=== PATIENT | male | born 1955 | race Caucasian/White ===

== ENCOUNTER → 2016-09-03 | Outpatient (REF) | payer MEDICARE, MEDICAID ==
[~2016-09-03] MED LIST: /LAMO20TA PO; /METH500TA PO; ASPI81CH PO; CORE6.25 PO; ERGO500014 PO; FOSI20TA2 PO; HYDR50TA2 PO; KEPP1000 PO; KEPPRA; LAMO200T PO; LEVE500T2 PO; MOBI15TA PO; PARO40TA PO; PAXI40TA PO; TYLE325T5 PO; VITA100T20 PO; XANA0.25 PO; ZOCO40TA PO; lamotrigine
[2016-09-03 13:50] LABS: BASO % 0.6 % (0.0-1.0); EOS # 0.2 K/mm3 (0.0-0.50); EOS % 4.4 % (0.0-3.0); LARGE UNSTAINED CELL # 0.1 K/mm3 (0.0-0.4); LARGE UNSTAINED CELL % 2.3 % (0.0-4.0); LYMPH # 0.7 K/mm3 (1.5-4.5); LYMPH % 20.4 % (24.0-44.0); MEAN CORPUSCULAR HEMOGLOBIN 27.2 pg (27.0-33.0); MEAN CORPUSCULAR HGB CONC 31.9 g/dl (32.0-36.5); MEAN CORPUSCULAR VOLUME 85.2 fl (80.0-96.0); MONO # 0.2 K/mm3 (0.0-0.8); NEUTROPHILS # 2.4 K/mm3 (1.8-7.7); NEUTROPHILS % 67.4 % (36.0-66.0); PLATELET COUNT, AUTOMATED 139 k/mm3 (150-450); RED CELL DISTRIBUTION WIDTH 13.4 % (11.5-14.5); WHITE BLOOD COUNT 3.6 K/mm3 (4.0-10.0)
[2016-09-03 14:10] LABS: ALBUMIN 3.7 GM/DL (3.2-5.2); ALBUMIN/GLOBULIN RATIO 1.32 (1.00-1.93); ALKALINE PHOSPHATASE 126 U/L (45-117); ALT/SGPT 30 U/L (12-78); ANION GAP 8 MEQ/L (8-16); AST/SGOT 29 U/L (15-37); BILIRUBIN,TOTAL 0.2 MG/DL (0.2-1.0); BLOOD UREA NITROGEN 7 MG/DL (7-18); CALCIUM LEVEL 8.5 MG/DL (8.8-10.2); CARBON DIOXIDE LEVEL 27 MEQ/L (21-32); CHLORIDE LEVEL 106 MEQ/L (98-107); CREATININE FOR GFR 0.99 MG/DL (0.70-1.30); GLOMERULAR FILTRATION RATE > 60.0 (>49); GLUCOSE, FASTING 87 MG/DL (80-110); POTASSIUM SERUM 4.4 MEQ/L (3.5-5.1); SODIUM LEVEL 141 MEQ/L (136-145); TOTAL PROTEIN 6.5 GM/DL (6.4-8.2)
[2016-09-03 14:28] LABS: FOLATE 5.2 NG/ML (>5.4); VITAMIN B12 LEVEL 423 PG/ML (247-911)
[2016-09-07 00:08] LABS: VITAMIN E LEVEL 7.5 mg/L (5.3-17.5)
== END ==
LOC: M LABNEURO 10:04
PROVIDERS: ATTEND Psychiatry & Neurology Neurology
DX: R56.9 Unspecified convulsions (principal); G60.9 Hereditary and idiopathic neuropathy, unspecified; G43.909 Migraine, unspecified, not intractable, without status migrainosus

== ENCOUNTER → 2017-02-17 | Outpatient (REF) | payer MEDICARE, MEDICAID ==
[~2017-02-17] MED LIST changes: -PARO40TA PO; +PARO40TA2 PO
[2017-02-17 15:20] LABS: BASO % 0.9 % (0.0-1.0); EOS # 0.2 K/mm3 (0.0-0.50); EOS % 4.8 % (0.0-3.0); LARGE UNSTAINED CELL # 0.1 K/mm3 (0.0-0.4); LARGE UNSTAINED CELL % 2.1 % (0.0-4.0); LYMPH # 1.3 K/mm3 (1.5-4.5); MEAN CORPUSCULAR HGB CONC 32.9 g/dl (32.0-36.5); MEAN CORPUSCULAR VOLUME 85.1 fl (80.0-96.0); MONO # 0.2 K/mm3 (0.0-0.8); MONO % 4.7 % (0.0-5.0); NEUTROPHILS # 2.6 K/mm3 (1.8-7.7); NEUTROPHILS % 59.5 % (36.0-66.0); PLATELET COUNT, AUTOMATED 203 k/mm3 (150-450); RED CELL DISTRIBUTION WIDTH 13.1 % (11.5-14.5); WHITE BLOOD COUNT 4.4 K/mm3 (4.0-10.0)
[2017-02-17 16:10] LABS: ALBUMIN 3.6 GM/DL (3.2-5.2); ALKALINE PHOSPHATASE 100 U/L (45-117); ALT/SGPT 27 U/L (12-78); ANION GAP 8 MEQ/L (8-16); AST/SGOT 21 U/L (15-37); BILIRUBIN,TOTAL 0.4 MG/DL (0.2-1.0); BLOOD UREA NITROGEN 12 MG/DL (7-18); CALCIUM LEVEL 8.4 MG/DL (8.8-10.2); CARBON DIOXIDE LEVEL 29 MEQ/L (21-32); CHLORIDE LEVEL 106 MEQ/L (98-107); CREATININE FOR GFR 1.01 MG/DL (0.70-1.30); GLOMERULAR FILTRATION RATE > 60.0 (>49); GLUCOSE, FASTING 75 MG/DL (80-110); POTASSIUM SERUM 4.7 MEQ/L (3.5-5.1); SODIUM LEVEL 143 MEQ/L (136-145); TOTAL PROTEIN 6.6 GM/DL (6.4-8.2)
== END ==
LOC: M LABNEURO 13:25
PROVIDERS: ATTEND Psychiatry & Neurology Neurology
DX: R56.9 Unspecified convulsions (principal)

== ENCOUNTER → 2017-03-10 | Outpatient (CLI) | payer MEDICARE, MEDICAID ==
--- NOTE | 2017-03-10 09:30 | REP ---
Chest two views HISTORY: Hypertension Comparison: 04/30/2014 Linear densities are present in the right middle lobe consistent with scarring. The left lung is clear. The heart is normal in size. The pulmonary vasculature is normal in appearance. There are old right rib fractures. IMPRESSION: Right middle lobe scarring. Signed by Mario Rodriguez MD 03/10/2017 09:22 A
[2017-03-10 10:06] LABS: ANION GAP 10 MEQ/L (8-16); BLOOD UREA NITROGEN 15 MG/DL (7-18); CALCIUM LEVEL 8.6 MG/DL (8.8-10.2); CARBON DIOXIDE LEVEL 29 MEQ/L (21-32); CHLORIDE LEVEL 105 MEQ/L (98-107); CREATININE FOR GFR 0.96 MG/DL (0.70-1.30); GLOMERULAR FILTRATION RATE > 60.0 (>49); GLUCOSE, FASTING 81 MG/DL (80-110); POTASSIUM SERUM 4.5 MEQ/L (3.5-5.1); SODIUM LEVEL 144 MEQ/L (136-145)
--- NOTE | 2017-03-10 15:04 | ECGEPIP ---
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 Electronically Signed On 03-10-2017 15:04:26 EDT by Mauricio García
== END ==
LOC: M LAB 07:57
PROVIDERS: ATTEND Ophthalmology
DX: H25.12 Age-related nuclear cataract, left eye (principal); E78.4 Other hyperlipidemia

== ENCOUNTER 2017-09-01 21:23 | Observation (INO) | payer MEDICARE, MEDICAID ==
[2017-09-01] MEDS: NS 1,000 ML IV ×2 (23:15)
[2017-09-01 23:40] LABS: BASO % 0.7 % (0.0-1.0); EOS # 0.2 10^3/uL (0.0-0.50); EOS % 3.6 % (0.0-3.0); HEMOGLOBIN 12.8 g/dl (14.0-18.0); IMMATURE GRANULOCYTE % 0.3 % (0-3.0); LYMPH # 1.7 10^3/uL (1.5-4.5); LYMPH % 28.1 % (24.0-44.0); MEAN CORPUSCULAR HEMOGLOBIN 27.6 pg (27.0-33.0); MEAN CORPUSCULAR VOLUME 86.2 fl (80.0-96.0); MONO # 0.4 10^3/uL (0.0-0.8); MONO % 6.8 % (0.0-5.0); NEUTROPHILS # 3.6 10^3/uL (1.8-7.7); NEUTROPHILS % 60.5 % (36.0-66.0); PLATELET COUNT, AUTOMATED 199 10^3/uL (150-450); RED BLOOD COUNT 4.64 10^6/uL (4.30-6.10); RED CELL DISTRIBUTION WIDTH 13.2 % (11.5-14.5); WHITE BLOOD COUNT 5.9 10^3/uL (4.0-10.0)
[2017-09-02 00:02] LABS: AMMONIA 18 uMOL/L (<32)
[2017-09-02 00:03] LABS: LACTIC ACID SEPSIS PROTOCOL 1.1 MMOL/L (0.4-2.0)
[2017-09-02 00:06] LABS: ALBUMIN 3.4 GM/DL (3.2-5.2); ALBUMIN/GLOBULIN RATIO 0.97 (1.00-1.93); ALKALINE PHOSPHATASE 98 U/L (45-117); ALT/SGPT 28 U/L (12-78); ANION GAP 6 MEQ/L (8-16); AST/SGOT 25 U/L (7-37); BILIRUBIN,DIRECT < 0.1 MG/DL (0.0-0.2); BILIRUBIN,TOTAL 0.3 MG/DL (0.2-1.0); BLOOD UREA NITROGEN 10 MG/DL (7-18); CALCIUM LEVEL 8.4 MG/DL (8.8-10.2); CARBON DIOXIDE LEVEL 29 MEQ/L (21-32); CHLORIDE LEVEL 105 MEQ/L (98-107); CPK CREATINE PHOSPHOKINASE 393 U/L (39-308); CREATININE FOR GFR 1.11 MG/DL (0.70-1.30); GLOMERULAR FILTRATION RATE > 60.0 (>49); GLUCOSE, FASTING 89 MG/DL (70-100); LIPASE 167 U/L (73-393); MAGNESIUM LEVEL 2.2 MG/DL (1.8-2.4); POTASSIUM SERUM 4.6 MEQ/L (3.5-5.1); SODIUM LEVEL 140 MEQ/L (136-145); TOTAL PROTEIN 6.9 GM/DL (6.4-8.2); TROPONIN I < 0.02 NG/ML (< 0.10)
[2017-09-02 00:11] LABS: CK-MB VALUE MASS 9.8 NG/ML (0.0-3.6); MB/CK RELATIVE INDEX 2.49 (< OR =4)
[2017-09-02] MEDS ORDERED: ACETAMINOPHEN TAB 650MG DOSE (2X325MG) PO ×2 (06:00)
[2017-09-02] MEDS ORDERED: KETOCONAZOLE 2% CREAM EXT ×2 (06:15)
[2017-09-02] MEDS ORDERED: TETRAHYDROZOLINE OPHTH 0.05% 15 ML BTL OU ×2 (06:15)
[2017-09-02] MEDS ORDERED: ASPIRIN ENTERIC 325 MG TAB PO ×2 (06:15)
[2017-09-02] MEDS: NS 1,000 ML IV ×4 (06:44→17:56)
[2017-09-02] MEDS: HEPARIN SOD (PORCINE) 5000 UNITS/ML VIAL SC ×6 (06:44→21:02)
[2017-09-02 07:29] LABS: HEMATOCRIT 38.4 % (42.0-52.0); HEMOGLOBIN 12.3 g/dl (14.0-18.0); MEAN CORPUSCULAR HEMOGLOBIN 27.5 pg (27.0-33.0); MEAN CORPUSCULAR VOLUME 85.7 fl (80.0-96.0); PLATELET COUNT, AUTOMATED 183 10^3/uL (150-450); RED BLOOD COUNT 4.48 10^6/uL (4.30-6.10); RED CELL DISTRIBUTION WIDTH 13.2 % (11.5-14.5); WHITE BLOOD COUNT 4.7 10^3/uL (4.0-10.0)
[2017-09-02 07:51] LABS: ALBUMIN 3.4 GM/DL (3.2-5.2); ALKALINE PHOSPHATASE 95 U/L (45-117); ALT/SGPT 29 U/L (12-78); ANION GAP 5 MEQ/L (8-16); AST/SGOT 44 U/L (7-37); BILIRUBIN,TOTAL 0.3 MG/DL (0.2-1.0); BLOOD UREA NITROGEN 12 MG/DL (7-18); CALCIUM LEVEL 8.1 MG/DL (8.8-10.2); CARBON DIOXIDE LEVEL 28 MEQ/L (21-32); CHLORIDE LEVEL 108 MEQ/L (98-107); CREATININE FOR GFR 1.11 MG/DL (0.70-1.30); GLOMERULAR FILTRATION RATE > 60.0 (>49); GLUCOSE, FASTING 91 MG/DL (70-100); MAGNESIUM LEVEL 2.2 MG/DL (1.8-2.4); POTASSIUM SERUM 4.4 MEQ/L (3.5-5.1); SODIUM LEVEL 141 MEQ/L (136-145); TOTAL PROTEIN 6.5 GM/DL (6.4-8.2)
[2017-09-02 10:08] LABS: VITAMIN B12 LEVEL 444 PG/ML
[2017-09-02] MEDS: lamoTRIgine 100MG TAB PO ×4 (10:29→21:02)
[2017-09-02] MEDS: CYANOCOBALAMIN 500 MCG TAB PO ×2 (10:30)
[2017-09-02] MEDS: levETIRAcetam 250MG TABLET (KEPPRA) PO ×4 (10:30→21:02)
[2017-09-02] MEDS: PARoxetine 20 MG TAB PO ×2 (10:31)
[2017-09-02] MEDS: CARVedilol 6.25 MG TAB PO ×4 (10:31→21:02)
[2017-09-02] MEDS: FOSINOPRIL 20 MG TAB PO ×2 (10:31)
[2017-09-02] MEDS ORDERED: MOM 30ML SUSPENSION UDC PO ×2 (11:00)
[2017-09-02] MEDS ORDERED: SENOKOT S TAB PO ×2 (11:00)
[2017-09-02] MEDS: PERCOCET 5MG/325MG TAB PO ×6 (11:17→23:36)
[2017-09-02] MEDS: LIDOCAINE 2% 5ML JELLY UROJET TOP ×2 (15:48)
[2017-09-02 19:21] LABS: KETONE, URINE AUTO RFX NEGATIVE (NEGATIVE); LEUKOCYTE ESTERASE UR AUTO RFX NEGATIVE (NEGATIVE); NITRITE, URINE AUTO RFX NEGATIVE (NEGATIVE); RBC, URINE AUTO RFX TNTC /HPF (0-3); SPECIFIC GRAVITY UR AUTO RFX 1.015 (1.002-1.035); SQUAM EPITHELIAL CELL UR AURFX 0 /HPF (0-6); WBC, URINE AUTO RFX 4 /HPF (0-3)
[2017-09-02] MEDS: CEFTRIAXONE SOD 1 GM in APPROPRIATE DILUENT 1 EA IV (19:46)
[2017-09-02] MEDS: SIMVASTATIN 40 MG TAB PO ×2 (21:02)
== END 2017-09-02 23:45 | disposition other institution (70) ==
LOC: M ED INP 09-02 14:55 → M MS4PR 09-02 14:55 → M ED 21:23
DX: R33.9 Retention of urine, unspecified (principal); S37.39XA Other injury of urethra, initial encounter; Y73.2 Prosthetic and other implants, materials and accessory gastroenterology and urology devices associated with adverse incidents; Y92.238 Other place in hospital as the place of occurrence of the external cause; R53.1 Weakness; Z91.81 History of falling; M51.37 Other intervertebral disc degeneration, lumbosacral region; D64.9 Anemia, unspecified; G40.909 Epilepsy, unspecified, not intractable, without status epilepticus; I10 Essential (primary) hypertension; E78.5 Hyperlipidemia, unspecified; R91.8 Other nonspecific abnormal finding of lung field; E53.8 Deficiency of other specified B group vitamins; R26.2 Difficulty in walking, not elsewhere classified; M50.021 Cervical disc disorder at C4-C5 level with myelopathy; M50.022 Cervical disc disorder at C5-C6 level with myelopathy; M50.023 Cervical disc disorder at C6-C7 level with myelopathy; M48.02 Spinal stenosis, cervical region; M48.062 Spinal stenosis, lumbar region with neurogenic claudication; N40.0 Benign prostatic hyperplasia without lower urinary tract symptoms; M51.34 Other intervertebral disc degeneration, thoracic region; G62.9 Polyneuropathy, unspecified; Z98.1 Arthrodesis status; Z79.899 Other long term (current) drug therapy; Z87.891 Personal history of nicotine dependence
CPT/HCPCS: 52281

== ENCOUNTER 2017-11-09 18:32 | Emergency (ER) | payer MEDICARE, MEDICAID ==
[2017-11-09] MEDS: NS 1,000 ML IV (19:00)
[2017-11-09 19:40] LABS: BASO # 0.1 10^3/uL (0.0-0.2); EOS # 0.3 10^3/uL (0.0-0.50); EOS % 4.1 % (0.0-3.0); HEMATOCRIT 37.5 % (42.0-52.0); IMMATURE GRANULOCYTE % 0.2 % (0-3.0); LYMPH # 1.6 10^3/uL (1.5-4.5); LYMPH % 26.4 % (24.0-44.0); MEAN CORPUSCULAR VOLUME 84.5 fl (80.0-96.0); MONO # 0.5 10^3/uL (0.0-0.8); MONO % 7.7 % (0.0-5.0); NEUTROPHILS # 3.7 10^3/uL (1.8-7.7); NEUTROPHILS % 60.6 % (36.0-66.0); PLATELET COUNT, AUTOMATED 181 10^3/uL (150-450); RED BLOOD COUNT 4.44 10^6/uL (4.30-6.10); RED CELL DISTRIBUTION WIDTH 13.2 % (11.5-14.5); WHITE BLOOD COUNT 6.1 10^3/uL (4.0-10.0)
[2017-11-09] MEDS: PERCOCET 5MG/325MG TAB PO (19:54)
[2017-11-09 20:03] LABS: AMMONIA 31 uMOL/L (<32)
[2017-11-09 20:10] LABS: ACETAMINOPHEN LEVEL < 2.0 UG/ML (10.0-30.0); ALBUMIN 3.6 GM/DL (3.2-5.2); ALBUMIN/GLOBULIN RATIO 1.44 (1.00-1.93); ALKALINE PHOSPHATASE 141 U/L (45-117); ALT/SGPT 21 U/L (12-78); ANION GAP 5 MEQ/L (8-16); AST/SGOT 23 U/L (7-37); BILIRUBIN,DIRECT < 0.1 MG/DL (0.0-0.2); BILIRUBIN,TOTAL 0.4 MG/DL (0.2-1.0); BLOOD UREA NITROGEN 9 MG/DL (7-18); CALCIUM LEVEL 7.9 MG/DL (8.8-10.2); CARBON DIOXIDE LEVEL 29 MEQ/L (21-32); CHLORIDE LEVEL 108 MEQ/L (98-107); GLOMERULAR FILTRATION RATE > 60.0 (>49); GLUCOSE, FASTING 85 MG/DL (70-100); POTASSIUM SERUM 4.3 MEQ/L (3.5-5.1); SALICYLATE LEVEL 1.9 MG/DL (5.0-30.0); SODIUM LEVEL 142 MEQ/L (136-145); TOTAL PROTEIN 6.1 GM/DL (6.4-8.2); TROPONIN I < 0.02 NG/ML (< 0.10)
[2017-11-09 20:14] LABS: CK-MB VALUE MASS 8.6 NG/ML (<3.6); ETHYL ALCOHOL (ETHANOL) < 0.003 % (0.000-0.010); MB/CK RELATIVE INDEX 2.52 (< OR =4)
[2017-11-09 20:15] LABS: CPK CREATINE PHOSPHOKINASE 341 U/L (39-308)
[2017-11-09] MEDS: levETIRAcetam 250MG TABLET (KEPPRA) PO (20:15)
[2017-11-09 23:46] LABS: BEDSIDE GLUCOSE 79 MG/DL (80-115)
[2017-11-12 14:15] LABS: LEVETIRACETAM (KEPPRA) 63.6 ug/mL (10.0-40.0)
[2017-11-12 14:15] LABS: LAMOTRIGINE (LAMICTAL) 12.7 ug/mL (2.0-20.0)
== END 2017-11-09 21:39 | disposition home or self-care (01) ==
LOC: M ED 18:32
DX: G40.309 Generalized idiopathic epilepsy and epileptic syndromes, not intractable, without status epilepticus (principal); M17.0 Bilateral primary osteoarthritis of knee; I10 Essential (primary) hypertension; Z87.891 Personal history of nicotine dependence; Z79.899 Other long term (current) drug therapy
CPT/HCPCS: 71045

== ENCOUNTER 2017-11-11 16:30 | Inpatient (IN) | payer MEDICARE, MEDICAID ==
[2017-11-11 19:34] LABS: BASO % 0.8 % (0.0-1.0); EOS # 0.3 10^3/uL (0.0-0.50); EOS % 5.1 % (0.0-3.0); HEMATOCRIT 38.1 % (42.0-52.0); HEMOGLOBIN 11.9 g/dl (13.5-17.5); IMMATURE GRANULOCYTE % 0.4 % (0-3.0); LYMPH # 1.8 10^3/uL (1.5-4.5); LYMPH % 37.2 % (24.0-44.0); MEAN CORPUSCULAR HEMOGLOBIN 26.8 pg (27.0-33.0); MEAN CORPUSCULAR HGB CONC 31.2 g/dl (32.0-36.5); MEAN CORPUSCULAR VOLUME 85.8 fl (80.0-96.0); MONO # 0.4 10^3/uL (0.0-0.8); MONO % 7.6 % (0.0-5.0); NEUTROPHILS # 2.4 10^3/uL (1.8-7.7); NEUTROPHILS % 48.9 % (36.0-66.0); PLATELET COUNT, AUTOMATED 170 10^3/uL (150-450); RED BLOOD COUNT 4.44 10^6/uL (4.30-6.10); RED CELL DISTRIBUTION WIDTH 13.2 % (11.5-14.5); WHITE BLOOD COUNT 4.9 10^3/uL (4.0-10.0)
[2017-11-11 20:03] LABS: ALBUMIN 3.5 GM/DL (3.2-5.2); ALBUMIN/GLOBULIN RATIO 1.21 (1.00-1.93); ALKALINE PHOSPHATASE 136 U/L (45-117); ALT/SGPT 20 U/L (12-78); ANION GAP 4 MEQ/L (8-16); AST/SGOT 27 U/L (7-37); BILIRUBIN,DIRECT < 0.1 MG/DL (0.0-0.2); BILIRUBIN,TOTAL 0.5 MG/DL (0.2-1.0); BLOOD UREA NITROGEN 12 MG/DL (7-18); CALCIUM LEVEL 8.3 MG/DL (8.8-10.2); CARBON DIOXIDE LEVEL 29 MEQ/L (21-32); CHLORIDE LEVEL 110 MEQ/L (98-107); CK-MB VALUE MASS 8.8 NG/ML (<3.6); CPK CREATINE PHOSPHOKINASE 394 U/L (39-308); CREATININE FOR GFR 0.99 MG/DL (0.70-1.30); GLOMERULAR FILTRATION RATE > 60.0 (>49); GLUCOSE, FASTING 76 MG/DL (70-100); MB/CK RELATIVE INDEX 2.23 (< OR =4); POTASSIUM SERUM 4.1 MEQ/L (3.5-5.1); SODIUM LEVEL 143 MEQ/L (136-145); TOTAL PROTEIN 6.4 GM/DL (6.4-8.2); TROPONIN I < 0.02 NG/ML (< 0.10)
[2017-11-11 20:07] LABS: INR 0.98; PROTHROMBIN TIME 13.1 SECONDS (12.4-14.5)
[2017-11-11 20:08] LABS: PARTIAL THROMBOPLASTIN TIME 30.5 SECONDS (26.8-37.9)
[2017-11-11 21:59] LABS: VITAMIN B12 LEVEL 624 PG/ML (247-911)
[2017-11-11] MEDS: MORPHINE 4 MG/ML 1ML VIAL/SYRINGE (J2270) IV (22:30)
[2017-11-11] MEDS ORDERED: ASPIRIN ENTERIC 325 MG TAB PO (22:45)
[2017-11-11] MEDS ORDERED: EXCEDRIN MIGRAINE TABLET PO (22:45)
[2017-11-11] MEDS ORDERED: KETOCONAZOLE 2% CREAM EXT (22:45)
[2017-11-11] MEDS ORDERED: ONDANSETRON 4 MG TAB (S0181) PO (23:30)
[2017-11-12] MEDS: GABAPENTIN 300 MG CAP PO ×4 (00:11→21:12)
[2017-11-12] MEDS: lamoTRIgine 100MG TAB PO ×3 (00:11→21:10)
[2017-11-12] MEDS: CARVedilol 6.25 MG TAB PO ×3 (00:12→21:11)
[2017-11-12] MEDS: PARoxetine 20 MG TAB PO ×2 (00:12→21:12)
[2017-11-12] MEDS: SIMVASTATIN 40 MG TAB PO ×2 (00:12→21:12)
[2017-11-12] MEDS: levETIRAcetam 250MG TABLET (KEPPRA) PO ×3 (00:13→21:12)
[2017-11-12] MEDS: KETOROLAC 30 MG/ML VIAL (J1885) IV ×4 (00:47→17:58)
[2017-11-12] MEDS: FAMOTIDINE 20 MG TAB PO ×3 (00:48→21:12)
[2017-11-12 06:01] LABS: HEMATOCRIT 37.1 % (42.0-52.0); HEMOGLOBIN 11.7 g/dl (13.5-17.5); MEAN CORPUSCULAR HEMOGLOBIN 26.8 pg (27.0-33.0); MEAN CORPUSCULAR HGB CONC 31.5 g/dl (32.0-36.5); MEAN CORPUSCULAR VOLUME 84.9 fl (80.0-96.0); PLATELET COUNT, AUTOMATED 166 10^3/uL (150-450); RED BLOOD COUNT 4.37 10^6/uL (4.30-6.10); RED CELL DISTRIBUTION WIDTH 13.2 % (11.5-14.5)
[2017-11-12 06:19] LABS: ANION GAP 6 MEQ/L (8-16); BLOOD UREA NITROGEN 12 MG/DL (7-18); CALCIUM LEVEL 8.4 MG/DL (8.8-10.2); CARBON DIOXIDE LEVEL 28 MEQ/L (21-32); CHLORIDE LEVEL 111 MEQ/L (98-107); CREATININE FOR GFR 0.88 MG/DL (0.70-1.30); GLOMERULAR FILTRATION RATE > 60.0 (>49); GLUCOSE, FASTING 71 MG/DL (70-100); POTASSIUM SERUM 3.9 MEQ/L (3.5-5.1); SODIUM LEVEL 145 MEQ/L (136-145)
[2017-11-12] MEDS: CYANOCOBALAMIN 500 MCG TAB PO (08:11)
[2017-11-12] MEDS: FOLIC ACID 1 MG TAB PO (08:12)
[2017-11-12] MEDS: FOSINOPRIL 10 MG TAB PO (08:12)
[2017-11-12] MEDS: ENOXAPARIN 40 MG/0.4 ML SYRINGE (J1650) SC (08:13)
[2017-11-12] MEDS: ACETAMINOPHEN TAB 650MG DOSE (2X325MG) PO (21:11)
[2017-11-13] MEDS: KETOROLAC 30 MG/ML VIAL (J1885) IV ×2 (00:59→05:39)
[2017-11-13] MEDS: ACETAMINOPHEN TAB 650MG DOSE (2X325MG) PO ×4 (03:54→22:25)
[2017-11-13 05:48] LABS: HEMATOCRIT 36.9 % (42.0-52.0); HEMOGLOBIN 11.6 g/dl (13.5-17.5); MEAN CORPUSCULAR HEMOGLOBIN 26.8 pg (27.0-33.0); MEAN CORPUSCULAR HGB CONC 31.4 g/dl (32.0-36.5); MEAN CORPUSCULAR VOLUME 85.2 fl (80.0-96.0); PLATELET COUNT, AUTOMATED 177 10^3/uL (150-450); RED BLOOD COUNT 4.33 10^6/uL (4.30-6.10); RED CELL DISTRIBUTION WIDTH 13.1 % (11.5-14.5); WHITE BLOOD COUNT 4.1 10^3/uL (4.0-10.0)
[2017-11-13 06:09] LABS: ANION GAP 3 MEQ/L (8-16); BLOOD UREA NITROGEN 14 MG/DL (7-18); CALCIUM LEVEL 8.6 MG/DL (8.8-10.2); CARBON DIOXIDE LEVEL 30 MEQ/L (21-32); CHLORIDE LEVEL 109 MEQ/L (98-107); CREATININE FOR GFR 1.16 MG/DL (0.70-1.30); GLOMERULAR FILTRATION RATE > 60.0 (>49); GLUCOSE, FASTING 98 MG/DL (70-100); POTASSIUM SERUM 4.1 MEQ/L (3.5-5.1); SODIUM LEVEL 142 MEQ/L (136-145)
[2017-11-13] MEDS: GABAPENTIN 300 MG CAP PO ×3 (09:49→22:26)
[2017-11-13] MEDS: levETIRAcetam 250MG TABLET (KEPPRA) PO ×2 (09:50→22:25)
[2017-11-13] MEDS: CARVedilol 6.25 MG TAB PO ×2 (09:50→22:27)
[2017-11-13] MEDS: CYANOCOBALAMIN 500 MCG TAB PO (09:51)
[2017-11-13] MEDS: FOLIC ACID 1 MG TAB PO (09:51)
[2017-11-13] MEDS: FAMOTIDINE 20 MG TAB PO ×2 (09:51→22:25)
[2017-11-13] MEDS: FOSINOPRIL 10 MG TAB PO (09:51)
[2017-11-13] MEDS: ENOXAPARIN 40 MG/0.4 ML SYRINGE (J1650) SC (09:52)
[2017-11-13] MEDS: lamoTRIgine 100MG TAB PO ×2 (10:05→22:26)
[2017-11-13] MEDS: PARoxetine 20 MG TAB PO (22:25)
[2017-11-13] MEDS: SIMVASTATIN 40 MG TAB PO (22:26)
[2017-11-14] MEDS: ACETAMINOPHEN TAB 650MG DOSE (2X325MG) PO (05:35)
[2017-11-14 05:36] LABS: HEMATOCRIT 35.3 % (42.0-52.0); HEMOGLOBIN 11.2 g/dl (13.5-17.5); MEAN CORPUSCULAR HEMOGLOBIN 26.8 pg (27.0-33.0); MEAN CORPUSCULAR HGB CONC 31.7 g/dl (32.0-36.5); MEAN CORPUSCULAR VOLUME 84.4 fl (80.0-96.0); PLATELET COUNT, AUTOMATED 175 10^3/uL (150-450); RED BLOOD COUNT 4.18 10^6/uL (4.30-6.10); RED CELL DISTRIBUTION WIDTH 13.1 % (11.5-14.5); WHITE BLOOD COUNT 3.4 10^3/uL (4.0-10.0)
[2017-11-14 05:55] LABS: ANION GAP 5 MEQ/L (8-16); BLOOD UREA NITROGEN 14 MG/DL (7-18); CALCIUM LEVEL 8.1 MG/DL (8.8-10.2); CARBON DIOXIDE LEVEL 28 MEQ/L (21-32); CHLORIDE LEVEL 111 MEQ/L (98-107); GLOMERULAR FILTRATION RATE > 60.0 (>49); GLUCOSE, FASTING 94 MG/DL (70-100); POTASSIUM SERUM 3.9 MEQ/L (3.5-5.1); SODIUM LEVEL 144 MEQ/L (136-145)
[2017-11-14] MEDS: GABAPENTIN 300 MG CAP PO ×3 (08:13→21:23)
[2017-11-14] MEDS: ENOXAPARIN 40 MG/0.4 ML SYRINGE (J1650) SC (08:13)
[2017-11-14] MEDS: CYANOCOBALAMIN 500 MCG TAB PO (08:13)
[2017-11-14] MEDS: lamoTRIgine 100MG TAB PO ×2 (08:13→21:23)
[2017-11-14] MEDS: FAMOTIDINE 20 MG TAB PO ×2 (08:13→21:23)
[2017-11-14] MEDS: FOLIC ACID 1 MG TAB PO (08:13)
[2017-11-14] MEDS: FOSINOPRIL 10 MG TAB PO (08:13)
[2017-11-14] MEDS: CARVedilol 6.25 MG TAB PO ×2 (08:14→21:24)
[2017-11-14] MEDS: levETIRAcetam 250MG TABLET (KEPPRA) PO ×2 (08:14→21:23)
[2017-11-14 10:15] LABS: LEVETIRACETAM (KEPPRA) 46.2 ug/mL (10.0-40.0)
[2017-11-14] MEDS: SIMVASTATIN 40 MG TAB PO (21:23)
[2017-11-14] MEDS: PARoxetine 20 MG TAB PO (21:24)
[2017-11-15 05:33] LABS: HEMATOCRIT 36.3 % (42.0-52.0); HEMOGLOBIN 11.6 g/dl (13.5-17.5); MEAN CORPUSCULAR HEMOGLOBIN 26.9 pg (27.0-33.0); MEAN CORPUSCULAR VOLUME 84.2 fl (80.0-96.0); PLATELET COUNT, AUTOMATED 166 10^3/uL (150-450); RED BLOOD COUNT 4.31 10^6/uL (4.30-6.10); WHITE BLOOD COUNT 3.7 10^3/uL (4.0-10.0)
[2017-11-15 05:50] LABS: ANION GAP 5 MEQ/L (8-16); BLOOD UREA NITROGEN 14 MG/DL (7-18); CALCIUM LEVEL 8.5 MG/DL (8.8-10.2); CARBON DIOXIDE LEVEL 29 MEQ/L (21-32); CHLORIDE LEVEL 112 MEQ/L (98-107); CREATININE FOR GFR 0.94 MG/DL (0.70-1.30); GLOMERULAR FILTRATION RATE > 60.0 (>49); GLUCOSE, FASTING 101 MG/DL (70-100); SODIUM LEVEL 146 MEQ/L (136-145)
[2017-11-15] MEDS: FAMOTIDINE 20 MG TAB PO ×2 (08:31→21:40)
[2017-11-15] MEDS: FOLIC ACID 1 MG TAB PO (08:31)
[2017-11-15] MEDS: levETIRAcetam 250MG TABLET (KEPPRA) PO ×2 (08:31→21:41)
[2017-11-15] MEDS: lamoTRIgine 100MG TAB PO ×2 (08:31→21:40)
[2017-11-15] MEDS: CARVedilol 6.25 MG TAB PO ×2 (08:31→21:41)
[2017-11-15] MEDS: CYANOCOBALAMIN 500 MCG TAB PO (08:32)
[2017-11-15] MEDS: ENOXAPARIN 40 MG/0.4 ML SYRINGE (J1650) SC (08:32)
[2017-11-15] MEDS: GABAPENTIN 300 MG CAP PO ×3 (08:32→21:40)
[2017-11-15] MEDS: FOSINOPRIL 10 MG TAB PO (08:32)
[2017-11-15] MEDS: ACETAMINOPHEN TAB 650MG DOSE (2X325MG) PO (11:35)
[2017-11-15] MEDS: PARoxetine 20 MG TAB PO (21:40)
[2017-11-15] MEDS: SIMVASTATIN 40 MG TAB PO (21:41)
[2017-11-16] MEDS: ACETAMINOPHEN TAB 650MG DOSE (2X325MG) PO ×2 (00:54→08:32)
[2017-11-16 06:19] LABS: HEMATOCRIT 35.7 % (42.0-52.0); HEMOGLOBIN 11.4 g/dl (13.5-17.5); MEAN CORPUSCULAR HEMOGLOBIN 27.1 pg (27.0-33.0); MEAN CORPUSCULAR HGB CONC 31.9 g/dl (32.0-36.5); MEAN CORPUSCULAR VOLUME 84.8 fl (80.0-96.0); PLATELET COUNT, AUTOMATED 173 10^3/uL (150-450); RED BLOOD COUNT 4.21 10^6/uL (4.30-6.10); RED CELL DISTRIBUTION WIDTH 13.1 % (11.5-14.5); WHITE BLOOD COUNT 4.2 10^3/uL (4.0-10.0)
[2017-11-16 06:55] LABS: ANION GAP 4 MEQ/L (8-16); BLOOD UREA NITROGEN 11 MG/DL (7-18); CALCIUM LEVEL 8.6 MG/DL (8.8-10.2); CARBON DIOXIDE LEVEL 30 MEQ/L (21-32); CHLORIDE LEVEL 111 MEQ/L (98-107); CREATININE FOR GFR 0.96 MG/DL (0.70-1.30); GLOMERULAR FILTRATION RATE > 60.0 (>49); GLUCOSE, FASTING 107 MG/DL (70-100); POTASSIUM SERUM 3.9 MEQ/L (3.5-5.1); SODIUM LEVEL 145 MEQ/L (136-145)
[2017-11-16] MEDS: GABAPENTIN 300 MG CAP PO ×3 (08:32→19:46)
[2017-11-16] MEDS: levETIRAcetam 250MG TABLET (KEPPRA) PO ×2 (08:32→19:46)
[2017-11-16] MEDS: CYANOCOBALAMIN 500 MCG TAB PO (08:32)
[2017-11-16] MEDS: lamoTRIgine 100MG TAB PO ×2 (08:32→19:46)
[2017-11-16] MEDS: FOSINOPRIL 10 MG TAB PO (08:33)
[2017-11-16] MEDS: FAMOTIDINE 20 MG TAB PO ×2 (08:33→19:46)
[2017-11-16] MEDS: ENOXAPARIN 40 MG/0.4 ML SYRINGE (J1650) SC (08:33)
[2017-11-16] MEDS: CARVedilol 6.25 MG TAB PO ×2 (08:33→19:46)
[2017-11-16] MEDS: FOLIC ACID 1 MG TAB PO (08:33)
[2017-11-16] MEDS: SIMVASTATIN 40 MG TAB PO (19:46)
[2017-11-16] MEDS: PARoxetine 20 MG TAB PO (19:47)
[2017-11-17 06:06] LABS: HEMATOCRIT 36.5 % (42.0-52.0); HEMOGLOBIN 11.7 g/dl (13.5-17.5); MEAN CORPUSCULAR HGB CONC 32.1 g/dl (32.0-36.5); MEAN CORPUSCULAR VOLUME 84.1 fl (80.0-96.0); PLATELET COUNT, AUTOMATED 176 10^3/uL (150-450); RED BLOOD COUNT 4.34 10^6/uL (4.30-6.10); RED CELL DISTRIBUTION WIDTH 12.9 % (11.5-14.5); WHITE BLOOD COUNT 4.2 10^3/uL (4.0-10.0)
[2017-11-17 06:22] LABS: ANION GAP 6 MEQ/L (8-16); BLOOD UREA NITROGEN 11 MG/DL (7-18); CALCIUM LEVEL 8.2 MG/DL (8.8-10.2); CARBON DIOXIDE LEVEL 28 MEQ/L (21-32); CHLORIDE LEVEL 110 MEQ/L (98-107); CREATININE FOR GFR 0.93 MG/DL (0.70-1.30); GLOMERULAR FILTRATION RATE > 60.0 (>49); GLUCOSE, FASTING 106 MG/DL (70-100); POTASSIUM SERUM 3.8 MEQ/L (3.5-5.1); SODIUM LEVEL 144 MEQ/L (136-145)
[2017-11-17] MEDS: ENOXAPARIN 40 MG/0.4 ML SYRINGE (J1650) SC (09:00)
[2017-11-17] MEDS: GABAPENTIN 300 MG CAP PO ×3 (09:53→21:37)
[2017-11-17] MEDS: FOLIC ACID 1 MG TAB PO (09:53)
[2017-11-17] MEDS: FAMOTIDINE 20 MG TAB PO ×2 (09:54→21:39)
[2017-11-17] MEDS: levETIRAcetam 250MG TABLET (KEPPRA) PO ×2 (09:54→21:38)
[2017-11-17] MEDS: lamoTRIgine 100MG TAB PO ×2 (09:54→21:38)
[2017-11-17] MEDS: CYANOCOBALAMIN 500 MCG TAB PO (09:54)
[2017-11-17] MEDS: CARVedilol 6.25 MG TAB PO ×2 (09:54→21:38)
[2017-11-17] MEDS: FOSINOPRIL 10 MG TAB PO (09:55)
[2017-11-17] MEDS: ACETAMINOPHEN TAB 650MG DOSE (2X325MG) PO (21:38)
[2017-11-17] MEDS: SIMVASTATIN 40 MG TAB PO (21:38)
[2017-11-17] MEDS: PARoxetine 20 MG TAB PO (21:38)
[2017-11-18 06:40] LABS: HEMATOCRIT 36.7 % (42.0-52.0); HEMOGLOBIN 11.8 g/dl (13.5-17.5); MEAN CORPUSCULAR HEMOGLOBIN 27.1 pg (27.0-33.0); MEAN CORPUSCULAR HGB CONC 32.2 g/dl (32.0-36.5); MEAN CORPUSCULAR VOLUME 84.4 fl (80.0-96.0); PLATELET COUNT, AUTOMATED 193 10^3/uL (150-450); RED BLOOD COUNT 4.35 10^6/uL (4.30-6.10); RED CELL DISTRIBUTION WIDTH 12.9 % (11.5-14.5)
[2017-11-18 06:47] LABS: ANION GAP 5 MEQ/L (8-16); BLOOD UREA NITROGEN 10 MG/DL (7-18); CALCIUM LEVEL 8.5 MG/DL (8.8-10.2); CARBON DIOXIDE LEVEL 30 MEQ/L (21-32); CHLORIDE LEVEL 110 MEQ/L (98-107); CREATININE FOR GFR 0.85 MG/DL (0.70-1.30); GLOMERULAR FILTRATION RATE > 60.0 (>49); GLUCOSE, FASTING 99 MG/DL (70-100); POTASSIUM SERUM 3.9 MEQ/L (3.5-5.1); SODIUM LEVEL 145 MEQ/L (136-145)
[2017-11-18] MEDS: GABAPENTIN 300 MG CAP PO ×3 (09:55→20:48)
[2017-11-18] MEDS: CARVedilol 6.25 MG TAB PO ×2 (09:55→20:50)
[2017-11-18] MEDS: FOLIC ACID 1 MG TAB PO (09:55)
[2017-11-18] MEDS: FAMOTIDINE 20 MG TAB PO ×2 (09:55→20:48)
[2017-11-18] MEDS: CYANOCOBALAMIN 500 MCG TAB PO (09:56)
[2017-11-18] MEDS: lamoTRIgine 100MG TAB PO ×2 (09:56→20:48)
[2017-11-18] MEDS: FOSINOPRIL 10 MG TAB PO (09:56)
[2017-11-18] MEDS: levETIRAcetam 250MG TABLET (KEPPRA) PO ×2 (09:56→20:48)
[2017-11-18] MEDS: ENOXAPARIN 40 MG/0.4 ML SYRINGE (J1650) SC (09:56)
[2017-11-18] MEDS: PARoxetine 20 MG TAB PO (20:47)
[2017-11-18] MEDS: SIMVASTATIN 40 MG TAB PO (20:48)
[2017-11-19] MEDS: ACETAMINOPHEN TAB 650MG DOSE (2X325MG) PO (09:20)
[2017-11-19] MEDS: GABAPENTIN 300 MG CAP PO (09:21)
[2017-11-19] MEDS: FOSINOPRIL 10 MG TAB PO (09:21)
[2017-11-19] MEDS: CARVedilol 6.25 MG TAB PO (09:21)
[2017-11-19] MEDS: FOLIC ACID 1 MG TAB PO (09:21)
[2017-11-19] MEDS: lamoTRIgine 100MG TAB PO (09:22)
[2017-11-19] MEDS: CYANOCOBALAMIN 500 MCG TAB PO (09:22)
[2017-11-19] MEDS: levETIRAcetam 250MG TABLET (KEPPRA) PO (09:22)
[2017-11-19] MEDS: FAMOTIDINE 20 MG TAB PO (09:22)
[2017-11-19] MEDS: ENOXAPARIN 40 MG/0.4 ML SYRINGE (J1650) SC (09:23)
== END 2017-11-19 13:25 | DRG 552 ==
LOC: M ED INP 11-12 00:46 → M MS5PR 11-12 01:51 → M ED 16:30 → M MS5PR 11-12 13:03
DX: M50.31 Other cervical disc degeneration, high cervical region (principal); M50.321 Other cervical disc degeneration at C4-C5 level; M50.323 Other cervical disc degeneration at C6-C7 level; M50.33 Other cervical disc degeneration, cervicothoracic region; M17.0 Bilateral primary osteoarthritis of knee; E53.8 Deficiency of other specified B group vitamins; I10 Essential (primary) hypertension; R29.6 Repeated falls; F32.9 Major depressive disorder, single episode, unspecified; N40.0 Benign prostatic hyperplasia without lower urinary tract symptoms; G40.309 Generalized idiopathic epilepsy and epileptic syndromes, not intractable, without status epilepticus; E78.5 Hyperlipidemia, unspecified; Z79.899 Other long term (current) drug therapy; Z87.891 Personal history of nicotine dependence; Z98.41 Cataract extraction status, right eye; Z98.42 Cataract extraction status, left eye; Z98.1 Arthrodesis status

== ENCOUNTER → 2017-11-26 | Outpatient (REF) ==
[2017-11-26 14:55] LABS: ANION GAP 6 MEQ/L (8-16); BLOOD UREA NITROGEN 11 MG/DL (7-18); CALCIUM LEVEL 8.6 MG/DL (8.8-10.2); CARBON DIOXIDE LEVEL 27 MEQ/L (21-32); CHLORIDE LEVEL 108 MEQ/L (98-107); CREATININE FOR GFR 1.13 MG/DL (0.70-1.30); GLOMERULAR FILTRATION RATE > 60.0 (>49); GLUCOSE, FASTING 142 MG/DL (70-100); POTASSIUM SERUM 4.1 MEQ/L (3.5-5.1); SODIUM LEVEL 141 MEQ/L (136-145)
== END ==
LOC: SKLAB4 12:02
DX: R29.6 Repeated falls (principal); R42 Dizziness and giddiness

== ENCOUNTER → 2017-11-26 | Outpatient (CLI) | payer MEDICARE, MEDICAID | LOC: M RAD 12:34 | DX: R42 Dizziness and giddiness (principal) | CPT/HCPCS: 70450 ==

== ENCOUNTER → 2017-12-29 | Outpatient (REF) ==
[2017-12-31 14:12] LABS: LAMOTRIGINE (LAMICTAL) 10.1 ug/mL (2.0-20.0)
[2017-12-31 14:12] LABS: LEVETIRACETAM (KEPPRA) 61.7 ug/mL (10.0-40.0)
== END ==
LOC: SKLAB4 07:16
DX: Z51.81 Encounter for therapeutic drug level monitoring (principal); Z79.899 Other long term (current) drug therapy

== ENCOUNTER → 2018-01-01 | Outpatient (REF) | payer MEDICARE, MEDICAID ==
[2018-01-06 00:07] LABS: LEVETIRACETAM (KEPPRA) 58.3 ug/mL (10.0-40.0)
[2018-01-06 00:07] LABS: LAMOTRIGINE (LAMICTAL) 11.5 ug/mL (2.0-20.0)
== END ==
LOC: M LAB REF 12:22
DX: G40.301 Generalized idiopathic epilepsy and epileptic syndromes, not intractable, with status epilepticus (principal)
CPT/HCPCS: 80175

== ENCOUNTER 2018-08-02 12:01 | Inpatient (IN) | payer MEDICARE, MEDICAID ==
[~2018-08-02] VITALS: Ht 177.8 cm; Wt 95.1 kg
[~2018-08-02 12:01] MED LIST changes: +ASPI-222 PO; +B-1210009 PO; +EXCETAB81 PO; +FAMO20TA PO; +FOLI1TAB11 PO; +FOSI10TA2 PO; +GABA-843 PO; +KEPP1TAB PO; +KETO2CR TOP; +NAPR1TAB86 PO; +VISI0.054 OU
[2018-08-02] MEDS ORDERED: ASPI81TA85 PO (12:40)
[2018-08-02] MEDS ORDERED: TETANUS/DIPHTHERIA TOX ADSORB ADULT 0.5ML SYR/VIAL (90714) IM ONE (12:45)
[2018-08-02 13:09] LABS: BASO % 0.4 % (0.0-1.0); EOS # 0.1 10^3/uL (0.0-0.50); EOS % 1.6 % (0.0-3.0); HEMATOCRIT 44.6 % (42.0-52.0); HEMOGLOBIN 14.5 g/dl (13.5-17.5); LYMPH # 1.5 10^3/uL (1.5-4.5); LYMPH % 19.4 % (24.0-44.0); MEAN CORPUSCULAR HEMOGLOBIN 27.1 pg (27.0-33.0); MEAN CORPUSCULAR HGB CONC 32.5 g/dl (32.0-36.5); MEAN CORPUSCULAR VOLUME 83.4 fl (80.0-96.0); MONO # 0.4 10^3/uL (0.0-0.8); MONO % 5.7 % (0.0-5.0); NEUTROPHILS # 5.6 10^3/uL (1.8-7.7); NEUTROPHILS % 72.6 % (36.0-66.0); PLATELET COUNT, AUTOMATED 190 10^3/uL (150-450); RED BLOOD COUNT 5.35 10^6/uL (4.30-6.10); WHITE BLOOD COUNT 7.7 10^3/uL (4.0-10.0)
--- NOTE | 2018-08-02 13:29 | REP ---
CT BRAIN WITHOUT CONTRAST: 08/02/2018. Comparison: 11/26/2017, 11/09/2017. Clinical history: Altered mental status. Findings: Noncontrast soft tissue and bone windows are reviewed for each slice level. Lateral ventricles are midline symmetric and without dilatation or displacement. Basal ganglia were symmetric and unchanged. There is no intra or extra-axial hemorrhage, mass, mass effect or edema. Cortical stripe preserved. No extra-axial fluid collection. Posterior fossa shows the brainstem and cerebellum grossly intact. Basal cisterns intact. Mastoids, sinuses, skull base and calvarium show no evidence of any acute bony finding. There are some minor calcifications in the carotid siphons bilaterally. Impression: 1. No intracranial hemorrhage, acute infarct, edema, mass or mass effect. Stable exam from multiple priors, most recently 11/26/2017. 2. Minor atherosclerotic calcifications in the carotid siphons. Sinuses, mastoids, skull base and calvarium intact. Electronically Signed by Angel Contreras MD 08/02/2018 04:35 P
--- NOTE | 2018-08-02 13:34 | REP ---
AP SEATED CHEST: 08/02/2018. Comparison: 11/09/2017. Clinical history: Altered mental status. Findings: Lungs are well inflated. There are old post-traumatic changes in the right hemithorax from previous rib fractures and appearance not changed from the previous chest x-ray last year. Some minor linear fibrotic change and right cardiophrenic angle but no effusion or acute infiltrate. The heart is not enlarged. Aorta and airway intact. The bones show old post-traumatic changes in the lateral left clavicle as well as those ribs described above. No acute bony finding. Cervical a plate and screws from prior fusion again seen. Impression: 1. There is no infiltrate, effusion, cardiomegaly, edema, atelectasis or mass. Stable from prior chest x-ray 11/09/2017. 2. Old post-traumatic changes from rib fractures healed and remodeled right hemithorax and prior cervical fusion. Post-traumatic changes lateral left clavicle also noted. Electronically Signed by Angel Contreras MD 08/02/2018 04:36 P
[2018-08-02] MEDS ORDERED: CARV6.25 PO (13:51)
[2018-08-02] MEDS ORDERED: FAMO40TA3 PO (13:51)
[2018-08-02] MEDS ORDERED: GABA-845 PO (13:51)
[2018-08-02] MEDS ORDERED: LAMO200T2 PO (13:55)
[2018-08-02] MEDS ORDERED: MECL12.575 PO (13:55)
[2018-08-02] MEDS ORDERED: SIMV40TA2 PO (13:55)
[2018-08-02] MEDS ORDERED: KEPP1TAB2 PO (13:55)
[2018-08-02 14:32] LABS: ACETAMINOPHEN LEVEL < 2.0 UG/ML (10.0-30.0); ALBUMIN 3.6 GM/DL (3.2-5.2); ALT/SGPT 55 U/L (12-78); BILIRUBIN,DIRECT 0.1 MG/DL (0.0-0.2); BILIRUBIN,TOTAL 0.3 MG/DL (0.2-1.0); BLOOD UREA NITROGEN 11 MG/DL (7-18); CALCIUM LEVEL 8.6 MG/DL (8.8-10.2); CARBON DIOXIDE LEVEL 24 MEQ/L (21-32); CHLORIDE LEVEL 106 MEQ/L (98-107); CPK CREATINE PHOSPHOKINASE 24940 U/L (39-308); CREATININE FOR GFR 1.07 MG/DL (0.70-1.30); ETHYL ALCOHOL (ETHANOL) 0.003 % (0.000-0.010); GLOMERULAR FILTRATION RATE > 60.0 (>49); GLUCOSE, FASTING 79 MG/DL (70-100); MB/CK RELATIVE INDEX 0.09 (< OR =4); POTASSIUM SERUM 4.3 MEQ/L (3.5-5.1); SALICYLATE LEVEL 5.5 MG/DL (5.0-30.0); SODIUM LEVEL 140 MEQ/L (136-145); TOTAL PROTEIN 6.6 GM/DL (6.4-8.2)
[2018-08-02] MEDS ORDERED: NS 1,000 ML IV ONE (14:45)
[2018-08-02] MEDS ORDERED: MECLIZINE 12.5 MG TAB PO PRN (15:15)
[2018-08-02 16:37] LABS: AMPHETAMINES LEVEL URINE NEGATIVE (NEGATIVE); BARBITURATES URINE NEGATIVE (NEGATIVE); BENZODIAZEPINES URINE NEGATIVE (NEGATIVE); CANNABINOIDS URINE NEGATIVE (NEGATIVE); COCAINE METABOLITE URINE NEGATIVE (NEGATIVE); METHADONE URINE NEGATIVE (NEGATIVE); OPIATES URINE NEGATIVE (NEGATIVE); PHENCYCLIDINE URINE NEGATIVE (NEGATIVE)
[2018-08-02 17:22] VITALS: BP 150/94
[2018-08-02] MEDS: GABAPENTIN 400 MG CAP PO SCH ×2 (17:25→20:24)
[2018-08-02] MEDS: NS 1,000 ML IV SCH (17:25)
--- NOTE | 2018-08-02 18:58 | ECGEPIP ---
Stationary ECG Study [facility] - ED Test Date: 2018-08-02 Pat Name: RAYA CAM Department: Room: - Gender: M Barkeep: ct : 1955 Requested By: Tomás De La O Order Number: [id number] Reading MD: Tomás De La O Measurements Intervals [place] Rate: 83 P: 34 [place]: 185 QRS: -63 QRSD: 116 T: 65 QT: 384 QTc: 452 Interpretive Statements SINUS RHYTHM MARKED LEFT AXIS DEVIATION ANTEROSEPTAL MYOCARDIAL INFARCTION, OF INDETERMINATE AGE LATERAL ST DEPRESSION PROLONGED QTC CLINICAL CORRELATION ADVISED CW 11/11/[address] T WAVE CHANGES Electronically Signed On 08-02-2018 18:58:26 EST by Tomás De La O
[2018-08-02 20:00] VITALS: BP 121/80
[2018-08-02 20:10] LABS: MB/CK RELATIVE INDEX 0.1 (< OR =4); TROPONIN I 1.03 NG/ML (< 0.10)
[2018-08-02] MEDS: levETIRAcetam 250MG TABLET (KEPPRA) PO SCH (20:22)
[2018-08-02] MEDS: CARVedilol 6.25 MG TAB PO SCH (20:23)
[2018-08-02] MEDS: SIMVASTATIN 40 MG TAB PO SCH (20:24)
[2018-08-02] MEDS: lamoTRIgine 100MG TAB PO SCH (20:24)
[2018-08-02] MEDS: PARoxetine 20 MG TAB PO SCH (20:24)
[2018-08-02] MEDS: MORPHINE 4 MG/ML 1ML VIAL/SYRINGE (J2270) IV PRN (20:27)
[2018-08-02] MEDS ORDERED: HEPARIN SOD (PORCINE) 5000 UNITS/ML VIAL SQ SCH (22:00)
[2018-08-03] VITALS (13 sets, daily range): BP systolic 105–138; BP diastolic 64–85; O2SAT 90–94
[2018-08-03] MEDS: NS 1,000 ML IV SCH ×5 (01:01→18:42)
--- NOTE | 2018-08-03 02:07 | IPNPDOC ---
Text Note Date of Service The patient was seen on 08/03/18. NOTE called by nurse at 2 am for bladder scan showing 700cc and pt being unable to void, will attempt to place coude tip catheter. will also start pt on flomax also informed about increase in Trop 0.9> 1. 03. This is likely 2/2 type II NSTEMI: demand ischemia. will continue to trend trops, ekg, tele, echo for am to r/o ACS. will also get baseline coags and start patient on Lovenox. pt is already on ASA Results discussed with pt, case reviewed, pt was admitted 08/02/18 with rhabdo and ball bite after mechanical fall and remaining down for unknown period of time VS,Brandte, I+O VS, Darianbone, I+O Laboratory Tests 08/02/18 12:56 Red Blood Count 5.35, Mean Corpuscular Volume 83.4, Mean Corpuscular Hemoglobin 27.1, Mean Corpuscular Hemoglobin Concent 32.5, Red Cell Distribution Width 13.3, Neutrophils (%) (Auto) 72.6 H, Lymphocytes (%) (Auto) 19.4 L, Monocytes (%) (Auto) 5.7 H, Eosinophils (%) (Auto) 1.6, Basophils (%) (Auto) 0.4, Neutrophils # (Auto) 5.6, Lymphocytes # (Auto) 1.5, Monocytes # (Auto) 0.4, Eosinophils # (Auto) 0.1, Basophils # (Auto) 0.0 Vital Signs Date Time Temp Pulse Resp B/P (MAP) Pulse Ox O2 Delivery O2 Flow Rate FiO2 08/02/18 20:37 20 08/02/18 20:23 80 121/80 08/02/18 20:00 99.5 97 Room Air I&O- Last 24 Hours up to 6 AM 08/03/18 06:00 Intake Total 0 ml Output Total 0 ml Balance 0 ml FRIDAY,FARNAZ QUINN Aug 03, 2018 02:07
[2018-08-03 02:43] LABS: INR 0.95; PROTHROMBIN TIME 12.8 SECONDS (12.1-14.4)
[2018-08-03 02:44] LABS: PARTIAL THROMBOPLASTIN TIME 30.8 SECONDS (25.4-37.6)
[2018-08-03] MEDS ORDERED: LIDOCAINE 1% MDV 20ML VIAL As Ordered ONE (03:29)
[2018-08-03] MEDS ORDERED: NS 1,000 ML IV ONE (05:15)
[2018-08-03 05:35] LABS: BASO % 0.5 % (0.0-1.0); EOS # 0.1 10^3/uL (0.0-0.50); EOS % 1.8 % (0.0-3.0); HEMATOCRIT 38.5 % (42.0-52.0); LYMPH # 2.3 10^3/uL (1.5-4.5); LYMPH % 37.3 % (24.0-44.0); MEAN CORPUSCULAR HEMOGLOBIN 26.7 pg (27.0-33.0); MEAN CORPUSCULAR HGB CONC 32.2 g/dl (32.0-36.5); MEAN CORPUSCULAR VOLUME 82.8 fl (80.0-96.0); MONO # 0.4 10^3/uL (0.0-0.8); MONO % 6.5 % (0.0-5.0); NEUTROPHILS # 3.4 10^3/uL (1.8-7.7); NEUTROPHILS % 53.6 % (36.0-66.0); PLATELET COUNT, AUTOMATED 164 10^3/uL (150-450); RED BLOOD COUNT 4.65 10^6/uL (4.30-6.10); WHITE BLOOD COUNT 6.3 10^3/uL (4.0-10.0)
[2018-08-03 05:42] LABS: HEMOGLOBIN 12.4 g/dl (13.5-17.5)
[2018-08-03 05:54] LABS: BLOOD UREA NITROGEN 12 MG/DL (7-18); CALCIUM LEVEL 7.7 MG/DL (8.8-10.2); CARBON DIOXIDE LEVEL 28 MEQ/L (21-32); CHLORIDE LEVEL 108 MEQ/L (98-107); CREATININE FOR GFR 1.05 MG/DL (0.70-1.30); GLOMERULAR FILTRATION RATE > 60.0 (>49); GLUCOSE, FASTING 76 MG/DL (70-100); SODIUM LEVEL 141 MEQ/L (136-145)
[2018-08-03] MEDS ORDERED: ENOXAPARIN 100MG/1ML SYRINGE (J1650) SC SCH (06:00)
[2018-08-03 07:40] LABS: ALT/SGPT 57 U/L (12-78); BILIRUBIN,DIRECT 0.1 MG/DL (0.0-0.2); BILIRUBIN,TOTAL 0.4 MG/DL (0.2-1.0); TOTAL PROTEIN 5.9 GM/DL (6.4-8.2)
[2018-08-03] MEDS: MORPHINE 4 MG/ML 1ML VIAL/SYRINGE (J2270) IV PRN (07:56)
[2018-08-03] MEDS ORDERED: CALCIUM GLUCONATE 1,000 MG in D5W MINI-BAG PLUS 100 ML IV ONE (08:00)
--- NOTE | 2018-08-03 08:46 | HPE ---
DATE OF ADMISSION: 08/02/2018 62-year-old male with past medical history of seizure disorder, hypertension, hyperlipidemia, benign prostatic hypertrophy (BPH) who presents to the emergency room after being found by his brother outside their house passed out. He immediately brought him inside and he awoke and emergency medical services (EMS) was called and the patient was brought to the ER for evaluation. In the ER, the patient was noted to have significant frostbite in his bilateral upper extremities, particularly his hands and particularly the distal interphalangeal (DIP) joint area. Dr. Rosas called the chief of the burn clinic at [facility], Dr. Quiles, who recommended bacitracin with Adaptic daily, and to follow him up as an outpatient. The patient denied any prodromal symptoms such as chest pain, shortness of breath, palpitations, he just remembers going out to get the paper and the next he remembers he was back inside his house. He does have a feeling sensation, particularly pain in his fingers. He has never had similar symptoms in the past. He was started on IV fluids due to acute rhabdomyolysis which was found incidentally on labs. He will be admitted for further management. PAST MEDICAL HISTORY: Seizure disorder. Hypertension. Hyperlipidemia. Benign pulmonary nodules. BPH. Vitamin B12 deficiency. History of degenerative joint disease (DJD). PAST SURGICAL HISTORY: Bilateral cataract repair. History of bilateral knee replacement. C-spine fusion. ALLERGIES: He has no known drug allergies. FAMILY HISTORY: Negative for early coronary artery disease. SOCIAL HISTORY: Patient used to be a 20 pack year smoker, quit approximately 30 years ago. He denies alcohol or illicit drugs. HOME MEDICATIONS: - aspirin 81 mg orally daily - Coreg 6.25 mg orally twice daily - Excedrin two tablets orally twice daily as needed - famotidine 40 mg orally daily - folic acid 1 mg orally daily - fosinopril 10 mg orally daily - gabapentin 400 mg orally three times a day - ketoconazole apply to rash twice a day as needed - lamotrigine 200 mg orally twice daily - Keppra 750 mg orally twice daily - meclizine 12.5 orally three times a day as needed - naproxen 500 mg orally twice daily as needed - paroxetine 40 mg orally at bedtime - simvastatin 40 mg orally at bedtime REVIEW OF SYSTEMS: Negative in all 10 major systems except what is mentioned in the history of present illness. Vitals: Blood pressure is 128/84, heart rate is 85 and regular, respiratory rate is 17, temperature 96.7, oxygen saturation is 94% on room air. Head is atraumatic, normocephalic. Neck supple, no jugular venous distention (JVD). Lungs are clear to auscultation. S1 and S2 audible, no murmurs appreciated. Abdomen soft, positive bowel sounds. No pedal edema. Skin examination multiple blisters noted in the DIP area of a majority of his joints in both hands. No skin breakage. Neurologic examination: Patient awake, alert and oriented times three. LABS: WBC 7.7, hemoglobin 14.5, hematocrit 44.6, platelets 190,000. Sodium 140, potassium 4.3, chloride 106, CO2 24, anion gap 10, BUN 11, creatinine 1.07, lactic acid 1.7, AST is 233, ALT if 55, troponin is 0.90, creatinine kinase is 24,940. TSH is 1.28. Urine toxicology screen was negative for alcohol. 12 leak EKG shows normal sinus rhythm and no acute STT abnormalities. IMPRESSION: 1. Syncope. 2. Second degree frostbite of both hands. 3. Acute rhabdomyolysis. PLAN: Patient is to be admitted to the PCU. Will continue telemonitoring for the patient. Will get an echocardiogram in the morning. Will get a second troponin to rule out acute coronary syndrome. We will also start him on normal saline at 150 mL/hour and will repeat his creatinine kinase at 10 o'clock this evening to see what the trends are. For now, his renal function is intact. Will hold off on his NSAIDs and continue the rest of his preadmission medications and continue his care in the PCU. Will also apply the bacitracin with Adaptic daily as prescribed by Dr. Quiles from the burn clinic at [facility].
[2018-08-03] MEDS ORDERED: CLOPIDOGREL 75 MG TAB PO ONE (09:00)
[2018-08-03] MEDS ORDERED: FLUBLOK(EGG FREE)(QUAD)INFLUENZA VACC 0.5ML SYRINGE (90682)18YRS&OLDER IM ONE (09:00)
[2018-08-03] MEDS: SENOKOT S TAB PO SCH ×2 (09:00→21:41)
[2018-08-03] MEDS: PERCOCET 5MG/325MG TAB PO PRN (09:31)
[2018-08-03] MEDS: FOSINOPRIL 10 MG TAB PO SCH (10:28)
[2018-08-03] MEDS: ASPIRIN 81 MG ENTERIC TAB PO SCH (10:29)
[2018-08-03] MEDS: levETIRAcetam 250MG TABLET (KEPPRA) PO SCH ×2 (10:29→21:40)
[2018-08-03] MEDS: GABAPENTIN 400 MG CAP PO SCH ×3 (10:30→21:40)
[2018-08-03] MEDS: FOLIC ACID 1 MG TAB PO SCH (10:30)
[2018-08-03] MEDS: FAMOTIDINE 20 MG TAB PO SCH (10:30)
[2018-08-03] MEDS: lamoTRIgine 100MG TAB PO SCH ×2 (10:30→21:39)
[2018-08-03] MEDS: TAMSULOSIN 0.4 MG CAP PO SCH (10:31)
[2018-08-03] MEDS: CARVedilol 6.25 MG TAB PO SCH ×2 (10:31→21:40)
--- NOTE | 2018-08-03 10:35 | REP ---
CT ABDOMEN AND PELVIS WITHOUT CONTRAST: HISTORY: Abdomen pain. Status post suprapubic catheter placement. Comparison is made with imaging from PET CT study dated December 28, 2009. No other comparison study. FINDINGS: Preliminary digital haunted history tour guide radiograph demonstrates moderate stool in the colon. There is a granulomatous calcification in the lingula at the left lung base. There is another calcification with some adjacent fibrosis in the right middle lobe at the right lung base. There is heavy discoid atelectasis and/or fibrosis in the right lower lobe. These findings appear to be new since 2009. The liver and the spleen are normal in size homogeneous in texture. No adrenal lesion is seen on either side. Pancreas is unremarkable. No gallbladder abnormality is seen. There is no evidence of hydronephrosis on either side. The patient's suprapubic cystostomy catheter is seen terminating in the primary vesicle fat. The anterior wall of the bladder is indented however, the catheter is not within the urinary bladder. Sagittal images demonstrate the malpositioned cystostomy catheter tube. This indents the bladder dome. The urinary bladder is mildly distended. There is bladder wall thickening adjacent to the catheter anteriorly and superiorly in the urinary bladder. Prostate and seminal vesicles are unremarkable. There is mild left colonic diverticulosis. Small and large intestinal bowel loops are unremarkable. IMPRESSION: Malpositioned suprapubic cystostomy catheter in the prevesical fat. Mildly distended urinary bladder. No hydronephrosis. Electronically Signed by Rod Mcintosh MD 08/03/2018 10:42 A
--- NOTE | 2018-08-03 14:04 | SMCUROLCON ---
Urology Consultation General Date of Consultation 08/03/18 Reason For Consultation This patient is seen for Frostbite,Rhabdoyolysis. Urology was called in for inability to place a Roque catheter and patient unable to void with bladder distention and a PVR showing greater than 700 mL. History of Present Illness The patient is a 71-year-old gentleman with seizure disorder, high blood pressure, hyperlipidemia, and BPH who was found unresponsive outside of his house and brought to the ER for evaluation. He had significant frostbite in his bilateral upper extremities. Spittle he was unable to void and several attempts were made at placing a Roque catheter but they could not. I was called in emergently at 3 AM and I attempted to place a Roque catheter but also was unable to. I then tried placing wires and filiforms but was unable to get through a blockage. There was no flexible cystoscopy on the emergency urology cart and also because the patient was diagnosed with rhabdo I decided that the safest t mary was just to place a suprapubic catheter at the bedside. The patient denied any difficulty voiding prior to admission. He said that he had a weak stream in the morning but then it was fine for the rest of the day. He denied any significant intermittency or feeling of incomplete bladder emptying. He denied any significant nocturia, urgency, frequency, or urge incontinence. It no burning with urination or gross hematuria. He denied any discharge from the tip of the penis. He denies any history of known sexually transmitted diseases or significant urethral trauma. Past Medical History Medical History Seizure disorder High Blood pressure Hyperlipidemia Pulmonary nodules B-10 deficiency Degenerative joint disease History of BPH by the notes in the chart but he denies any prostate issues Surgical Hstory Bilateral cataract surgery Bilateral knee replacement C-spine fusion Family History Significant Family History: No pertinent family hx, Noncontributory Social History * Smoker: former Smoker Alcohol: Denies Drugs: denies Medications Current Medications Current Medications Aspirin (Ecotrin) 81 mg DAILY PO Last administered on 08/03/18at 10:29; Start 08/03/18 at 09:00 Carvedilol (COReg) 6.25 mg BID PO Last administered on 08/03/18at 10:31; Start 08/02/18 at 21:00 Clopidogrel Bisulfate (PLAVix) 75 mg DAILY PO ; Start 08/04/18 at 09:00 Enoxaparin Sodium (Lovenox) 40 mg DAILY SC ; Start 08/04/18 at 09:00 Enoxaparin Sodium (Lovenox) 90 mg Q12H SC Last administered on 08/03/18at 05:38; Start 08/03/18 at 06:00; Stop 08/03/18 at 09:00; Status DC Famotidine (Pepcid) 40 mg DAILY PO Last administered on 08/03/18at 10:30; Start 08/03/18 at 09:00 Folic Acid (Folic Acid) 1 mg DAILY PO Last administered on 08/03/18at 10:30; Start 08/03/18 at 09:00 Fosinopril Sodium (Monopril) 10 mg DAILY PO Last administered on 08/03/18 10:28; Start 08/03/18 at 09:00 Gabapentin (Neurontin) 400 mg TID PO Last administered on 08/03/18at 10:30; Start 08/02/18 at 16:00 Heparin Sodium (Porcine) (Heparin) 5,000 units Q8H SQ Last administered on 08/02/18at 23:16; Start 08/02/18 at 22:00; Stop 08/03/18 at 02:03; Status DC Home Med (Med Rec Complete!) ASDIRECTED XX ; Start 08/02/18 at 14:00; Stop 08/02/18 at 14:00; Status DC Lamotrigine (LaMICtal) 200 mg BID PO Last administered on 08/03/18at 10:30; Start 08/02/18 at 21:00 Levetiracetam (Keppra) 750 mg BID PO Last administered on 08/03/18at 10:29; Start 08/02/18 at 21:00 Meclizine HCl (Antivert) 12.5 mg TID PRN PO VERTIGO/DIZZINESS; Start 08/02/18 at 15:15 Morphine Sulfate (Morphine Sulfate Inj) 2 mg Q4HP PRN IV PAIN Last administered on 08/03/18at 07:56; Start 08/02/18 at 19:00 Oxycodone/ Acetaminophen (Percocet 5mg/ 325mg Tablet) 1 tab Q6HP PRN PO MILD/MODERATE PAIN (PS 1-7) Last administered on 08/03/18at 09:31; Start 08/03/18 at 08:30 Oxycodone/ Acetaminophen (Percocet 5mg/ 325mg Tablet) 2 tab Q6HP PRN PO SEVERE PAIN (PS 8-10); Start 08/03/18 at 08:30 Paroxetine HCl (PAXil) 40 mg QHS PO Last administered on 08/02/18at 20:24; Start 08/02/18 at 21:00 Senna/Docusate Sodium (Senokot S) 1 tab BID PO ; Start 08/03/18 at 09:00 Simvastatin (Zocor) 40 mg QHS PO Last administered on 08/02/18at 20:24; Start at 21:00 Sodium Chloride 1,000 ml @ 200 mls/hr Q5H IV Last administered on 08/03/18at 13:29; Start 08/02/18 at 16:00 Tamsulosin HCl (Flomax) 0.4 mg DAILY PO Last administered on 08/03/18at 10:31; Start 08/03/18 at 09:00 Allergies Allergies: Coded Allergies: No Known Allergies (Verified , 07/02/04) Physical Examination General Exam: Alert, Cooperative, Mild Distress EYE EXAM: PERRLA, Conjunctiva & lids normal, EOMI ENT EXAM: Atraumatic Neck Exam: Supple Chest Exam: Clear to auscultation, Normal air movement Heart Exam: Rate Normal Abdomen Exam: Normal Bowel Sounds, Tenderness, Other (Distented suprapubic area with tenderness) Extremity Exam: Other (Hands frostbit and with dressing) Skin Exam: Other skin issue (Frostbite as above) Vital Signs/I&O Vital Signs Date Time Temp Pulse Resp B/P (MAP) Pulse Ox O2 Delivery O2 Flow Rate FiO2 08/03/18 12:00 97.4 66 18 131/73 (92) 91 Room Air I&O- Last 24 Hours up to 6 AM 08/03/18 06:00 Intake Total 1725 ml Output Total 1125 ml Balance 600 ml Laboratory Data 24H Labs Laboratory Tests 2 08/02/18 16:05: Urine Amphetamines Screen NEGATIVE, Urine Benzodiazepines Screen NEGATIVE, Urine Opiates Screen NEGATIVE, Urine Methadone Screen NEGATIVE, Urine Barbiturates Screen NEGATIVE, Urine Phencyclidine Screen NEGATIVE, Urine Cocaine Metabolite S creen NEGATIVE, Urine Cannabinoids Screen NEGATIVE 08/02/18 18:52: Total Creatine Kinase 38964Q, Creatine Kinase MB 18.0H, Creatine Kinase MB Relative Index 0.10, Troponin I 1.03H 08/03/18 01:41: Total Creatine Kinase 53394M 08/03/18 02:15: Troponin I 0.75#H, Prothrombin Time 12.8, Prothromb Time International Ratio 0.95, Activated Partial Thromboplast Time 30.8 08/03/18 05:13: Immature Granulocyte % (Auto) 0.3, White Blood Count 6.3, Red Blood Count 4.65, Hemoglobin 12.4#L, Hematocrit 38.5L, Mean Corpuscular Volume 82.8, Mean Corpuscular Hemoglobin 26.7L, Mean Corpuscular Hemoglobin Concent 32.2, Red Cell Distribution Width 13.5, Platelet Count 164, Neutrophils (%) (Auto) 53.6, Lymphocytes (%) (Auto) 37.3, Monocytes (%) (Auto) 6.5H, Eosinophils (%) (Auto) 1.8, Basophils (%) (Auto) 0.5, Neutrophils # (Auto) 3.4, Lymphocytes # (Auto) 2.3, Monocytes # (Auto) 0.4, Eosinophils # (Auto) 0.1, Basophils # (Auto) 0.0, Nucleated Red Blood Cells % (auto) 0.0, Anion Gap 5L, Glomerular Filtration Rate > 60.0, Calcium Level 7.7L, Aspartate Amino Transf (AST/SGOT) 193H, Alanine Aminotransferase (ALT/SGPT) 57, Alkaline Phosphatase 77, Total Bilirubin 0.4, Direct Bilirubin 0.1, Total Protein 5.9L, Albumin 3.0L, Albumin/Globulin Ratio 1.03 08/03/18 09:07: Troponin I 0.47#H CBC/BMP Laboratory Tests 08/03/18 05:13 Red Blood Count 4.65, Mean Corpuscular Volume 82.8, Mean Corpuscular Hemoglobin 26.7 L, Mean Corpuscular Hemoglobin Concent 32.2, Red Cell Distribution Width 13.5, Neutrophils (%) (Auto) 53.6, Lymphocytes (%) (Auto) 37.3, Monocytes (%) (Auto) 6.5 H, Eosinophils (%) (Auto) 1.8, Basophils (%) (Auto) 0.5, Neutrophils # (Auto) 3.4, Lymphocytes # (Auto) 2.3, Monocytes # (Auto) 0.4, Eosinophils # (Auto) 0.1, Basophils # (Auto) 0.0 Microbiology Microbiology 08/02/18 Blood Culture, Received Pending 08/02/18 Blood Culture - Preliminary, Resulted No growth after 24 hours . All specim... Assessment Inability to place a Roque catheter and I attempted with wires and filiforms and still could not pass. I do not know if there was a false passage or if this is a stricture. Since the patient is distended with greater than 700 mL in his bladder we will go ahead and place a suprapubic catheter at the bedside. Other options were discussed such as going to the operating room and attempt cystoscopy but with his rhabdo it was decided just to place a suprapubic catheter at the bedside. Plan Place a suprapubic catheter at the bedside Attempt a voiding trial once the patient is up and ambulatory and we can either do a voiding cystourethrogram through the suprapubic catheter or just plan cystoscopy in the office Time Spent on Consult: Time Spent / Consult (Minutes): 70 JAIRON SANCHEZ MD Aug 03, 2018 14:04
--- NOTE | 2018-08-03 14:09 | IPNPDOC ---
Date Seen The patient was seen on 08/03/18. Progress Note SUBJECTIVE: Patient is a 62-year-old male with frostbite and rhabdomyolysis secondary to unwitnessed syncope outdoors. Patient is evaluated at bedside this morning. He appears to be comfortable. He very easily drifts off to sleep, but is easily arousable. He knows his name, date of , current location, reason for hospitalization, current year and month, current [place] president. He is able to recall 2/3 items (cat, house, horse). He states that he has a history of falls without known cause. He walks with a cane. He lives with is step-brother. OBJECTIVE PHYSICAL EXAMINATION: VITAL SIGNS: Please see below. GENERAL: Easily arousable male, appropriately dressed in hospital attire, answers questions appropriately, no acute distress. HEENT: Atraumatic, normocephalic, PERRL, EOMI, symmetrical hair distribution on face, oral mucosa appears pink and moist, nasal septum appears midline, nares are patent. CARDIOVASCULAR: Regular rate and rhythm, normal S1 and S2, no murmur, rub, click. RESPIRATORY: Clear to auscultation bilaterally, poor inspiratory effort, no w heeze, rhonchi, crackles. ABDOMINAL: Round, soft, symmetrical abdominal hair distribution, suprapubic catheter with bright red blood noted in tubing, no guarding, no rebound, non- distended, somewhat painful to palpation in the pelvic region. EXTREMITIES: Bilateral fingers noted to have weeping and oozing blisters, significantly edematous, no altered sensation, able to manipulate fingers, pulses are equal and symmetrical, +2. NEUROLOGICAL: No focal neurological deficits. PSYCHOLOGICAL: Mood and affect appropriate. LABORATORY DATA, IMAGING STUDIES, MICROBIOLOGY: Please see below. CT head without contrast on 08/02/2018 - no acute infarction. Portable chest x-ray on 08/02/2018 - no acute pulmonary pathology, old post- traumatic rib fractures. CT abdomen and pelvis without contrast on 08/03/2018 - malpositioned suprapubic catheter in prevesical fat, mildly distended urinary bladder. Echocardiogram: Ordered. DVT prophylaxis ordered?: Lovenox 40mg subcutaneously daily. ASSESSMENT AND PLAN: This is a 62-year-old male with unwitnessed syncope found to have rhabdomyolysis and frostbite. PROBLEMS: 1. Unwitnessed syncope: Obtaining echocardiogram, electroencephalogram. Electr olytes are stable. Corrected calcium is 8.5. Supplementation provided. Toxicology is negative. Body temperature has improved. No tachycardia reported. Blood pressure is stable. Obtaining orthostatic vital signs. Continue normal saline at 200 mLs/hr. Patient is on several medications that ca n cause syncope. Will monitor closely. Physical therapy ordered. 2. Rhabdomyolysis: Likely secondary to unwitnessed syncope outdoors. Continue with normal saline intravenous resuscitation at 200 mLs/hr. Monitoring electrolytes. Supplementation where needed. Monitoring CPK levels. 3. Frostbite: Verbally discussed with local advanced donation specialist who recommended loading dose of Plavix 150mg by mouth followed by 75mg by mouth daily to ensure micro-revascularization. Wrap the wounds with non-adhesive foam dressings and lightly cover with Kerlix. Important to protect the skin and avoid temperature fluctuations. No antibiotics indicated at this time. Percocet and Morphine as needed for pain. Blood cultures are negative. 4. Elevated troponin: Improving. Likely due to secondary NSTEMI as a result of demand ischemia. Obtaining echocardiogram. Discontinued therapeutic Lovenox. Continue Aspirin. 5. Urinary retention: Started patient on Flomax. Urology consulted. Attempted coude catheter, but was unsuccessful. Suprapubic catheter placed. Imaging this morning revealed suprapubic catheter in the prevesicular fat. Recommendations to bladder scan which was negative. Obtain post-void residual bladder scan, bladder scanning every 6 hours, remove suprapubic catheter. Nothing by mouth for operating room procedure with urology. 6. Constipation: Noted on abdominal imaging. Started Senokot S and Milk of Magnesia. 7. Seizure disorder: Continue Lamictal and Keppra. Obtaining Keppra level. Ordered EEG. 8. Hypertension: Continue Fosinopril and Coreg. 9. Dyslipidemia: Continue Zocor. 10. Gastroesophageal reflux disease: Continue Famotidine. 11. Depression: Continue Paxil. 12. Vertigo: Continue Meclizine. DISPOSITION: Monitoring for medical improvement. OR for possible cystoscopy and urinary catheter placement. VS, I&O, 24H, Fishbone Vital Signs/I&O Vital Signs Date Time Temp Pulse Resp B/P (MAP) Pulse Ox O2 Delivery O2 Flow Rate FiO2 08/03/18 12:00 97.4 66 18 131/73 (92) 91 Room Air I&O- Last 24 Hours up to 6 AM 08/03/18 06:00 Intake Total 1725 ml Output Total 1125 ml Balance 600 ml Laboratory Data 24H LABS Laboratory Tests 2 08/02/18 16:05: Urine Amphetamines Screen NEGATIVE, Urine Benzodiazepines Screen NEGATIVE, Urine Opiates Screen NEGATIVE, Urine Methadone Screen NEGATIVE, Urine Barbiturates Screen NEGATIVE, Urine Phencyclidine Screen NEGATIVE, Urine Cocaine Metabolite Screen NEGATIVE, Urine Cannabinoids Screen NEGATIVE 08/02/18 18:52: Total Creatine Kinase 55274F, Creatine Kinase MB 18.0H, Creatine Kinase MB Relative Index 0.10, Troponin I 1.03H 08/03/18 01:41: Total Creatine Kinase 82573E 08/03/18 02:15: Troponin I 0.75#H, Prothrombin Time 12.8, Prothromb Time International Ratio 0.95, Activated Partial Thromboplast Time 30.8 08/03/18 05:13: Immature Granulocyte % (Auto) 0.3, White Blood Count 6.3, Red Blood Count 4.65, Hemoglobin 12.4#L, Hematocrit 38.5L, Mean Corpuscular Volume 82.8, Mean Corpuscular Hemoglobin 26.7L, Mean Corpuscular Hemoglobin Concent 32.2, Red Cell Distribution Width 13.5, Platelet Count 164, Neutrophils (%) (Auto) 53.6, Lymphocytes (%) (Auto) 37.3, Monocytes (%) (Auto) 6.5H, Eosinophils (%) (Auto) 1.8, Basophils (%) (Auto) 0.5, Neutrophils # (Auto) 3.4, Lymphocytes # (Auto) 2.3, Monocytes # (Auto) 0.4, Eosinophils # (Auto) 0.1, Basophils # (Auto) 0.0, Nucleated Red Blood Cells % (auto) 0.0, Anion Gap 5L, Glomerular Filtration Rate > 60.0, Calcium Level 7.7L, Aspartate Amino Transf (AST/SGOT) 193H, Alanine Aminotransferase (ALT/SGPT) 57, Alkaline Phosphatase 77, Total Bilirubin 0.4, Direct Bilirubin 0.1, Total Protein 5.9L, Albumin 3.0L, Albumin/Globulin Ratio 1.03 08/03/18 09:07: Troponin I 0.47#H CBC/BMP Laboratory Tests 08/03/18 05:13 Red Blood Count 4.65, Mean Corpuscular Volume 82.8, Mean Corpuscular Hemoglobin 26.7 L, Mean Corpuscular Hemoglobin Concent 32.2, Red Cell Distribution Width 13.5, Neutrophils (%) (Auto) 53.6, Lymphocytes (%) (Auto) 37.3, Monocytes (%) (Auto) 6.5 H, Eosinophils (%) (Auto) 1.8, Basophils (%) (Auto) 0.5, Neutrophils # (Auto) 3.4, Lymphocytes # (Auto) 2.3, Monocytes # (Auto) 0.4, Eosinophils # (Auto) 0.1, Basophils # (Auto) 0.0 Microbiology Microbiology 08/02/18 Blood Culture, Received Pending 08/02/18 Blood Culture - Preliminary, Resulted No growth after 24 hours . All specim... LYSSA LOVELACE DO Aug 03, 2018 14:09
[2018-08-03] MEDS ORDERED: MOM 30ML SUSPENSION UDC PO PRN (14:15)
[2018-08-03] MEDS ORDERED: PROPOFOL 200 MG/20 ML VIAL As Ordered ONE (15:58)
[2018-08-03] MEDS ORDERED: LIDOCAINE 2% INJ 100 MG/5 ML SDV (FOR ANES.) As Ordered ONE (15:58)
[2018-08-03] MEDS ORDERED: fentaNYL 100 MCG/2 ML INJECTION (J3010) As Ordered ONE (15:59)
--- NOTE | 2018-08-03 16:54 | IPNPDOC ---
Assessment/Plan Date Seen The patient was seen on 08/03/18. Patient Summary This is a 62 y/o M admitted for frostbite and rhabdo, found to be in retention of urine in the ER. A suprapubic catheter was placed there which based on subsequent CT scan has withdrawn out of the bladder. I have recommended that we take him to the OR for cystoscopy and catheter placement over a wire. After a discussion of the risks and benefits of the procedure, verbal informed consent was obtained. Plan/VTE VTE Prophylaxis Ordered?: Yes VTE Exclusion Mechanical Proph: N/A:VTE Prophy Ordered Plan - informed consent obtained for cystoscopy w/ catheter placement over a wire - ancef 2g OCOR - once the catheter is placed, will plan to keep it in until he follows up in clinic Subjective Review oF Systems Chief Complaint The patient is a 62-year-old male admitted with a reason for visit of Frostbite,Rhabdoyolysis. Events since Last Encounter No acute events. Patient denies pain. Objective Physical Examination General Exam: Alert, Cooperative, No Acute Distress Heart Exam: Positive: Rate Normal ABDOMEN EXAM: Normal bowel sounds Skin Exam: Nl turgor and temperature Psych Exam: Mood NL Vital Signs/I&O Vital Signs Date Time Temp Pulse Resp B/P (MAP) Pulse Ox O2 Delivery O2 Flow Rate FiO2 08/03/18 16:20 97.7 64 17 129/64 (85) 95 Room Air I&O- Last 24 Hours up to 6 AM 08/03/18 06:00 Intake Total 1725 ml Output Total 1125 ml Balance 600 ml Laboratory Data Labs 24H Laboratory Tests 2 08/02/18 18:52: Total Creatine Kinase 79997P, Creatine Kinase MB 18.0H, Creatine Kinase MB Relative Index 0.10, Troponin I 1.03H 08/03/18 01:41: Total Creatine Kinase 93430M 08/03/18 02:15: Troponin I 0.75#H, Prothrombin Time 12.8, Prothromb Time International Ratio 0.95, Activated Partial Thromboplast Time 30.8 08/03/18 05:13: Immature Granulocyte % (Auto) 0.3, White Blood Count 6.3, Red Blood Count 4.65, Hemoglobin 12.4#L, Hematocrit 38.5L, Mean Corpuscular Volume 82.8, Mean Corpuscular Hemoglobin 26.7L, Mean Corpuscular Hemoglobin Concent 32.2, Red Cell Distribution Width 13.5, Platelet Count 164, Neutrophils (%) (Auto) 53.6, Lymphocytes (%) (Auto) 37.3, Monocytes (%) (Auto) 6.5H, Eosinophils (%) (Auto) 1.8, Basophils (%) (Auto) 0.5, Neutrophils # (Auto) 3.4, Lymphocytes # (Auto) 2.3, Monocytes # (Auto) 0.4, Eosinophils # (Auto) 0.1, Basophils # (Auto) 0.0, N ucleated Red Blood Cells % (auto) 0.0, Anion Gap 5L, Glomerular Filtration Rate > 60.0, Calcium Level 7.7L, Aspartate Amino Transf (AST/SGOT) 193H, Alanine Aminotransferase (ALT/SGPT) 57, Alkaline Phosphatase 77, Total Bilirubin 0.4, Direct Bilirubin 0.1, Total Protein 5.9L, Albumin 3.0L, Albumin/Globulin Ratio 1.03 08/03/18 09:07: Troponin I 0.47#H CBC/BMP Laboratory Tests 08/03/18 05:13 Red Blood Count 4.65, Mean Corpuscular Volume 82.8, Mean Corpuscular Hemoglobin 26.7 L, Mean Corpuscular Hemoglobin Concent 32.2, Red Cell Distribution Width 13.5, Neutrophils (%) (Auto) 53.6, Lymphocytes (%) (Auto) 37.3, Monocytes (%) (Auto) 6.5 H, Eosinophils (%) (Auto) 1.8, Basophils (%) (Auto) 0.5, Neutrophils # (Auto) 3.4, Lymphocytes # (Auto) 2.3, Monocytes # (Auto) 0.4, Eosinophils # (Auto) 0.1, Basophils # (Auto) 0.0 Microbiology Microbiology 08/02/18 Blood Culture - Preliminary, Resulted No growth after 24 hours . All specim... 08/02/18 Blood Culture - Preliminary, Resulted No growth after 24 hours . All specim... ADELAIDE THOMAS MD Aug 03, 2018 16:53
[2018-08-03] MEDS ORDERED: ceFAZolin 2 GM/D5W 50 ML IV BAG (J0690 PER 500MG) As Ordered ONE (16:56)
[2018-08-03] MEDS ORDERED: ONDANSETRON 4MG/2ML VIAL (J2405) As Ordered ONE (17:13)
[2018-08-03] MEDS ORDERED: dexameTHASONE 4 MG/ML 1ML VIAL (J1100) As Ordered ONE (17:13)
[2018-08-03] MEDS ORDERED: fentaNYL 100 MCG/2 ML INJECTION (J3010) IV PRN (17:45)
[2018-08-03] MEDS ORDERED: ONDANSETRON 4MG/2ML VIAL (J2405) IV PRN (17:45)
[2018-08-03] MEDS ORDERED: LR 1,000 ML IV SCH (17:45)
[2018-08-03] MEDS ORDERED: PERCOCET 5MG/325MG TAB PO PRN (17:45)
--- NOTE | 2018-08-03 21:08 | ECGEPIP ---
Stationary ECG Study [facility] Test Date: 2018-08-03 Pat Name: RAYA CAM Department: Room: [place] [address] Gender: M Cardio Tech: MARK : 1955 Requested By: FARNAZ FRIDAY Order Number: [id number] Reading MD: Real Abebe Measurements Intervals Raven Rate: 71 P: 35 VT: 178 QRS: -47 QRSD: 125 T: -61 QT: 438 QTc: 476 Interpretive Statements Normal sinus rhythm Left axis deviation Low QRS complex voltage in the limb leads Anterior MD, age indeterminate Nonspecific ST-T wave abnormalities No significant change when compared to prior tracing of 08/02/2018 Electronically Signed On 08-03-2018 21:08:37 EST by Real Abebe
[2018-08-03] MEDS: SIMVASTATIN 40 MG TAB PO SCH (21:40)
[2018-08-03] MEDS: PARoxetine 20 MG TAB PO SCH (21:41)
[2018-08-04] MEDS: NS 1,000 ML IV SCH ×4 (00:02→17:33)
[2018-08-04] MEDS ORDERED: diazePAM 5 MG TAB PO ONE (00:15)
[2018-08-04] MEDS ORDERED: LIDOCAINE 2% 5ML JELLY UROJET TOP ONE (02:00)
[2018-08-04 03:00] VITALS: O2SAT 97
[2018-08-04 04:00] VITALS: BP 112/74; O2SAT 97
[2018-08-04] MEDS ORDERED: HALOPERIDOL 5 MG/ML VIAL (J1630) IM ONE (04:00)
[2018-08-04 06:11] LABS: HEMATOCRIT 34.5 % (42.0-52.0); HEMOGLOBIN 10.8 g/dl (13.5-17.5); MEAN CORPUSCULAR HEMOGLOBIN 26.8 pg (27.0-33.0); MEAN CORPUSCULAR HGB CONC 31.3 g/dl (32.0-36.5); MEAN CORPUSCULAR VOLUME 85.6 fl (80.0-96.0); PLATELET COUNT, AUTOMATED 128 10^3/uL (150-450); RED BLOOD COUNT 4.03 10^6/uL (4.30-6.10); WHITE BLOOD COUNT 4.3 10^3/uL (4.0-10.0)
[2018-08-04 07:10] LABS: BLOOD UREA NITROGEN 13 MG/DL (7-18); CALCIUM LEVEL 7.5 MG/DL (8.8-10.2); CARBON DIOXIDE LEVEL 22 MEQ/L (21-32); CHLORIDE LEVEL 110 MEQ/L (98-107); CPK CREATINE PHOSPHOKINASE 13685 U/L (39-308); CREATININE FOR GFR 0.88 MG/DL (0.70-1.30); GLOMERULAR FILTRATION RATE > 60.0 (>49); GLUCOSE, FASTING 129 MG/DL (70-100); POTASSIUM SERUM 4.5 MEQ/L (3.5-5.1); SODIUM LEVEL 140 MEQ/L (136-145)
[2018-08-04 08:00] VITALS: BP 135/78
--- NOTE | 2018-08-04 08:20 | ECHO ---
DATE OF PROCEDURE: 08/03/2018 REFERRING PHYSICIAN: Dr. Shepard INDICATION: Syncope. HEIGHT: 178 cm WEIGHT: 80 kg DIMENSIONS: IVS: 1.2 LV: 4.8 LVPW: 1.2 LA: 4.3 Aorta: 3.3 AVC: 1.5 Mitral E-wave velocity: 69, A-wave 75 E prime septal: 6.7 E prime lateral: 9.8 FINDINGS: The study is of fair technical quality. Apparently, patient was confused and very uncooperative with the exam. In spite of it, reasonable quality of images was achieved. Left ventricle is normal size and grossly normal systolic function, I estimate left ventricular ejection fraction (LVEF) around 60%. No obvious segmental wall motion abnormalities are appreciated even though the study was somewhat limited. Right ventricle appears also normal. Left atrium is mildly enlarged. Right atrium was poorly visualized. Aortic, mitral, tricuspid and pulmonic valves were all reasonably well seen and appear grossly normal. No pericardial effusion is noted. Inferior vena cava is normal size. Aortic root is normal. Aortic arch and abdominal aorta were not visualized. Doppler interrogation reveals competent aortic valve. Same is true for mitral valve. There is no significant tricuspid insufficiency, and consequently, I was unable to estimate pulmonary artery pressure. Pulmonic valve is also functionally competent with no stenosis or insufficiency. Mitral inflow pattern and tissue Doppler imaging of mitral annulus reveal grade 1 diastolic dysfunction. CONCLUSIONS: 1. Study is of fair technical quality due to the patient's un-cooperation. 2. Normal LV size and systolic function, grade 1 diastolic dysfunction. Mild left ventricular hypertrophy (LVH). 3. No significant valvular disease. 4. Likely normal central venous pressure and normal pulmonary artery pressure. COMMENTS: Subacute bacterial endocarditis (SBE) prophylaxis is not recommended. Study does not provide explanation for syncopal event.
[2018-08-04] MEDS: MULTIVITAMINS/MINERALS THERAP 1 TAB PO SCH (09:00)
[2018-08-04] MEDS: THIAMINE 100 MG TAB PO SCH (09:00)
--- NOTE | 2018-08-04 09:08 | RO ---
DATE OF PROCEDURE: 08/02/2018 PREOPERATIVE DIAGNOSIS: Inability to place Roque catheter and urinary retention with greater than 700 mL in his bladder. POSTOPERATIVE DIAGNOSIS: Inability to place Roque catheter and urinary retention with greater than 700 mL in his bladder. PROCEDURE: Placement of a suprapubic catheter. SURGEON: Dr. Catherine Blackburn PASS WORKER: ANESTHESIA: Local with lidocaine. INDICATIONS FOR PROCEDURE: The patient is a 62-year-old gentleman who was admitted with frostbite and rhabdomyolysis. He has been unable to urinate despite lots of fluids and is complaining of lower abdominal pain and pressure. Multiple attempts were made at Roque catheter placement and they were unable to place the Roque. I was called in and I attempted also to place a Roque and was unable to pass with either a Coude or with wires from a difficult urology set. Unfortunately, there was not a flexible cystoscopy easily available and because of the rhabdomyolysis, I felt instead of bringing the patient to the operating room that he would be best served just with the placement of a suprapubic catheter now with further management in the future. Informed consent was obtained in verbal form since the patient is unable to sign secondary to frostbite of both of his hands DESCRIPTION OF PROCEDURE: His lower abdomen was prepped and draped. 8 mL of 1% lidocaine was placed in the lower abdominal region. A 22-Grenadian spinal needle was placed over the suprapubic region and clear yellow urine was obtained. Next, using a knife a small incision was made and a 14-Grenadian suprapubic catheter was placed by the Seldinger technique next to the needle. Clear yellow urine was obtained and the needle was removed. The catheter was left in place to drainage. There was drainage of clear yellow urine. This was then dressed and the patient tolerated the procedure well. The patient will have the suprapubic tube in place and a voiding trial can be attempted with that clamped in the future. The patient should follow up with urology and will require a cystoscopic examination in the future.
--- NOTE | 2018-08-04 09:20 | IPNPDOC ---
Assessment/Plan Date Seen The patient was seen on 08/04/18. Patient Summary This is a 62 y/o M admitted for frostbite and rhabdo, found to be in retention of urine in the ER, who was taken to the OR yesterday evening for cystoscopy and catheter placement. On cystoscopy no urethral or prostate abnormalities were seen that would explain the cause of difficult catheterization. I was therefore able to place an 18Fr catheter w/o difficulty. Once he was back on the floor, he pulled out his catheter. After several hours of trying to void w/o success I came in to place a new catheter. Just before my arrival he voided 300c and had a residual 200cc. I was able to place an 18Fr catheter w/ some difficulty due to the patient juju his external sphincter. Dysfunctional voiding due to him juju his external sphincter while trying to void is likely the cause of his retention. Him clamping down during catheter placement is also likely the cause of difficult catheter placement, as there was no anatomic abnormality seen on cystoscopy. Plan/VTE VTE Prophylaxis Ordered?: Yes VTE Exclusion Mechanical Proph: N/A:VTE Prophy Ordered Plan/Urinary Catheter Reason for insertion/continuin: Acute obstruct/retention Plan - keep catheter to gravity drainage - once his fluids are turned down/off, would recommend removing the catheter and doing a voiding trial - the urology office will call to arrange outpatient follow up Subjective Review oF Systems Chief Complaint The patient is a 62-year-old male admitted with a reason for visit of Frostbite,Rhabdoyolysis. Events since Last Encounter After placing a catheter in the OR last night, he pulled the catheter out when back on the regular floor in a moment of confusion. He notes that he was having some pain and that is the reason for pulling the catheter. Objective Physical Examination General Exam: Alert, Cooperative, No Acute Distress Heart Exam: Positive: Rate Normal ABDOMEN EXAM: Normal bowel sounds Skin Exam: Nl turgor and temperature Psych Exam: Mood NL Vital Signs/I&O Vital Signs Date Time Temp Pulse Resp B/P (MAP) Pulse Ox O2 Delivery O2 Flow Rate FiO2 08/04/18 04:00 97 Room Air 08/04/18 04:00 96.8 76 20 112/74 (87) 08/03/18 17:55 2 I&O- Last 24 Hours up to 6 AM 08/04/18 06:00 Intake Total 6550 ml Output Total 2080 ml Balance 4470 ml Laboratory Data Labs 24H Laboratory Tests 2 08/03/18 09:07: Troponin I 0.47#H 08/04/18 05:57: Nucleated Red Blood Cells % (auto) 0.0, Anion Gap 8, Glomerular Filtration Rate > 60.0, Blood Urea Nitrogen 13, Creatinine 0.88, Sodium Level 140, Potassium Level 4.5, Chloride Level 110H, Carbon Dioxide Level 22, Calcium Level 7.5L, Total Creatine Kinase 56357H CBC/BMP Laboratory Tests 08/04/18 05:57 Red Blood Count 4.03 L, Mean Corpuscular Volume 85.6, Mean Corpuscular Hemoglobin 26.8 L, Mean Corpuscular Hemoglobin Concent 31.3 L, Red Cell Distribution Width 13.2, Calcium Level 7.5 L Microbiology Microbiology 08/02/18 Blood Culture - Preliminary, Resulted No growth after 24 hours . All specim... 08/02/18 Blood Culture - Preliminary, Resulted No growth after 24 hours . All specim... ADELAIDE THOMAS MD Aug 04, 2018 09:20
[2018-08-04] MEDS: FOLIC ACID 1 MG TAB PO SCH (09:44)
[2018-08-04] MEDS: lamoTRIgine 100MG TAB PO SCH ×2 (09:44→20:57)
[2018-08-04] MEDS: FAMOTIDINE 20 MG TAB PO SCH (09:45)
[2018-08-04] MEDS: levETIRAcetam 250MG TABLET (KEPPRA) PO SCH ×2 (09:45→20:57)
[2018-08-04] MEDS: CLOPIDOGREL 75 MG TAB PO SCH (09:45)
[2018-08-04] MEDS: FOSINOPRIL 10 MG TAB PO SCH (09:45)
[2018-08-04] MEDS: TAMSULOSIN 0.4 MG CAP PO SCH (09:46)
[2018-08-04] MEDS: CARVedilol 6.25 MG TAB PO SCH ×2 (09:46→21:00)
[2018-08-04] MEDS: ASPIRIN 81 MG ENTERIC TAB PO SCH (09:46)
[2018-08-04] MEDS: SENOKOT S TAB PO SCH ×2 (09:46→21:00)
[2018-08-04] MEDS: GABAPENTIN 400 MG CAP PO SCH ×2 (09:47→21:02)
[2018-08-04] MEDS: PERCOCET 5MG/325MG TAB PO PRN (09:47)
[2018-08-04] MEDS: ENOXAPARIN 40 MG/0.4 ML SYRINGE (J1650) SC SCH (09:48)
--- NOTE | 2018-08-04 11:26 | IPNPDOC ---
Date Seen The patient was seen on 08/04/18. Progress Note SUBJECTIVE: Patient is a 62-year-old male with frostbite and rhabdomyolysis secondary to unwitnessed syncope outdoors. Patient is evaluated at bedside this morning. His brother and a family friend are present in the room. He appears to be comfortable. Is alert and conversant. Had a urinary cystoscopy with Roque catheter placement yesterday with urology in the operating room. Apparently patient had an episode of confusion with agitation and anxiety overnight which resulted in him pulling out his Roque catheter. Urology was contacted for a very catheter insertion. A sitter was ordered. He received a one-time dose of Valium 5 mg orally and a one-time dose of Haldol 1 mg IM. Dur ing evaluation he is able to recall his correct name, date of , location, reason for admission, current year, current month, and current [place] President. He admits to body wide arthralgias that have been present for many years, I migrating rash that he has noticed on his face over the last several months. He denies chest pain. He states he's never had difficulty with his kidneys or bladder. He does have a seizure disorder for which he is on Keppra and Lamictal. OBJECTIVE PHYSICAL EXAMINATION: VITAL SIGNS: Please see below. GENERAL: Well-nourished, well-developed male, appropriately dressed in hospital attire, answers questions appropriately, no acute distress. HEENT: Atraumatic, normocephalic, PERRL, EOMI, symmetrical hair distribution on face, oral mucosa appears pink and moist, nasal septum appears midline, nares are patent flat erythematous rash noted on bilateral cheeks sparing nasolabial folds. CARDIOVASCULAR: Regular rate and rhythm, normal S1 and S2, no murmur, rub, click. RESPIRATORY: Clear to auscultation bilaterally, poor inspiratory effort, no wheeze, rhonchi, crackles. ABDOMINAL: Round, soft, symmetrical abdominal hair distribution, Roque catheter in place with dark yellow urine appreciated in catheter receptacle, no guarding, no rebound, non-distended, somewhat painful to palpation in the pelvic region. EXTREMITIES: Bilateral fingers noted to have weeping and oozing blisters, significantly edematous, no altered sensation, able to manipulate fingers, pulses are equal and symmetrical, +2. NEUROLOGICAL: No focal neurological deficits. PSYCHOLOGICAL: Mood and affect appropriate. LABORATORY DATA, IMAGING STUDIES, MICROBIOLOGY: Please see below. CT head without contrast on 08/02/2018 - no acute infarction. Portable chest x-ray on 08/02/2018 - no acute pulmonary pathology, old post- traumatic rib fractures. CT abdomen and pelvis without contrast on 08/03/2018 - malpositioned suprapubic catheter in prevesical fat, mildly distended urinary bladder. Echocardiogram: Normal left ventricular size and systolic function, grade 1 diastolic dysfunction, mild left ventricular hypertrophy, no significant valvular disease. DVT prophylaxis ordered?: Lovenox 40mg subcutaneously daily. ASSESSMENT AND PLAN: This is a 62-year-old male with unwitnessed syncope found to have rhabdomyolysis and frostbite. PROBLEMS: 1. Unwitnessed syncope: Echocardiogram as resulted above. EEG has been completed. Pending Keppra level. Toxicology is negative. Electrolytes are stable. Obtaining echocardiogram, electroencephalogram. Electrolytes are stable. Orthostatic vital signs have been ordered. Vital signs are stable. Temperature is 98.6. Physical therapy has been ordered. 2. Rhabdomyolysis: Likely secondary to unwitnessed syncope outdoors. Decreased intravenous fluid resuscitation 225 miles per hour. Lites are stable. CPKs improving. 3. Frostbite: Patient received loading dose of Plavix 150 mg by mouth yesterday. Will continue with Plavix 75 mg by mouth daily. Wrap wounds with nonadhesive foam dressings and lightly cover with Kerlix. Avoid temperature fluctuations. Discontinued morphine. Continue with Percocet. Blood cultures are negative. No need for antibiotic therapy at this time. 4. Elevated troponin due to secondary NSTEMI from demand ischemia: Improving. Echocardiogram obtained with results above. Continue with aspirin. 5. Urinary retention: Started patient on Flomax. Urology consulted. Attempted coude catheter, but was unsuccessful. Suprapubic catheter placed. Imaging revealed suprapubic catheter in the prevesicular fat. Patient to the operating room with urology for cystoscopy and Roque catheter placement. Due to agitation and anxiety Roque catheter was removed by patient himself. Urology placed on a Roque catheter. 6. Constipation: Noted on abdominal imaging. Continue Senokot S and Milk of Magnesia. 7. Seizure disorder: Continue Lamictal and Keppra. Obtaining Keppra level. EEG completed. 8. Hypertension: Continue Fosinopril and Coreg. Ordered orthostatic vital signs. 9. Dyslipidemia: Continue Zocor. 10. Gastroesophageal reflux disease: Continue Famotidine. 11. Depression: Continue Paxil. 12. Vertigo: Continue Meclizine. 13. Scaly lesions on flexural surfaces: Possible undiagnosed psoriasis. Consider outpatient follow-up. 14. Erythematous facial rash: Workup for possible lupus, including AMA, antiphospholipid, C3 and C4 complement, CRP, ESR, urine protein and creatinine, urinalysis. 15. Normocytic anemia: Likely dilutional. Absolute reticulocyte count 1.1 with a reticulocyte index 0.71. This could represent a degree of hypo-proliferation. Peripheral smear ordered. Iron studies, vitamin B12, and folate level pending. 16. Acute confusion and agitation: Possible underlying alcohol dependance. AST > ALT. Ativan as needed for agitation. Serax scheduled, multivitamin, thiamine. Continue folic acid. DISPOSITION: Monitoring for medical improvement. Physical therapy evaluation. VS, I&O, 24H, [facility] Vital Signs/I&O Vital Signs Date Time Temp Pulse Resp B/P (MAP) Pulse Ox O2 Delivery O2 Flow Rate FiO2 08/04/18 09:47 20 08/04/18 09:46 70 135/70 08/04/18 08:00 98.6 96 Room Air 08/03/18 17:55 2 I&O- Last 24 Hours up to 6 AM 08/04/18 06:00 Intake Total 6550 ml Output Total 2080 ml Balance 4470 ml Laboratory Data 24H LABS Laboratory Tests 2 08/04/18 05:57: Nucleated Red Blood Cells % (auto) 0.0, Anion Gap 8, Glomerular Filtration Rate > 60.0, Blood Urea Nitrogen 13, Creatinine 0.88, Sodium Level 140, Potassium Level 4.5, Chloride Level 110H, Carbon Dioxide Level 22, Calcium Level 7.5L, Total Creatine Kinase 92413Q 08/04/18 10:47: CBC/BMP Laboratory Tests 08/04/18 05:57 Red Blood Count 4.03 L, Mean Corpuscular Volume 85.6, Mean Corpuscular Hemog lobin 26.8 L, Mean Corpuscular Hemoglobin Concent 31.3 L, Red Cell Distribution Width 13.2, Calcium Level 7.5 L Microbiology Microbiology 08/02/18 Blood Culture - Preliminary, Resulted No growth after 24 hours . All specim... 08/02/18 Blood Culture - Preliminary, Resulted No growth after 24 hours . All specim... LYSSA LOVELACE DO Aug 04, 2018 11:26
[2018-08-04 11:30] LABS: ALBUMIN 2.9 GM/DL (3.2-5.2); PERCENT SATURATION 21.4 % (19.7-50.0)
[2018-08-04 11:38] LABS: FOLATE 10.3 NG/ML (>5.4)
[2018-08-04 12:00] VITALS: BP 118/72
[2018-08-04 12:34] LABS: C REACTIVE PROTEIN QUANTITATIV 6.18 MG/DL (0.00-0.30)
[2018-08-04] MEDS: NICOTINE 14 MG/24 HR TRANSDERMAL TD SCH (13:01)
[2018-08-04] MEDS: MORPHINE 4 MG/ML 1ML VIAL/SYRINGE (J2270) IV PRN (13:01)
[2018-08-04 14:25] LABS: APPEARANCE, URINE HAZY (CLEAR); BACTERIA, URINE AUTO NEGATIVE (NEGATIVE); BILIRUBIN, URINE AUTO NEGATIVE (NEGATIVE); BLOOD, URINE BLOOD 3+ (NEGATIVE); COLOR, URINE YELLOW (YELLOW); GLUCOSE, URINE (UA) AUTO NEGATIVE (NEGATIVE); KETONE, URINE AUTO NEGATIVE (NEGATIVE); LEUKOCYTE ESTERASE, URINE AUTO TRACE (NEGATIVE); MUCUS, URINE SMALL (NEGATIVE); NITRITE, URINE AUTO NEGATIVE (NEGATIVE); PROTEIN, URINE AUTO 1+ mg/dL (NEGATIVE); RBC, URINE AUTO TNTC /HPF (0-3); SPECIFIC GRAVITY URINE AUTO 1.014 (1.002-1.035); SQUAMOUS EPITHELIAL CELL UR AU 0 /HPF (0-6); UROBILINOGEN, URINE AUTO 0.2 mg/dL (0.0-2.0); WBC, URINE AUTO 1 /HPF (0-3)
[2018-08-04 14:42] LABS: CREATININE,RANDOM URINE 99.7 MG/DL
[2018-08-04] MEDS: LORazepam 2 MG/ML VIAL (J2060) IV PRN ×2 (15:11→20:57)
[2018-08-04 16:00] VITALS: BP 99/57
[2018-08-04 20:00] VITALS: BP 116/56
[2018-08-04] MEDS: OXAZEPAM 15 MG CAP PO SCH (20:56)
[2018-08-04] MEDS: PARoxetine 20 MG TAB PO SCH (21:00)
[2018-08-04] MEDS: SIMVASTATIN 40 MG TAB PO SCH (21:00)
[2018-08-05 00:30] VITALS: BP 133/79
[2018-08-05] MEDS: NS 1,000 ML IV SCH ×2 (01:30→10:22)
[2018-08-05] MEDS: MORPHINE 4 MG/ML 1ML VIAL/SYRINGE (J2270) IV PRN (03:00)
[2018-08-05] MEDS: OXAZEPAM 15 MG CAP PO SCH ×4 (05:49→22:00)
[2018-08-05 06:15] LABS: HEMATOCRIT 31.1 % (42.0-52.0); HEMOGLOBIN 9.8 g/dl (13.5-17.5); MEAN CORPUSCULAR HEMOGLOBIN 26.8 pg (27.0-33.0); MEAN CORPUSCULAR HGB CONC 31.5 g/dl (32.0-36.5); PLATELET COUNT, AUTOMATED 113 10^3/uL (150-450); RED BLOOD COUNT 3.66 10^6/uL (4.30-6.10); WHITE BLOOD COUNT 2.9 10^3/uL (4.0-10.0)
[2018-08-05 06:36] LABS: BLOOD UREA NITROGEN 10 MG/DL (7-18); CALCIUM LEVEL 7.4 MG/DL (8.8-10.2); CARBON DIOXIDE LEVEL 25 MEQ/L (21-32); CHLORIDE LEVEL 115 MEQ/L (98-107); CREATININE FOR GFR 0.77 MG/DL (0.70-1.30); GLOMERULAR FILTRATION RATE > 60.0 (>49); GLUCOSE, FASTING 68 MG/DL (70-100); POTASSIUM SERUM 3.8 MEQ/L (3.5-5.1); SODIUM LEVEL 147 MEQ/L (136-145)
[2018-08-05 08:01] LABS: CPK CREATINE PHOSPHOKINASE 8655 U/L (39-308)
[2018-08-05] MEDS: levETIRAcetam 250MG TABLET (KEPPRA) PO SCH ×2 (08:15→21:00)
[2018-08-05] MEDS: lamoTRIgine 100MG TAB PO SCH ×2 (08:16→21:00)
[2018-08-05] MEDS: FAMOTIDINE 20 MG TAB PO SCH (08:16)
[2018-08-05] MEDS: SENOKOT S TAB PO SCH ×2 (08:17→21:00)
[2018-08-05] MEDS: CLOPIDOGREL 75 MG TAB PO SCH (08:17)
[2018-08-05] MEDS: FOSINOPRIL 10 MG TAB PO SCH (08:17)
[2018-08-05] MEDS: FOLIC ACID 1 MG TAB PO SCH (08:17)
[2018-08-05] MEDS: THIAMINE 100 MG TAB PO SCH (08:17)
[2018-08-05] MEDS: GABAPENTIN 400 MG CAP PO SCH ×3 (08:17→21:00)
[2018-08-05] MEDS: MULTIVITAMINS/MINERALS THERAP 1 TAB PO SCH (08:17)
[2018-08-05] MEDS: TAMSULOSIN 0.4 MG CAP PO SCH (08:17)
[2018-08-05] MEDS: ENOXAPARIN 40 MG/0.4 ML SYRINGE (J1650) SC SCH (08:18)
[2018-08-05] MEDS: ASPIRIN 81 MG ENTERIC TAB PO SCH (08:18)
[2018-08-05] MEDS: NICOTINE 14 MG/24 HR TRANSDERMAL TD SCH (08:19)
[2018-08-05] MEDS: CARVedilol 6.25 MG TAB PO SCH ×2 (08:19→21:00)
[2018-08-05 08:20] LABS: ALBUMIN 2.7 GM/DL (3.2-5.2)
[2018-08-05] MEDS ORDERED: ALBUTEROL SULFATE 2.5 MG/0.5 ML INH NEB SOLN NEB PRN (09:15)
--- NOTE | 2018-08-05 09:28 | REP ---
Portable chest x-ray: Single view. History: Wheezing. Comparison study: August 02, 2018. Findings: EKG monitoring electrodes overlie the chest. There is linear fibrosis in the left perihilar region. Right hemidiaphragm remains somewhat elevated. There are old healed rib fractures on the right. No new infiltrate is seen. Heart is not enlarged. Fusion plate is noted in the lower cervical spine. Impression: No new infiltrate. Normal heart size. Linear fibrosis on the left. Old rib fractures on the right with elevated right hemidiaphragm again seen. Electronically Signed by Rod Mcintosh MD 08/05/2018 09:20 A
--- NOTE | 2018-08-05 10:36 | RO ---
DATE OF PROCEDURE: 08/03/2018 PREPROCEDURE DIAGNOSIS: Urinary retention. POSTPROCEDURE DIAGNOSES: Urinary retention. PROCEDURE: Cystoscopy, catheter placement. SURGEON: Dr. Joel Bello [facility] CODER: None. ANESTHESIA: General. OPERATIVE INDICATIONS: This is a 62-year-old male who was found to be in urinary retention when he came to the emergency room early this morning. Attempts were made to place a catheter transurethral and were unsuccessful. At that point, he had a suprapubic catheter placed by Dr. Blackburn and it drained urine well. At some point after that was done, the catheter was withdrawn out of the bladder as demonstrated on a CT done. Because of this, it was recommended he be brought to the operating room today for cystoscopy with possible catheter placement over a wire. DESCRIPTION OF PROCEDURE: Patient was brought to the operating room, and general anesthesia was induced. Prophylactic antibiotics were infused. Patient was placed in the dorsal lithotomy position and prepped and draped in the usual sterile fashion. A rigid cystoscope was inserted into urethral meatus and advanced toward the bladder. Of note, there were no urethral abnormalities seen. There were no urethral strictures. There were no false passages. There was mild to moderate bilobar prostatic hyperplasia with moderate occlusion of the bladder outlet. There were no bladder neck contractures. I was able to get the scope all the way into the bladder without any difficulty. Because of this, the scope was then withdrawn and I attempted to place a #18-[place] catheter directly into the bladder without a wire. I was able to do this, and the catheter was hubbed with prompt drainage of pink urine. The balloon was filled with 10 mL of sterile water, and the catheter was connected to gravity drainage. This marked the conclusion of the procedure. The patient was then taken out of dorsal lithotomy position, awakened from anesthesia, and transported to recovery room in stable condition. ESTIMATED BLOOD LOSS: 5 mL. COMPLICATIONS: None. SPECIMENS: None. PLAN: The patient will followup in clinic in a week or two for catheter removal and voiding trial. CARMITA
[2018-08-05] MEDS ORDERED: CALCIUM GLUCONATE 1,000 MG in D5W MINI-BAG PLUS 100 ML IV ONE ×2 (11:00→16:00)
[2018-08-05 11:34] LABS: INR 0.93; PROTHROMBIN TIME 12.5 SECONDS (12.1-14.4)
[2018-08-05 11:35] LABS: PARTIAL THROMBOPLASTIN TIME 32.6 SECONDS (25.4-37.6)
[2018-08-05] MEDS: PERCOCET 5MG/325MG TAB PO PRN (13:42)
[2018-08-05 14:00] VITALS: BP 142/81
[2018-08-05 14:02] VITALS: BP 157/81
[2018-08-05 14:04] VITALS: BP 143/81
--- NOTE | 2018-08-05 16:34 | IPNPDOC ---
Date Seen The patient was seen on 08/05/18. Progress Note SUBJECTIVE: Patient is a 62-year-old male with frostbite and rhabdomyolysis secondary to unwitnessed syncope outdoors. Patient is evaluated at bedside this morning. He has a sitter present. He is awake and alert. He is at times somewhat confused. He asks me to get him a "Skoll can" and at one point asks me to get him a "Naveen and coke." He denies fever, night sweats, chills, nausea, vomiting, abdominal pain, bleeding from any orifice, chest pain. He correctly identifies his name and date of . He incorrectly identifies the year as [birth year], the [place] president as Murphy Rasheed, and his location as [place]. OBJECTIVE PHYSICAL EXAMINATION: VITAL SIGNS: Please see below. GENERAL: Well-nourished, well-developed male, appropriately dressed in hospital attire, inaccurately answers questions, no acute distress. HEENT: Atraumatic, normocephalic, PERRL, EOMI, symmetrical hair distribution on face, oral mucosa appears pink and moist, nasal septum appears midline, nares are patent, flat erythematous rash noted on bilateral cheeks sparing nasolabial folds. CARDIOVASCULAR: Regular rate and rhythm, normal S1 and S2, no murmur, rub, click. RESPIRATORY: Clear to auscultation bilaterally, poor inspiratory effort, prolonged expiratory wheeze noted diffusely, no rhonchi, crackles. ABDOMINAL: Round, soft, symmetrical abdominal hair distribution, Roque catheter in place with yellow urine appreciated in catheter receptacle, no guarding, no rebound, non-distended, no organomegaly. EXTREMITIES: Bilateral fingers noted to have weeping and oozing blisters, improving edema, some blisters have unroofed, able to manipulate fingers, pulses are equal and symmetrical, +2. NEUROLOGICAL: No focal neurological deficits, although at times confused. PSYCHOLOGICAL: At times confused, but alert and conversant. LABORATORY DATA, IMAGING STUDIES, MICROBIOLOGY: Please see below. CT head without contrast on 08/02/2018 - no acute infarction. Portable chest x-ray on 08/02/2018 - no acute pulmonary pathology, old post- traumatic rib fractures. CT abdomen and pelvis without contrast on 08/03/2018 - malpositioned suprapubic catheter in prevesical fat, mildly distended urinary bladder. Portable chest x-ray on 08/05/2018 - no new infiltrate, linear fibrosis on left, old rib fractures on right, elevated right hemidiaphragm. Echocardiogram: Normal left ventricular size and systolic function, grade 1 diastolic dysfunction, mild left ventricular hypertrophy, no significant v alvular disease. DVT prophylaxis ordered?: Lovenox 40mg subcutaneously daily. ASSESSMENT AND PLAN: This is a 62-year-old male with unwitnessed syncope found to have rhabdomyolysis and frostbite. PROBLEMS: 1. Unwitnessed syncope: Echocardiogram as resulted above. EEG has been completed. Keppra level is normal. Toxicology is negative. Orthostatic vital signs are positive; however, patient currently on medications that are necessary for treatment. Will discontinue orthostatic vital signs and follow recommendations set forth by physical therapy for continued evaluation and treatment. Temperature has stabilized. No longer hypothermic. Physical therapy recommends out of bed in chair for meals, ambulation with nursing with gait belt and rolling walker to be utilized for bed to bathroom. Recommend occupational therapy. Recommend continued therapy after discharge once medicall y stable. 2. Rhabdomyolysis: Likely secondary to unwitnessed syncope outdoors. Discontinued intravenous fluids. Will monitor daily CPK which is improving. Patient may eat and drink to his hunger and thirst. Hypernatremia possibly due to IVF. Will monitor. 3. Frostbite: Continue daily oral Plavix 75mg by mouth. Wrap wounds with nonadhesive foam dressings and lightly cover with Kerlix. Avoid temperature fluctuations. Continue with Morphine. Continue with Percocet. Blood cultures are negative. No need for antibiotic therapy at this time. 4. Electrolyte derangements: Corrected calcium 8.4 for which supplementation was provided. Hypernatremia likely secondary to continued intravenous fluid resuscitation. Fluids have been discontinued. Will monitor labs. 5. Elevated troponin due to secondary NSTEMI from demand ischemia: Improving. Echocardiogram obtained with results above. Continue with aspirin. 6. Urinary retention: Started patient on Flomax. Urology consulted. Attempted coude catheter, but was unsuccessful. Suprapubic catheter placed. Imaging revealed suprapubic catheter in the prevesicular fat. Patient to operating room with urology for cystoscopy and Roque catheter placement. Due to agitation and anxiety Roque catheter was removed by patient himself. Urology placed another Roque catheter. Urinary output has been more than adequate. 7. Constipation: Noted on abdominal imaging. Continue Senokot S. Adjusted Milk of Magnesia to scheduled dosing. 8. Seizure disorder: Continue Lamictal and Keppra. Keppra level is within normal limits. EEG completed. 9. Hypertension: Continue Fosinopril and Coreg. 10. Dyslipidemia: Continue Zocor. 11. Gastroesophageal reflux disease: Continue Famotidine. 12. Depression: Continue Paxil. 13. Vertigo: Continue Meclizine. 14. Scaly lesions on flexural surfaces: Possible undiagnosed psoriasis. Consider outpatient follow-up. 15. Erythematous facial rash: Workup for possible lupus, including AMA, antiphos pholipid, C3 and C4 complement (C3 only marginally below normal limit; C4 normal), CRP and ESR (both elevated), urine protein (99.7) and creatinine, urinalysis (which revealed blood likely from traumatic Roque catheter removal by patient himself). 16. Normocytic anemia and pancytopenia: Likely dilutional or due to recent urological bleed from suprapubic catheter and subsequently Roque catheter re moval by patient himself. Absolute reticulocyte count 1.1 with a reticulocyte index 0.71. This could represent a degree of hypo-proliferation. Peripheral smear revealed "Acute onset anemia and thrombocytopenia, mild, suggestive of recent bleeding event. No morphologic abnormalities are noted." Iron studies (possible anemia of chronic disease), vitamin B12 (normal), and folate level (normal). Will monitor daily for possible further evaluation of pancytopenia. 17. Acute confusion and agitation: Possible underlying alcohol dependance. AST > ALT. Repeat CMP tomorrow. Ativan as needed for agitation. Increased Serax. Continue multivitamin, thiamine, and folic acid. CIWA protocol in place. DISPOSITION: Transferred to medical-surgical unit. Continued physical therapy evaluation. Pending clinical improvement. VS, I&O, 24H, [facility] Vital Signs/I&O Vital Signs Date Time Temp Pulse Resp B/P (MAP) Pulse Ox O2 Delivery O2 Flow Rate FiO2 08/05/18 14:12 20 08/05/18 14:04 77 143/81 (101) 08/05/18 08:00 97.7 95 Room Air 08/03/18 17:55 2 I&O- Last 24 Hours up to 6 AM 08/05/18 06:00 Intake Total 1840 ml Output Total 1800 ml Balance 40 ml Laboratory Data 24H LABS Laboratory Tests 2 08/05/18 05:46: Nucleated Red Blood Cells % (auto) 0.0, Anion Gap 7L, Glomerular Filtration Rate > 60.0, Blood Urea Nitrogen 10, Creatinine 0.77, Sodium Level 147H, Potassium Level 3.8, Chloride Level 115H, Carbon Dioxide Level 25, Calcium Level 7.4L, Total Creatine Kinase 8655H, Albumin 2.7L 08/05/18 08:00: Bedside Glucose (Misc Panel) 88 08/05/18 09:51: Prothrombin Time 12.5, Prothromb Time International Ratio 0.93, Activated Partial Thromboplast Time 32.6 CBC/BMP Laboratory Tests 08/05/18 05:46 Red Blood Count 3.66 L, Mean Corpuscular Volume 85.0, Mean Corpuscular Hemoglobin 26.8 L, Mean Corpuscular Hemoglobin Concent 31.5 L, Red Cell Distribution Width 13.5, Calcium Level 7.4 L Microbiology Microbiology 08/02/18 Blood Culture - Preliminary, Resulted No Growth after 72 hours. All specime... 08/02/18 Blood Culture - Preliminary, Resulted No Growth after 72 hours. All specime... LYSSA LOVELACE DO Aug 05, 2018 16:34
[2018-08-05] MEDS: SIMVASTATIN 40 MG TAB PO SCH (21:00)
[2018-08-05] MEDS: MOM 30ML SUSPENSION UDC PO SCH (21:00)
[2018-08-05] MEDS: PARoxetine 20 MG TAB PO SCH (21:00)
[2018-08-05] MEDS: LORazepam 2 MG/ML VIAL (J2060) IV PRN (21:33)
[2018-08-05 22:00] VITALS: BP 132/68
[2018-08-06 06:00] VITALS: BP 176/85
[2018-08-06] MEDS: OXAZEPAM 15 MG CAP PO SCH ×3 (06:27→22:14)
[2018-08-06] MEDS: PERCOCET 5MG/325MG TAB PO PRN ×3 (06:28→20:28)
[2018-08-06 06:44] LABS: BASO % 0.5 % (0.0-1.0); EOS # 0.2 10^3/uL (0.0-0.50); EOS % 3.8 % (0.0-3.0); HEMATOCRIT 34.7 % (42.0-52.0); HEMOGLOBIN 11.1 g/dl (13.5-17.5); LYMPH % 24.6 % (24.0-44.0); MEAN CORPUSCULAR HEMOGLOBIN 27.1 pg (27.0-33.0); MEAN CORPUSCULAR VOLUME 84.6 fl (80.0-96.0); MONO # 0.3 10^3/uL (0.0-0.8); MONO % 8.3 % (0.0-5.0); NEUTROPHILS # 2.5 10^3/uL (1.8-7.7); NEUTROPHILS % 62.3 % (36.0-66.0); PLATELET COUNT, AUTOMATED 138 10^3/uL (150-450)
[2018-08-06 07:30] LABS: ALBUMIN 2.8 GM/DL (3.2-5.2); ALT/SGPT 58 U/L (12-78); BILIRUBIN,TOTAL 0.3 MG/DL (0.2-1.0); BLOOD UREA NITROGEN 9 MG/DL (7-18); CALCIUM LEVEL 7.7 MG/DL (8.8-10.2); CARBON DIOXIDE LEVEL 26 MEQ/L (21-32); CHLORIDE LEVEL 107 MEQ/L (98-107); CPK CREATINE PHOSPHOKINASE 3739 U/L (39-308); CREATININE FOR GFR 0.83 MG/DL (0.70-1.30); GLOMERULAR FILTRATION RATE > 60.0 (>49); GLUCOSE, FASTING 94 MG/DL (70-100); POTASSIUM SERUM 3.7 MEQ/L (3.5-5.1); SODIUM LEVEL 142 MEQ/L (136-145); TOTAL PROTEIN 5.5 GM/DL (6.4-8.2)
[2018-08-06] MEDS ORDERED: CALCIUM GLUCONATE 1,000 MG in D5W MINI-BAG PLUS 100 ML IV ONE (08:00)
[2018-08-06] MEDS: LORazepam 2 MG/ML VIAL (J2060) IV PRN ×2 (08:17→18:10)
[2018-08-06] MEDS: ENOXAPARIN 40 MG/0.4 ML SYRINGE (J1650) SC SCH (08:25)
[2018-08-06] MEDS: levETIRAcetam 250MG TABLET (KEPPRA) PO SCH ×2 (08:26→20:26)
[2018-08-06] MEDS: GABAPENTIN 400 MG CAP PO SCH ×3 (08:26→20:26)
[2018-08-06] MEDS: CARVedilol 6.25 MG TAB PO SCH ×2 (08:26→20:31)
[2018-08-06] MEDS: MULTIVITAMINS/MINERALS THERAP 1 TAB PO SCH (08:26)
[2018-08-06] MEDS: TAMSULOSIN 0.4 MG CAP PO SCH (08:26)
[2018-08-06] MEDS: NICOTINE 14 MG/24 HR TRANSDERMAL TD SCH (08:26)
[2018-08-06] MEDS: FOSINOPRIL 10 MG TAB PO SCH (08:26)
[2018-08-06] MEDS: THIAMINE 100 MG TAB PO SCH (08:26)
[2018-08-06] MEDS: FAMOTIDINE 20 MG TAB PO SCH (08:27)
[2018-08-06] MEDS: FOLIC ACID 1 MG TAB PO SCH (08:27)
[2018-08-06] MEDS: lamoTRIgine 100MG TAB PO SCH ×2 (08:27→20:36)
[2018-08-06] MEDS: MOM 30ML SUSPENSION UDC PO SCH ×2 (08:27→20:31)
[2018-08-06] MEDS: SENOKOT S TAB PO SCH ×2 (08:27→20:27)
[2018-08-06] MEDS: ASPIRIN 81 MG ENTERIC TAB PO SCH (08:27)
[2018-08-06] MEDS: CLOPIDOGREL 75 MG TAB PO SCH (08:27)
--- NOTE | 2018-08-06 10:25 | IPNPDOC ---
Date Seen The patient was seen on 08/06/18. Progress Note SUBJECTIVE: Patient is a 62-year-old male with frostbite and rhabdomyolysis secondary to unwitnessed syncope outdoors. Patient is evaluated at bedside this morning. He has a sitter present. He is awake and alert. He appears somewhat frustrated. He is agreeable to continued therapy, if needed. He denies chest pain, shortness of breath, nausea, vomiting, abdominal pain. OBJECTIVE PHYSICAL EXAMINATION: VITAL SIGNS: Please see below. GENERAL: Well-nourished, well-developed male, appropriately dressed in hospital attire, appears grumpy, no acute distress. HEENT: Atraumatic, normocephalic, PERRL, EOMI, symmetrical hair distribution on face, oral mucosa appears pink and moist, nasal septum appears midline, nares are patent, improving flat erythematous rash noted on bilateral cheeks sparing nasolabial folds. CARDIOVASCULAR: Regular rate and rhythm, normal S1 and S2, no murmur, rub, click. RESPIRATORY: Clear to auscultation bilaterally, poor inspiratory effort, pr olonged expiratory wheeze noted diffusely, no rhonchi, crackles. ABDOMINAL: Round, soft, symmetrical abdominal hair distribution, Roque catheter in place with bright red blood in tubing and urine that is dark and blood tinged in catheter receptacle, no guarding, no rebound, non-distended, no organomegaly. EXTREMITIES: Bilateral fingers noted to unroofed blisters, improving edema, able to manipulate fingers, pulses are equal and symmetrical, +2. NEUROLOGICAL: No focal neurological deficits. PSYCHOLOGICAL: Grumpy. LABORATORY DATA, IMAGING STUDIES, MICROBIOLOGY: Please see below. CT head without contrast on 08/02/2018 - no acute infarction. Portable chest x-ray on 08/02/2018 - no acute pulmonary pathology, old post- traumatic rib fractures. CT abdomen and pelvis without contrast on 08/03/2018 - malpositioned suprapubic catheter in prevesical fat, mildly distended urinary bladder. Portable chest x-ray on 08/05/2018 - no new infiltrate, linear fibrosis on left, old rib fractures on right, elevated right hemidiaphragm. Echocardiogram: Normal left ventricular size and systolic function, grade 1 diastolic dysfunction, mild left ventricular hypertrophy, no significant valvular disease. DVT prophylaxis ordered?: Lovenox 40mg subcutaneously daily. ASSESSMENT AND PLAN: This is a 62-year-old male with unwitnessed syncope found to have rhabdomyolysis and frostbite. PROBLEMS: 1. Unwitnessed syncope: Echocardiogram as resulted above. EEG has been completed. Keppra level is normal. Toxicology is negative. Orthostatic vital signs are positive; however, patient currently on medications that are necessary for treatment. Will discontinue orthostatic vital signs and follow recommendations set forth by physical therapy for continued evaluation and treatment. Temperature has stabilized. No longer hypothermic. Physical therapy recommends out of bed in chair for meals, ambulation with nursing with gait belt and rolling walker to be utilized for bed to bathroom. Occupational therapy has been ordered. Recommend continued therapy after discharge once medically stable. 2. Rhabdomyolysis: Likely secondary to unwitnessed syncope outdoors. Discontinued intravenous fluids. Will monitor daily CPK which is improving. Patient may eat and drink to his hunger and thirst. Hypernatremia has resolved. 3. Frostbite: Continue daily oral Plavix 75mg by mouth. Wrap wounds with nonadhesive foam dressings and lightly cover with Kerlix. Avoid temperature fluctuations. Continue with Morphine. Continue with Percocet. Blood cultures are negative. No need for antibiotic therapy at this time. 4. Electrolyte derangements: Corrected calcium 8.7 for which supplementation wa s provided. Hypernatremia has resolved. 5. Elevated troponin due to secondary NSTEMI from demand ischemia: Improving. Echocardiogram obtained with results above. Continue with aspirin. 6. Urinary retention: Continue Flomax. Urology consulted. Attempted coude catheter, but was unsuccessful. Suprapubic catheter placed. Imaging revealed suprapubic catheter in the prevesicular fat. Patient to operating room with urology for cystoscopy and Roque catheter placement. Due to agitation and anxi ety Roque catheter was removed by patient himself. Urology placed another Roque catheter. Urinary output has been more than adequate. 7. Gross hematuria: Noted in Roque catheter tubing and receptacle. Urinary cystoscopy on 08/03/2018 was unrevealing for any anatomical abnormalities besides [id number] bilobar prostatic hyperplasia. 8. Constipation: Noted on abdominal imaging. Continue Senokot S and Milk of Magnesia. 9. Seizure disorder: Continue Lamictal and Keppra. Keppra level is within normal limits. EEG completed. 10. Hypertension: Continue Fosinopril and Coreg. 11. Dyslipidemia: Continue Zocor. 12. Gastroesophageal reflux disease: Continue Famotidine. 13. Depression: Continue Paxil. 14. Vertigo: Continue Meclizine. 15. Scaly lesions on flexural surfaces: Possible undiagnosed psoriasis. Consider outpatient follow-up. 16. Erythematous facial rash: Workup for possible lupus, including AMA, antiphospholipid, C3 and C4 complement (C3 only marginally below normal limit; C4 normal), CRP and ESR (both elevated), urine protein (99.7) and creatinine, urinalysis (which revealed blood likely from traumatic Roque catheter removal by patient himself). 17. Normocytic anemia and pancytopenia: Likely dilutional or due to recent urological bleed from suprapubic catheter and subsequently Roque catheter removal by patient himself. Absolute reticulocyte count 1.1 with a reticulocyte index 0.71. This could represent a degree of hypo-proliferation. Peripheral smear revealed "Acute onset anemia and thrombocytopenia, mild, suggestive of recent bleeding event. No morphologic abnormalities are noted." Iron studies (possible anemia of chronic disease), vitamin B12 (normal), and folate level (normal). Pancytopenia appears transient. No further evaluation at this time. 18. Acute confusion and agitation: Possible underlying alcohol dependance. AST > ALT. Total bilirubin within normal limits. AST remains elevated. Ativan as needed for agitation. Continue Serax. Continue multivitamin, thiamine, and folic acid. [facility] protocol in place. Possibly underlying, undiagnosed dementia. DISPOSITION: Pending clinical improvement. Possible rehabilitation once medically cleared. [facility]&O Vital Signs Date Time Temp Pulse Resp B/P (MAP) Pulse Ox O2 Delivery O2 Flow Rate FiO2 08/06/18 08:26 176/85 08/06/18 06:58 18 Room Air 08/06/18 06:00 98.4 78 99 08/03/18 17:55 2 I&O- Last 24 Hours up to 6 AM 08/06/18 06:00 Intake Total 2310 ml Output Total 2150 ml Balance 160 ml Laboratory Data 24H LABS Laboratory Tests 2 08/06/18 06:17: Immature Granulocyte % (Auto) 0.5, White Blood Count 4.0, Red Blood Count 4.10L, Hemoglobin 11.1L, Hematocrit 34.7L, Mean Corpuscular Volume 84.6, Mean Corpuscular Hemoglobin 27.1, Mean Corpuscular Hemoglobin Concent 32.0, Red Cell Distribution Width 13.3, Platelet Count 138L, Neutrophils (%) (Auto) 62.3, Lymphocytes (%) (Auto) 24.6, Monocytes (%) (Auto) 8.3H, Eosinophils (%) (Auto) 3.8H, Basophils (%) (Auto) 0.5, Neutrophils # (Auto) 2.5, Lymphocytes # (Auto) 1.0L, Monocytes # (Auto) 0.3, Eosinophils # (Auto) 0.2, Basophils # (Auto) 0.0, Nucleated Red Blood Cells % (auto) 0.0, Anion Gap 9, Glomerular Filtration Rate > 60.0, Blood Urea Nitrogen 9, Creatinine 0.83, Sodium Level 142, Potassium Level 3.7, Chloride Level 107, Carbon Dioxide Level 26, Calcium Level 7.7L, Aspartate Amino Transf (AST/SGOT) 110H, Alanine Aminotransferase (ALT/SGPT) 58, Total Creatine Kinase 3739H, Alkaline Phosphatase 70, Total Bilirubin 0.3, Total Protein 5.5L, Albumin 2.8L, Albumin/Globulin Ratio 1.04 CBC/BMP Laboratory Tests 08/06/18 06:17 Red Blood Count 4.10 L, Mean Corpuscular Volume 84.6, Mean Corpuscular Hemoglobin 27.1, Mean Corpuscular Hemoglobin Concent 32.0, Red Cell Distribution Width 13.3, Neutrophils (%) (Auto) 62.3, Lymphocytes (%) (Auto) 24.6, Monocytes (%) (Auto) 8.3 H, Eosinophils (%) (Auto) 3.8 H, Basophils (%) (Auto) 0.5, Neutrophils # (Auto) 2.5, Lymphocytes # (Auto) 1.0 L, Monocytes # (Auto) 0.3, Eosinophils # (Auto) 0.2, Basophils # (Auto) 0.0, Calcium Level 7.7 L, Aspartate Amino Transf (AST/SGOT) 110 H, Alanine Aminotransferase (ALT/SGPT) 58, Total Creatine Kinase 3739 H, Alkaline Phosphatase 70, Total Bilirubin 0.3, Total Protein 5.5 L, Albumin 2.8 L Microbiology Microbiology 08/02/18 Blood Culture - Preliminary, Resulted No Growth after 72 hours. All specime... 08/02/18 Blood Culture - Preliminary, Resulted No Growth after 72 hours. All specime... LYSSA LOVELACE DO Aug 06, 2018 10:25
[2018-08-06 14:00] VITALS: BP 182/88
[2018-08-06] MEDS: PARoxetine 20 MG TAB PO SCH (20:26)
[2018-08-06] MEDS: SIMVASTATIN 40 MG TAB PO SCH (20:27)
[2018-08-06 22:00] VITALS: BP 186/96
[2018-08-07] MEDS: OXAZEPAM 15 MG CAP PO SCH ×2 (05:16→22:25)
[2018-08-07 05:48] LABS: HEMATOCRIT 35.5 % (42.0-52.0); HEMOGLOBIN 11.4 g/dl (13.5-17.5); MEAN CORPUSCULAR HGB CONC 32.1 g/dl (32.0-36.5); MEAN CORPUSCULAR VOLUME 83.9 fl (80.0-96.0); PLATELET COUNT, AUTOMATED 137 10^3/uL (150-450); RED BLOOD COUNT 4.23 10^6/uL (4.30-6.10); WHITE BLOOD COUNT 3.3 10^3/uL (4.0-10.0)
[2018-08-07 06:00] VITALS: BP 150/82
[2018-08-07 06:39] LABS: BLOOD UREA NITROGEN 8 MG/DL (7-18); CALCIUM LEVEL 8.3 MG/DL (8.8-10.2); CARBON DIOXIDE LEVEL 28 MEQ/L (21-32); CHLORIDE LEVEL 106 MEQ/L (98-107); CPK CREATINE PHOSPHOKINASE 1595 U/L (39-308); CREATININE FOR GFR 0.77 MG/DL (0.70-1.30); GLOMERULAR FILTRATION RATE > 60.0 (>49); GLUCOSE, FASTING 87 MG/DL (70-100); POTASSIUM SERUM 3.5 MEQ/L (3.5-5.1); SODIUM LEVEL 143 MEQ/L (136-145)
[2018-08-07] MEDS ORDERED: FLEET OIL RETENTION ENEMA PR ONE (08:00)
[2018-08-07] MEDS: CLOPIDOGREL 75 MG TAB PO SCH (08:37)
[2018-08-07] MEDS: THIAMINE 100 MG TAB PO SCH (08:37)
[2018-08-07] MEDS: FAMOTIDINE 20 MG TAB PO SCH (08:37)
[2018-08-07] MEDS: CARVedilol 6.25 MG TAB PO SCH ×2 (08:37→22:26)
[2018-08-07] MEDS: levETIRAcetam 250MG TABLET (KEPPRA) PO SCH ×2 (08:38→22:26)
[2018-08-07] MEDS: SENOKOT S TAB PO SCH ×2 (08:38→22:27)
[2018-08-07] MEDS: lamoTRIgine 100MG TAB PO SCH ×2 (08:38→22:28)
[2018-08-07] MEDS: MULTIVITAMINS/MINERALS THERAP 1 TAB PO SCH (08:38)
[2018-08-07] MEDS: TAMSULOSIN 0.4 MG CAP PO SCH (08:38)
[2018-08-07] MEDS: MOM 30ML SUSPENSION UDC PO SCH ×2 (08:38→22:28)
[2018-08-07] MEDS: FOSINOPRIL 10 MG TAB PO SCH (08:38)
[2018-08-07] MEDS: GABAPENTIN 400 MG CAP PO SCH ×3 (08:38→22:27)
[2018-08-07] MEDS: NICOTINE 14 MG/24 HR TRANSDERMAL TD SCH (08:38)
[2018-08-07] MEDS: FOLIC ACID 1 MG TAB PO SCH (08:38)
[2018-08-07] MEDS: ASPIRIN 81 MG ENTERIC TAB PO SCH (08:38)
[2018-08-07] MEDS: ENOXAPARIN 40 MG/0.4 ML SYRINGE (J1650) SC SCH (08:39)
--- NOTE | 2018-08-07 08:53 | EEG ---
DATE OF PROCEDURE: 08/03/2018 REFERRING PHYSICIAN: Dr. Allie Toure DIAGNOSIS: Unwitnessed syncope. EEG NUMBER: [id number] HISTORY: The patient is a 62-year-old man, who was admitted at [facility] after he lost consciousness and fell into the snow outside. He had frostbite. This EEG was done to rule out epileptic potential. He is currently taking aspirin, folic acid, lamotrigine, gabapentin, Paxil, Keppra, Plavix, famotidine, etc. TECHNICAL DESCRIPTION: This digital EEG was recorded by 21 scalp, ear and two EKG electrodes and was reviewed in bipolar and referential montages following reformatting in 10-20 international electrode placement system. INTERPRETATION: Patient was noted to be in awake and drowsy states during this EEG. Resting awake background rhythm consisted of 8-9 Hz alpha activity, which was symmetric bilaterally and reactive to eye opening. Patient became drowsy, although no sleep was achieved. Excessive muscle artifact was noted throughout this EEG in bilateral frontal and temporal head region. Hyperventilation could not be performed. Photic stimulation remained unremarkable. EKG was affected by motion and electrode artifacts. No focal, lateralizing or epileptiform abnormalities were seen. No clinical activity was noted. CONCLUSION: This EEG in awake and drowsy states is within normal limits. This EEG was affected by excessive muscle and electrode artifacts throughout the recording. [facility]
--- NOTE | 2018-08-07 10:49 | REP ---
LUMBAR SPINE, SIX VIEWS: HISTORY: Back pain. COMPARISON: 04/06/2014 There is no acute fracture or subluxation. There is an old compression fracture of the L1 vertebral body with minimal height loss. The lumbar intervertebral discs are decreased in height consistent with disc degeneration. Osteophytes are present through out the lumbar spine. There is narrowing of the left L4-5 and L5-S1 facet joints. There is sclerosis of the L3-4 through L5-S1 facets. There is scoliosis convex to the left. IMPRESSION: Degenerative change as described above. Electronically Signed by Mario Rodriguez MD 08/07/2018 10:51 A
[2018-08-07] MEDS: LORazepam 2 MG/ML VIAL (J2060) IV PRN (11:44)
[2018-08-07] MEDS: PERCOCET 5MG/325MG TAB PO PRN ×2 (14:55→22:29)
--- NOTE | 2018-08-07 16:32 | IPNPDOC ---
Date Seen The patient was seen on 08/07/18. Progress Note SUBJECTIVE: Patient is a 62-year-old male with frostbite and rhabdomyolysis secondary to unwitnessed syncope outdoors. Patient is evaluated at bedside this morning. He has a sitter present. Patient appears to be much more subdued and cooperative today. He denies chest pain, shortness of breath, nausea, vomiting, abdominal pain, numbness and tingling in his lower extremities, fecal incontinence. He notes that he does have right-sided low back pain. OBJECTIVE PHYSICAL EXAMINATION: VITAL SIGNS: Please see below. GENERAL: Well-nourished, well-developed male, appropriately dressed in hospital attire, cooperative, no acute distress. HEENT: Atraumatic, normocephalic, PERRL, EOMI, symmetrical hair distribution on face, oral mucosa appears pink and moist, nasal septum appears midline, nares are patent, resolved flat erythematous rash. CARDIOVASCULAR: Regular rate and rhythm, normal S1 and S2, no murmur, rub, click. RESPIRATORY: Clear to auscultation bilaterally, adequate inspiratory and expiratory airway excursion, symmetric air entry throughout, no focal consolid ations, no wheeze, rhonchi, crackles. ABDOMINAL: Round, soft, symmetrical abdominal hair distribution, Roque catheter in place with pink tinged urine in catheter receptacle, no guarding, no rebound, non-distended, no organomegaly somewhat irregularly-shaped purple ecchymosis noted the right lower flank area. EXTREMITIES: Bilateral fingers noted to unroofed blisters, improving edema, able to manipulate fingers, pulses are equal and symmetrical, +2. NEUROLOGICAL: No focal neurological deficits. PSYCHOLOGICAL: Grumpy. LABORATORY DATA, IMAGING STUDIES, MICROBIOLOGY: Please see below. CT head without contrast on 08/02/2018 - no acute infarction. Portable chest x-ray on 08/02/2018 - no acute pulmonary pathology, old post- traumatic rib fractures. CT abdomen and pelvis without contrast on 08/03/2018 - malpositioned suprapubic catheter in prevesical fat, mildly distended urinary bladder. Portable chest x-ray on 08/05/2018 - no new infiltrate, linear fibrosis on left, old rib fractures on right, elevated right hemidiaphragm. Lumbosacral complete spine x-ray on 08/07/2018 - degenerative changes. Electroencephalogram - EEG is awake and drowsy states is within normal limits. EEG was affected by excessive muscle and electrode artifacts throughout the recording. Echocardiogram: Normal left ventricular size and systolic function, grade 1 diastolic dysfunction, mild left ventricular hypertrophy, no significant valvular disease. DVT prophylaxis ordered?: Lovenox 40mg subcutaneously daily. ASSESSMENT AND PLAN: This is a 62-year-old male with unwitnessed syncope found to have rhabdomyolysis and frostbite. PROBLEMS: 1. Unwitnessed syncope: Echocardiogram and EEG has resulted above. Keppra level is normal. Toxicology is negative. Orthostatic vital signs are positive; fariha brown, patient currently on medications that are necessary for treatment. Orthostatic vital signs discontinued. Temperature has stabilized. No longer hypothermic. Per report, physical therapy is not conducted this patient had increased agitation. Prior reports by physical therapy and noted the patient is not safe for discharge and would recommend continued rehabilitation after medical discharge. Patient and family services reach down to patient's family and will be meeting up with patient's brother, Darrell Hernandez, on 08/10/2018 at 9:30 AM to discuss SNF process. 2. Rhabdomyolysis: Continues to make improvements. Renal function remains intact. Patient may eat and drink to his hunger and thirst. Intravenous fluid resuscitation has been discontinued. 3. Frostbite: Continue daily oral Plavix 75mg by mouth. Wrap wounds with nonadhesive foam dressings and lightly cover with Kerlix. Avoid temperature fluctuations. Morphine has been discontinued. Continue with Percocet. Blood cultures are negative. No need for antibiotic therapy at this time. 4. Electrolyte derangements: Corrected calcium 9.3 . No supplementation required. 5. Elevated troponin due to secondary NSTEMI from demand ischemia: Improving. Echocardiogram obtained with results above. Continue with aspirin. 6. Urinary retention: Continue Flomax. Urology consulted. Attempted coude catheter, but was unsuccessful. Suprapubic catheter placed. Imaging revealed suprapubic catheter in the prevesicular fat. Patient to operating room with urology for cystoscopy which did not reveal any anatomical abnormalities and a Roque catheter was placed. Due to agitation and anxiety Roque catheter was removed by patient himself. Urology placed another Roque catheter. Urinary output has been more than adequate.. Discussed with urology has recommended that Roque catheter be removed prior to discharge. Blood-tinged urine in catheter receptacle likely secondary to irritation and prior trauma from Roque catheter removal by patient. 7. Gross hematuria: Noted in Roque catheter tubing and receptacle. Urinary cystoscopy on 08/03/2018 was unrevealing for any anatomical abnormalities besides [id number] bilobar prostatic hyperplasia. 8. Constipation: Noted on abdominal imaging. Continue Senokot S and Milk of Magnesia. 9. Seizure disorder: Continue Lamictal and Keppra. Keppra level is within normal limits. EEG within normal limits. 10. Hypertension: Continue Fosinopril and Coreg. 11. Dyslipidemia: Continue Zocor. 12. Gastroesophageal reflux disease: Continue Famotidine. 13. Depression: Continue Paxil. 14. Vertigo: Continue Meclizine. 15. Scaly lesions on flexural surfaces: Possible undiagnosed psoriasis. Consider outpatient follow-up. 16. Erythematous facial rash: Workup for possible lupus, including AMA, antiphospholipid, C3 and C4 complement (C3 only marginally below normal limit; C4 normal), CRP and ESR (both elevated), urine protein (99.7) and creatinine, urinalysis (which revealed blood likely from traumatic Roque catheter removal by patient himself). 17. Normocytic anemia and pancytopenia: Likely dilutional or due to recent urological bleed from suprapubic catheter and subsequently Roque catheter removal by patient himself. Absolute reticulocyte count 1.1 with a reticulocyte index 0.71. This could represent a degree of hypo-proliferation. Peripheral smear revealed "Acute onset anemia and thrombocytopenia, mild, suggestive of recent bleeding event. No morphologic abnormalities are noted." Iron studies (possible anemia of chronic disease), vitamin B12 (normal), and folate level (normal). Pancytopenia appears transient. No further evaluation at this time. 18. Acute confusion and agitation: Possible underlying alcohol dependance. AST > ALT. Total bilirubin within normal limits. AST remains elevated. Ativan as needed for agitation. Continue Serax. Continue multivitamin, thiamine, and folic acid. [facility] protocol in place. Possibly underlying, undiagnosed dementia. DISPOSITION: Pending clinical improvement. Possible rehabilitation once medically cleared. VS, I&O, 24H, Fishbone Vital Signs/I&O Vital Signs Date Time Temp Pulse Resp B/P (MAP) Pulse Ox O2 Delivery O2 Flow Rate FiO2 08/07/18 16:02 16 08/07/18 08:38 150/82 08/07/18 08:37 70 08/07/18 06:00 98.6 93 Room Air 08/03/18 17:55 2 I&O- Last 24 Hours up to 6 AM 08/07/18 06:00 Intake Total 240 ml Output Total 4100 ml Balance -3860 ml Laboratory Data 24H LABS Laboratory Tests 2 08/07/18 05:25: Nucleated Red Blood Cells % (auto) 0.0, Anion Gap 9, Glomerular Filtration Rate > 60.0, Blood Urea Nitrogen 8, Creatinine 0.77, Sodium Level 143, Potassium Level 3.5, Chloride Level 106, Carbon Dioxide Level 28, Calcium Level 8.3L, Total Creatine Kinase 1595H CBC/BMP Laboratory Tests 08/07/18 05:25 Red Blood Count 4.23 L, Mean Corpuscular Volume 83.9, Mean Corpuscular Hemoglo bin 27.0, Mean Corpuscular Hemoglobin Concent 32.1, Red Cell Distribution Width 13.2, Calcium Level 8.3 L Microbiology Microbiology 08/02/18 Blood Culture - Final, Complete NO GROWTH AFTER 5 DAYS 08/02/18 Blood Culture - Final, Complete NO GROWTH AFTER 5 DAYS LYSSA LOVELACE DO Aug 07, 2018 16:32
[2018-08-07] MEDS ORDERED: OXAZEPAM 15 MG CAP PO SCH (21:00)
[2018-08-07 22:00] VITALS: BP 135/93
[2018-08-07] MEDS: PARoxetine 20 MG TAB PO SCH (22:27)
[2018-08-07] MEDS: SIMVASTATIN 40 MG TAB PO SCH (22:28)
[2018-08-08] MEDS: OXAZEPAM 15 MG CAP PO SCH ×3 (05:57→21:13)
[2018-08-08 06:00] VITALS: BP 170/88
[2018-08-08 07:15] LABS: HEMATOCRIT 38.2 % (42.0-52.0); HEMOGLOBIN 12.2 g/dl (13.5-17.5); MEAN CORPUSCULAR HEMOGLOBIN 26.8 pg (27.0-33.0); MEAN CORPUSCULAR HGB CONC 31.9 g/dl (32.0-36.5); MEAN CORPUSCULAR VOLUME 83.8 fl (80.0-96.0); PLATELET COUNT, AUTOMATED 144 10^3/uL (150-450); RED BLOOD COUNT 4.56 10^6/uL (4.30-6.10); WHITE BLOOD COUNT 4.2 10^3/uL (4.0-10.0)
[2018-08-08 07:36] LABS: BLOOD UREA NITROGEN 9 MG/DL (7-18); CALCIUM LEVEL 8.5 MG/DL (8.8-10.2); CARBON DIOXIDE LEVEL 30 MEQ/L (21-32); CHLORIDE LEVEL 104 MEQ/L (98-107); CPK CREATINE PHOSPHOKINASE 857 U/L (39-308); CREATININE FOR GFR 0.81 MG/DL (0.70-1.30); GLOMERULAR FILTRATION RATE > 60.0 (>49); GLUCOSE, FASTING 87 MG/DL (70-100); POTASSIUM SERUM 3.5 MEQ/L (3.5-5.1); SODIUM LEVEL 141 MEQ/L (136-145)
[2018-08-08] MEDS: levETIRAcetam 250MG TABLET (KEPPRA) PO SCH ×2 (09:01→21:13)
[2018-08-08] MEDS: lamoTRIgine 100MG TAB PO SCH ×2 (09:02→21:13)
[2018-08-08] MEDS: SENOKOT S TAB PO SCH ×2 (09:02→21:13)
[2018-08-08] MEDS: MULTIVITAMINS/MINERALS THERAP 1 TAB PO SCH (09:02)
[2018-08-08] MEDS: TAMSULOSIN 0.4 MG CAP PO SCH (09:02)
[2018-08-08] MEDS: THIAMINE 100 MG TAB PO SCH (09:02)
[2018-08-08] MEDS: ASPIRIN 81 MG ENTERIC TAB PO SCH (09:02)
[2018-08-08] MEDS: CLOPIDOGREL 75 MG TAB PO SCH (09:02)
[2018-08-08] MEDS: FAMOTIDINE 20 MG TAB PO SCH (09:03)
[2018-08-08] MEDS: FOLIC ACID 1 MG TAB PO SCH (09:03)
[2018-08-08] MEDS: MOM 30ML SUSPENSION UDC PO SCH ×2 (09:03→21:15)
[2018-08-08] MEDS: GABAPENTIN 400 MG CAP PO SCH ×3 (09:03→21:13)
[2018-08-08] MEDS: FOSINOPRIL 10 MG TAB PO SCH (09:05)
[2018-08-08] MEDS: CARVedilol 6.25 MG TAB PO SCH ×2 (09:05→21:14)
[2018-08-08] MEDS: ENOXAPARIN 40 MG/0.4 ML SYRINGE (J1650) SC SCH (09:06)
[2018-08-08] MEDS: NICOTINE 14 MG/24 HR TRANSDERMAL TD SCH (09:07)
[2018-08-08] MEDS: PERCOCET 5MG/325MG TAB PO PRN ×2 (09:08→21:15)
--- NOTE | 2018-08-08 13:12 | IPNPDOC ---
Date Seen The patient was seen on 08/08/18. Progress Note SUBJECTIVE: Patient is a 62-year-old male with frostbite and rhabdomyolysis secondary to unwitnessed syncope outdoors. Patient is evaluated at bedside this morning. He has a sitter present. Patient is laying on his right side in hospital bed. He is sleeping upon my evaluation. He is easily arousable. He denies chest pain, shortness of breath, nausea, vomiting, abdominal pain. His breakfast is at bedside, but he states that he is not hungry. OBJECTIVE PHYSICAL EXAMINATION: VITAL SIGNS: Please see below. GENERAL: Well-nourished, well-developed male, appropriately dressed in hospital attire, cooperative, no acute distress. HEENT: Atraumatic, normocephalic, PERRL, EOMI, symmetrical hair distribution on face, oral mucosa appears pink and moist, nasal septum appears midline, nares are patent, resolved flat erythematous rash. CARDIOVASCULAR: Regular rate and rhythm, normal S1 and S2, no murmur, rub, click. RESPIRATORY: Clear to auscultation bilaterally, poor inspiratory and expiratory airway excursion, symmetric air entry throughout, no focal consolidations, no wheeze, rhonchi, crackles. ABDOMINAL: Round, soft, symmetrical abdominal hair distribution, Roque catheter in place with pink tinged urine in catheter receptacle, no guarding, no rebound, non-distended, no organomegaly somewhat irregularly-shaped purple ecchymosis noted the right lower flank area. EXTREMITIES: Improving unroofed blisters on finger digits, discoloration to the fingertips, improving edema, able to manipulate fingers, pulses are equal and symmetrical, +2. NEUROLOGICAL: No focal neurological deficits. PSYCHOLOGICAL: Mood and affect appropriate. LABORATORY DATA, IMAGING STUDIES, MICROBIOLOGY: Please see below. CT head without contrast on 08/02/2018 - no acute infarction. Portable chest x-ray on 08/02/2018 - no acute pulmonary pathology, old post- traumatic rib fractures. CT abdomen and pelvis without contrast on 08/03/2018 - malpositioned suprapubic catheter in prevesical fat, mildly distended urinary bladder. Portable chest x-ray on 08/05/2018 - no new infiltrate, linear fibrosis on left, old rib fractures on right, elevated right hemidiaphragm. Lumbosacral complete spine x-ray on 08/07/2018 - degenerative changes. Electroencephalogram - EEG is awake and drowsy states is within normal limits. EEG was affected by excessive muscle and electrode artifacts throughout the recording. Echocardiogram: Normal left ventricular size and systolic function, grade 1 smart tolic dysfunction, mild left ventricular hypertrophy, no significant valvular disease. DVT prophylaxis ordered?: Lovenox 40mg subcutaneously daily. ASSESSMENT AND PLAN: This is a 62-year-old male with unwitnessed syncope found to have rhabdomyolysis and frostbite. PROBLEMS: 1. Unwitnessed syncope: Echocardiogram and EEG has resulted above. Keppra level is normal. Toxicology is negative. Discontinued orthostatic vital signs as patient is on medications that can cause orthostasis; however, current medications required for optimal medical management. Temperature remains stable. Per report, physical therapy did not work with patient on 08/07/2018 due to increased patient agitation. Prior reports by physical therapy noted the patient is not safe for discharge and would recommend continued rehabilitation after medical discharge. Patient and family services reach down to patient's family and will be meeting up with patient's brother, Darrell Hernandez, on 08/10/2018 at 9:30 AM to discuss SNF process. 2. Rhabdomyolysis: Continues to make improvements. Renal function remains i ntact. Patient may eat and drink to his hunger and thirst. Intravenous fluid resuscitation has been discontinued. 3. Frostbite: Continue daily oral Plavix 75mg by mouth. Wrap wounds with nonadhesive foam dressings and lightly cover with Kerlix. Avoid temperature fluctuations. Morphine has been discontinued. Continue with Percocet. Blood cultures are negative. No need for antibiotic therapy at this time. 4. Electrolyte derangements: Resolved. 5. Elevated troponin due to secondary NSTEMI from demand ischemia: Improving. Echocardiogram obtained with results above. Continue with aspirin. 6. Urinary retention: Continue Flomax. Urology consulted. Attempted coude catheter, but was unsuccessful. Suprapubic catheter placed. Imaging revealed suprapubic catheter in the prevesicular fat. Patient to operating room with urology for cystoscopy which did not reveal any anatomical abnormalities and a Roque catheter was placed. Due to agitation and anxiety Roque catheter was removed by patient himself. Urology placed another Roque catheter. Urinary output has been more than adequate. Discussed with urology has recommended that Roque catheter be removed prior to discharge. Blood-tinged urine in catheter receptacle likely secondary to irritation and prior trauma from Roque catheter removal by patient. 7. Gross hematuria: Noted in Roque catheter tubing and receptacle. Urinary cystoscopy on 08/03/2018 was unrevealing for any anatomical abnormalities besides [id number] bilobar prostatic hyperplasia. 8. Constipation: Noted on abdominal imaging. Continue Senokot S and Milk of Magnesia. 9. Seizure disorder: Continue Lamictal and Keppra. Keppra level is within normal limits. EEG within normal limits. 10. Hypertension: Continue Coreg. Increased Fosinopril to 20mg by mouth daily as blood pressure has been somewhat elevated. 11. Dyslipidemia: Continue Zocor. 12. Gastroesophageal reflux disease: Continue Famotidine. 13. Depression: Continue Paxil. 14. Vertigo: Continue Meclizine. 15. Scaly lesions on flexural surfaces: Possible undiagnosed psoriasis. Consider outpatient follow-up. 16. Erythematous facial rash: Workup for possible lupus, including AMA, antiphospholipid, C3 and C4 complement (C3 only marginally below normal limit; C4 normal), CRP and ESR (both elevated), urine protein (99.7) and creatinine, urinalysis (which revealed blood likely from traumatic Roque catheter removal by patient himself). 17. Normocytic anemia and pancytopenia: Likely dilutional or due to recent urological bleed from suprapubic catheter and subsequently Roque catheter removal by patient himself. Absolute reticulocyte count 1.1 with a reticulocyte index 0.71. This could represent a degree of hypo-proliferation. Peripheral smear revealed "Acute onset anemia and thrombocytopenia, mild, suggestive of recent bleeding event. No morphologic abnormalities are noted." Iron studies (possible anemia of chronic disease), vitamin B12 (normal), and folate level (normal). Pancytopenia appears transient. No further evaluation at this time. 18. Acute confusion and agitation: Possible underlying alcohol dependance. AST > ALT. Total bilirubin within normal limits. AST remains elevated. Ativan as needed for agitation. Decreased Serax to 15mg by mouth every 8 hours. Continue multivitamin, thiamine, and folic acid. CIWA protocol in place. Possibly underlying, undiagnosed dementia. DISPOSITION: Pending clinical improvement. Possible rehabilitation once medically cleared. VS, I&O, 24H, Fishbone Vital Signs/I&O Vital Signs Date Time Temp Pulse Resp B/P (MAP) Pulse Ox O2 Delivery O2 Flow Rate FiO2 08/08/18 09:45 18 08/08/18 09:05 158/88 08/08/18 09:05 68 08/08/18 06:00 97.6 98 Room Air 08/03/18 17:55 2 I&O- Last 24 Hours up to 6 AM 08/08/18 06:00 Intake Total 1800 ml Output Total 2975 ml Balance -1175 ml Laboratory Data 24H LABS Laboratory Tests 2 08/08/18 06:00: Nucleated Red Blood Cells % (auto) 0.0, Anion Gap 7L, Glomerular Filtration Rate > 60.0, Blood Urea Nitrogen 9, Creatinine 0.81, Sodium Level 141, Potassium Level 3.5, Chloride Level 104, Carbon Dioxide Level 30, Calcium Level 8.5L, Total Creatine Kinase 857H CBC/BMP Laboratory Tests 08/08/18 06:00 Red Blood Count 4.56, Mean Corpuscular Volume 83.8, Mean Corpuscular Hemoglobin 26.8 L, Mean Corpuscular Hemoglobin Concent 31.9 L, Red Cell Distribution Width 13.2, Calcium Level 8.5 L Microbiology Microbiology 08/02/18 Blood Culture - Final, Complete NO GROWTH AFTER 5 DAYS 08/02/18 Blood Culture - Final, Complete NO GROWTH AFTER 5 DAYS LYSSA LOVELACE DO Aug 08, 2018 13:12
[2018-08-08 14:00] VITALS: BP 153/89
[2018-08-08] MEDS: PARoxetine 20 MG TAB PO SCH (21:14)
[2018-08-08] MEDS: SIMVASTATIN 40 MG TAB PO SCH (21:15)
[2018-08-08 22:00] VITALS: BP 164/94
[2018-08-09] MEDS: OXAZEPAM 15 MG CAP PO SCH ×3 (05:12→21:29)
[2018-08-09 06:00] VITALS: BP 157/70
[2018-08-09 06:01] LABS: HEMATOCRIT 38.2 % (42.0-52.0); HEMOGLOBIN 12.1 g/dl (13.5-17.5); MEAN CORPUSCULAR HEMOGLOBIN 26.7 pg (27.0-33.0); MEAN CORPUSCULAR HGB CONC 31.7 g/dl (32.0-36.5); MEAN CORPUSCULAR VOLUME 84.3 fl (80.0-96.0); PLATELET COUNT, AUTOMATED 173 10^3/uL (150-450); RED BLOOD COUNT 4.53 10^6/uL (4.30-6.10); WHITE BLOOD COUNT 3.8 10^3/uL (4.0-10.0)
[2018-08-09 06:30] LABS: BLOOD UREA NITROGEN 12 MG/DL (7-18); CALCIUM LEVEL 8.3 MG/DL (8.8-10.2); CARBON DIOXIDE LEVEL 29 MEQ/L (21-32); CHLORIDE LEVEL 105 MEQ/L (98-107); CPK CREATINE PHOSPHOKINASE 410 U/L (39-308); CREATININE FOR GFR 0.84 MG/DL (0.70-1.30); GLOMERULAR FILTRATION RATE > 60.0 (>49); GLUCOSE, FASTING 88 MG/DL (70-100); POTASSIUM SERUM 3.5 MEQ/L (3.5-5.1); SODIUM LEVEL 142 MEQ/L (136-145)
--- NOTE | 2018-08-09 08:26 | IPNPDOC ---
Text Note Date of Service The patient was seen on 08/09/18. NOTE SUBJECTIVE: Patient seen and examined at bedside. No acute overnight events r eported. Patient has no medical complaints this morning. OBJECTIVE: PHYSICAL EXAMINATION: VITAL SIGNS: Please see below. GENERAL: NAD, lying comfortably in bed, disheveled HEENT: NC/AT, PERRL CARDIOVASCULAR: +S1S2, RRR RESPIRATORY: CTA B/L ABDOMINAL: soft, NT, +BS EXTREMITIES: bandages in place on all fingers, and left hand NEUROLOGICAL: No gross focal neurological deficits. PSYCHOLOGICAL: confused, oriented to name and place ASSESSMENT AND PLAN: This is a 62-year-old male with unwitnessed syncope found to have rhabdomyolysis and frostbite. #Unwitnessed syncope - workup unrevealing - no further episodes - continue with PT - rehab on discharge - PFS to meet with patient's brother, Darrell Hernandez, on 08/10/2018 at 9:30 AM to discuss SNF process. #Acute confusion and agitation - improving - likely underlying alcohol dependance. AST > 2ALT on admission - serax taper - currently 15mg q8h - MVI, folic acid, thiamine - CIWA protocol - Possibly underlying, undiagnosed dementia #Rhabdomyolysis - essentially resolved s/p IVF #Frostbite - Continue daily oral Plavix 75mg by mouth. Wrap wounds with nonadhesive foam dressings and lightly cover with Kerlix. Avoid temperature fluctuations. Morphine has been discontinued. Continue with Percocet. Blood cultures are negative. No need for antibiotic therapy at this time. #Electrolyte derangements - Resolved. #troponinemia - likely due to demand ischemia - Echocardiogram noted - c/w ASA #Urinary retention - Continue Flomax - follow as per urology - assistance appreciated - s/p failed suprapubic catheter - currently has peters catheter - likely TOV prior to discharge otherwise o/p urology follow up #Gross hematuria - resolved - H/H stable - Urinary cystoscopy on 08/03/2018 was unrevealing for any anatomical abnormali ties besides [id number] bilobar prostatic hyperplasia. #Normocytic anemia and pancytopenia - much improved - peripheral smear noted - continue to monitor 8. Constipation: Noted on abdominal imaging. Continue Senokot S and Milk of Magnesia. 9. Seizure disorder: Continue Lamictal and Keppra. Keppra level is within normal limits. EEG within normal limits. 10. Hypertension: Continue Coreg. Increased Fosinopril to 20mg by mouth daily as blood pressure has been somewhat elevated. 11. Dyslipidemia: Continue Zocor. 12. Gastroesophageal reflux disease: Continue Famotidine. 13. Depression: Continue Paxil. 14. Vertigo: Continue Meclizine. 15. Scaly lesions on flexural surfaces: Possible undiagnosed psoriasis. Consider outpatient follow-up. 16. Erythematous facial rash: Workup for possible lupus, including AMA, antiphospholipid, C3 and C4 complement (C3 only marginally below normal limit; C4 normal), CRP and ESR (both elevated), urine protein (99.7) and creatinine, urinalysis (which revealed blood likely from traumatic Peters catheter removal by patient himself). DISPOSITION: Pending clinical improvement. Possible rehabilitation on discharge. VS,Fishbone, I+O VS, Fishbone, I+O Laboratory Tests 08/09/18 05:39 Red Blood Count 4.53, Mean Corpuscular Volume 84.3, Mean Corpuscular Hemoglobin 26.7 L, Mean Corpuscular Hemoglobin Concent 31.7 L, Red Cell Distribution Width 13.2, Calcium Level 8.3 L Vital Signs Date Time Temp Pulse Resp B/P (MAP) Pulse Ox O2 Delivery O2 Flow Rate FiO2 08/09/18 06:00 97.8 70 18 157/70 (99) 95 Room Air 08/03/18 17:55 2 I&O- Last 24 Hours up to 6 AM 08/09/18 06:00 Intake Total 720 ml Output Total 1850 ml Balance -1130 ml DENG CHEEK MD Aug 09, 2018 08:17
[2018-08-09 08:38] LABS: ALBUMIN 2.9 GM/DL (3.2-5.2); ALT/SGPT 45 U/L (12-78); BILIRUBIN,DIRECT 0.1 MG/DL (0.0-0.2); BILIRUBIN,TOTAL 0.4 MG/DL (0.2-1.0); TOTAL PROTEIN 6.2 GM/DL (6.4-8.2)
[2018-08-09] MEDS: MOM 30ML SUSPENSION UDC PO SCH ×2 (08:39→21:28)
[2018-08-09] MEDS: ENOXAPARIN 40 MG/0.4 ML SYRINGE (J1650) SC SCH (08:39)
[2018-08-09] MEDS: GABAPENTIN 400 MG CAP PO SCH ×3 (08:39→21:30)
[2018-08-09] MEDS: ASPIRIN 81 MG ENTERIC TAB PO SCH (08:39)
[2018-08-09] MEDS: SENOKOT S TAB PO SCH ×2 (08:40→21:29)
[2018-08-09] MEDS: CARVedilol 6.25 MG TAB PO SCH ×2 (08:40→21:29)
[2018-08-09] MEDS: levETIRAcetam 250MG TABLET (KEPPRA) PO SCH ×2 (08:40→21:30)
[2018-08-09] MEDS: FOLIC ACID 1 MG TAB PO SCH (08:40)
[2018-08-09] MEDS: MULTIVITAMINS/MINERALS THERAP 1 TAB PO SCH (08:40)
[2018-08-09] MEDS: TAMSULOSIN 0.4 MG CAP PO SCH (08:40)
[2018-08-09] MEDS: CLOPIDOGREL 75 MG TAB PO SCH (08:40)
[2018-08-09] MEDS: THIAMINE 100 MG TAB PO SCH (08:41)
[2018-08-09] MEDS: FAMOTIDINE 20 MG TAB PO SCH (08:41)
[2018-08-09] MEDS: lamoTRIgine 100MG TAB PO SCH ×2 (08:41→21:30)
[2018-08-09] MEDS: NICOTINE 14 MG/24 HR TRANSDERMAL TD SCH (08:42)
[2018-08-09] MEDS ORDERED: FOSINOPRIL 20 MG TAB PO SCH (09:00)
[2018-08-09 14:00] VITALS: BP 135/85
[2018-08-09] MEDS: PERCOCET 5MG/325MG TAB PO PRN ×2 (14:57→21:33)
[2018-08-09 20:00] VITALS: BP 110/65
[2018-08-09] MEDS: PARoxetine 20 MG TAB PO SCH (21:29)
[2018-08-09] MEDS: SIMVASTATIN 40 MG TAB PO SCH (21:30)
[2018-08-10 06:00] VITALS: BP 96/53
[2018-08-10] MEDS: OXAZEPAM 15 MG CAP PO SCH ×2 (06:04→21:50)
[2018-08-10 06:24] LABS: HEMATOCRIT 37.2 % (42.0-52.0); HEMOGLOBIN 11.9 g/dl (13.5-17.5); MEAN CORPUSCULAR HEMOGLOBIN 26.9 pg (27.0-33.0); MEAN CORPUSCULAR VOLUME 84.2 fl (80.0-96.0); PLATELET COUNT, AUTOMATED 189 10^3/uL (150-450); RED BLOOD COUNT 4.42 10^6/uL (4.30-6.10); WHITE BLOOD COUNT 3.7 10^3/uL (4.0-10.0)
[2018-08-10 06:48] LABS: BLOOD UREA NITROGEN 15 MG/DL (7-18); CALCIUM LEVEL 8.4 MG/DL (8.8-10.2); CARBON DIOXIDE LEVEL 28 MEQ/L (21-32); CHLORIDE LEVEL 106 MEQ/L (98-107); CPK CREATINE PHOSPHOKINASE 238 U/L (39-308); GLOMERULAR FILTRATION RATE > 60.0 (>49); GLUCOSE, FASTING 95 MG/DL (70-100); POTASSIUM SERUM 3.8 MEQ/L (3.5-5.1); SODIUM LEVEL 142 MEQ/L (136-145)
[2018-08-10] MEDS: GABAPENTIN 400 MG CAP PO SCH ×3 (08:48→21:50)
[2018-08-10] MEDS: MULTIVITAMINS/MINERALS THERAP 1 TAB PO SCH (08:48)
[2018-08-10] MEDS: FOSINOPRIL 10 MG TAB PO SCH (08:49)
[2018-08-10] MEDS: levETIRAcetam 250MG TABLET (KEPPRA) PO SCH ×2 (08:50→21:50)
[2018-08-10] MEDS: FOLIC ACID 1 MG TAB PO SCH (08:50)
[2018-08-10] MEDS: FAMOTIDINE 20 MG TAB PO SCH (08:50)
[2018-08-10] MEDS: CLOPIDOGREL 75 MG TAB PO SCH (08:50)
[2018-08-10] MEDS: CARVedilol 6.25 MG TAB PO SCH ×2 (08:51→21:53)
[2018-08-10] MEDS: TAMSULOSIN 0.4 MG CAP PO SCH (08:51)
[2018-08-10] MEDS: lamoTRIgine 100MG TAB PO SCH ×2 (08:51→21:49)
[2018-08-10] MEDS: ASPIRIN 81 MG ENTERIC TAB PO SCH (08:51)
[2018-08-10] MEDS: THIAMINE 100 MG TAB PO SCH (08:51)
[2018-08-10] MEDS: ENOXAPARIN 40 MG/0.4 ML SYRINGE (J1650) SC SCH (08:53)
[2018-08-10] MEDS: NICOTINE 14 MG/24 HR TRANSDERMAL TD SCH (08:53)
[2018-08-10] MEDS: SENOKOT S TAB PO SCH ×2 (09:03→21:49)
[2018-08-10] MEDS: MOM 30ML SUSPENSION UDC PO SCH ×2 (09:03→21:50)
[2018-08-10 14:00] VITALS: BP 120/80
--- NOTE | 2018-08-10 14:59 | IPNPDOC ---
Date Seen The patient was seen on 08/10/18. Progress Note SUBJECTIVE: Patient is a 62-year-old male with frostbite and rhabdomyolysis secondary to unwitnessed syncope outdoors. Patient is evaluated at bedside this morning. He has a sitter present. His family is present as a have a meeting with patient and family services. Patient appears significantly improved. He has no concerns today. Denies chest pain, shortness of breath, nausea, vomiting, abdominal pain. OBJECTIVE PHYSICAL EXAMINATION: VITAL SIGNS: Please see below. GENERAL: Well-nourished, well-developed male, appropriately dressed in hospital attire, cooperative, no acute distress. HEENT: Atraumatic, normocephalic, PERRL, EOMI, symmetrical hair distribution on face, oral mucosa appears pink and moist, nasal septum appears midline, nares are patent, improving flat erythematous rash noted along the malar region. CARDIOVASCULAR: Regular rate and rhythm, normal S1 and S2, no murmur, rub, click. RESPIRATORY: Clear to auscultation bilaterally, improved inspiratory and expiratory airway excursion, symmetric air entry throughout, no focal consolidations, no wheeze, rhonchi, crackles. ABDOMINAL: Round, soft, symmetrical abdominal hair distribution, Roque catheter in place with yellow urine in catheter receptacle, no guarding, no rebound, non- distended, no organomegaly. EXTREMITIES: Improving unroofed blisters on finger digits, discoloration to the fingertips with eschars noted, improving edema, able to manipulate fingers, pulses are equal and symmetrical, +2. NEUROLOGICAL: No focal neurological deficits. PSYCHOLOGICAL: Mood and affect appropriate. LABORATORY DATA, IMAGING STUDIES, MICROBIOLOGY: Please see below. CT head without contrast on 08/02/2018 - no acute infarction. Portable chest x-ray on 08/02/2018 - no acute pulmonary pathology, old post- traumatic rib fractures. CT abdomen and pelvis without contrast on 08/03/2018 - malpositioned suprapubic catheter in prevesical fat, mildly distended urinary bladder. Portable chest x-ray on 08/05/2018 - no new infiltrate, linear fibrosis on left, old rib fractures on right, elevated right hemidiaphragm. Lumbosacral complete spine x-ray on 08/07/2018 - degenerative changes. Electroencephalogram - EEG is awake and drowsy states is within normal limits. EEG was affected by excessive muscle and electrode artifacts throughout the recording. Echocardiogram: Normal left ventricular size and systolic function, grade 1 diastolic dysfunction, mild left ventricular hypertrophy, no significant valvular disease. DVT prophylaxis ordered?: Lovenox 40mg subcutaneously daily. ASSESSMENT AND PLAN: This is a 62-year-old male with unwitnessed syncope found to have rhabdomyolysis and frostbite. PROBLEMS: 1. Unwitnessed syncope: Echocardiogram and EEG has resulted above. Keppra level is normal. Toxicology is negative. Discontinued orthostatic vital signs as patient is on medications that can cause orthostasis; however, current medications required for optimal medical management. Temperature remains stable. Continues to work with occupational therapy with recommendations for con tinued rehabilitation after discharge. Physical therapy recommends continued rehabilitation as patient appears to have balance impairments and deconditioning. Patient may improved to point to where he may benefit from home with services versus subacute rehabilitation based on continued progression with physical and occupational therapy. Patient and family services have met with family and patient's information has been sent to subacute rehabilitation centers. 2. Rhabdomyolysis: Continues to make improvements. Renal function remains intact. Patient may eat and drink to his hunger and thirst. Intravenous fluid resuscitation has been discontinued. Creatine phosphokinase has normalized. 3. Frostbite: Continue daily oral Plavix 75mg by mouth. Wrap wounds with nonadhesive foam dressings and lightly cover with Kerlix. Avoid temperature fluctuations. Morphine has been discontinued. Continue with Percocet. Blood cultures are negative. No need for antibiotic therapy at this time. Patient may benefit from follow-up with advanced wound care upon discharge. 4. Electrolyte derangements: Resolved. 5. Elevated troponin due to secondary NSTEMI from demand ischemia: Improving. Echocardiogram obtained with results above. Continue with aspirin. 6. Urinary retention: Continue Flomax. Urology consulted. Attempted coude catheter, but was unsuccessful. Suprapubic catheter placed. Imaging revealed suprapubic catheter in the prevesicular fat. Patient to operating room with urology for cystoscopy which did not reveal any anatomical abnormalities and a Roque catheter was placed. Due to agitation and anxiety Roque catheter was removed by patient himself. Urology placed another Roque catheter. Urinary output has been more than adequate. Discussed with urology has recommended that Roque catheter be removed prior to discharge. Blood-tinged urine in catheter receptacle likely secondary to irritation and prior trauma from Roque catheter removal by patient. Patient's urinary output has been more than adequate. We'll discontinue Roque catheter with postvoid residual scans ordered as well as bladder scans. Bladder scans revealed greater than 300 mL and nursing has been instructed to straight catheterize. 7. Gross hematuria: Noted in Roque catheter tubing and receptacle. Urinary cystoscopy on 08/03/2018 was unrevealing for any anatomical abnormalities besides [id number] bilobar prostatic hyperplasia. 8. Constipation: Noted on abdominal imaging. Continue Senokot S and Milk of Magnesia. 9. Seizure disorder: Continue Lamictal and Keppra. Keppra level is within norm al limits. EEG within normal limits. 10. Hypertension: Continue Coreg. Increased Fosinopril to 20mg by mouth daily as blood pressure has been somewhat elevated. 11. Dyslipidemia: Continue Zocor. 12. Gastroesophageal reflux disease: Continue Famotidine. 13. Depression: Continue Paxil. 14. Vertigo: Continue Meclizine. 15. Scaly lesions on flexural surfaces: Possible undiagnosed psoriasis. Consider outpatient follow-up. 16. Erythematous facial rash: Workup for possible lupus, including AMA, antiphospholipid, C3 and C4 complement (C3 only marginally below normal limit; C4 normal), CRP and ESR (both elevated), urine protein (99.7) and creatinine, urinalysis (which revealed blood likely from traumatic Roque catheter removal by patient himself). 17. Normocytic anemia and pancytopenia: Likely dilutional or due to recent urological bleed from suprapubic catheter and subsequently Roque catheter removal by patient himself. Absolute reticulocyte count 1.1 with a reticulocyte index 0.71. This could represent a degree of hypo-proliferation. Peripheral smear revealed "Acute onset anemia and thrombocytopenia, mild, suggestive of recent bleeding event. No morphologic abnormalities are noted." Iron studies (possible anemia of chronic disease), vitamin B12 (normal), and folate level (normal). Pancytopenia appears transient. No further evaluation at this time. 18. Acute confusion and agitation: Possible underlying alcohol dependance. AST > ALT, but improving. Total bilirubin within normal limits. Ativan as needed for agitation. Decreased Serax to 15mg by mouth every 12 hours. Continue multivitamin, thiamine, and folic acid. CIWA protocol in place. Possibly underlying, undiagnosed dementia. DISPOSITION: Continues to make improvements with occupational physical therapy. Possible subacute rehabilitation versus home with services. VS, I&O, 24H, Darianbone Vital Signs/I&O Vital Signs Date Time Temp Pulse Resp B/P (MAP) Pulse Ox O2 Delivery O2 Flow Rate FiO2 08/10/18 08:51 59 96/53 08/10/18 06:00 96.6 19 97 Room Air I&O- Last 24 Hours up to 6 AM 08/10/18 05:59 Intake Total 960 ml Output Total 1450 ml Balance -490 ml Laboratory Data 24H LABS Laboratory Tests 2 08/10/18 06:13: Nucleated Red Blood Cells % (auto) 0.0, Anion Gap 8, Glomerular Filtration Rate > 60.0, Blood Urea Nitrogen 15, Creatinine 1.00, Sodium Level 142, Potassium Level 3.8, Chloride Level 106, Carbon Dioxide Level 28, Calcium Level 8.4L, Total Creatine Kinase 238 CBC/BMP Laboratory Tests 08/10/18 06:13 Red Blood Count 4.42, Mean Corpuscular Volume 84.2, Mean Corpuscular Hemoglobin 26.9 L, Mean Corpuscular Hemoglobin Concent 32.0, Red Cell Distribution Width 13.4, Calcium Level 8.4 L Microbiology Microbiology 08/02/18 Blood Culture - Final, Complete NO GROWTH AFTER 5 DAYS 08/02/18 Blood Culture - Final, Complete NO GROWTH AFTER 5 DAYS LYSSA LOVELACE DO Aug 10, 2018 14:59
[2018-08-10] MEDS: PARoxetine 20 MG TAB PO SCH (21:49)
[2018-08-10] MEDS: SIMVASTATIN 40 MG TAB PO SCH (21:50)
[2018-08-10] MEDS: PERCOCET 5MG/325MG TAB PO PRN (21:56)
[2018-08-10 22:00] VITALS: BP 134/82
[2018-08-11 00:19] LABS: ANTINUCLEAR ANTIBODIES DIRECT Negative (Negative)
[2018-08-11 06:00] VITALS: BP 134/82
[2018-08-11 06:28] LABS: HEMATOCRIT 36.9 % (42.0-52.0); MEAN CORPUSCULAR HEMOGLOBIN 26.7 pg (27.0-33.0); MEAN CORPUSCULAR HGB CONC 32.5 g/dl (32.0-36.5); MEAN CORPUSCULAR VOLUME 82.2 fl (80.0-96.0); PLATELET COUNT, AUTOMATED 169 10^3/uL (150-450); RED BLOOD COUNT 4.49 10^6/uL (4.30-6.10); WHITE BLOOD COUNT 3.9 10^3/uL (4.0-10.0)
[2018-08-11 06:51] LABS: BLOOD UREA NITROGEN 15 MG/DL (7-18); CALCIUM LEVEL 8.7 MG/DL (8.8-10.2); CARBON DIOXIDE LEVEL 28 MEQ/L (21-32); CHLORIDE LEVEL 104 MEQ/L (98-107); CREATININE FOR GFR 0.97 MG/DL (0.70-1.30); GLOMERULAR FILTRATION RATE > 60.0 (>49); GLUCOSE, FASTING 98 MG/DL (70-100); POTASSIUM SERUM 4.1 MEQ/L (3.5-5.1); SODIUM LEVEL 140 MEQ/L (136-145)
[2018-08-11] MEDS ORDERED: ACETAMINOPHEN TAB 650MG DOSE (2X325MG) PO PRN (08:45)
[2018-08-11] MEDS: SENOKOT S TAB PO SCH ×2 (09:00→21:41)
[2018-08-11] MEDS: MOM 30ML SUSPENSION UDC PO SCH ×2 (09:00→21:40)
[2018-08-11] MEDS: OXAZEPAM 15 MG CAP PO SCH ×2 (09:19→21:40)
[2018-08-11] MEDS: MULTIVITAMINS/MINERALS THERAP 1 TAB PO SCH (09:45)
[2018-08-11] MEDS: ENOXAPARIN 40 MG/0.4 ML SYRINGE (J1650) SC SCH (09:46)
[2018-08-11] MEDS: levETIRAcetam 250MG TABLET (KEPPRA) PO SCH ×2 (09:46→21:40)
[2018-08-11] MEDS: TAMSULOSIN 0.4 MG CAP PO SCH (09:47)
[2018-08-11] MEDS: NICOTINE 14 MG/24 HR TRANSDERMAL TD SCH (09:47)
[2018-08-11] MEDS: ASPIRIN 81 MG ENTERIC TAB PO SCH (09:47)
[2018-08-11] MEDS: FOLIC ACID 1 MG TAB PO SCH (09:48)
[2018-08-11] MEDS: CARVedilol 6.25 MG TAB PO SCH ×2 (09:48→21:42)
[2018-08-11] MEDS: GABAPENTIN 400 MG CAP PO SCH ×3 (09:49→21:41)
[2018-08-11] MEDS: lamoTRIgine 100MG TAB PO SCH ×2 (09:49→21:42)
[2018-08-11] MEDS: THIAMINE 100 MG TAB PO SCH (09:49)
[2018-08-11] MEDS: FAMOTIDINE 20 MG TAB PO SCH (09:49)
[2018-08-11] MEDS: FOSINOPRIL 10 MG TAB PO SCH (09:50)
[2018-08-11] MEDS: CLOPIDOGREL 75 MG TAB PO SCH (09:50)
[2018-08-11 10:00] VITALS: BP 120/74
--- NOTE | 2018-08-11 12:16 | IPNPDOC ---
Date Seen The patient was seen on 08/11/18. Progress Note SUBJECTIVE: Patient is a 62-year-old male with frostbite and rhabdomyolysis secondary to unwitnessed syncope outdoors. Patient is evaluated at bedside this morning. He is sitting up on the edge of the bed, eating breakfast. Denies chest pain, shortness of breath, fever, night sweats, chills, abdominal pain, nausea, vomiting. Queries the reason for his fall outside and whether or not he could of have had a seizure. He states he follows with local neurologist regularly and that he takes his medications as prescribed without missing doses. OBJECTIVE PHYSICAL EXAMINATION: VITAL SIGNS: Please see below. GENERAL: Well-nourished, well-developed male, appropriately dressed in hospital attire, cooperative, no acute distress. HEENT: Atraumatic, normocephalic, PERRL, EOMI, symmetrical hair distribution on face, oral mucosa appears pink and moist, nasal septum appears midline, nares are patent, improving flat erythematous rash noted along the malar region. CARDIOVASCULAR: Regular rate and rhythm, normal S1 and S2, no murmur, rub, click. RESPIRATORY: Clear to auscultation bilaterally, improved inspiratory and expiratory airway excursion, symmetric air entry throughout, no focal consolidations, no wheeze, rhonchi, crackles. ABDOMINAL: Round, soft, symmetrical abdominal hair distribution, no guarding, no rebound, non-distended, no organomegaly. EXTREMITIES: Significant improvement in edema of fingers, discoloration to the fingertips with eschars noted, able to manipulate fingers, pulses are equal and symmetrical, +2. NEUROLOGICAL: No focal neurological deficits. PSYCHOLOGICAL: Mood and affect appropriate. LABORATORY DATA, IMAGING STUDIES, MICROBIOLOGY: Please see below. CT head without contrast on 08/02/2018 - no acute infarction. Portable chest x-ray on 08/02/2018 - no acute pulmonary pathology, old post- traumatic rib fractures. CT abdomen and pelvis without contrast on 08/03/2018 - malpositioned suprapubic catheter in prevesical fat, mildly distended urinary bladder. Portable chest x-ray on 08/05/2018 - no new infiltrate, linear fibrosis on left, old rib fractures on right, elevated right hemidiaphragm. Lumbosacral complete spine x-ray on 08/07/2018 - degenerative changes. Electroencephalogram - EEG is awake and drowsy states is within normal limits. EEG was affected by excessive muscle and electrode artifacts throughout the recording. Echocardiogram: Normal left ventricular size and systolic function, grade 1 diastolic dysfunction, mild left ventricular hypertrophy, no significant valvular disease. DVT prophylaxis ordered?: Lovenox 40mg subcutaneously daily. ASSESSMENT AND PLAN: This is a 62-year-old male with unwitnessed syncope found to have rhabdomyolysis and frostbite. PROBLEMS: 1. Unwitnessed syncope: Echocardiogram and EEG has resulted above. Keppra level is normal. Toxicology is negative. Occupational therapy recommends continued rehabilitation once medically stable for discharge. Physical therapy recommends continued rehabilitation as patient appears to have balance impairments and deconditioning. Patient may improved to point to where he may benefit from home with services versus subacute rehabilitation based on continued progression with physical and occupational therapy. Patient has been accepted at [place]. Clarification on date of discharge, but possibly in next 24-48 hours. 2. Rhabdomyolysis: Continues to make improvements. Renal function remains intact. Patient may eat and drink to his hunger and thirst. Intravenous fluid resuscitation has been discontinued. Creatine phosphokinase has normalized. 3. Frostbite: Continue daily oral Plavix 75mg by mouth. Wrap wounds with nonad hesive foam dressings and lightly cover with Kerlix. Avoid temperature fluctuations. Morphine has been discontinued. Continue with Percocet. Blood cultures are negative. No need for antibiotic therapy at this time. Patient may benefit from follow-up with advanced wound care upon discharge. 5. Elevated troponin due to secondary NSTEMI from demand ischemia: Improving. Echocardiogram obtained with results above. Continue with aspirin. 6. Urinary retention: Continue Flomax. Urology consulted. Attempted coude catheter, but was unsuccessful. Suprapubic catheter placed. Imaging revealed suprapubic catheter in the prevesicular fat. Patient to operating room with urology for cystoscopy which did not reveal any anatomical abnormalities and a Roque catheter was placed. Due to agitation and anxiety Roque catheter was removed by patient himself. Urology placed another Roque catheter. Urinary output has been more than adequate. Discussed with urology has recommended that Roque catheter be removed prior to discharge. Blood-tinged urine in catheter receptacle likely secondary to irritation and prior trauma from Roque catheter removal by patient. Patient's urinary output has been more than adequate. Roque catheter has been discontinued. Patient is voiding without difficulty. 7. Gross hematuria: Urinary cystoscopy on 08/03/2018 was unrevealing for any anatomical abnormalities besides [id number] bilobar prostatic hyperplasia. 8. Constipation: Noted on abdominal imaging. Continue Senokot S and Milk of Magnesia. 9. Seizure disorder: Continue Lamictal and Keppra. Keppra level is within normal limits. EEG within normal limits. 10. Hypertension: Continue Coreg. Decreased Fosinopril back to home dose of 10mg by mouth daily. 11. Dyslipidemia: Continue Zocor. 12. Gastroesophageal reflux disease: Continue Famotidine. 13. Depression: Continue Paxil. 14. Vertigo: Continue Meclizine. 15. Scaly lesions on flexural surfaces: Possible undiagnosed psoriasis. Consider outpatient follow-up. 16. Erythematous facial rash: Workup for possible lupus, including AMA, antiphospholipid (negative), C3 and C4 complement (C3 only marginally below normal limit; C4 normal), CRP and ESR (both elevated), urine protein (99.7) and creatinine, urinalysis (which revealed blood likely from traumatic Roque catheter removal by patient himself). 17. Normocytic anemia and pancytopenia: Likely dilutional or due to recent urological bleed from suprapubic catheter and subsequently Roque catheter removal by patient himself. Absolute reticulocyte count 1.1 with a reticulocyte index 0.71. This could represent a degree of hypo-proliferation. Peripheral smear revealed "Acute onset anemia and thrombocytopenia, mild, suggestive of recent bleeding event. No morphologic abnormalities are noted." Iron studies (possible anemia of chronic disease), vitamin B12 (normal), and folate level (normal). Pancytopenia appears transient. No further evaluation at this time. 18. Acute confusion and agitation: Possible underlying alcohol dependance. AST > ALT, but improving. Total bilirubin within normal limits. Ativan has been discontinued. Continue Serax 15mg by mouth every 12 hours. Decreasing dose to once daily starting tomorrow, 08/12/2018. Continue multivitamin, thiamine, and folic acid. [place] protocol in place. Possibly underlying, undiagnosed dementia. DISPOSITION: Continues to make improvements with occupational and physical therapy. Patient has been accepted at [facility] with possible discharge in the next 24-48 hours. VS, I&O, 24H, [place] Vital Signs/I&O Vital Signs Date Time Temp Pulse Resp B/P (MAP) Pulse Ox O2 Delivery O2 Flow Rate FiO2 08/11/18 10:00 97.9 70 18 120/74 (89) 95 Room Air I&O- Last 24 Hours up to 6 AM 08/11/18 06:00 Intake Total 600 ml Output Total 2475 ml Balance -1875 ml Laboratory Data 24H LABS Laboratory Tests 2 08/11/18 06:11: Nucleated Red Blood Cells % (auto) 0.0, Anion Gap 8, Glomerular Filtration Rate > 60.0, Blood Urea Nitrogen 15, Creatinine 0.97, Sodium Level 140, Potassium Level 4.1, Chloride Level 104, Carbon Dioxide Level 28, Calcium Level 8.7L CBC/BMP Laboratory Tests 08/11/18 06:11 Red Blood Count 4.49, Mean Corpuscular Volume 82.2, Mean Corpuscular Hemoglobin 26.7 L, Mean Corpuscular Hemoglobin Concent 32.5, Red Cell Distribution Width 13.5, Calcium Level 8.7 L Microbiology Microbiology 08/02/18 Blood Culture - Final, Complete NO GROWTH AFTER 5 DAYS 08/02/18 Blood Culture - Final, Complete NO GROWTH AFTER 5 DAYS LYSSA LOVELACE DO Aug 11, 2018 12:16
[2018-08-11 14:00] VITALS: BP 95/50
[2018-08-11] MEDS: PERCOCET 5MG/325MG TAB PO PRN (21:41)
[2018-08-11] MEDS: PARoxetine 20 MG TAB PO SCH (21:41)
[2018-08-11] MEDS: SIMVASTATIN 40 MG TAB PO SCH (21:41)
[2018-08-11 22:00] VITALS: BP 129/65
[2018-08-12 06:00] VITALS: BP 104/65
[2018-08-12 06:52] LABS: HEMATOCRIT 37.5 % (42.0-52.0); MEAN CORPUSCULAR HEMOGLOBIN 26.5 pg (27.0-33.0); MEAN CORPUSCULAR VOLUME 82.8 fl (80.0-96.0); PLATELET COUNT, AUTOMATED 207 10^3/uL (150-450); RED BLOOD COUNT 4.53 10^6/uL (4.30-6.10); WHITE BLOOD COUNT 3.9 10^3/uL (4.0-10.0)
[2018-08-12 07:12] LABS: BLOOD UREA NITROGEN 12 MG/DL (7-18); CALCIUM LEVEL 8.3 MG/DL (8.8-10.2); CARBON DIOXIDE LEVEL 27 MEQ/L (21-32); CHLORIDE LEVEL 106 MEQ/L (98-107); CREATININE FOR GFR 0.96 MG/DL (0.70-1.30); GLOMERULAR FILTRATION RATE > 60.0 (>49); GLUCOSE, FASTING 106 MG/DL (70-100); SODIUM LEVEL 141 MEQ/L (136-145)
[2018-08-12] MEDS: ENOXAPARIN 40 MG/0.4 ML SYRINGE (J1650) SC SCH (08:13)
[2018-08-12] MEDS: FAMOTIDINE 20 MG TAB PO SCH (08:13)
[2018-08-12] MEDS: NICOTINE 14 MG/24 HR TRANSDERMAL TD SCH (08:13)
[2018-08-12] MEDS: CARVedilol 6.25 MG TAB PO SCH ×2 (08:14→21:35)
[2018-08-12] MEDS: ASPIRIN 81 MG ENTERIC TAB PO SCH (08:14)
[2018-08-12] MEDS: MULTIVITAMINS/MINERALS THERAP 1 TAB PO SCH (08:14)
[2018-08-12] MEDS: FOLIC ACID 1 MG TAB PO SCH (08:14)
[2018-08-12] MEDS: lamoTRIgine 100MG TAB PO SCH ×2 (08:14→21:36)
[2018-08-12] MEDS: TAMSULOSIN 0.4 MG CAP PO SCH (08:14)
[2018-08-12] MEDS: levETIRAcetam 250MG TABLET (KEPPRA) PO SCH ×2 (08:14→21:36)
[2018-08-12] MEDS: GABAPENTIN 400 MG CAP PO SCH ×3 (08:14→21:36)
[2018-08-12] MEDS: FOSINOPRIL 10 MG TAB PO SCH (08:14)
[2018-08-12] MEDS: THIAMINE 100 MG TAB PO SCH (08:14)
[2018-08-12] MEDS: OXAZEPAM 15 MG CAP PO SCH (08:14)
[2018-08-12] MEDS: SENOKOT S TAB PO SCH ×2 (08:14→21:00)
[2018-08-12] MEDS: CLOPIDOGREL 75 MG TAB PO SCH (08:14)
[2018-08-12] MEDS: MOM 30ML SUSPENSION UDC PO SCH ×2 (08:15→21:00)
[2018-08-12] MEDS: PERCOCET 5MG/325MG TAB PO PRN ×2 (13:44→21:37)
[2018-08-12 14:00] VITALS: BP 127/75
--- NOTE | 2018-08-12 14:04 | IPNPDOC ---
Date Seen The patient was seen on 08/12/18. Progress Note SUBJECTIVE: Patient is a 62-year-old male with frostbite and rhabdomyolysis secondary to unwitnessed syncope outdoors. Patient is evaluated at bedside this morning. He is sitting up in a chair at bedside. He continues to work with physical and occupational therapy. Informed patient that he has been accepted at [facility] in [place]. Patient states that he will refuse discharge to [place]. He feels as though he has progressed satisfactorily enough to be discharge home if the plan is to send him to [place]. He denies chest pain, shortness of breath, nausea, vomiting, abdominal pain, fever, night sweats, chills. OBJECTIVE PHYSICAL EXAMINATION: VITAL SIGNS: Please see below. GENERAL: Well-nourished, well-developed male, appropriately dressed in hospital attire, cooperative, no acute distress. HEENT: Atraumatic, normocephalic, PERRL, EOMI, symmetrical hair distribution on face, oral mucosa appears pink and moist, nasal septum appears midline, nares are patent, improving flat erythematous rash noted along the malar region. CARDIOVASCULAR: Regular rate and rhythm, normal S1 and S2, no murmur, rub, click. RESPIRATORY: Clear to auscultation bilaterally, improved inspiratory and expiratory airway excursion, symmetric air entry throughout, no focal consolidations, no wheeze, rhonchi, crackles. ABDOMINAL: Round, soft, symmetrical abdominal hair distribution, no guarding, no rebound, non-distended, no organomegaly. EXTREMITIES: Edema noted in finger digits has resolved, skin slough is noted, eschars present on many finger digits, peeling and erythematous sores noted on some finger pads that are painful to palpation, peripheral pulses are equal and symmetrical, able to manipulate fingers without difficulty. NEUROLOGICAL: No focal neurological deficits. PSYCHOLOGICAL: Mood and affect appropriate. LABORATORY DATA, IMAGING STUDIES, MICROBIOLOGY: Please see below. CT head without contrast on 08/02/2018 - no acute infarction. Portable chest x-ray on 08/02/2018 - no acute pulmonary pathology, old post- traumatic rib fractures. CT abdomen and pelvis without contrast on 08/03/2018 - malpositioned suprapubic catheter in prevesical fat, mildly distended urinary bladder. Portable chest x-ray on 08/05/2018 - no new infiltrate, linear fibrosis on left, old rib fractures on right, elevated right hemidiaphragm. Lumbosacral complete spine x-ray on 08/07/2018 - degenerative changes. Electroencephalogram - EEG is awake and drowsy states is within normal limits. EEG was affected by excessive muscle and electrode artifacts throughout the recording. Echocardiogram: Normal left ventricular size and systolic function, grade 1 d iastolic dysfunction, mild left ventricular hypertrophy, no significant valvular disease. DVT prophylaxis ordered?: Lovenox 40mg subcutaneously daily. ASSESSMENT AND PLAN: This is a 62-year-old male with unwitnessed syncope found to have rhabdomyolysis and frostbite. PROBLEMS: 1. Unwitnessed syncope: Echocardiogram and EEG has resulted above. Keppra level is normal. Toxicology is negative. Occupational therapy recommends continued rehabilitation once medically stable for discharge. Physical therapy recommends continued rehabilitation upon medical discharge. as patient appears to have balance impairments and deconditioning. Patient may improved to point to where he may benefit from home with services versus subacute rehabilitation based on continued progression with physical and occupational therapy. Patient has been accepted at [facility] in [place], [place] with discharge anticipated for 08/14/2018 at 9AM. 2. Rhabdomyolysis: Resolved. 3. Frostbite: Continue daily oral Plavix 75mg by mouth. Updated recommendations since wounds are dry without drainage are to cover fingers with a modified foam dressing. Continue Plavix until appointment can be arranged with [facility], Dr. Chang, in approximately 4 weeks. Decision regarding continuation of Plavix deferred to agricultural extension specialist. Continue with Percocet. Blood cultures are negative. No need for antibiotic therapy at this time. Patient may benefit from follow-up with advanced [facility] upon discharge. 5. Elevated troponin due to secondary NSTEMI from demand ischemia: Improving. Echocardiogram obtained with results above. Continue with aspirin. 6. Urinary retention: Continue Flomax. Urology consulted. Attempted coude catheter, but was unsuccessful. Suprapubic catheter placed. Imaging revealed suprapubic catheter in the prevesicular fat. Patient to operating room with urology for cystoscopy which did not reveal any anatomical abnormalities and a Roque catheter was placed. Due to agitation and anxiety Roque catheter was removed by patient himself. Urology placed another Roque catheter. Urinary output has been more than adequate. Discussed with urology has recommended that Roque catheter be removed prior to discharge. Blood-tinged urine in catheter receptacle likely secondary to irritation and prior trauma from Roque catheter removal by patient. Patient's urinary output has been more than adequate. Roque catheter has been discontinued. Patient is voiding without difficulty. 7. Gross hematuria: Urinary cystoscopy on 08/03/2018 was unrevealing for any anatomical abnormalities besides [id number] bilobar prostatic hyperplasia. 8. Constipation: Noted on abdominal imaging. Continue Senokot S and Milk of Magnesia. 9. Seizure disorder: Continue Lamictal and Keppra. Keppra level is within normal limits. EEG within normal limits. Suggest contacting patient's neurologist to secure follow-up appointment prior to discharge. 10. Hypertension: Continue Coreg. Continue Fosinopril back to home dose of 10mg by mouth daily. 11. Dyslipidemia: Continue Zocor. 12. Gastroesophageal reflux disease: Continue Famotidine. 13. Depression: Continue Paxil. 14. Vertigo: Continue Meclizine. 15. Scaly lesions on flexural surfaces: Possible undiagnosed psoriasis. Consider outpatient follow-up. 16. Erythematous facial rash: Immunology work-up obtained. Could consider out- patient follow-up. 17. Normocytic anemia and pancytopenia: Stable. 18. Possible undisclosed alcohol dependence: Acute agitation and confusion which has resolved. Possible underlying alcohol dependance. AST > ALT, but improving. Total bilirubin within normal limits. Ativan has been discontinued. Continue Serax 15mg by mouth daily. Continue multivitamin, thiamine, and folic acid. [facility] protocol in place. Possibly underlying, undiagnosed dementia. Bedside sitter was discontinued on 08/10/2018. DISPOSITION: Continues to make improvements with occupational and physical therapy. Patient has been accepted at [facility] with discharge on 08/14/2018 at 9AM. VS, I&O, 24H, [place] Vital Signs/I&O Vital Signs Date Time Temp Pulse Resp B/P (MAP) Pulse Ox O2 Delivery O2 Flow Rate FiO2 08/12/18 08:14 104/65 08/12/18 06:00 97.1 54 16 95 Room Air I&O- Last 24 Hours up to 6 AM 08/12/18 06:00 Intake Total 1470 ml Output Total 1700 ml Balance -230 ml Laboratory Data 24H LABS Laboratory Tests 2 08/12/18 06:17: Nucleated Red Blood Cells % (auto) 0.0, Anion Gap 8, Glomerular Filtration Rate > 60.0, Blood Urea Nitrogen 12, Creatinine 0.96, Sodium Level 141, Potassium Level 4.0, Chloride Level 106, Carbon Dioxide Level 27, Calcium Level 8.3L CBC/BMP Laboratory Tests 08/12/18 06:17 Red Blood Count 4.53, Mean Corpuscular Volume 82.8, Mean Corpuscular Hemoglobin 26.5 L, Mean Corpuscular Hemoglobin Concent 32.0, Red Cell Distribution Width 13.4, Calcium Level 8.3 L Microbiology Microbiology 08/02/18 Blood Culture - Final, Complete NO GROWTH AFTER 5 DAYS 08/02/18 Blood Culture - Final, Complete NO GROWTH AFTER 5 DAYS LYSSA LOVELACE DO Aug 12, 2018 14:04
[2018-08-12] MEDS: PARoxetine 20 MG TAB PO SCH (21:36)
[2018-08-12] MEDS: SIMVASTATIN 40 MG TAB PO SCH (21:36)
[2018-08-12 22:00] VITALS: BP 137/84
[2018-08-13 06:00] VITALS: BP 158/90
[2018-08-13 06:56] LABS: HEMATOCRIT 36.6 % (42.0-52.0); HEMOGLOBIN 11.8 g/dl (13.5-17.5); MEAN CORPUSCULAR HEMOGLOBIN 27.3 pg (27.0-33.0); MEAN CORPUSCULAR HGB CONC 32.2 g/dl (32.0-36.5); MEAN CORPUSCULAR VOLUME 84.5 fl (80.0-96.0); PLATELET COUNT, AUTOMATED 205 10^3/uL (150-450); RED BLOOD COUNT 4.33 10^6/uL (4.30-6.10); WHITE BLOOD COUNT 4.4 10^3/uL (4.0-10.0)
[2018-08-13 07:18] LABS: BLOOD UREA NITROGEN 13 MG/DL (7-18); CALCIUM LEVEL 8.6 MG/DL (8.8-10.2); CARBON DIOXIDE LEVEL 29 MEQ/L (21-32); CHLORIDE LEVEL 106 MEQ/L (98-107); CREATININE FOR GFR 0.96 MG/DL (0.70-1.30); GLOMERULAR FILTRATION RATE > 60.0 (>49); GLUCOSE, FASTING 99 MG/DL (70-100); POTASSIUM SERUM 4.1 MEQ/L (3.5-5.1); SODIUM LEVEL 141 MEQ/L (136-145)
[2018-08-13] MEDS: TAMSULOSIN 0.4 MG CAP PO SCH (08:58)
[2018-08-13] MEDS: CARVedilol 6.25 MG TAB PO SCH ×2 (08:58→20:14)
[2018-08-13] MEDS: FOSINOPRIL 10 MG TAB PO SCH (08:58)
[2018-08-13] MEDS: GABAPENTIN 400 MG CAP PO SCH ×3 (08:58→20:15)
[2018-08-13] MEDS: ENOXAPARIN 40 MG/0.4 ML SYRINGE (J1650) SC SCH (08:58)
[2018-08-13] MEDS: MULTIVITAMINS/MINERALS THERAP 1 TAB PO SCH (08:59)
[2018-08-13] MEDS: PERCOCET 5MG/325MG TAB PO PRN ×2 (08:59→20:15)
[2018-08-13] MEDS: FAMOTIDINE 20 MG TAB PO SCH (08:59)
[2018-08-13] MEDS: THIAMINE 100 MG TAB PO SCH (08:59)
[2018-08-13] MEDS: CLOPIDOGREL 75 MG TAB PO SCH (08:59)
[2018-08-13] MEDS: FOLIC ACID 1 MG TAB PO SCH (08:59)
[2018-08-13] MEDS: levETIRAcetam 250MG TABLET (KEPPRA) PO SCH ×2 (08:59→20:14)
[2018-08-13] MEDS: OXAZEPAM 15 MG CAP PO SCH (08:59)
[2018-08-13] MEDS: MOM 30ML SUSPENSION UDC PO SCH ×3 (09:00→20:19)
[2018-08-13] MEDS: ASPIRIN 81 MG ENTERIC TAB PO SCH (09:00)
[2018-08-13] MEDS: lamoTRIgine 100MG TAB PO SCH ×2 (09:00→20:14)
[2018-08-13] MEDS: SENOKOT S TAB PO SCH ×2 (09:00→20:13)
[2018-08-13] MEDS: NICOTINE 14 MG/24 HR TRANSDERMAL TD SCH (09:00)
--- NOTE | 2018-08-13 11:34 | IPNPDOC ---
Date Seen The patient was seen on 08/13/18. Progress Note SUBJECTIVE: Patient is a 62-year-old male with frostbite and rhabdomyolysis secondary to unwitnessed syncope outdoors. Patient is evaluated at bedside this morning. He is resting comfortably in bed on his left side. He offers no complaints/concerns at this time. Denies fever, night sweats, chills, chest pain, shortness of breath, nausea, vomiting, abdominal pain. OBJECTIVE PHYSICAL EXAMINATION: VITAL SIGNS: Please see below. GENERAL: Well-nourished, well-developed male, appropriately dressed, sleepy, cooperative, no acute distress. HEENT: Atraumatic, normocephalic, PERRL, EOMI, symmetrical hair distribution on face, oral mucosa appears pink and moist, nasal septum appears midline, nares are patent, improving flat erythematous rash noted along the malar region. CARDIOVASCULAR: Regular rate and rhythm, normal S1 and S2, no murmur, rub, click. RESPIRATORY: Clear to auscultation bilaterally, improved inspiratory and expiratory airway excursion, symmetric air entry throughout, no focal consolidations, no wheeze, rhonchi, crackles. ABDOMINAL: Round, soft, symmetrical abdominal hair distribution, no guarding, no rebound, non-distended, no organomegaly. EXTREMITIES: Edema noted in finger digits has resolved, skin slough is noted, eschars present on many finger digits, peeling and erythematous sores noted on some finger pads that are painful to palpation, peripheral pulses are equal and symmetrical, able to manipulate fingers without difficulty. NEUROLOGICAL: No focal neurological deficits. PSYCHOLOGICAL: Mood and affect appropriate. LABORATORY DATA, IMAGING STUDIES, MICROBIOLOGY: Please see below. CT head without contrast on 08/02/2018 - no acute infarction. Portable chest x-ray on 08/02/2018 - no acute pulmonary pathology, old post- traumatic rib fractures. CT abdomen and pelvis without contrast on 08/03/2018 - malpositioned suprapubic catheter in prevesical fat, mildly distended urinary bladder. Portable chest x-ray on 08/05/2018 - no new infiltrate, linear fibrosis on left, old rib fractures on right, elevated right hemidiaphragm. Lumbosacral complete spine x-ray on 08/07/2018 - degenerative changes. Electroencephalogram - EEG is awake and drowsy states is within normal limits. EEG was affected by excessive muscle and electrode artifacts throughout the recording. Echocardiogram: Normal left ventricular size and systolic function, grade 1 diastolic dysfunction, mild left ventricular hypertrophy, no significant valvular disease. DVT prophylaxis ordered?: Lovenox 40mg subcutaneously daily. ASSESSMENT AND PLAN: This is a 62-year-old male with unwitnessed syncope found to have rhabdomyolysis and frostbite. PROBLEMS: 1. Unwitnessed syncope: Echocardiogram and EEG has resulted above. Keppra level is normal. Toxicology is negative. Occupational therapy recommends continued rehabilitation once medically stable for discharge. Physical therapy recommends continued rehabilitation upon medical discharge. as patient appears to have balance impairments and deconditioning. Patient may improved to point to where h e may benefit from home with services versus subacute rehabilitation based on continued progression with physical and occupational therapy. Patient has been accepted at [facility] for rehabilitation. Anticipated discharge tomorrow, 08/14/2018 at 9AM. 2. Rhabdomyolysis: Resolved. 3. Frostbite: Continue daily oral Plavix 75mg by mouth. Updated recommendations since wounds are dry without drainage are to cover fingers with a modified foam dressing. Continue Plavix until appointment can be arranged with [facility], Dr. Chang, in approximately 4 weeks. Decision regarding continuation of Plavix deferred to sales enablement specialist. Continue with Percocet. Blood cultures are negative. No need for antibiotic therapy at this time. Patient may benefit from follow-up with [facility] upon discharge. 5. Elevated troponin due to secondary NSTEMI from demand ischemia: Improving. Echocardiogram obtained with results above. Continue with aspirin. 6. Urinary retention: Continue Flomax. Urology consulted. Attempted coude catheter, but was unsuccessful. Suprapubic catheter placed. Imaging revealed suprapubic catheter in the prevesicular fat. Patient to operating room with urology for cystoscopy which did not reveal any anatomical abnormalities and a Roque catheter was placed. Due to agitation and anxiety Roque catheter was removed by patient himself. Urology placed another Roque catheter. Urinary output has been more than adequate. Discussed with urology has recommended that Roque catheter be removed prior to discharge. Blood-tinged urine in catheter receptacle likely secondary to irritation and prior trauma from Roque catheter removal by patient. Patient's urinary output has been more than adequate. Roque catheter has been discontinued. Patient is voiding without difficulty. 7. Gross hematuria: Urinary cystoscopy on 08/03/2018 was unrevealing for any anatomical abnormalities besides [id number] bilobar prostatic hyperplasia. 8. Constipation: Noted on abdominal imaging. Continue Senokot S and Milk of Magnesia. 9. Seizure disorder: Continue Lamictal and Keppra. Keppra level is within normal limits. EEG within normal limits. Suggest contacting patient's neurologist to secure follow-up appointment prior to discharge. 10. Hypertension: Continue Coreg. Continue Fosinopril back to home dose of 10mg by mouth daily. 11. Dyslipidemia: Continue Zocor. 12. Gastroesophageal reflux disease: Continue Famotidine. 13. Depression: Continue Paxil. 14. Vertigo: Continue Meclizine. 15. Scaly lesions on flexural surfaces: Possible undiagnosed psoriasis. Consider outpatient follow-up. 16. Erythematous facial rash: Immunology work-up obtained. Could consider out- patient follow-up. 17. Normocytic anemia and pancytopenia: Stable. 18. Possible undisclosed alcohol dependence: Acute agitation and confusion which has resolved. Possible underlying alcohol dependance. AST > ALT, but improving. Total bilirubin within normal limits. Ativan has been discontinued. Continue Serax 15mg by mouth daily. This will be discontinued at time of patient's discharge. Continue multivitamin, thiamine, and folic acid. [facility] protocol in place. Possibly underlying, undiagnosed dementia. Bedside sitter was discontinued on 08/10/2018. DISPOSITION: Continues to make improvements with occupational and physical therapy. Patient has been accepted at [facility] rehabilitation with discharge on 08/14/2018 at 9AM. VS, I&O, 24H, [facility] Vital Signs/I&O Vital Signs Date Time Temp Pulse Resp B/P (MAP) Pulse Ox O2 Delivery O2 Flow Rate FiO2 08/13/18 08:59 19 08/13/18 08:58 158/90 08/13/18 08:58 65 08/13/18 06:00 97.2 99 08/12/18 06:00 Room Air I&O- Last 24 Hours up to 6 AM 08/13/18 06:00 Intake Total 960 ml Balance 960 ml Laboratory Data 24H LABS Laboratory Tests 2 08/13/18 06:34: Nucleated Red Blood Cells % (auto) 0.0, Anion Gap 6L, Glomerular Filtration Rate > 60.0, Blood Urea Nitrogen 13, Creatinine 0.96, Sodium Level 141, Potassium Level 4.1, Chloride Level 106, Carbon Dioxide Level 29, Calcium Level 8.6L CBC/BMP Laboratory Tests 08/13/18 06:34 Red Blood Count 4.33, Mean Corpuscular Volume 84.5, Mean Corpuscular Hemoglobin 27.3, Mean Corpuscular Hemoglobin Concent 32.2, Red Cell Distribution Width 13.2, Calcium Level 8.6 L LYSSA LOVELACE DO Aug 13, 2018 11:34
[2018-08-13] MEDS: EUCERIN 120GM CREAM TOP SCH (20:13)
[2018-08-13] MEDS: PARoxetine 20 MG TAB PO SCH (20:13)
[2018-08-13] MEDS: SIMVASTATIN 40 MG TAB PO SCH (20:14)
[2018-08-13 22:00] VITALS: BP 131/87
[2018-08-14 06:00] VITALS: BP 145/75
[2018-08-14 06:01] LABS: HEMATOCRIT 35.9 % (42.0-52.0); HEMOGLOBIN 11.6 g/dl (13.5-17.5); MEAN CORPUSCULAR HEMOGLOBIN 26.9 pg (27.0-33.0); MEAN CORPUSCULAR HGB CONC 32.3 g/dl (32.0-36.5); MEAN CORPUSCULAR VOLUME 83.1 fl (80.0-96.0); PLATELET COUNT, AUTOMATED 198 10^3/uL (150-450); RED BLOOD COUNT 4.32 10^6/uL (4.30-6.10); WHITE BLOOD COUNT 3.7 10^3/uL (4.0-10.0)
[2018-08-14 06:22] LABS: BLOOD UREA NITROGEN 12 MG/DL (7-18); CALCIUM LEVEL 8.6 MG/DL (8.8-10.2); CARBON DIOXIDE LEVEL 28 MEQ/L (21-32); CHLORIDE LEVEL 106 MEQ/L (98-107); CREATININE FOR GFR 1.03 MG/DL (0.70-1.30); GLOMERULAR FILTRATION RATE > 60.0 (>49); GLUCOSE, FASTING 96 MG/DL (70-100); POTASSIUM SERUM 4.2 MEQ/L (3.5-5.1); SODIUM LEVEL 141 MEQ/L (136-145)
[2018-08-14] MEDS ORDERED: CLOP75TA2 PO (07:21)
[2018-08-14] MEDS ORDERED: VITMTA PO (07:21)
[2018-08-14] MEDS ORDERED: THIA100TA PO (07:21)
[2018-08-14] MEDS: THIAMINE 100 MG TAB PO SCH (08:25)
[2018-08-14] MEDS: CLOPIDOGREL 75 MG TAB PO SCH (08:25)
[2018-08-14] MEDS: TAMSULOSIN 0.4 MG CAP PO SCH (08:26)
[2018-08-14] MEDS: FAMOTIDINE 20 MG TAB PO SCH (08:26)
[2018-08-14] MEDS: CARVedilol 6.25 MG TAB PO SCH (08:27)
[2018-08-14] MEDS: PERCOCET 5MG/325MG TAB PO PRN (08:29)
[2018-08-14] MEDS: FOLIC ACID 1 MG TAB PO SCH (08:29)
[2018-08-14] MEDS: lamoTRIgine 100MG TAB PO SCH (08:29)
[2018-08-14 08:30] VITALS: BP 145/75
[2018-08-14] MEDS: GABAPENTIN 400 MG CAP PO SCH (08:30)
[2018-08-14] MEDS: OXAZEPAM 15 MG CAP PO SCH (08:30)
[2018-08-14] MEDS: ASPIRIN 81 MG ENTERIC TAB PO SCH (08:30)
[2018-08-14] MEDS: FOSINOPRIL 10 MG TAB PO SCH (08:30)
[2018-08-14] MEDS: MULTIVITAMINS/MINERALS THERAP 1 TAB PO SCH (08:30)
[2018-08-14] MEDS: levETIRAcetam 250MG TABLET (KEPPRA) PO SCH (08:30)
[2018-08-14] MEDS: NICOTINE 14 MG/24 HR TRANSDERMAL TD SCH (08:31)
[2018-08-14] MEDS: MOM 30ML SUSPENSION UDC PO SCH (08:32)
[2018-08-14] MEDS: SENOKOT S TAB PO SCH (08:32)
[2018-08-14] MEDS: ENOXAPARIN 40 MG/0.4 ML SYRINGE (J1650) SC SCH (08:32)
[2018-08-14] MEDS: EUCERIN 120GM CREAM TOP SCH (08:33)
--- NOTE | 2018-08-14 18:23 | DS.PDOC ---
Discharge Summary General Date of Admission Aug 02, 2018 at 15:17 Date of Discharge 08/14/2018 Primary Care Physician: Jr Muro Collins Attending Physician: LINCOLN AUSTIN MD Specialist/Consultants Involve: JAIRON SANCHEZ MD Discharge Summary PROCEDURES PERFORMED DURING STAY: 1. Transthoracic echocardiogram - grade 1 diastolic dysfunction, mild left ventricular hypertrophy. 2. Suprapubic catheter placement. 3. Urinary cystoscopy and catheter placement. 4. Electroencephalogram - Performed in awake and drowsy states was within normal limits, affected by excessive muscle and electrode artifacts throughout recording. ADMITTING DIAGNOSES: 1. Syncope. 2. Second degree frostbite to both hands. 3. Acute rhabdomyolysis. DISCHARGE DIAGNOSES: 1. Unwitnessed syncope. 2. Rhabdomyolysis. 3. Urinary retention. 4. Frostbite. 5. Elevated troponin secondary to type II NSTEMI due to demand ischemia. 6. Gross hematuria. COMPLICATIONS/CHIEF COMPLAINT: Frostbite,Rhabdmyolysis. HISTORY OF PRESENT ILLNESS: Mr. Hernandez is a 62-year-old male with past medical history of seizure disorder, hypertension, hyperlipidemia, benign prostatic hypertrophy (BPH) who presents to the emergency room after being found by his brother outside their house passed out. He immediately brought him inside and he awoke and emergency medical services (EMS) was called and the patient was brought to the ER for evaluation. In the ER, the patient was noted to have significant frostbite in his bilateral upper extremities, particularly his hands and particularly the distal interphalangeal (DIP) joint area. Dr. Rosas called the chief of the burn clinic at [facility], Dr. Quiles, who recommended bacitracin with Adaptic daily, and to follow him up as an outpatient. The patient denied any prodromal symptoms such as chest pain, shortness of breath, palpitations, he just remembers going out to get the paper and the next he remembers he was back inside his house. He does have a feeling sensation, particularly pain in his fingers. He has never had similar symptoms in the past. He was started on IV fluids due to acute rhabdomyolysis which was found incidentally on labs. He will be admitted for further management. HOSPITAL COURSE: Patient was admitted. An echocardiogram was obtained as resulted above. Initiated intravenous fluid resuscitation. Monitored creatine phosphokinase which resolved over time. Urology was consulted due to inability to void. Suprapubic catheter placed, but dislodged and was eventually removed. Urinary catheter placed in the operating room with cystoscopy performed and no abnormalities noted. Flomax was started. Gross hematuria noted although thought to be result of trauma from self-catheter removal by patient. Urinary catheter eventually removed with patient producing adequate urine spontaneously. Urology will call patient to schedule appointment out-patient. Noted to have type II NSTEMI due to demand ischemia. Monitored on telemetry, cardiac markers were trended which resolved. Therapeutic Lovenox was initiated and subsequently discontinued. Frostbite wounds were wrapped with non-adhesive dressings and Kerlix. Patient was started on Plavix. Wounds declared themselves with dressings adjusted to foam dressings. Patient to follow up with document specialist. Initially patient was quite confused and agitated. EEG obtained. Seizure medication levels checked. Alcohol withdrawal protocol was initiated and patient was started on a tapering dose of Serax. Significant improvement clinically was noted over time. Serax was discontinued at time of discharge to rehabilitation. Patient noted to be weak during admission and physical and occupational therapy recommended continued therapy at time of discharge. Patient was accepted at [facility] for continued rehabilitation. Noted silver scaly rash on elbow and knees and erythematous rash on face, so autoimmune work-up obtained. Could consider referral to dermatology/rheumatology. Developed normocytic anemia and fluctuating pancytopenia that did not require intervention. Patient made significant improvements throughout hospitalization and was stable at time of transfer. DISCHARGE MEDICATIONS: Please see below. ALLERGIES: Please see below. PHYSICAL EXAMINATION ON DISCHARGE: VITAL SIGNS: Please see below. GENERAL: Well-nourished, well-developed male, appropriately dressed, sleepy, cooperative, no acute distress. HEENT: Atraumatic, normocephalic, PERRL, EOMI, symmetrical hair distribution on face, oral mucosa appears pink and moist, nasal septum appears midline, nares are patent, improving flat erythematous rash noted along the malar region. CARDIOVASCULAR: Regular rate and rhythm, normal S1 and S2, no murmur, rub, click. RESPIRATORY: Clear to auscultation bilaterally, improved inspiratory and expiratory airway excursion, symmetric air entry throughout, no focal consolidations, no wheeze, rhonchi, crackles. ABDOMINAL: Round, soft, symmetrical abdominal hair distribution, no guarding, no rebound, non-distended, no organomegaly. EXTREMITIES: Edema noted in finger digits has resolved, skin slough is noted, eschars present on many finger digits, peeling and erythematous sores noted on some finger pads that are painful to palpation, peripheral pulses are equal and symmetrical, able to manipulate fingers without difficulty. NEUROLOGICAL: No focal neurological deficits. PSYCHOLOGICAL: Mood and affect appropriate. LABORATORY DATA: Please see below. IMAGIN. CT head without contrast on 08/02/2018 - no acute infarction. 2. Portable chest x-ray on 08/02/2018 - no acute pulmonary pathology, old post- traumatic rib fractures. 3. CT abdomen and pelvis without contrast on 08/03/2018 - malpositioned suprapubic catheter in prevesical fat, mildly distended urinary bladder. 4. Portable chest x-ray on 08/05/2018 - no new infiltrate, linear fibrosis on left, old rib fractures on right, elevated right hemidiaphragm. 5. Lumbosacral complete spine x-ray on 08/07/2018 - degenerative changes. PROGNOSIS: Stable. ACTIVITY: As tolerated. DIET: As tolerated. DISCHARGE PLAN: Goal: Improve health & wellness Instructions: Follow DC Instruction Problem: Health at [place] DISPOSITION: [facility]. DISCHARGE INSTRUCTIONS: 1. Follow up with document specialist, Dr. Chang, on 09/10/2018 at 1PM. 2. Follow up with neurology; please call their office on [phone]. 3. Follow up with your primary care provider, Dr. Muro, in 7-10 days. 4. Follow up with urology; they will call you with an appointment [phone]. 5. CONTINUE taking Plavix 75mg by mouth daily. 6. CONTINUE taking a multivitamin daily. 7. CONTINUE taking Thiamine 100mg by mouth daily. 8. Wrap your fingers in foam dressings as needed; you may lose your fingernails as part of the process of frostbite; keep the skin clean and dry; avoid temperature fluctuations. 9. Continue progressing with physical and occupational therapy at [facility]. 10. Return to the nearest Emergency Department should your symptoms worsen or persist. ITEMS TO FOLLOWUP ON ON OUTPATIENT: 1. Consider referral to dermatology/rheumatology for possible psoriasis. 2. Frostbite. DISCHARGE CONDITION: Stable. TIME SPENT ON DISCHARGE: Greater than 30 minutes. Vital Signs/I&Os Vital Signs Date Time Temp Pulse Resp B/P (MAP) Pulse Ox O2 Delivery O2 Flow Rate FiO2 08/14/18 09:21 18 08/14/18 08:30 145/75 08/14/18 08:27 63 08/14/18 06:00 98.8 97 08/12/18 06:00 Room Air I&O- Last 24 Hours up to 6 AM 08/14/18 06:00 Intake Total 3100 ml Output Total 0 ml Balance 3100 ml Laboratory Data Labs 24H Laboratory Tests 2 08/14/18 05:45: Nucleated Red Blood Cells % (auto) 0.0, Anion Gap 7L, Glomerular Filtration Rate > 60.0, Blood Urea Nitrogen 12, Creatinine 1.03, Sodium Level 141, Potassium Level 4.2, Chloride Level 106, Carbon Dioxide Level 28, Calcium Level 8.6L CBC/BMP Laboratory Tests 08/14/18 05:45 Red Blood Count 4.32, Mean Corpuscular Volume 83.1, Mean Corpuscular Hemoglobin 26.9 L, Mean Corpuscular Hemoglobin Concent 32.3, Red Cell Distribution Width 13.1, Calcium Level 8.6 L Discharge Medications Scheduled Aspirin (Aspir-81) 81 Mg Tab, 81 MG PO DAILY, (Reported) Carvedilol (Carvedilol) 6.25 Mg Tab, 6.25 MG PO BID, (Reported) Clopidogrel Bisulfate (Clopidogrel) 75 Mg Tab, 75 MG PO DAILY Famotidine (Famotidine) 40 Mg Tab, 40 MG PO DAILY, (Reported) Folic Acid (Folic Acid) 1 Mg Tab, 1 MG PO DAILY, (Reported) Fosinopril Sodium (Fosinopril Sodium) 10 Mg Tab, 10 MG PO DAILY, (Reported) Gabapentin (Gabapentin) 400 Mg Cap, 400 MG PO TID, (Reported) Lamotrigine (Lamotrigine) 200 Mg Tab, 200 MG PO BID, (Reported) Levetiracetam (Keppra) 750 Mg Tab, 750 MG PO BID, (Reported) Multivitamins *[facility] STOCKED* (Thera M Plus *[facility] STOCKED*) 1 Tab Tab, 1 TAB PO DAILY Paroxetine (Paroxetine HCl) 40 Mg Tab, 40 MG PO QHS, (Reported) Simvastatin - High Dose (Simvastatin) 40 Mg Tab, 40 MG PO QHS, (Reported) Thiamine Hcl (Thiamine Hcl) 100 Mg Tab, 100 MG PO DAILY Scheduled PRN (Excedrin Extra Strength 250-250-65 mg) 1 Tab Tab, 2 TAB PO BID PRN for HEADACHE, (Reported) Ketoconazole (Ketoconazole) 2 % Cre, 1 APLCT TOP BID PRN for RASH, (Reported) APPLIES TO GROIN. Meclizine HCl (Meclizine HCl) 12.5 Mg Tab, 12.5 MG PO TID PRN for VERTIGO/D IZZINESS, (Reported) Naproxen Sodium (Naproxen Sodium) 500 Mg Tab, 500 MG PO BID PRN for PAIN, (Reported) Allergies Coded Allergies: No Known Allergies (Verified , 07/02/04) LYSSA LOVELACE DO Aug 14, 2018 18:23
== END 2018-08-14 09:30 | DRG 922 ==
LOC: M ED 12:01 → M ED INP 15:17 → M PCU 17:12 → M MS5PR 08-05 14:36
PROVIDERS: ADMIT Internal Medicine; ATTEND Internal Medicine
PROC: 0T9B30Z Drainage of Bladder with Drainage Device, Percutaneous Approach (ICD-10-PCS; principal; 2018-08-02)
PROC: 0T9B80Z Drainage of Bladder with Drainage Device, Via Natural or Artificial Opening Endoscopic (ICD-10-PCS; 2018-08-03)
DX: T33.521A Superficial frostbite of right hand, initial encounter (principal); I21.A1 Myocardial infarction type 2; M62.82 Rhabdomyolysis; E87.0 Hyperosmolality and hypernatremia; D61.818 Other pancytopenia; T33.522A Superficial frostbite of left hand, initial encounter; X31.XXXA Exposure to excessive natural cold, initial encounter; Y92.009 Unspecified place in unspecified non-institutional (private) residence as the place of occurrence of the external cause; G43.909 Migraine, unspecified, not intractable, without status migrainosus; R55 Syncope and collapse; I10 Essential (primary) hypertension; E78.5 Hyperlipidemia, unspecified; N40.1 Benign prostatic hyperplasia with lower urinary tract symptoms; E53.8 Deficiency of other specified B group vitamins; M19.90 Unspecified osteoarthritis, unspecified site; Z98.41 Cataract extraction status, right eye; Z98.42 Cataract extraction status, left eye; Z98.1 Arthrodesis status; Z79.82 Long term (current) use of aspirin; Z79.899 Other long term (current) drug therapy; Z87.891 Personal history of nicotine dependence; R33.9 Retention of urine, unspecified; K59.00 Constipation, unspecified; F32.9 Major depressive disorder, single episode, unspecified; R42 Dizziness and giddiness; D64.9 Anemia, unspecified; L40.9 Psoriasis, unspecified; F10.20 Alcohol dependence, uncomplicated; R31.0 Gross hematuria

== ENCOUNTER → 2018-09-21 | Outpatient (CLI) | payer MEDICARE, MEDICAID ==
[~2018-09-21] MED LIST changes: -/LAMO20TA PO; -/METH500TA PO; +ASPI81TA85 PO; +CARV6.25 PO; +CLOP75TA2 PO; +FAMO40TA3 PO; +GABA-845 PO; +KEPP1TAB2 PO; +LAMI1TAB9 PO; +LAMO200T2 PO; +MECL12.575 PO; +METH1TAB40 PO; +SIMV40TA2 PO; +THIA100TA PO; +VITMTA PO
== END ==
LOC: M SMT 14:31
PROVIDERS: ATTEND Nurse Practitioner Family
DX: Z12.5 Encounter for screening for malignant neoplasm of prostate (principal)
CPT/HCPCS: 36415; 51798; G0103; G0463

== ENCOUNTER → 2018-12-22 | Outpatient (REF) | payer MEDICARE, MEDICAID ==
[~2018-12-22] MED LIST changes: -ASPI81CH PO; +ASPI81CH49 PO; -ERGO500014 PO; +VITA500045 PO
[2018-12-25 00:08] LABS: LAMOTRIGINE (LAMICTAL) 19.1 ug/mL (2.0-20.0); LEVETIRACETAM (KEPPRA) 31.4 ug/mL (10.0-40.0)
== END ==
LOC: M LAB REF 13:36
PROVIDERS: ATTEND Internal Medicine
DX: G40.301 Generalized idiopathic epilepsy and epileptic syndromes, not intractable, with status epilepticus (principal)

== ENCOUNTER → 2019-03-23 | Outpatient (REF) | payer MEDICARE, MEDICAID ==
[~2019-03-23] MED LIST changes: -ASPI-222 PO; +ASPI-527 PO; -FOSI10TA2 PO; +FOSI10TA4 PO
[2019-03-23 14:18] LABS: BLOOD UREA NITROGEN 15 MG/DL (7-18); CREATININE FOR GFR 1.19 MG/DL (0.70-1.30); GLOMERULAR FILTRATION RATE > 60.0 (>49)
[2019-03-23 14:28] LABS: FOLATE > 24.0 NG/ML; VITAMIN B12 LEVEL 394 PG/ML
== END ==
LOC: M LABNEURO 15:03
PROVIDERS: ATTEND Psychiatry & Neurology Neurology
DX: I10 Essential (primary) hypertension (principal)

== ENCOUNTER → 2019-07-19 | Outpatient (REF) | payer MEDICARE, MEDICAID ==
[~2019-07-19] MED LIST changes: -LAMO200T2 PO; +LAMO200T3 PO; -SIMV40TA2 PO; +SIMV40TA20 PO
== END ==
LOC: M LAB REF 17:29
PROVIDERS: ATTEND Internal Medicine
DX: G40.301 Generalized idiopathic epilepsy and epileptic syndromes, not intractable, with status epilepticus (principal)

== ENCOUNTER 2019-09-04 10:26 | Inpatient (IN) | payer MEDICARE, MEDICAID ==
[~2019-09-04] VITALS: Ht 180.3 cm; Wt 90.9 kg
[~2019-09-04 10:26] MED LIST changes: -MECL12.575 PO; +MECL12.589 PO
[2019-09-04] MEDS ORDERED: TAMS1CAP17 PO (10:45)
[2019-09-04 11:10] LABS: BASO # 0.1 10^3/uL (0.0-0.2); EOS # 0.3 10^3/uL (0.0-0.5); EOS % 4.9 % (0.0-3.0); HEMATOCRIT 36.9 % (42.0-52.0); HEMOGLOBIN 11.6 g/dl (13.5-17.5); LYMPH # 1.6 10^3/uL (1.5-5.0); LYMPH % 31.4 % (24.0-44.0); MEAN CORPUSCULAR HEMOGLOBIN 26.5 pg (27.0-33.0); MEAN CORPUSCULAR HGB CONC 31.4 g/dl (32.0-36.5); MEAN CORPUSCULAR VOLUME 84.2 fl (80.0-96.0); MONO # 0.5 10^3/uL (0.0-0.8); MONO % 9.6 % (0.0-5.0); NEUTROPHILS # 2.7 10^3/uL (1.5-8.5); NEUTROPHILS % 52.9 % (36.0-66.0); PLATELET COUNT, AUTOMATED 200 10^3/uL (150-450); RED BLOOD COUNT 4.38 10^6/uL (4.30-6.10); WHITE BLOOD COUNT 5.1 10^3/uL (4.0-10.0)
[2019-09-04] MEDS ORDERED: NS 1,000 ML IV ONE (11:27)
[2019-09-04 11:31] LABS: INR 1.02; PROTHROMBIN TIME 13.1 SECONDS (11.8-14.0)
[2019-09-04 11:32] LABS: PARTIAL THROMBOPLASTIN TIME 28.9 SECONDS (25.0-38.4)
[2019-09-04 11:33] LABS: CALCIUM LEVEL 8.5 MG/DL (8.8-10.2); CREATININE FOR GFR 2.16 MG/DL (0.70-1.30); POTASSIUM SERUM 4.8 MEQ/L (3.5-5.1)
--- NOTE | 2019-09-04 14:38 | REP ---
Right hip and AP pelvis: AP pelvis single view: No pelvic fracture is identified. The sacroiliac articulations are unremarkable. The hip articulations are unremarkable. Impression: Negative AP pelvis. Right hip two views: There is no fracture or dislocation. Mineralization is normal. The joint space is unremarkable. There are no calcifications or foreign bodies. Impression: Negative right hip. Electronically Signed by Bishnu Boyle MD 09/04/2019 02:29 P
--- NOTE | 2019-09-04 14:42 | SMCUROLCON ---
Urology Consultation General Date of Consultation 09/04/19 Reason For Consultation This patient is seen for FALL. I was asked to see the patient in the ER urinary retention, distended bladder, reduced renal function and inability to place peters catheter History of Present Illness The patient is a 63 year old male in the ER after falling, he is complaining of right lower back pain that radiates into the right leg. He denies difficulty voiding. He was noted to have lab results showing reduced renal function. An ultrasound of his bladder demonstrated a distended bladder. A peters catheter could not be placed. I was asked to see the patient in the ER to place a peters catheter. He has no prior history of urinary retention, dysuria, frequency, gross hematuria, UTIs, renal calculi or prior urologic surgery. He is taking tamsulosin from his physician but states he is not sure why. Allergies Allergies: Coded Allergies: No Known Allergies (Verified , 07/02/04) Physical Examination General Exam: Cooperative EYE EXAM: PERRLA, Conjunctiva & lids normal, EOMI ENT EXAM: Atraumatic Neck Exam: Supple; No: JVD, Lymphadenopathy Chest Exam: Normal air movement Abdomen Exam: Soft; No: Tenderness, Mass Male Exam Normal testes bilaterally, circumcised penis with betadine stains present. Meatus is normal. Procedure note; the penis was prepped with betadine, I was unable to pass a 16 egyptian coude tip peters catheter into the bladder. Passed a Matthieu filiform easily into the bladder and dilated with follower to 18 egyptian . Placed a 16 e[place]ian Coun[place]ill peters easily over the filiform into the bladder, inflated the balloon, large amount of clear urine returned. Vital Signs/I&O Vital Signs Date Time Temp Pulse Resp B/P (MAP) Pulse Ox O2 Delivery O2 Flow Rate FiO2 09/04/19 12:11 61 94 09/04/19 12:01 130/80 (97) 09/04/19 11:41 18 09/04/19 10:29 Room Air Laboratory Data 24H Labs Laboratory Tests 2 09/04/19 11:01: Prothrombin Time 13.1, Prothromb Time International Ratio 1.02, Activated Partial Thromboplast Time 28.9 09/04/19 11:02: Immature Granulocyte % (Auto) 0.2, Neutrophils (%) (Auto) 52.9, Lymphocytes (%) (Auto) 31.4, Monocytes (%) (Auto) 9.6H, Eosinophils (%) (Auto) 4.9H, Basophils (%) (Auto) 1.0, Neutrophils # (Auto) 2.7, Lymphocytes # (Auto) 1.6, Monocytes # (Auto) 0.5, Eosinophils # (Auto) 0.3, Basophils # (Auto) 0.1, Nucleated Red Blood Cells % (auto) 0.0, Anion Gap 5L, Glomerular Filtration Rate 33.0L, Calcium Level 8.5L CBC/BMP Laboratory Tests 09/04/19 11:02 Assessment Urinary retention with inability to place peters catheter likely secondary to prostatic hypertrophy Plan leave catheter in place, follow up in Urology office SYLVIE MALONEY MD Sep 04, 2019 14:42
--- NOTE | 2019-09-04 14:42 | REP ---
CT of the brain without IV contrast: Comparison is 08/02/2018. There is no subdural or epidural hematoma. There is no other acute intracranial hemorrhage. There is no edema, mass effect or midline shift. There is mild diffuse atrophy, unchanged. The visualized paranasal sinuses and mastoid air cells are clear. Impression: There is no subdural or epidural hematoma or other acute intracranial hemorrhage. Mild diffuse atrophy. Electronically Signed by Bishnu Boyle MD 09/04/2019 02:33 P
--- NOTE | 2019-09-04 15:13 | REP ---
Portable chest, 22 p.m., single frontal view: Comparison is 08/05/2018. There are no infiltrates or pleural effusions. Cardiac size is upper normal. The chely and mediastinum are unremarkable. There is a cervical spine stabilization plate, unchanged. There are old healed right rib fractures, unchanged. There is elevation of the right hemidiaphragm, unchanged. Impression: No infiltrates or pleural effusions. There are chronic findings as described. Electronically Signed by Bishnu Boyle MD 09/04/2019 03:04 P
[2019-09-04] MEDS ORDERED: AIMO70IN2 SQ (15:15)
[2019-09-04] MEDS ORDERED: LEVE10003 PO (15:15)
[2019-09-04] MEDS ORDERED: MULTCAP PO (15:15)
--- NOTE | 2019-09-04 16:27 | HPEPDOC ---
General Date of Admission 09/04/19 Date of Service: Sep 04, 2019 Chief Complaint The patient is a 63-year-old male admitted with a reason for visit of FALL. Source: Patient Exam Limitations: No limitations Timing/Duration: 4-6 hours Severity: Mild Associated Symptoms: Hypotension, Mechanical fall History of Present Illness Patient is 63 years old male with past medical history of seizure disorder, hypertension, hyperlipidemia, benign prostatic hypertrophy (BPH) who presents to the emergency room after being found by his brother outside their house passed out. It's unclear whether patient developed seizure or patient lost consciousness and developed mechanical fall because of hypotension. In ER imaging studies were done and it was negative for fracture or any acute bleed. Also patient was found to have urinary retention, urology team placed catheter. His blood pressure was low 78/48. Blood pressure was stabilized after fluid resuscitation. Patient denies fever, chills, nausea, vomiting diarrhea or dysuria Home Medications Scheduled Aspirin (Aspirin) 325 Mg Tablet, 325 MG PO DAILY, (Reported) Carvedilol (Carvedilol) 6.25 Mg Tab, 6.25 MG PO BID, (Reported) Erenumab-Aooe (Aimovig Autoinjector) 140 Mg/1 Ml Auto.injct, 140 MG SQ QWEEK, (Reported) Pt unsure of which day he receives shot each week; brother helps with injection, takes in arm. Fosinopril Sodium (Fosinopril Sodium) 10 Mg Tab, 10 MG PO DAILY, (Reported) Gabapentin (Gabapentin) 400 Mg Cap, 400 MG PO TID, (Reported) Lamotrigine (Lamotrigine) 200 Mg Tab, 200 MG PO BID, (Reported) Multivitamin (Multivitamins) 1 Each Capsule, 1 CAP PO DAILY, (Reported) Paroxetine HCl (Paroxetine HCl) 40 Mg Tab, 40 MG PO QHS, (Reported) Simvastatin (Simvastatin) 40 Mg Tab, 40 MG PO QHS, (Reported) Tamsulosin Hcl (Tamsulosin HCl) 0.4 Mg Capsule, 0.4 MG PO DAILY, (Reported) Thiamine HCl (Thiamine HCl) 100 Mg Tablet, 100 MG PO DAILY, (Reported) levETIRAcetam (levETIRAcetam) 1,000 Mg Tablet, 1,000 MG PO BID, (Reported) Scheduled PRN Aspirin/Acetaminophen/Caffeine (Excedrin Migraine Caplet) 1 Each Tablet, 2 TAB- CAP PO DAILY PRN for HEADACHE, (Reported) Famotidine (Famotidine) 40 Mg Tab, 40 MG PO DAILY PRN for acid reflux, (Reported) Ketoconazole (Ketoconazole) 2 % Cre, 1 APLCT TOP BID PRN for RASH, (Reported) APPLIES TO GROIN. Meclizine HCl (Meclizine HCl) 12.5 Mg Tab, 12.5 MG PO TID PRN for VERTIGO/DIZZINESS, (Reported) Naproxen Sodium (Naproxen Sodium ER) 500 Mg Tab, 500 MG PO BID PRN for PAIN, (Reported) Allergies Coded Allergies: No Known Allergies (Verified , 07/02/04) Past Medical History Medical History Seizure disorder. Hypertension. Hyperlipidemia. Benign pulmonary nodules. BPH. Vitamin B12 deficiency. History of degenerative joint disease (DJD). Surgical History Bilateral cataract repair. History of bilateral knee replacement. C-spine fusion. Family History I personally reviewed family history and found not pertinent Social History * Smoker: former Smoker Alcohol: Denies Drugs: denies A-FIB/CHADSVASC A-FIB History Current/History of A-Fib/PAF?: No Current PO Anticoag Therapy: No Review of Systems Constitutional: Denies: Chills, Fever Eyes: Denies: Pain, Vision change ENT: Denies: Head Aches Skin: Denies: Rash, Lesions Cardiovascular: Denies: Chest Pain Gastrointestinal: Denies: Nausea, Vomiting Genitourinary: Denies: Dysuria Hematologic: Denies: Bruising Endocrine: Denies: Polydipsia, Polyphagia Musculoskeletal: Reports: Shoulder Pain, Leg Pain Neurological: Denies: Weakness Psych: Reports: Mood Normal Physical Examination General Exam: Positive: Alert, Cooperative Eye Exam: Positive: PERRLA, EOMI ENT Exam: Positive: Atraumatic Neck Exam: Positive: Supple; Negative: JVD Chest Exam: Positive: Clear to auscultation Heart Exam: Positive: Rate Normal Telemetry: Positive: No significant arrhythmia Abdomen Exam: Positive: Normal bowel sounds Extremity Exam: Negative: Clubbing, Cyanosis Skin Exam: Positive: Nl turgor and temperature Neuro Exam: Positive: Normal Gait, Strength at 5/5 X4 ext, Cranial Nerves 3-12 NL Psych Exam: Positive: Mental status NL Vital Signs Vital Signs Date Time Temp Pulse Resp B/P (MAP) Pulse Ox O2 Delivery O2 Flow Rate FiO2 09/04/19 15:00 114/70 (85) 09/04/19 14:56 61 09/04/19 14:41 95 09/04/19 11:41 18 09/04/19 10:29 Room Air Laboratory Data Labs 24H Laboratory Tests 2 09/04/19 11:01: Prothrombin Time 13.1, Prothromb Time International Ratio 1.02, Activated Partial Thromboplast Time 28.9 09/04/19 11:02: Immature Granulocyte % (Auto) 0.2, Neutrophils (%) (Auto) 52.9, Lymphocytes (%) (Auto) 31.4, Monocytes (%) (Auto) 9.6H, Eosinophils (%) (Auto) 4.9H, Basophils (%) (Auto) 1.0, Neutrophils # (Auto) 2.7, Lymphocytes # (Auto) 1.6, Monocytes # (Auto) 0.5, Eosinophils # (Auto) 0.3, Basophils # (Auto) 0.1, Nucleated Red Blood Cells % (auto) 0.0, Anion Gap 5L, Glomerular Filtration Rate 33.0L, Calcium Level 8.5L 09/04/19 15:02: Urine Color YELLOW, Urine Appearance CLEAR, Urine pH 5.0, Urine Specific [place] 1.010, Urine Protein NEGATIVE, Urine Glucose (UA) NEGATIVE, Urine Ketones NEGATIVE, Urine Blood NEGATIVE, Urine Nitrite NEGATIVE, Urine Bilirubin NEGATIVE, Urine Urobilinogen 0.2, Urine Leukocyte Esterase NEGATIVE, Urine WBC (Auto) 1, Urine RBC (Auto) 2, Urine Hyaline Casts (Auto) 16, Urine Bacteria (Auto) NEGATIVE, Urine Squamous Epithelial Cells 0, Urine Sperm (Auto) CBC/BMP Laboratory Tests 09/04/19 11:02 Assessment/Plan Patient is 63 years old male with past medical history of seizure disorder, hyp ertension, hyperlipidemia, benign prostatic hypertrophy (BPH) who presents to the emergency room after being found by his brother outside their house passed out. It's unclear whether patient developed seizure or patient lost consciousness and developed mechanical fall because of hypotension. In ER imaging studies were done and it was negative for fracture or any acute bleed. Also patient was found to have urinary retention, urology team placed catheter. His blood pressure was low 78/48. Blood pressure was stabilized after fluid resuscitation. Problems (1) Urinary retention Status: Acute Problem Text: Secondary to BPH Roque catheter was placed Follow-up with urology in the outpatient settings (2) Hypotension Status: Acute Problem Text: Most likely secondary to blood pressure medications, there is possibility for seizure. I will hold KALYANI inhibitor for now Blood pressure was stabilized after IV fluid resuscitation (3) Fall Status: Acute Problem Text: Patient had multiple episodes of mechanical fall in the past. There is unclear if patient developed seizures or he fell down because of hypotension due to blood pressure medication side effect PT/OT evaluation (4) Recurrent falls while walking Status: Chronic Problem Text: PT/OT evaluation (5) Seizure disorder Status: Chronic Problem Text: Continue home meds I will check level of lamotrigine, Keppra (6) Acute kidney injury Status: Acute Problem Text: Most likely postrenal secondary to BPH Roque placed We'll continue to monitor Plan / VTE VTE Prophylaxis Ordered?: Yes DANIELA BANG DO Sep 04, 2019 16:27
[2019-09-04] MEDS ORDERED: EXCETAB33 PO (16:28)
[2019-09-04] MEDS ORDERED: THIA100T7 PO (16:28)
[2019-09-04] MEDS ORDERED: ASPI-1 PO (16:28)
[2019-09-04] MEDS ORDERED: FAMOTIDINE 20 MG TAB PO PRN (16:30)
[2019-09-04] MEDS ORDERED: MECLIZINE 12.5 MG TAB PO PRN (16:30)
[2019-09-04 19:41] VITALS: BP 123/71
[2019-09-04] MEDS: lamoTRIgine 100MG TAB PO SCH (20:48)
[2019-09-04] MEDS: levETIRAcetam 250MG TABLET (KEPPRA) PO SCH (20:48)
[2019-09-04] MEDS: PARoxetine 20 MG TAB PO SCH (20:48)
[2019-09-04] MEDS: SIMVASTATIN 40 MG TAB PO SCH (20:48)
[2019-09-04] MEDS: GABAPENTIN 400 MG CAP PO SCH (20:48)
[2019-09-04] MEDS: CARVedilol 6.25 MG TAB PO SCH (20:49)
[2019-09-04] MEDS: HEPARIN SOD (PORCINE) 5000 UNITS/ML VIAL (J1644 PER 1000UNITS) SC SCH (20:49)
[2019-09-04] MEDS: ACETAMINOPHEN TAB 650MG DOSE (2X325MG) PO PRN (20:51)
[2019-09-04] MEDS: LIDOCAINE 5% (LIDODERM) PATCH TD SCH (23:13)
[2019-09-05 06:00] VITALS: BP 131/74
[2019-09-05 06:33] LABS: HEMATOCRIT 35.9 % (42.0-52.0); HEMOGLOBIN 11.4 g/dl (13.5-17.5); MEAN CORPUSCULAR HEMOGLOBIN 26.8 pg (27.0-33.0); MEAN CORPUSCULAR HGB CONC 31.8 g/dl (32.0-36.5); MEAN CORPUSCULAR VOLUME 84.5 fl (80.0-96.0); PLATELET COUNT, AUTOMATED 160 10^3/uL (150-450); RED BLOOD COUNT 4.25 10^6/uL (4.30-6.10); WHITE BLOOD COUNT 4.1 10^3/uL (4.0-10.0)
[2019-09-05 06:59] LABS: BLOOD UREA NITROGEN 17 MG/DL (7-18); CARBON DIOXIDE LEVEL 28 MEQ/L (21-32); CHLORIDE LEVEL 110 MEQ/L (98-107); CREATININE FOR GFR 1.26 MG/DL (0.70-1.30); GLOMERULAR FILTRATION RATE > 60.0 (>49); GLUCOSE, FASTING 79 MG/DL (70-100); MAGNESIUM LEVEL 2.1 MG/DL (1.8-2.4); POTASSIUM SERUM 4.2 MEQ/L (3.5-5.1); SODIUM LEVEL 142 MEQ/L (136-145)
[2019-09-05] MEDS ORDERED: FLUBLOK(EGG FREE)(QUAD)INFLUENZA VACC 0.5ML SYRINGE (90682)18YRS&OLDER IM ONE (09:00)
[2019-09-05] MEDS: lamoTRIgine 100MG TAB PO SCH ×2 (09:06→20:31)
[2019-09-05] MEDS: GABAPENTIN 400 MG CAP PO SCH ×3 (09:06→20:32)
[2019-09-05] MEDS: TAMSULOSIN 0.4 MG CAP PO SCH (09:06)
[2019-09-05] MEDS: THIAMINE 100 MG TAB PO SCH (09:06)
[2019-09-05] MEDS: HEPARIN SOD (PORCINE) 5000 UNITS/ML VIAL (J1644 PER 1000UNITS) SC SCH ×2 (09:06→20:31)
[2019-09-05] MEDS: ASPIRIN 325 MG TAB PO SCH (09:06)
[2019-09-05] MEDS: CARVedilol 6.25 MG TAB PO SCH ×2 (09:06→20:35)
[2019-09-05] MEDS: levETIRAcetam 250MG TABLET (KEPPRA) PO SCH ×2 (09:06→20:31)
[2019-09-05] MEDS: **NOTE PATIENT COMMENT** MISC XX SCH (09:08)
--- NOTE | 2019-09-05 11:05 | IPNPDOC ---
Text Note Date of Service The patient was seen on 09/05/19. NOTE Subjective: Patient stated that he feels much better today. He denied fever, chills, nausea, vomiting, chest pain, palpitations, diarrhea. Objective: VITAL SIGNS: Please see below. GENERAL APPEARANCE: Well-nourished, well-developed, not in apparent distress HEENT: Normocephalic, atraumatic. Mucous members moist and pink CARDIOVASCULAR: Regular rate and rhythm. No murmurs, rubs or gallops. Radial pulses are intact. There is no lower extremity edema LUNGS: Diminished lung sounds ABDOMEN: Abdomen is soft and nontender. MUSCULOSKELETAL: Range of motion is intact in all 4 extremities NEUROLOGICAL: Cranial nerves II-12 are grossly intact. Speech is not dysarthric Assessment/Plan Patient is 63 years old male with past medical history of seizure disorder, hypertension, hyperlipidemia, benign prostatic hypertrophy (BPH) who presents to the emergency room after being found by his brother outside their house passed out. It's unclear whether patient developed seizure or patient lost consciousness and developed mechanical fall because of hypotension. In ER imaging studies were done and it was negative for fracture or any acute bleed. Also patient was found to have urinary retention, urology team placed catheter. His blood pressure was low 78/48. Blood pressure was stabilized after fluid resuscitation. Await PT/OT evaluation. Problems (1) Urinary retention Secondary to BPH Roque catheter was placed Follow-up with urology in the outpatient settings Will keep Roque catheter on discharge as per urologist recommendation (2) Hypotension Most likely secondary to blood pressure medications, there is possibility for seizure. I will hold KALYANI inhibitor for now Blood pressure was stabilized after IV fluid resuscitation (3) Fall Patient had multiple episodes of mechanical fall in the past. There is unclear if patient developed seizures or he fell down because of hypotension due to blood pressure medication side effect PT/OT evaluation (4) Recurrent falls while walking PT/OT evaluation (5) Seizure disorder Continue home meds I will check level of lamotrigine, Keppra (6) Acute kidney injury Resolved Most likely postrenal secondary to BPH Roque placed We'll continue to monitor VS,Fishbone, I+O VS, Fishbone, I+O Laboratory Tests 09/04/19 11:02 09/05/19 06:07 Vital Signs Date Time Temp Pulse Resp B/P (MAP) Pulse Ox O2 Delivery O2 Flow Rate FiO2 09/05/19 09:06 63 139/79 09/05/19 06:00 98.1 16 94 Room Air I&O- Last 24 Hours up to 6 AM 09/05/19 06:00 Intake Total 2000 ml Output Total 1250 ml Balance 750 ml DANIELA BANG DO Sep 05, 2019 11:05
[2019-09-05 14:00] VITALS: BP 142/87
[2019-09-05] MEDS: LIDOCAINE 5% (LIDODERM) PATCH TD SCH (20:30)
[2019-09-05] MEDS: PARoxetine 20 MG TAB PO SCH (20:31)
[2019-09-05] MEDS: SIMVASTATIN 40 MG TAB PO SCH (20:31)
[2019-09-05] MEDS: ACETAMINOPHEN TAB 650MG DOSE (2X325MG) PO PRN (20:33)
--- NOTE | 2019-09-05 20:47 | ECGEPIP ---
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
[2019-09-05 22:00] VITALS: BP 121/72
[2019-09-06] MEDS: HEPARIN SOD (PORCINE) 5000 UNITS/ML VIAL (J1644 PER 1000UNITS) SC SCH ×2 (08:34→21:20)
[2019-09-06] MEDS: GABAPENTIN 400 MG CAP PO SCH ×3 (08:35→21:20)
[2019-09-06] MEDS: levETIRAcetam 250MG TABLET (KEPPRA) PO SCH ×2 (08:35→21:20)
[2019-09-06] MEDS: TAMSULOSIN 0.4 MG CAP PO SCH (08:35)
[2019-09-06] MEDS: lamoTRIgine 100MG TAB PO SCH ×2 (08:35→21:20)
[2019-09-06] MEDS: ASPIRIN 325 MG TAB PO SCH (08:35)
[2019-09-06] MEDS: THIAMINE 100 MG TAB PO SCH (08:35)
[2019-09-06] MEDS: CARVedilol 6.25 MG TAB PO SCH ×2 (08:37→21:00)
[2019-09-06] MEDS: **NOTE PATIENT COMMENT** MISC XX SCH (08:38)
--- NOTE | 2019-09-06 13:43 | IPNPDOC ---
Text Note Date of Service The patient was seen on 09/06/19. NOTE Subjective: Patient stated that he feels much better today. He denied fever, chills, nausea, vomiting, chest pain, palpitations, diarrhea. Objective: VITAL SIGNS: Please see below. GENERAL APPEARANCE: Well-nourished, well-developed, not in apparent distress HEENT: Normocephalic, atraumatic. Mucous members moist and pink NECK: No JVD , no thyromegaly CARDIOVASCULAR: Regular rate and rhythm. No murmurs, rubs or gallops. Radial pulses are intact. There is no lower extremity edema LUNGS: Diminished lung sounds ABDOMEN: Abdomen is soft and nontender. Normal bowel sounds. MUSCULOSKELETAL: Range of motion is intact in all 4 extremities NEUROLOGICAL: Cranial nerves II-12 are grossly intact. Speech is not dysarthric Labs and radiology : reviewed. Assessment/Plan: Patient is 63 years old male with past medical history of seizure disorder, hypertension, hyperlipidemia, benign prostatic hypertrophy (BPH) who presents to the emergency room after being found by his brother outside their house passed out. It's unclear whether patient developed seizure or patient lost consciousness and developed mechanical fall because of hypotension. In ER imaging studies were done and it was negative for fracture or any acute bleed. Also patient was found to have urinary retention, urology team placed catheter. His blood pressure was low 78/48. Blood pressure was stabilized after fluid resuscitation. Await PT/OT evaluation. Fall Patient says his cane slipped an he fell . He tried to get up and could not. He denied having a seizure or syncope. Patient had multiple episodes of mechanical fall in the past. He fell down because of hypotension due to blood pressure medication side effect and generalized disbalance Continue PT. Recurrent falls while walking poor balance PT/OT evaluation BPH with Urinary retention recurrent Secondary to BPH Had retention last year and needed suprapubic cath then cath which was removed and patient was doing well with flomax in 2019 Roque catheter was placed by urology Follow-up with urology in the outpatient settings Will keep Roque catheter on discharge as per urologist recommendation Hypotension Most likely secondary to blood pressure medications will stop fosinopril continue coreg Seizure disorder Continue home meds check level of lamotrigine, Keppra Acute kidney injury Resolved postrenal secondary to BPH Roque placed We'll continue to monitor Hyperlipidemia. statin Benign pulmonary nodules. outpatient follow up Vitamin B12 deficiency. continue supplements. History of degenerative joint disease (DJD). C-spine fusion. Chronic migraine pt on Erenumab. VS,Fishbone, I+O VS, Fishbone, I+O Vital Signs Date Time Temp Pulse Resp B/P (MAP) Pulse Ox O2 Delivery O2 Flow Rate FiO2 09/06/19 08:37 73 126/81 09/05/19 22:00 98.1 18 98 Room Air I&O- Last 24 Hours up to 6 AM 09/06/19 06:00 Intake Total 1395 ml Output Total 3100 ml Balance -1705 ml VICENTA POLK MD Sep 06, 2019 13:43
[2019-09-06 14:00] VITALS: BP 141/80
[2019-09-06] MEDS: ACETAMINOPHEN TAB 650MG DOSE (2X325MG) PO PRN ×2 (15:29→21:21)
[2019-09-06] MEDS: SIMVASTATIN 40 MG TAB PO SCH (21:20)
[2019-09-06] MEDS: PARoxetine 20 MG TAB PO SCH (21:21)
[2019-09-06] MEDS: LIDOCAINE 5% (LIDODERM) PATCH TD SCH (21:22)
[2019-09-06 22:00] VITALS: BP 107/58
[2019-09-07 06:00] VITALS: BP 148/68
[2019-09-07 06:31] LABS: EOS # 0.2 10^3/uL (0.0-0.5); EOS % 6.5 % (0.0-3.0); HEMATOCRIT 39.2 % (42.0-52.0); HEMOGLOBIN 12.4 g/dl (13.5-17.5); LYMPH # 1.1 10^3/uL (1.5-5.0); MEAN CORPUSCULAR HEMOGLOBIN 26.5 pg (27.0-33.0); MEAN CORPUSCULAR HGB CONC 31.6 g/dl (32.0-36.5); MEAN CORPUSCULAR VOLUME 83.8 fl (80.0-96.0); MONO # 0.3 10^3/uL (0.0-0.8); MONO % 8.1 % (0.0-5.0); NEUTROPHILS # 1.6 10^3/uL (1.5-8.5); NEUTROPHILS % 50.1 % (36.0-66.0); PLATELET COUNT, AUTOMATED 155 10^3/uL (150-450); RED BLOOD COUNT 4.68 10^6/uL (4.30-6.10); WHITE BLOOD COUNT 3.1 10^3/uL (4.0-10.0)
[2019-09-07 06:51] LABS: BLOOD UREA NITROGEN 12 MG/DL (7-18); CALCIUM LEVEL 8.6 MG/DL (8.8-10.2); CARBON DIOXIDE LEVEL 30 MEQ/L (21-32); CHLORIDE LEVEL 107 MEQ/L (98-107); GLOMERULAR FILTRATION RATE > 60.0 (>49); GLUCOSE, FASTING 92 MG/DL (70-100); POTASSIUM SERUM 4.1 MEQ/L (3.5-5.1); SODIUM LEVEL 140 MEQ/L (136-145)
[2019-09-07] MEDS: ASPIRIN 325 MG TAB PO SCH (09:10)
[2019-09-07] MEDS: GABAPENTIN 400 MG CAP PO SCH (09:10)
[2019-09-07] MEDS: THIAMINE 100 MG TAB PO SCH (09:10)
[2019-09-07] MEDS: lamoTRIgine 100MG TAB PO SCH (09:10)
[2019-09-07] MEDS: TAMSULOSIN 0.4 MG CAP PO SCH (09:10)
[2019-09-07] MEDS: levETIRAcetam 250MG TABLET (KEPPRA) PO SCH (09:10)
[2019-09-07] MEDS: **NOTE PATIENT COMMENT** MISC XX SCH (09:11)
[2019-09-07] MEDS: HEPARIN SOD (PORCINE) 5000 UNITS/ML VIAL (J1644 PER 1000UNITS) SC SCH (09:11)
[2019-09-07 09:26] VITALS: BP 142/98
[2019-09-07] MEDS: CARVedilol 6.25 MG TAB PO SCH (09:26)
[2019-09-07 10:25] VITALS: BP 140/88
--- NOTE | 2019-09-08 05:51 | DS.PDOC ---
Discharge Summary General Date of Admission Sep 06, 2019 at 14:01 Date of Discharge 09/07/19 Discharge Summary PROCEDURES PERFORMED DURING STAY: [None]. DISCHARGE DIAGNOSES: Hypotension due to antihypertensive medications Presyncope and fall due to above CARLOS due to obstructive uropathy Gait instability due to peripheral neuropathy and spinal degenerative disease Recurrent Acute urinary retention discharged with peters BPH Seizure disorder chronic migraine Hyperlipidemia C spine fusion Vit B12 deficiency Prior History of alcohol use disorder Hypertension with hypertensive heart disease H/O syncopal episodes with negative work up in the past. Degenerative disc disease. Lumbar sacral joint disc disease. Peripheral neuropathy. Benign pulmonary nodules. COMPLICATIONS/CHIEF COMPLAINT: Hypotension,Obstructive Uropathy. HISTORY OF PRESENT ILLNESS: See history and physical HOSPITAL COURSE: Patient is 63 years old male with past medical history of seizure disorder, hypertension, hyperlipidemia, benign prostatic hypertrophy (BPH) who presents to the emergency room after being found by his brother outside their house passed out. It's unclear whether patient developed seizure or patient lost consciousness and developed mechanical fall because of hypotension. In ER imaging studies were done and it was negative for fracture or any acute bleed. Also patient was found to have urinary retention, urology team placed catheter. His blood pressure was low 78/48. Blood pressure was stabilized after fluid resuscitation. Await PT/OT evaluation. Possible Presyncope and Fall Patient says his cane slipped an he fell . He tried to get up and could not. He denied having a seizure or syncope. Patient had multiple episodes of mechanical fall in the past. He fell down because of hypotension due to blood pressure medication side effect and generalized disbalance Continue PT. Recurrent falls while walking poor balance PT/OT evaluation BPH with Urinary retention recurrent Secondary to BPH Had retention last year and needed suprapubic cath then cath which was removed and patient was doing well with flomax in 2019 Peters catheter was placed by urology Follow-up with urology in the outpatient settings Will keep Peters catheter on discharge as per urologist recommendation Hypotension Most likely secondary to blood pressure medications will stop fosinopril continue coreg Seizure disorder Continue home meds check level of lamotrigine, Keppra Acute kidney injury Resolved postrenal secondary to BPH Peters placed We'll continue to monitor Hyperlipidemia. statin Benign pulmonary nodules. outpatient follow up Vitamin B12 deficiency. continue supplements. History of degenerative joint disease (DJD). C-spine fusion. Chronic migraine pt on Erenumab. DISCHARGE MEDICATIONS: Please see below. ALLERGIES: Please see below. PHYSICAL EXAMINATION ON DISCHARGE: VITAL SIGNS: Please see below. GENERAL APPEARANCE: Well-nourished, well-developed, not in apparent distress HEENT: Normocephalic, atraumatic. Mucous members moist and pink NECK: No JVD , no thyromegaly CARDIOVASCULAR: Regular rate and rhythm. No murmurs, rubs or gallops. Radial pulses are intact. There is no lower extremity edema LUNGS: Diminished lung sounds ABDOMEN: Abdomen is soft and nontender. Normal bowel sounds. MUSCULOSKELETAL: Range of motion is intact in all 4 extremities NEUROLOGICAL: Cranial nerves II-12 are grossly intact. Speech is not dysarthric LABORATORY DATA: Please see below. ACTIVITY: [As tolerated]. DIET: As tolerated DISPOSITION: 01 Home, Self-Care. DISCHARGE INSTRUCTIONS: PMD in 1 week DISCHARGE CONDITION: [Stable]. TIME SPENT ON DISCHARGE: 35 minutes. Vital Signs/I&Os Vital Signs Date Time Temp Pulse Resp B/P (MAP) Pulse Ox O2 Delivery O2 Flow Rate FiO2 09/07/19 10:25 140/88 (105) 09/07/19 09:26 64 09/07/19 06:00 96.6 17 98 Room Air I&O- Last 24 Hours up to 6 AM 09/08/19 06:00 Intake Total 0 ml Output Total 500 ml Balance -500 ml Laboratory Data Labs 24H Laboratory Tests 2 09/07/19 06:00: Immature Granulocyte % (Auto) 0.3, Neutrophils (%) (Auto) 50.1, Lymphocytes (%) (Auto) 34.0, Monocytes (%) (Auto) 8.1H, Eosinophils (%) (Auto) 6.5H, Basophils (%) (Auto) 1.0, Neutrophils # (Auto) 1.6, Lymphocytes # (Auto) 1.1L, Monocytes # (Auto) 0.3, Eosinophils # (Auto) 0.2, Basophils # (Auto) 0.0, Nucleated Red Blood Cells % (auto) 0.0, Anion Gap 3L, Glomerular Filtration Rate > 60.0, Calcium Level 8.6L CBC/BMP Laboratory Tests 09/07/19 06:00 Discharge Medications Scheduled Aspirin (Aspirin) 325 Mg Tablet, 325 MG PO DAILY, (Reported) Carvedilol (Carvedilol) 6.25 Mg Tab, 6.25 MG PO BID, (Reported) Erenumab-Aooe (Aimovig Autoinjector) 140 Mg/1 Ml Auto.injct, 140 MG SQ QWEEK, (Reported) Pt unsure of which day he receives shot each week; brother helps with injection, takes in arm. Gabapentin (Gabapentin) 400 Mg Cap, 400 MG PO TID, (Reported) Lamotrigine (Lamotrigine) 200 Mg Tab, 200 MG PO BID, (Reported) Multivitamin (Multivitamins) 1 Each Capsule, 1 CAP PO DAILY, (Reported) Paroxetine HCl (Paroxetine HCl) 40 Mg Tab, 40 MG PO QHS, (Reported) Simvastatin (Simvastatin) 40 Mg Tab, 40 MG PO QHS, (Reported) Tamsulosin Hcl (Tamsulosin HCl) 0.4 Mg Capsule, 0.4 MG PO DAILY, (Reported) Thiamine HCl (Thiamine HCl) 100 Mg Tablet, 100 MG PO DAILY, (Reported) levETIRAcetam (levETIRAcetam) 1,000 Mg Tablet, 1,000 MG PO BID, (Reported) Scheduled PRN Aspirin/Acetaminophen/Caffeine (Excedrin Migraine Caplet) 1 Each Tablet, 2 TAB- CAP PO DAILY PRN for HEADACHE, (Reported) Famotidine (Famotidine) 40 Mg Tab, 40 MG PO DAILY PRN for acid reflux, (Reported) Ketoconazole (Ketoconazole) 2 % Cre, 1 APLCT TOP BID PRN for RASH, (Reported) APPLIES TO GROIN. Meclizine HCl (Meclizine HCl) 12.5 Mg Tab, 12.5 MG PO TID PRN for VERTIGO/DIZZINESS, (Reported) Naproxen Sodium (Naproxen Sodium ER) 500 Mg Tab, 500 MG PO BID PRN for PAIN, (Reported) Allergies Coded Allergies: No Known Allergies (Verified , 07/02/04) VICENTA POLK MD Sep 08, 2019 05:50
== END 2019-09-07 13:43 | disposition home or self-care (01) | DRG 312 ==
LOC: M ED 10:26 → EDBD 10:26 → M ED INP 10:27 → UNDOADMOB 15:55 → ENRESERV 18:14 → M MSPAV 19:41 → OBSVTOIN 09-06 14:01
PROVIDERS: ADMIT Internal Medicine; ATTEND Internal Medicine Nephrology
DX: I95.2 Hypotension due to drugs (principal); N17.9 Acute kidney failure, unspecified; I13.0 Hypertensive heart and chronic kidney disease with heart failure and stage 1 through stage 4 chronic kidney disease, or unspecified chronic kidney disease; T46.5X5A Adverse effect of other antihypertensive drugs, initial encounter; R29.6 Repeated falls; N40.0 Benign prostatic hyperplasia without lower urinary tract symptoms; R33.9 Retention of urine, unspecified; G40.909 Epilepsy, unspecified, not intractable, without status epilepticus; Z79.899 Other long term (current) drug therapy; E78.5 Hyperlipidemia, unspecified; R91.1 Solitary pulmonary nodule; E53.8 Deficiency of other specified B group vitamins; M43.22 Fusion of spine, cervical region; G43.709 Chronic migraine without aura, not intractable, without status migrainosus; R55 Syncope and collapse; R26.9 Unspecified abnormalities of gait and mobility; G62.9 Polyneuropathy, unspecified; I50.9 Heart failure, unspecified; M51.37 Other intervertebral disc degeneration, lumbosacral region; F10.21 Alcohol dependence, in remission

== ENCOUNTER → 2020-01-11 | Outpatient (REF) | payer MEDICARE, MEDICAID ==
[~2020-01-11] MED LIST changes: +AIMO70IN2 SQ; +ASPI-1 PO; +EXCETAB33 PO; +LEVE10003 PO; +MULTCAP PO; +TAMS1CAP17 PO; +THIA100T7 PO
[2020-01-16 19:08] LABS: LAMOTRIGINE (LAMICTAL) 13.9 ug/mL (2.0-20.0); LEVETIRACETAM (KEPPRA) 50.8 ug/mL (10.0-40.0)
== END ==
LOC: M LAB REF 16:10
PROVIDERS: ATTEND Internal Medicine
DX: G40.301 Generalized idiopathic epilepsy and epileptic syndromes, not intractable, with status epilepticus (principal)

== ENCOUNTER → 2020-08-03 | Outpatient (REF) | payer MEDICARE, MEDICAID ==
[~2020-08-03] MED LIST changes: -ASPI81TA85 PO; +ASPI81TA86 PO; +GABA-282 PO; -GABA-843 PO; -MECL12.589 PO; +MECL12.590 PO
[2020-08-10 09:08] LABS: LEVETIRACETAM (KEPPRA) 54.2 ug/mL (10.0-40.0)
== END ==
LOC: M LAB REF 16:11
PROVIDERS: ATTEND Internal Medicine
DX: G40.301 Generalized idiopathic epilepsy and epileptic syndromes, not intractable, with status epilepticus (principal); R26.89 Other abnormalities of gait and mobility

== ENCOUNTER 2020-10-12 20:24 | Inpatient (IN) | payer MEDICARE, MEDICAID ==
[~2020-10-12] VITALS: Ht 175.3 cm; Wt 90.7 kg
[~2020-10-12 20:24] MED LIST changes: +MECL-136 PO; -MECL12.590 PO; +levETIRAcetam INJection 500 MG in D5W 100 ML IV SCH
[2020-10-12] MEDS ORDERED: FOSI10TA4 PO ×2 (20:50→22:48)
--- NOTE | 2020-10-12 21:32 | REPVR ---
PROCEDURE INFORMATION: Exam: CT Head Without Contrast Exam date and time: 10/12/2020 9:15 PM Age: 65 years old Clinical indication: Altered mental status/memory loss; Confusion or disorientation TECHNIQUE: Imaging protocol: Computed tomography of the head without contrast. Radiation optimization: All CT scans at this facility use at least one of these dose optimization techniques: automated exposure control; mA and/or kV adjustment per patient size (includes targeted exams where dose is matched to clinical indication); or iterative reconstruction. COMPARISON: CT Head without contrast 09/04/2019 2:10 PM FINDINGS: Brain: Diffuse cerebellar atrophy. Supratentorial region unremarkable. Cerebral ventricles: No ventriculomegaly. Bones/joints: Unremarkable. No acute fracture. Paranasal sinuses: Visualized sinuses are unremarkable. No fluid levels. Mastoid air cells: Visualized mastoid air cells are well aerated. Vasculature: Atherosclerotic calcifications are demonstrated in the intracranial carotid arteries bilaterally as well as in the vertebral basilar system. Soft tissues: Unremarkable. IMPRESSION: Diffuse cerebellar atrophy. No acute intracranial findings. Electronically signed by: Jose Gonzalez On 10/12/2020 21:32:14 PM
--- NOTE | 2020-10-12 21:33 | REPVR ---
PROCEDURE INFORMATION: Exam: XR Chest Exam date and time: 10/12/2020 9:23 PM Age: 65 years old Clinical indication: Other: Altered mental status TECHNIQUE: Imaging protocol: XR of the chest Views: 1 view. COMPARISON: WI PORTABLE CHEST X-RAY 09/04/2019 2:06 PM FINDINGS: Lungs: Unremarkable. No consolidation. Pleural spaces: Unremarkable. No pleural effusion. No pneumothorax. Heart/Mediastinum: Unremarkable. No cardiomegaly. Bones/joints: Old rib fractures on the right involving the 4th through 7th ribs. Status post multilevel interbody fusion in the cervical spine. IMPRESSION: No acute findings. Electronically signed by: Jose Gonzalez On 10/12/2020 21:33:15 PM
[2020-10-12 21:59] LABS: BASO % 0.2 % (0.0-1.0); EOS % 0.1 % (0.0-3.0); HEMATOCRIT 22.3 % (42.0-52.0); HEMOGLOBIN 7.1 g/dl (13.5-17.5); LYMPH # 2.8 10^3/uL (1.5-5.0); LYMPH % 19.7 % (24.0-44.0); MEAN CORPUSCULAR HEMOGLOBIN 26.9 pg (27.0-33.0); MEAN CORPUSCULAR HGB CONC 31.8 g/dl (32.0-36.5); MEAN CORPUSCULAR VOLUME 84.5 fl (80.0-96.0); MONO # 0.9 10^3/uL (0.0-0.8); MONO % 6.2 % (2.0-8.0); NEUTROPHILS # 10.4 10^3/uL (1.5-8.5); NEUTROPHILS % 72.8 % (36.0-66.0); PLATELET COUNT, AUTOMATED 352 10^3/uL (150-450); RED BLOOD COUNT 2.64 10^6/uL (4.30-6.10); WHITE BLOOD COUNT 14.3 10^3/uL (4.0-10.0)
[2020-10-12] MEDS ORDERED: PANTOPRAZOLE SODIUM 40 MG in D5W 50 ML IV SCH (22:15)
[2020-10-12] MEDS ORDERED: PANTOPRAZOLE 40MG VIAL (C9113 PER 1) IV ONE (22:15)
[2020-10-12] MEDS ORDERED: KETO2CR EXT (22:48)
[2020-10-12] MEDS ORDERED: AIMO70IN2 SQ (22:48)
[2020-10-12 22:49] LABS: ACETAMINOPHEN LEVEL < 2.0 UG/ML (10.0-30.0); ALBUMIN 3.4 GM/DL (3.2-5.2); ALT/SGPT 27 U/L (12-78); BILIRUBIN,DIRECT 0.1 MG/DL (0.0-0.2); BILIRUBIN,TOTAL 0.2 MG/DL (0.2-1.0); BLOOD UREA NITROGEN 95 MG/DL (7-18); CALCIUM LEVEL 8.4 MG/DL (8.8-10.2); CARBON DIOXIDE LEVEL 20 MEQ/L (21-32); CHLORIDE LEVEL 106 MEQ/L (98-107); CK-MB VALUE MASS 34.4 NG/ML (<3.6); CPK CREATINE PHOSPHOKINASE 1308 U/L (39-308); CREATININE FOR GFR 2.78 MG/DL (0.70-1.30); ETHYL ALCOHOL (ETHANOL) < 0.003 % (0.000-0.010); GLOMERULAR FILTRATION RATE 24.5 (>49); GLUCOSE, FASTING 118 MG/DL (70-100); MB/CK RELATIVE INDEX 2.63 (< OR =4); SALICYLATE LEVEL 1.8 MG/DL (5.0-30.0); SODIUM LEVEL 139 MEQ/L (136-145); TOTAL PROTEIN 6.2 GM/DL (6.4-8.2); TROPONIN I 0.04 NG/ML (< 0.10)
[2020-10-12 23:25] VITALS: BP 104/67
[2020-10-12] MEDS ORDERED: MOM 30ML SUSPENSION UDC PO PRN (23:35)
[2020-10-12] MEDS ORDERED: MAALOX 30 ML SUSP *UDC PO PRN (23:35)
[2020-10-12 23:40] VITALS: BP 108/63
--- NOTE | 2020-10-12 23:49 | HPEPDOC ---
[facility] Medical History & Physical Date of Admission Oct 13, 2020 Date of Service: Oct 13, 2020 History and Physical CHIEF COMPLAINT: dark stools with diarrhea HISTORY OF PRESENT ILLNESS: 65 yo M with a hx of seizure disorder, HTN, HLD, suspected dementia, chronic back pain, obstructive uropathy, remote etoh use disorder, was brought to ER by his brother. C/o dark stools with diarrhea for the past 4 days, associated with fatigue, unsteady gait, lightheadedness, poor PO intake. Additional concern for confusion and disorientation. Family reports suspicion of dementia given memory issues, but has quickly worsening in the past 4 days. Patient denies hematemesis, denies chest pain, fevers, chills, nausea. Patient and his brother deny recent alcohol use, last drink 30 years ago. Patient endorses NSAID use several times per week for chronic back pain. On arrival to ER, patient was tachycardic to 118, RR 22, was hypoxic, required 4L O2 to maintain sat > 92%, low grade temp 99.0. Hgb 7.1. WBC 14.3. PLT 352. Na 139. K 5.0. BUN 95. Cr 2.78. LA 5.2. CK 1300. Trop 0.04. Ammonia 20. 3 units of packed red cells ordered. Dr. Pena consulted from ER, will plan for EGD on 10/13/20. PAST MEDICAL HISTORY: Seizure disorder. Urinary retention Hypertension. Hyperlipidemia. Benign pulmonary nodules. BPH. Vitamin B12 deficiency. History of degenerative joint disease (DJD). PAST SURGICAL HISTORY: Bilateral cataract repair. History of bilateral knee replacement. C-spine fusion. SOCIAL HISTORY: Patient denies smoking Patient denies etoh use Patient denies illicit drug use FAMILY HISTORY: reviewed with patient, no relevant family history ALLERGIES: Please see below. REVIEW OF SYSTEMS: 10 point review of systems was conducted, relevant findings are noted in the HPI HOME MEDICATIONS: Please see below. PHYSICAL EXAMINATION: VITAL SIGNS: please see below General: pale, lethargic HEENT: PERRLA, EOMI, sclerae clear Neck: supple, normal ROM, no JVD Respiratory: lungs CTAB, no wheeze, no rales, no crackles CVS: RRR, normal S1, S2, no murmurs Abdo: soft, no masses, no hepatosplenomegaly, BS+, no rebound tenderness Extremities: no edema, pulses 2+, abrasion on L knee MSK: no joint deformities, normal ROM Neuro: no focal neuro deficits, moving all 4 extremities, CN2-12 intact. Strength 5/5 in all 4 extremities. No nystagmus. Psych: calm, cooperative, AAO x 2 LABORATORY DATA: See below. IMAGING: CT head (10/12/20): Diffuse cerebellar atrophy. No acute intracranial findings. CXR (10/12/20): No acute findings. MICROBIOLOGY: Please see below. ASSESSMENT: 65 yo M with a hx of seizure disorder, HTN, HLD, suspected dementia, chronic back pain, obstructive uropathy, remote etoh use disorder, admitted for workup of acute blood loss anemia 2/2 upper GIB as well as altered mental status and acute renal failure. . PLAN: Acute blood loss anemia - 4 days of dark colored stools - hx of NSAID use, patient denies etoh use for past 30 years - PPI IV BID. NPO. Coags ordered for AM. Covid negative - Dr. Pena consulted, plan for EGD on 10/13/20 - check HH q12h - 3 units pRBC ordered, running AMS likely 2/2 metabolic encephalopathy - has hx of suspected dementia - patient initially appropriate, next pulling out IVs - CT head wnl - in setting reduced PO intake, CARLOS - will order sitter Lactic acidosis - in setting of poor PO intake, hypovolemia 2/2 acute blood loss anemia - 3 units pRBC ordered - 1L LR bolus ordered - repeat LA Leukocytosis with low grade temp, possible demargination in setting of acute bleed - WBC 14 - blood cultures sent - check UA, urine cultures - procal ordered - will start on empiric zosyn CARLOS/rhabdo likely prerenal 2/2 dehydration - hx of urinary retention - Cr 2.78, BUN 95. - check renal US, check urine lytes - CK 1300 - LR 1L bolus - trend CK in am Suspicion of undisclosed etoh abuse - medical chart review indicates evidence for etoh use - patient and family deny - CIWA protocol. Ativan IV - start thiamine 500 mg q8h IV x 3 days, MVT, B12. HTN - hold fosinopril due to CARLOS - received coreg in ER Hx of urinary retention 2/2 BPH - was DC with Roque in 08/2020 - reports normal spontaneous voiding, on flomax - had a suprapubic cath which was removed in 2019 - check bladder scan Seizure disorder - questionable seizure at home prior to arrival - continue lamotrigine and keppra - keppra given IV while NPO for EGD Benign pulmonary nodules - follow up outpatient Vitamin B12 deficiency - resume supplementation Chronic migraines - on aimovig Hx of DJD, c-spine - hx of c spine fusion Recurrent falls - patient uses cane for ambulation, needs assist - PT ordered Depression - paroxetine Dispo: pending clinical improvement DVT ppx: SCDs. TEDs. Holding chemoppx in setting of UGIB. Vital Signs Vital Signs Date Time Temp Pulse Resp B/P (MAP) Pulse Ox O2 Delivery O2 Flow Rate FiO2 10/12/20 23:40 98.6 108 22 108/63 97 Room Air 10/12/20 21:47 4.0 Laboratory Data Labs 24H Laboratory Tests 2 10/12/20 21:41: Bedside Glucose (Misc Panel) 111 10/12/20 21:42: Anion Gap 13, Glomerular Filtration Rate 24.5L, Calcium Level 8.4L, Total Bilirubin 0.2, Direct Bilirubin 0.1, Aspartate Amino Transf (AST/SGOT) 36, Alanine Aminotransferase (ALT/SGPT) 27, Alkaline Phosphatase 74, Total Creatine Kinase 1308H, Creatine Kinase MB 34.4H, Creatine Kinase MB Relative Index 2.63, Troponin I 0.04, Total Protein 6.2L, Albumin 3.4, Albumin/Globulin Ratio 1.2, Thyroid Stimulating Hormone (TSH) 1.870, Salicylates Level 1.8L, Acetaminophen Level < 2.0L, Ethyl Alcohol Level < 0.003 10/12/20 21:44: Immature Granulocyte % (Auto) 1.0, Neutrophils (%) (Auto) 72.8H, Lymphocytes (%) (Auto) 19.7L, Monocytes (%) (Auto) 6.2, Eosinophils (%) (Auto) 0.1, Basophils (%) (Auto) 0.2, Neutrophils # (Auto) 10.4H, Lymphocytes # (Auto) 2.8, Monocytes # (Auto) 0.9H, Eosinophils # (Auto) 0.0, Basophils # (Auto) 0.0, Nucleated Red Blood Cells % (auto) 0.3H, Lactic Acid Level 5.2*H 10/12/20 21:46: POC pH (Misc Panel) 7.397, POC Base Excess (Misc Panel) -7.0L, POC Saturated Percent O2 (Misc) 100H, POC pO2 (Misc Panel) 189.0H, POC pCO2 (Misc Panel) 28.3L, POC HCO3 (Misc Panel) 17.4L, POC Total CO2 (Misc Panel) 18.0L, Ammonia 20 CBC/BMP Laboratory Tests 10/12/20 21:42 10/12/20 21:44 Microbiology Microbiology 10/12/20 Respiratory Virus Panel (PCR) (LORRI) - Final, Complete 10/12/20 Blood Culture, Received Pending 10/12/20 Blood Culture, Received Pending Home Medications Scheduled Carvedilol (Carvedilol) 6.25 Mg Tab, 6.25 MG PO BID Erenumab-Aooe (Aimovig Autoinjector) 140 Mg/1 Ml Auto.injct, 140 MG SQ QMONTH Fosinopril Sodium (Fosinopril Sodium) 10 Mg Tablet, 10 MG PO DAILY Gabapentin (Gabapentin) 400 Mg Cap, 400 MG PO TID Lamotrigine (Lamotrigine) 200 Mg Tab, 200 MG PO BID Paroxetine HCl (Paroxetine HCl) 40 Mg Tab, 40 MG PO QHS Simvastatin (Simvastatin) 40 Mg Tab, 40 MG PO QHS Tamsulosin Hcl (Tamsulosin HCl) 0.4 Mg Capsule, 0.4 MG PO DAILY levETIRAcetam (levETIRAcetam) 1,000 Mg Tablet, 1,000 MG PO BID Scheduled PRN Ketoconazole (Ketoconazole) 15 Gm Cream..g., 1 DOSE EXT BID PRN for RASH Naproxen Sodium (Naproxen Sodium ER) 500 Mg Tab, 500 MG PO BID PRN for PAIN Allergies Coded Allergies: No Known Allergies (Verified , 07/02/04) MICHAEL PEÑA MD Oct 12, 2020 23:49
[2020-10-13] VITALS (12 sets, daily range): BP systolic 115–144; BP diastolic 62–95
[2020-10-13] MEDS ORDERED: LR 1,000 ML IV ONE (00:35)
[2020-10-13] MEDS ORDERED: LORazepam 2 MG TAB PO PRN (02:50)
--- NOTE | 2020-10-13 02:54 | REPVR ---
PROCEDURE INFORMATION: Exam: US Retroperitoneal Limited, Kidneys Exam date and time: 10/13/2020 2:12 AM Age: 65 years old Clinical indication: Other: Jalen TECHNIQUE: Imaging protocol: Real-time ultrasound of the retroperitoneum with image documentation. Examination was focused on the kidneys. COMPARISON: CT ABD PELVIS W/O CONTRAST 08/03/2018 9:45 AM FINDINGS: Right kidney: No stones. No hydronephrosis. Left kidney: No stones. No hydronephrosis. Bladder: Bilateral ureteral jets are not visualized. IMPRESSION: No acute findings. Electronically signed by: Larry Ortega On 10/13/2020 02:54:12 AM
[2020-10-13] MEDS ORDERED: levETIRAcetam INJection 500 MG in D5W 100 ML IV SCH (03:00)
[2020-10-13] MEDS: PIPERACILLIN/TAZOBACTAM SOD 2.25 GM in D5W MINI-BAG PLUS 50 ML IV SCH ×2 (03:55→08:46)
[2020-10-13 04:57] LABS: AMPHETAMINES LEVEL URINE NEGATIVE (NEGATIVE); BARBITURATES URINE NEGATIVE (NEGATIVE); BENZODIAZEPINES URINE NEGATIVE (NEGATIVE); CANNABINOIDS URINE NEGATIVE (NEGATIVE); COCAINE METABOLITE URINE NEGATIVE (NEGATIVE); METHADONE URINE NEGATIVE (NEGATIVE); OPIATES URINE NEGATIVE (NEGATIVE); PHENCYCLIDINE URINE NEGATIVE (NEGATIVE); SODIUM,RANDOM URINE 23 MEQ/L
[2020-10-13] MEDS: ACETAMINOPHEN TAB 650MG DOSE (2X325MG) PO PRN (04:59)
[2020-10-13 05:07] LABS: BASO % 0.4 % (0.0-1.0); EOS % 0.1 % (0.0-3.0); HEMATOCRIT 24.2 % (42.0-52.0); LYMPH # 1.7 10^3/uL (1.5-5.0); LYMPH % 18.3 % (24.0-44.0); MEAN CORPUSCULAR HEMOGLOBIN 27.7 pg (27.0-33.0); MEAN CORPUSCULAR HGB CONC 33.1 g/dl (32.0-36.5); MEAN CORPUSCULAR VOLUME 83.7 fl (80.0-96.0); MONO # 0.8 10^3/uL (0.0-0.8); MONO % 8.7 % (2.0-8.0); NEUTROPHILS # 6.6 10^3/uL (1.5-8.5); NEUTROPHILS % 71.8 % (36.0-66.0); RED BLOOD COUNT 2.89 10^6/uL (4.30-6.10); WHITE BLOOD COUNT 9.1 10^3/uL (4.0-10.0)
[2020-10-13 05:09] LABS: PLATELET COUNT, AUTOMATED 219 10^3/uL (150-450)
[2020-10-13 05:14] LABS: INR 1.21; PROTHROMBIN TIME 15.5 SECONDS (12.5-14.3)
[2020-10-13] MEDS ORDERED: LORazepam 2 MG/ML VIAL IV PRN (05:30)
[2020-10-13] MEDS ORDERED: HALOPERIDOL 5MG/ML VIAL (J1630 PER 1) IM ONE (05:30)
[2020-10-13 05:38] LABS: ALBUMIN 2.8 GM/DL (3.2-5.2); BILIRUBIN,TOTAL 0.3 MG/DL (0.2-1.0); CALCIUM LEVEL 7.6 MG/DL (8.8-10.2); CREATININE FOR GFR 2.16 MG/DL (0.70-1.30); GLOMERULAR FILTRATION RATE 32.8 (>49); MAGNESIUM LEVEL 1.5 MG/DL (1.8-2.4); POTASSIUM SERUM 4.3 MEQ/L (3.5-5.1); TROPONIN I 0.05 NG/ML (< 0.10)
[2020-10-13] MEDS: THIAMINE 200MG/2ML VIAL (J3411 PER 100MG) IV SCH ×3 (06:25→20:49)
--- NOTE | 2020-10-13 06:47 | ECGEPIP ---
[facility] - ED Test Date: 2020-10-12 Pat Name: RAYA CAM Department: Room: [place] [address] Gender: Male Fr[employer] Adviser: : 1955 Requested By: Casper Tang Order Number: [id number] Reading MD: Tomás De La O Measurements Intervals [place] Rate: 111 P: 36 GA: 162 QRS: 10 QRSD: 100 T: 192 QT: 356 QTc: 484 Interpretive Statements Sinus tachycardia Low voltage QRS ST & T wave abnormality, consider inferolateral ischemia Baseline artifact may affect reading Baseline wandering may affect reading cw 09/04/19 rate increased difficult to compare due to signficant artifact and baseline wandering Nonspecific ST T wave changes Electronically Signed on 10-13-2020 6:46:49 EDT by Tomás De La O
[2020-10-13] MEDS: FOLIC ACID 1 MG TAB PO SCH (08:46)
[2020-10-13] MEDS: PANTOPRAZOLE 40MG VIAL (C9113 PER 1) IV SCH ×2 (08:47→20:48)
[2020-10-13] MEDS: DOCUSATE SODIUM 100MG CAPSULE PO SCH ×2 (08:47→20:51)
[2020-10-13] MEDS: MULTIVITAMINS/MINERALS THERAP 1 TAB PO SCH (08:47)
[2020-10-13] MEDS ORDERED: THIAMINE 100 MG TAB PO SCH (09:00)
[2020-10-13] MEDS ORDERED: SLF 3 ML SYR IV PRN (11:00)
--- NOTE | 2020-10-13 11:38 | IPNPDOC ---
Text Note Date of Service The patient was seen on 10/13/20. NOTE Patient was seen and examined by me this morning. The patient is very sleepy as he got Haldol and Ativan because of his agitation. He is arousable on light touch but goes back to sleep. PHYSICAL EXAMINATION: General: pale, lethargic HEENT: PERRLA, EOMI, sclerae clear Neck: supple, normal ROM, no JVD Respiratory: lungs CTAB, no wheeze, no rales, no crackles CVS: RRR, normal S1, S2, no murmurs Abdo: soft, no masses, no hepatosplenomegaly, BS+, no rebound tenderness Extremities: no edema, pulses 2+, abrasion on L knee MSK: no joint deformities, normal ROM, multiple bruises on the knees, signifying possibility of frequent falls Neuro: no focal neuro deficits, moving all 4 extremities, CN2-12 intact. Strength 5/5 in all 4 extremities. No nystagmus. Psych: calm, cooperative, AAO x 2 LABORATORY DATA: See below. IMAGING: CT head (10/12/20): Diffuse cerebellar atrophy. No acute intracranial findings. CXR (10/12/20): No acute findings. Assessment and plan 65 yo M with a hx of seizure disorder, suspected dementia, chronic back pain, obstructive uropathy, remote etoh use disorder, admitted for workup of acute blood loss anemia 2/2 upper GIB as well as altered mental status and acute renal failure. As per the documentation, he had associated fatigue, unsteady gait, lightheadedness, poor PO intake. Additional concern for confusion and disorientation. Family reports suspicion of dementia given memory issues, but has quickly worsening in the past 4 days. Patient endorsed NSAID use several times per week for chronic back pain. On arrival to ER, patient was tachycardic to 118, RR 22, Hgb 7.1. WBC 14.3. PLT 352. LA 5.2. CK 1300. Trop 0.04. And Ammonia of 20. 3 units of packed red cells ordered and he has received 1 unit of PRBC and currently his hemoglobin is stable at 8. A. Dr. Pena consulted from ER, and there is possibility of him going for an endoscopy today. The patient was given 80 of bolus of Protonix and currently has been put on 40 twice a day of Protonix. IV. Monitor hemoglobin every 12 hours and passed use if it is below 7. Reticulocyte count. Also has been ordered along with iron studies. Also, his CARLOS is most likely secondary to poor oral intake and rhabdomyolysis. 1. Acute blood loss anemia: 4 day history of dark colored stools. Likely secondary to NSAID abuse. Also endoscopy. Will rule out any esophageal or gastric issues. Does not look like that he has a history of cirrhosis. Continue Protonix 40 twice a day. GI consult and possible endoscopy. Transfuse as needed if the hemoglobin is below 7. Iron studies as well as a reticulocyte count has been ordered. 2. AMS likely 2/2 metabolic encephalopathy: Could be multifactorial and is under evaluation. Right now. CT head does show diffuse cerebral atropy. vitamin B12, thiamine supplementation started. Continue monitoring the renal function as well at that could be one of the causes of encephalopathy as well. 3. Lactic acidosis: in setting of poor PO intake, hypovolemia 2/2 acute blood loss anemia. . He has received 1 L of LR bolus and continues to be on IV fluids and repeat lactic acid has been normal. 4. Leukocytosis with low grade temp, possible demargination in setting of acute bleed: My opinion, this is reactive. We will discontinue all the antiemetics. Ri t now, urine culture has been ordered pro-Nir. Also has been ordered. X-rays reviewed. No signs of any pneumonia. 5. CARLOS likely prerenal 2/2 dehydration and Abdo: Could be related to prerenal competent. He does look a little dry and for that reason. IV fluids have been continued. Renal ultrasound ordered. Will continue. Input output monitoring. Avoid any nephrotoxic drugs. Continue IV fluids for possible rhabdomyolysis as well. 6. Suspicion of undisclosed etoh abuse: As per the admitting physician. He had high suspicion. The patient is very groggy and not been able to provide any further history on it. In any case, the patient has been put on Cipro protocol and has been started on thiamine and multivitamins. I tried calling the brother, but no response at this time. 7. HTN. hold fosinopril due to CARLOS. . Continue Coreg. 8. Hx of urinary retention 2/2 BPH . check bladder scan 9. Seizure disorder: questionable seizure at home prior to arrival. continue lamotrigine and keppra 10. Benign pulmonary nodules. follow up outpatient Aspiration, fall precautions DVT ppx: SCDs. TEDs. Dispo: pending clinical improvement and unknown at this time VS,Fishbone, I+O VS, Fishbone, I+O Laboratory Tests 10/12/20 21:42 10/12/20 21:44 10/13/20 04:49 Vital Signs Date Time Temp Pulse Resp B/P (MAP) Pulse Ox O2 Delivery O2 Flow Rate FiO2 10/13/20 08:00 98.1 104 20 130/64 (86) 96 Room Air 10/12/20 21:47 4.0 I&O- Last 24 Hours up to 6 AM 10/13/20 06:00 Intake Total 2491 ml Output Total 350 ml Balance 2141 ml KAREEN SHABAZZ MD Oct 13, 2020 11:38
[2020-10-13 12:55] LABS: PERCENT SATURATION 41.1 % (19.7-50.0)
[2020-10-13] MEDS: NS 1,000 ML IV SCH (13:39)
[2020-10-13] MEDS: levETIRAcetam INJection 500 MG in D5W MINI-BAG PLUS 100 ML IV SCH (15:07)
[2020-10-13] MEDS: SLF 3 ML SYR IV SCH (15:07)
[2020-10-13] MEDS ORDERED: propofoL 200 MG/20 ML VIAL As Ordered ONE (15:45)
[2020-10-13] MEDS ORDERED: LIDOCAINE 2% 100MG/5ML SDV (FOR ANES.) As Ordered ONE (15:45)
[2020-10-13] MEDS ORDERED: FOSINOPRIL 10 MG TAB PO SCH (17:00)
[2020-10-13] MEDS ORDERED: LR 1,000 ML IV SCH (17:20)
[2020-10-13] MEDS ORDERED: ONDANSETRON 4MG/2ML VIAL IV PRN (17:20)
--- NOTE | 2020-10-13 17:25 | ROOR ---
Patient Name: Stanton Hernandez Procedure Date: 10/13/2020 10:36 AM Date of : 1955 Age: 65 Gender: Male Note Status: Finalized Procedure: Upper GI endoscopy Indications: Acute post hemorrhagic anemia, Coffee-ground emesis, Melena Providers: Mauricio PENA MD Referring MD: 2. Inpatient 2. Inpatient Requesting Provider: Medicines: Monitored Anesthesia Care Complications: No immediate complications. Procedure: Pre-Anesthesia Assessment: - The heart rate, respiratory rate, oxygen saturations, blood pressure, adequacy of pulmonary ventilation, and response to care were monitored throughout the procedure. The Endoscope was introduced through the mouth, and advanced to the second part of duodenum. The upper GI endoscopy was accomplished without difficulty. The patient tolerated the procedure well. Findings: Two non-bleeding shallow duodenal ulcers with pigmented material were found in the first portion of the duodenum. The largest lesion was 6 mm in largest dimension. For hemostasis, two hemostatic clips were successfully placed. There was no bleeding at the end of the procedure. Few non-bleeding superficial gastric ulcers with no stigmata of bleeding were found in the gastric antrum. The largest lesion was 5 mm in largest dimension. This was biopsied with a cold forceps for histology. The exam was otherwise without abnormality. Impression: - Non-bleeding duodenal ulcers with red spot/pigmented material (moderate risk for bleeding). Clips were placed. - Non-bleeding shallow (low risk for bleeding) gastric antrum ulcers with white, clean base, no stigmata of bleeding. Biopsied. - The examination was otherwise normal. Recommendation: - Observe patient's clinical course. - Use a proton pump inhibitor IV or po for 2 days. - Use Prilosec (omeprazole) 40 mg PO daily indefinitely. - No ibuprofen, naproxen, or other non-steroidal anti-inflammatory drugs. - (No need for routine outpatient follow up with me. Can follow up as needed) Procedure Code(s): --- Professional --- 48643, 59, Esophagogastroduodenoscopy, flexible, transoral; with control of bleeding, any method 58341, Esophagogastroduodenoscopy, flexible, transoral; with biopsy, single or multiple Diagnosis Code(s): --- Professional --- K26.9, Duodenal ulcer, unspecified as acute or chronic, without hemorrhage or perforation K25.9, Gastric ulcer, unspecified as acute or chronic, without hemorrhage or perforation D62, Acute posthemorrhagic anemia K92.0, Hematemesis K92.1, Melena (includes Hematochezia) CPT copyright 2019 [employer]. All rights reserved. The codes documented in this report are preliminary and upon service counter cashier review may be revised to meet current compliance requirements. Mauricio Pena MD Mauricio PENA MD 10/13/2020 5:24:46 PM Electronically signed by Mauricio PENA MD Number of Addenda: 0 Note Initiated On: 10/13/2020 10:36 AM Estimated Blood Loss: Estimated blood loss: none.
[2020-10-13] MEDS: GABAPENTIN 400MG CAP PO SCH ×2 (18:37→20:50)
[2020-10-13] MEDS: CARVedilol 6.25 MG TAB PO SCH (18:46)
[2020-10-13] MEDS: lamoTRIgine 100MG TAB PO SCH (18:46)
[2020-10-13] MEDS: SIMVASTATIN 40 MG TAB PO SCH (20:50)
[2020-10-13] MEDS: PARoxetine 20MG TABLET PO SCH (20:50)
[2020-10-14] VITALS (12 sets, daily range): BP systolic 118–144; BP diastolic 60–80
[2020-10-14] MEDS: SLF 3 ML SYR IV SCH ×4 (02:04→20:12)
[2020-10-14] MEDS: NS 1,000 ML IV SCH ×2 (02:04→15:06)
[2020-10-14] MEDS: levETIRAcetam INJection 500 MG in D5W MINI-BAG PLUS 100 ML IV SCH ×2 (02:44→14:34)
[2020-10-14] MEDS: THIAMINE 200MG/2ML VIAL (J3411 PER 100MG) IV SCH ×3 (06:18→20:10)
[2020-10-14 06:44] LABS: BASO % 0.7 % (0.0-1.0); EOS # 0.1 10^3/uL (0.0-0.5); EOS % 2.3 % (0.0-3.0); LYMPH # 1.2 10^3/uL (1.5-5.0); LYMPH % 28.1 % (24.0-44.0); MEAN CORPUSCULAR HGB CONC 32.4 g/dl (32.0-36.5); MEAN CORPUSCULAR VOLUME 86.6 fl (80.0-96.0); MONO # 0.4 10^3/uL (0.0-0.8); NEUTROPHILS # 2.6 10^3/uL (1.5-8.5); NEUTROPHILS % 59.2 % (36.0-66.0); PLATELET COUNT, AUTOMATED 149 10^3/uL (150-450); RED BLOOD COUNT 2.39 10^6/uL (4.30-6.10); WHITE BLOOD COUNT 4.3 10^3/uL (4.0-10.0)
[2020-10-14 06:53] LABS: HEMATOCRIT 20.7 % (42.0-52.0); HEMOGLOBIN 6.7 g/dl (13.5-17.5)
[2020-10-14 07:06] LABS: ALBUMIN 2.7 GM/DL (3.2-5.2); ALT/SGPT 38 U/L (12-78); BILIRUBIN,TOTAL 0.2 MG/DL (0.2-1.0); BLOOD UREA NITROGEN 41 MG/DL (7-18); CALCIUM LEVEL 7.4 MG/DL (8.8-10.2); CARBON DIOXIDE LEVEL 24 MEQ/L (21-32); CHLORIDE LEVEL 111 MEQ/L (98-107); GLOMERULAR FILTRATION RATE > 60.0 (>49); GLUCOSE, FASTING 91 MG/DL (70-100); POTASSIUM SERUM 3.6 MEQ/L (3.5-5.1); SODIUM LEVEL 142 MEQ/L (136-145)
[2020-10-14] MEDS ORDERED: PANTOPRAZOLE 40MG VIAL (C9113 PER 1) IV SCH (09:00)
[2020-10-14] MEDS: DOCUSATE SODIUM 100MG CAPSULE PO SCH ×2 (09:25→21:00)
[2020-10-14] MEDS: PANTOPRAZOLE 40MG VIAL (C9113 PER 1) IV SCH ×2 (09:25→20:10)
[2020-10-14] MEDS: FOLIC ACID 1 MG TAB PO SCH (09:25)
[2020-10-14] MEDS: CARVedilol 6.25 MG TAB PO SCH ×2 (09:25→20:11)
[2020-10-14] MEDS: GABAPENTIN 400MG CAP PO SCH ×3 (09:25→20:10)
[2020-10-14] MEDS: TAMSULOSIN 0.4 MG CAP PO SCH (09:25)
[2020-10-14] MEDS: MULTIVITAMINS/MINERALS THERAP 1 TAB PO SCH (09:25)
[2020-10-14] MEDS: lamoTRIgine 100MG TAB PO SCH ×2 (09:27→20:10)
--- NOTE | 2020-10-14 10:08 | IPNPDOC ---
Text Note Date of Service The patient was seen on 10/14/20. NOTE Subjective: Patient seen and examined at bedside. No acute overnight events reported. This morning Hgb was noted to be low. He voices no new medical complaints this morning. Objective: General: NAD, lying comfortably in bed, disheveled HEENT: NC/AT, edentulous Lungs: CTA B/L Heart: +S1S2, RRR Abd: soft, NT, +BS Ext: no edema LABORATORY DATA: See below. A/P: 65 yo M with PMHx including seizure disorder, suspected dementia, chronic back pain, obstructive uropathy, remote EtOH, admitted for acute blood loss anemia 2/2 upper GIB as well as altered mental status and acute renal failure. #ABLA - s/p EGD - non-bleeding duodenal ulcers s/p clipping, gastric ulcers - PPI IV x 2 days, prilosec 40 daily indefinitely - avoid NSAIDs - Hgb low again this morning - transfused 2 units PRBC - continue to monitor - avoid heparin products #AMS - likely 2/2 metabolic encephalopathy/multifactorial - CT head does show diffuse cerebral atropy - continue vitamin B12, thiamine supplementation - much improved #Lactic acidosis - in setting of poor PO intake, hypovolemia 2/2 acute blood loss anemia - s/p 1L of LR bolus - continues IV fluids -repeat lactic acid WNL #Leukocytosis - resolved #CARLOS - resolved - likely prerenal 2/2 dehydration and rhabdo #rhabdo - continue to trend CK - IV fluids #EtOH abuse - continue folate/thiamine - monitor for withdrawal signs/symptoms # HTN - home fosinopril on hold due to CARLOS. . Continue Coreg. # Hx of urinary retention 2/2 BPH . check bladder scan #Seizure disorder: questionable seizure at home prior to arrival. continue lamot rigine and keppra #Benign pulmonary nodules. follow up outpatient #DVT ppx: SCDs. TEDs. Dispo: pending clinical improvement VS,Fishbone, I+O VS, Fishbone, I+O Laboratory Tests 10/14/20 06:17 Vital Signs Date Time Temp Pulse Resp B/P (MAP) Pulse Ox O2 Delivery O2 Flow Rate FiO2 10/14/20 09:25 81 138/78 10/14/20 09:20 97.5 10/14/20 09:16 26 96 Room Air 10/13/20 17:25 10 I&O- Last 24 Hours up to 6 AM 10/14/20 06:00 Intake Total 1215 ml Output Total 380 ml Balance 835 ml DENG CHEEK MD Oct 14, 2020 10:08
[2020-10-14 10:53] LABS: CPK CREATINE PHOSPHOKINASE 1717 U/L (39-308)
[2020-10-14] MEDS: NICOTINE 14 MG/24 HR TRANSDERMAL TD SCH (15:07)
[2020-10-14 16:00] LABS: HEMATOCRIT 26.4 % (42.0-52.0); HEMOGLOBIN 8.5 g/dl (13.5-17.5)
[2020-10-14] MEDS: PARoxetine 20MG TABLET PO SCH (20:08)
[2020-10-14] MEDS: ACETAMINOPHEN TAB 650MG DOSE (2X325MG) PO PRN (20:09)
[2020-10-14] MEDS: SIMVASTATIN 40 MG TAB PO SCH (20:11)
[2020-10-15] VITALS (8 sets, daily range): BP systolic 107–180; BP diastolic 52–90
[2020-10-15] MEDS: ACETAMINOPHEN TAB 650MG DOSE (2X325MG) PO PRN ×2 (01:34→15:58)
[2020-10-15] MEDS: NS 1,000 ML IV SCH (01:34)
[2020-10-15] MEDS: levETIRAcetam INJection 500 MG in D5W MINI-BAG PLUS 100 ML IV SCH (03:35)
[2020-10-15] MEDS: THIAMINE 200MG/2ML VIAL (J3411 PER 100MG) IV SCH ×2 (05:27→13:39)
[2020-10-15] MEDS: SLF 3 ML SYR IV SCH ×3 (05:27→21:28)
[2020-10-15 06:20] LABS: BASO % 0.7 % (0.0-1.0); EOS # 0.2 10^3/uL (0.0-0.5); EOS % 3.8 % (0.0-3.0); HEMATOCRIT 26.2 % (42.0-52.0); HEMOGLOBIN 8.4 g/dl (13.5-17.5); LYMPH # 1.3 10^3/uL (1.5-5.0); LYMPH % 30.6 % (24.0-44.0); MEAN CORPUSCULAR HEMOGLOBIN 28.3 pg (27.0-33.0); MEAN CORPUSCULAR HGB CONC 32.1 g/dl (32.0-36.5); MEAN CORPUSCULAR VOLUME 88.2 fl (80.0-96.0); MONO # 0.5 10^3/uL (0.0-0.8); MONO % 10.8 % (2.0-8.0); NEUTROPHILS # 2.3 10^3/uL (1.5-8.5); NEUTROPHILS % 53.4 % (36.0-66.0); PLATELET COUNT, AUTOMATED 157 10^3/uL (150-450); RED BLOOD COUNT 2.97 10^6/uL (4.30-6.10); WHITE BLOOD COUNT 4.3 10^3/uL (4.0-10.0)
[2020-10-15 06:39] LABS: ALBUMIN 2.7 GM/DL (3.2-5.2); ALT/SGPT 49 U/L (12-78); BILIRUBIN,TOTAL 0.2 MG/DL (0.2-1.0); BLOOD UREA NITROGEN 13 MG/DL (7-18); CALCIUM LEVEL 7.6 MG/DL (8.8-10.2); CARBON DIOXIDE LEVEL 28 MEQ/L (21-32); CHLORIDE LEVEL 112 MEQ/L (98-107); CREATININE FOR GFR 0.81 MG/DL (0.70-1.30); GLOMERULAR FILTRATION RATE > 60.0 (>49); GLUCOSE, FASTING 91 MG/DL (70-100); MAGNESIUM LEVEL 1.8 MG/DL (1.8-2.4); POTASSIUM SERUM 3.7 MEQ/L (3.5-5.1); SODIUM LEVEL 145 MEQ/L (136-145)
[2020-10-15] MEDS: DOCUSATE SODIUM 100MG CAPSULE PO SCH ×2 (08:28→20:37)
[2020-10-15] MEDS: NICOTINE 14 MG/24 HR TRANSDERMAL TD SCH (08:29)
[2020-10-15] MEDS: MULTIVITAMINS/MINERALS THERAP 1 TAB PO SCH (08:29)
[2020-10-15] MEDS: levETIRAcetam 250MG TABLET (KEPPRA) PO SCH ×2 (08:29→20:37)
[2020-10-15] MEDS: TAMSULOSIN 0.4 MG CAP PO SCH (08:30)
[2020-10-15] MEDS: CARVedilol 6.25 MG TAB PO SCH ×2 (08:30→20:39)
[2020-10-15] MEDS: FOLIC ACID 1 MG TAB PO SCH (08:30)
[2020-10-15] MEDS: lamoTRIgine 100MG TAB PO SCH ×2 (08:30→20:40)
[2020-10-15] MEDS: OMEPRAZOLE 20 MG CAP PO SCH (08:30)
[2020-10-15] MEDS: GABAPENTIN 400MG CAP PO SCH ×3 (08:31→20:39)
--- NOTE | 2020-10-15 09:25 | IPNPDOC ---
Text Note Date of Service The patient was seen on 10/15/20. NOTE Subjective: Patient seen and examined at bedside. No acute overnight events reported. No new medical complaints this morning. Objective: General: NAD, lying comfortably in bed, disheveled HEENT: NC/AT, edentulous Lungs: CTA B/L Heart: +S1S2, RRR Abd: soft, NT, +BS Ext: no edema LABORATORY DATA: See below. A/P: 65 yo M with PMHx including seizure disorder, suspected dementia, chronic back pain, obstructive uropathy, remote EtOH, admitted for acute blood loss anemia 2/2 upper GIB as well as altered mental status and acute renal failure. #ABLA - H/H stable - s/p EGD - non-bleeding duodenal ulcers s/p clipping, gastric ulcers - PPI IV x 2 days - transitioning to oral prilosec qd as per recs - avoid NSAIDs #AMS - resolved - likely 2/2 metabolic encephalopathy/multifactorial - CT head does show diffuse cerebral atropy - continue vitamin B12, thiamine supplementation #Lactic acidosis - resolved - in setting of poor PO intake, hypovolemia 2/2 acute blood loss anemia - s/p 1L of LR bolus #Leukocytosis - resolved #CARLOS - resolved - likely prerenal 2/2 dehydration and rhabdo #rhabdo - continue to trend CK - IV fluids #EtOH abuse - continue folate/thiamine - monitor for withdrawal signs/symptoms # HTN - home fosinopril on hold due to CARLOS. - Continue Coreg. #Hx of urinary retention 2/2 BPH #Seizure disorder: questionable seizure at home prior to arrival. continue lamotrigine and keppra #Benign pulmonary nodules. follow up outpatient #DVT ppx: SCDs. TEDs. Dispo: transfer to med/surg; anticipating d/c in 24-48 hours VS,Fishbone, I+O VS, Fishbone, I+O Laboratory Tests 10/14/20 15:39 10/15/20 05:44 Vital Signs Date Time Temp Pulse Resp B/P (MAP) Pulse Ox O2 Delivery O2 Flow Rate FiO2 10/15/20 08:30 88 160/82 10/15/20 07:56 97.6 18 98 Room Air 10/13/20 17:25 10 I&O- Last 24 Hours up to 6 AM 4/4/21 05:59 Intake Total 3295 ml Output Total 1030 ml Balance 2265 ml DENG CEHEK MD Oct 15, 2020 09:25
[2020-10-15] MEDS ORDERED: SODIUM CHLORIDE NASAL 0.65% SPRAY BTL (OCEAN) PRN (17:30)
[2020-10-15] MEDS: SIMVASTATIN 40 MG TAB PO SCH (20:39)
[2020-10-15] MEDS: PARoxetine 20MG TABLET PO SCH (20:40)
[2020-10-16] VITALS: BP 130/63
[2020-10-16] MEDS: ACETAMINOPHEN TAB 650MG DOSE (2X325MG) PO PRN (04:59)
[2020-10-16] MEDS: SLF 3 ML SYR IV SCH (05:00)
[2020-10-16 05:35] LABS: BASO % 0.7 % (0.0-1.0); EOS # 0.2 10^3/uL (0.0-0.5); EOS % 5.5 % (0.0-3.0); HEMATOCRIT 27.3 % (42.0-52.0); HEMOGLOBIN 8.7 g/dl (13.5-17.5); LYMPH # 1.2 10^3/uL (1.5-5.0); LYMPH % 27.8 % (24.0-44.0); MEAN CORPUSCULAR HEMOGLOBIN 28.2 pg (27.0-33.0); MEAN CORPUSCULAR HGB CONC 31.9 g/dl (32.0-36.5); MEAN CORPUSCULAR VOLUME 88.3 fl (80.0-96.0); MONO # 0.4 10^3/uL (0.0-0.8); MONO % 9.7 % (2.0-8.0); NEUTROPHILS # 2.4 10^3/uL (1.5-8.5); NEUTROPHILS % 55.6 % (36.0-66.0); PLATELET COUNT, AUTOMATED 178 10^3/uL (150-450); RED BLOOD COUNT 3.09 10^6/uL (4.30-6.10); WHITE BLOOD COUNT 4.4 10^3/uL (4.0-10.0)
[2020-10-16 06:01] LABS: ALBUMIN 2.6 GM/DL (3.2-5.2); ALT/SGPT 53 U/L (12-78); BILIRUBIN,TOTAL 0.2 MG/DL (0.2-1.0); BLOOD UREA NITROGEN 6 MG/DL (7-18); CARBON DIOXIDE LEVEL 27 MEQ/L (21-32); CHLORIDE LEVEL 114 MEQ/L (98-107); CREATININE FOR GFR 0.79 MG/DL (0.70-1.30); GLOMERULAR FILTRATION RATE > 60.0 (>49); GLUCOSE, FASTING 111 MG/DL (70-100); MAGNESIUM LEVEL 1.9 MG/DL (1.8-2.4); POTASSIUM SERUM 3.5 MEQ/L (3.5-5.1); SODIUM LEVEL 146 MEQ/L (136-145); TOTAL PROTEIN 5.3 GM/DL (6.4-8.2)
[2020-10-16 07:59] VITALS: BP 166/78
[2020-10-16] MEDS: DOCUSATE SODIUM 100MG CAPSULE PO SCH (08:55)
[2020-10-16] MEDS: lamoTRIgine 100MG TAB PO SCH (08:55)
[2020-10-16] MEDS: FOLIC ACID 1 MG TAB PO SCH (08:55)
[2020-10-16] MEDS: GABAPENTIN 400MG CAP PO SCH (08:55)
[2020-10-16] MEDS: TAMSULOSIN 0.4 MG CAP PO SCH (08:55)
[2020-10-16] MEDS: levETIRAcetam 250MG TABLET (KEPPRA) PO SCH (08:56)
[2020-10-16] MEDS: NICOTINE 14 MG/24 HR TRANSDERMAL TD SCH (08:56)
[2020-10-16] MEDS: OMEPRAZOLE 20 MG CAP PO SCH (08:56)
[2020-10-16] MEDS: MULTIVITAMINS/MINERALS THERAP 1 TAB PO SCH (08:56)
[2020-10-16] MEDS: CARVedilol 6.25 MG TAB PO SCH (08:56)
[2020-10-16] MEDS ORDERED: OMEP40CA97 PO (09:46)
[2020-10-16] MEDS ORDERED: FOLI1TAB11 PO (09:46)
[2020-10-16] MEDS ORDERED: NICO14PA TD (09:46)
[2020-10-16] MEDS ORDERED: THIA100TA PO (09:46)
[2020-10-16] MEDS ORDERED: FLUBLOK(EGG FREE)(QUAD)INFLUENZA VACC 0.5ML SYRINGE 18YRS & OLDER IM ONE (10:50)
--- NOTE | 2020-10-16 14:45 | DS.PDOC ---
Discharge Summary General Date of Admission Oct 12, 2020 at 23:33 Date of Discharge 10/16/20 Specialist/[facility] Discharge Summary PROCEDURES PERFORMED DURING STAY: EGD ADMITTING DIAGNOSES: #gi bleed DISCHARGE DIAGNOSES: #upper GI bleed SECONDARY DIAGNOSES: COMPLICATIONS/CHIEF COMPLAINT: Jalen,Fall,Seizure Disorder,Symptomatic Anemia,Ugi B. HISTORY OF PRESENT ILLNESS: 65 yo M with a hx of seizure disorder, HTN, HLD, suspected dementia, chronic back pain, obstructive uropathy, remote etoh use disorder, was brought to ER by his brother. C/o dark stools with diarrhea for the past 4 days, associated with fatigue, unsteady gait, lightheadedness, poor PO intake. Additional concern for confusion and disorientation. Family reported suspicion of dementia given memory issues, but has quickly worsening in the past 4 days. Patient denieed hematemesis, denies chest pain, fevers, chills, nausea. Patient and his brother deny recent alcohol use, last drink 30 years ago. Patient endorses NSAID use several times per week for chronic back pain. On arrival to ER, patient was tachycardic to 118, RR 22, was hypoxic, required 4L O2 to maintain sat > 92%, low grade temp 99.0. Hgb 7.1. WBC 14.3. PLT 352. Na 139. K 5.0. BUN 95. Cr 2.78. LA 5.2. CK 1300. Trop 0.04. Ammonia 20. 3 units of packed red cells ordered. Dr. Pena consulted from ER, will plan for EGD on 10/13/20. HOSPITAL COURSE: #ABLA - s/p EGD - non-bleeding duodenal ulcers s/p clipping, gastric ulcers - s/p PPI IV x 2 days - transitioning to oral prilosec qd as per GI recs - avoid NSAIDs #AMS - resolved - likely 2/2 metabolic encephalopathy/multifactorial - CT head does show diffuse cerebral atropy - continue vitamin B12, thiamine supplementation #Lactic acidosis - resolved - in setting of poor PO intake, hypovolemia 2/2 acute blood loss anemia - s/p 1L of LR bolus #Leukocytosis - resolved #JALEN - resolved - likely prerenal 2/2 dehydration and rhabdo #rhabdo #EtOH abuse - continue folate/thiamine - no withdrawal signs/symptoms # HTN - home fosinopril held due to JALEN. #Hx of urinary retention 2/2 BPH #Seizure disorder: questionable seizure at home prior to arrival. continue lamotrigine and keppra #Benign pulmonary nodules. follow up outpatient DISCHARGE MEDICATIONS: Please see below. ALLERGIES: Please see below. PHYSICAL EXAMINATION ON DISCHARGE: VITAL SIGNS: Please see below. General: NAD, sitting comfortably at edge of bed HEENT: NC/AT, edentulous Lungs: CTA B/L Heart: +S1S2, RRR Abd: soft, NT, +BS Ext: no edema LABORATORY DATA: Please see below. ACTIVITY: [As tolerated]. DISPOSITION: Home, Self-Care. DISCHARGE INSTRUCTIONS: 1. Follow up PCP in 3-5 days 2. Follow up pulmonary nodules 3. stop smoking/alcohol DISCHARGE CONDITION: [Stable]. TIME SPENT ON DISCHARGE: 35 minutes. Vital Signs/I&Os Vital Signs Date Time Temp Pulse Resp B/P (MAP) Pulse Ox O2 Delivery O2 Flow Rate FiO2 10/16/20 07:59 97.8 68 18 166/78 (107) 96 Room Air 10/13/20 17:25 10 I&O- Last 24 Hours up to 6 AM 10/16/20 06:00 Intake Total 2220 ml Output Total 0 ml Balance 2220 ml Laboratory Data Labs 24H Laboratory Tests 2 10/16/20 05:21: Immature Granulocyte % (Auto) 0.7, Neutrophils (%) (Auto) 55.6, Lymphocytes (%) (Auto) 27.8, Monocytes (%) (Auto) 9.7H, Eosinophils (%) (Auto) 5.5H, Basophils (%) (Auto) 0.7, Neutrophils # (Auto) 2.4, Lymphocytes # (Auto) 1.2L, Monocytes # (Auto) 0.4, Eosinophils # (Auto) 0.2, Basophils # (Auto) 0.0, Nucleated Red Blood Cells % (auto) 0.5H, Anion Gap 5L, Glomerular Filtration Rate > 60.0, Calcium Level 8.0L, Magnesium Level 1.9, Total Bilirubin 0.2, Aspartate Amino Transf (AST/SGOT) 49H, Alanine Aminotransferase (ALT/SGPT) 53, Alkaline Phosphatase 83, Total Protein 5.3L, Albumin 2.6L, Albumin/Globulin Ratio 1.0 CBC/BMP Laboratory Tests 4/5/21 05:21 Microbiology Microbiology 10/12/20 Respiratory Virus Panel (PCR) ([facility]) - Final, Complete 10/12/20 Blood Culture - Preliminary, Resulted No Growth after 72 hours. All specime... 10/12/20 Blood Culture - Preliminary, Resulted No Growth after 72 hours. All specime... Discharge Medications Scheduled Carvedilol (Carvedilol) 6.25 Mg Tab, 6.25 MG PO BID, (Reported) Erenumab-Aooe (Aimovig Autoinjector) 140 Mg/1 Ml Auto.injct, 140 MG SQ QMONTH, (Reported) Folic Acid (Folic Acid) 1 Mg Tablet, 1 MG PO DAILY Fosinopril Sodium (Fosinopril Sodium) 10 Mg Tablet, 10 MG PO DAILY, (Reported) Gabapentin (Gabapentin) 400 Mg Cap, 400 MG PO TID, (Reported) Lamotrigine (Lamotrigine) 200 Mg Tab, 200 MG PO BID, (Reported) Nicotine (Nicotine Patch) 14 Mg Patch.td24, 1 PATCH TD DAILY Omeprazole (Omeprazole) 40 Mg Capsule.dr, 40 MG PO DAILY Paroxetine HCl (Paroxetine HCl) 40 Mg Tab, 40 MG PO QHS, (Reported) Simvastatin (Simvastatin) 40 Mg Tab, 40 MG PO QHS, (Reported) Tamsulosin Hcl (Tamsulosin HCl) 0.4 Mg Capsule, 0.4 MG PO DAILY, (Reported) Thiamine Hcl (Vitamin B-1) 100 Mg Tablet, 100 MG PO DAILY levETIRAcetam (levETIRAcetam) 1,000 Mg Tablet, 1,000 MG PO BID, (Reported) Scheduled PRN Ketoconazole (Ketoconazole) 15 Gm Cream..g., 1 DOSE EXT BID PRN for RASH, (Reported) Allergies Coded Allergies: No Known Allergies (Verified , 07/02/04) DENG CHEEK MD Oct 16, 2020 14:45
== END 2020-10-16 12:05 | disposition home or self-care (01) | DRG 383 ==
LOC: M ED 20:24 → M ED INP 23:33 → ENRESERV 10-13 00:24 → M PCU 10-13 01:00
PROVIDERS: ADMIT Family Medicine; ATTEND Internal Medicine
PROC: 30233N1 Transfusion of Nonautologous Red Blood Cells into Peripheral Vein, Percutaneous Approach (ICD-10-PCS; 2020-10-12)
PROC: 0DB78ZX Excision of Stomach, Pylorus, Via Natural or Artificial Opening Endoscopic, Diagnostic (ICD-10-PCS; 2020-10-13)
PROC: 0W3P8ZZ Control Bleeding in Gastrointestinal Tract, Via Natural or Artificial Opening Endoscopic (ICD-10-PCS; principal; 2020-10-13 16:30)
DX: K26.9 Duodenal ulcer, unspecified as acute or chronic, without hemorrhage or perforation (principal); G93.41 Metabolic encephalopathy; D62 Acute posthemorrhagic anemia; N17.9 Acute kidney failure, unspecified; M62.82 Rhabdomyolysis; E87.2 Acidosis; G43.709 Chronic migraine without aura, not intractable, without status migrainosus; I10 Essential (primary) hypertension; E78.5 Hyperlipidemia, unspecified; Z66 Do not resuscitate; F03.90 Unspecified dementia, unspecified severity, without behavioral disturbance, psychotic disturbance, mood disturbance, and anxiety; R53.83 Other fatigue; K92.0 Hematemesis; R26.81 Unsteadiness on feet; K92.1 Melena; R42 Dizziness and giddiness; R33.9 Retention of urine, unspecified; R29.6 Repeated falls; E86.0 Dehydration; N40.1 Benign prostatic hyperplasia with lower urinary tract symptoms; E53.8 Deficiency of other specified B group vitamins; Z96.653 Presence of artificial knee joint, bilateral; Z98.42 Cataract extraction status, left eye; Z79.899 Other long term (current) drug therapy; Z98.1 Arthrodesis status

== ENCOUNTER 2020-12-12 11:35 | Inpatient (IN) | payer MEDICARE, MEDICAID ==
[2020-12-12] VITALS (7 sets, daily range): BP systolic 102–126; BP diastolic 56–68
[~2020-12-12] VITALS: Ht 177.8 cm; Wt 86.6 kg
[~2020-12-12 11:35] MED LIST changes: +GABA-283 PO; -GABA-845 PO; +NICO14PA TD; +OMEP40CA97 PO; -levETIRAcetam INJection 500 MG in D5W 100 ML IV SCH
[2020-12-12] MEDS ORDERED: NS 500 ML IV ONE (12:05)
[2020-12-12 12:46] LABS: BASO # 0.1 10^3/uL (0.0-0.2); EOS # 0.2 10^3/uL (0.0-0.5); EOS % 3.7 % (0.0-3.0); HEMATOCRIT 24.5 % (42.0-52.0); HEMOGLOBIN 7.2 g/dl (13.5-17.5); LYMPH # 1.7 10^3/uL (1.5-5.0); LYMPH % 35.8 % (24.0-44.0); MEAN CORPUSCULAR HEMOGLOBIN 23.4 pg (27.0-33.0); MEAN CORPUSCULAR HGB CONC 29.4 g/dl (32.0-36.5); MEAN CORPUSCULAR VOLUME 79.5 fl (80.0-96.0); MONO # 0.4 10^3/uL (0.0-0.8); MONO % 8.1 % (2.0-8.0); NEUTROPHILS # 2.5 10^3/uL (1.5-8.5); NEUTROPHILS % 51.2 % (36.0-66.0); PLATELET COUNT, AUTOMATED 217 10^3/uL (150-450); RED BLOOD COUNT 3.08 10^6/uL (4.30-6.10); WHITE BLOOD COUNT 4.8 10^3/uL (4.0-10.0)
[2020-12-12 13:24] LABS: ALBUMIN 3.3 GM/DL (3.2-5.2); ALT/SGPT 22 U/L (12-78); BILIRUBIN,DIRECT < 0.1 MG/DL (0.0-0.2); BILIRUBIN,TOTAL 0.2 MG/DL (0.2-1.0); CPK CREATINE PHOSPHOKINASE 224 U/L (39-308); MB/CK RELATIVE INDEX 2.23 (< OR =4); THYROID STIMULATING HORMONE 0.913 uIU/ML (0.358-3.740); TOTAL PROTEIN 6.4 GM/DL (6.4-8.2); TROPONIN I < 0.02 NG/ML (< 0.10)
[2020-12-12] MEDS ORDERED: LIDOCAINE 2% 5ML JELLY UROJET TOP ONE (14:00)
[2020-12-12] MEDS ORDERED: PANTOPRAZOLE 40MG VIAL (C9113 PER 1) IV ONE (14:05)
[2020-12-12] MEDS ORDERED: THIA100T7 PO (15:01)
[2020-12-12] MEDS ORDERED: OMEP-221 PO (15:01)
[2020-12-12] MEDS ORDERED: NAPR-885 PO (15:01)
[2020-12-12] MEDS ORDERED: FOLI1TAB11 PO (15:01)
--- NOTE | 2020-12-12 16:50 | HPEPDOC ---
General Date of Admission 12/12/20 Date of Service: Dec 12, 2020 Chief Complaint The patient is a 65-year-old male admitted with a reason for visit of Weakness/Urniary Prob. Source: Patient History of Present Illness 65-year-old male with a past medical history of gait instability. Cervical spinal disease status post cervical fusion, peripheral neuropathy, seizures, hypertension, BPH, bladder neck obstruction, history of recurrent urinary retentions recent GI bleed in October 2020, found to have a nonbleeding gastric antral ulcers and duodenal ulcers presented to the ED with a chief complaints of inability to void for 2 days. . He reported that he is having lower abdominal heaviness and pain about 3/10 in intensity, dull, aching and hasn't been able to pass significant amounts of urine for the past 2 days. He feels urinary urge However, reports that nothing is coming out. Lab work in the ED also noted that his hemoglobin was 7.2. On further questioning, he also complained of generalized weakness and fatigue. However, he denied any diarrhea or soft stools. He reported that his stools are mostly hard, dark in color. ED staff try to place a Roque several times and was unsuccessful. Bladder scan showed about [address] Bello was contacted and he is going to take the patient to OR for a cystoscopy and placement of Roque. Dr. Pena was also consulted for his drop in hemoglobin and possible GI bleed. Dr. Ojeda is going to schedule him for EGD and colonoscopy on 12/14/2020 Home Medications Scheduled Carvedilol (Carvedilol) 6.25 Mg Tab, 6.25 MG PO BID, (Reported) Erenumab-Aooe (Aimovig Autoinjector) 140 Mg/1 Ml Auto.injct, 140 MG SQ QMONTH, (Reported) Folic Acid (Folic Acid) 1 Mg Tablet, 1 MG PO DAILY, (Reported) Fosinopril Sodium (Fosinopril Sodium) 10 Mg Tablet, 10 MG PO DAILY, (Reported) Gabapentin (Gabapentin) 400 Mg Cap, 400 MG PO TID, (Reported) Lamotrigine (Lamotrigine) 200 Mg Tab, 200 MG PO BID, (Reported) Omeprazole (Omeprazole) 40 Mg Capsule.dr, 40 MG PO DAILY, (Reported) Paroxetine HCl (Paroxetine HCl) 40 Mg Tab, 40 MG PO QHS, (Reported) Simvastatin (Simvastatin) 40 Mg Tab, 40 MG PO QHS, (Reported) Thiamine HCl (Thiamine HCl) 100 Mg Tablet, 100 MG PO DAILY, (Reported) levETIRAcetam (levETIRAcetam) 1,000 Mg Tablet, 1,000 MG PO BID, (Reported) Scheduled PRN Ketoconazole (Ketoconazole) 15 Gm Cream..g., 1 DOSE TOP BID PRN for RASH, (Reported) Allergies Coded Allergies: No Known Allergies (Verified , 07/02/04) Past Medical History Medical History H/O GIB in october 2020 : gastric ulcer and duodenal ulcer Recurrent Acute urinary retention in 2018, 2018, 2019 with urethral trauma and creation of false passage in 2018 BPH Moderate Bladder outlet obstruction. Severe cervical stenosis and mild-moderate cervical spinal cord compression s/p cervical fusion 2018 Lumbosacral spinal stenosis and patient is status post lumbosacral laminectomy and decompression in 2013 Peripheral neuropathy. Gait instability Seizure disorder chronic migraine Hyperlipidemia Vit B12 deficiency Remote History of alcohol use disorder quit 30 years ago. Hypertension with hypertensive heart disease H/O syncopal episodes with negative work up in the past. Benign pulmonary nodules. Surgical History Suprapubic cath placement and removal 2019 Urethral dilatation in 2018 Bilateral cataract repair. History of bilateral knee replacement. cervical fusion 2018 lumbosacral laminectomy and decompression in past 2013 Family History Significant Family History: Cancer (father), Diabetes (brother) Social History * Smoker: Denies Alcohol: Denies Drugs: denies A-FIB/CHADSVASC A-FIB History Current/History of A-Fib/PAF?: No Review of Systems Constitutional: Denies: Chills, Fever, Night Sweats Eyes: Denies: Pain, Vision change ENT: Denies: Head Aches, Ear Pain, Dysphagia Skin: Denies: Rash, Lesions, Breakdown Pulmonary: Denies: Dyspnea, Cough Cardiovascular: Denies: Chest Pain, Palpitations, Orthopnea, Paroxysmal Noc. Dyspnea, Lt Headedness Gastrointestinal: Reports: Constipation; Denies: Nausea, Vomiting, Abdominal Pain, Diarrhea Genitourinary: Reports: Retention Hematologic: Denies: Bruising, Bleeding Excessively Musculoskeletal: Reports: Neck Pain, Back Pain Physical Examination General Exam: Positive: Alert, Cooperative, No Acute Distress Eye Exam: Positive: PERRLA, Conjunctiva & lids normal, EOMI; Negative: Sclera icteric ENT Exam: Positive: Atraumatic, Mucous membr. moist/pink, Pharynx Normal Neck Exam: Positive: Supple; Negative: JVD, thyromegaly Chest Exam: Positive: Clear to auscultation, Normal air movement Heart Exam: Positive: Rate Normal, Regular Rhythm, Normal S1, Normal S2; Negative: Murmurs, Rubs Abdomen Exam: Positive: Normal bowel sounds, Soft; Negative: Tenderness, Hepatospenomegaly Extremity Exam: Negative: Clubbing, Cyanosis, Edema Vital Signs Vital Signs Date Time Temp Pulse Resp B/P (MAP) Pulse Ox O2 Delivery O2 Flow Rate FiO2 12/12/20 14:49 82 114/65 (81) 88 97/54 (68) 12/12/20 14:33 18 99 Room Air 12/12/20 11:44 98.5 Laboratory Data Labs 24H Laboratory Tests 2 12/12/20 12:24: Immature Granulocyte % (Auto) 0.2, Neutrophils (%) (Auto) 51.2, Lymphocytes (%) (Auto) 35.8, Monocytes (%) (Auto) 8.1H, Eosinophils (%) (Auto) 3.7H, Basophils (%) (Auto) 1.0, Neutrophils # (Auto) 2.5, Lymphocytes # (Auto) 1.7, Monocytes # (Auto) 0.4, Eosinophils # (Auto) 0.2, Basophils # (Auto) 0.1, Nucleated Red Blood Cells % (auto) 0.0, Total Bilirubin 0.2, Direct Bilirubin < 0.1, Aspartate Amino Transf (AST/SGOT) 30, Alanine Aminotransferase (ALT/SGPT) 22, Alkaline Phosphatase 99, Total Creatine Kinase 224, Creatine Kinase MB 5.0H, Creatine Kinase MB Relative Index 2.23, Troponin I < 0.02, Total Protein 6.4, Albumin 3.3, Albumin/Globulin Ratio 1.1, Thyroid Stimulating Hormone (TSH) 0.913 12/12/20 12:31: POC Glucose (Misc Panel) 86, POC Sodium (Misc Panel) 138, POC Potassium (Misc Panel) 4.5, POC Chloride (Misc Panel) 103, POC Total CO2 (Misc Panel) 28.0H, POC Blood Urea Nitrogen (Misc Panel 13, POC Ionized Calcium (Misc Panel) 4.8, POC Creatinine (Misc Panel) 1.4H, POC Hematocrit (Misc Panel) 22.0L 12/12/20 14:56: Coronavirus (COVID-19)(PCR) NEGATIVE CBC/BMP Laboratory Tests 12/12/20 12:24 Assessment/Plan 65-year-old male with a past medical history of gait instability. Cervical spinal disease status post cervical fusion, peripheral neuropathy, seizures, hypertension, BPH, bladder neck obstruction, history of recurrent urinary retentions recent GI bleed in October 2020, found to have a nonbleeding gastric antral ulcers and duodenal ulcers presented to the ED with a chief complaints of inability to void for 2 days. . He reported that he is having lower abdominal heaviness and pain about 3/10 in intensity, dull, aching and hasn't been able to pass significant amounts of urine for the past 2 days. He feels urinary urge However, reports that nothing is coming out. Lab work in the ED also noted that his hemoglobin was 7.2. On further questioning, he also complained of generalized weakness and fatigue. However, he denied any diarrhea or soft stools. He reported that his stools are mostly hard, dark in color. ED staff try to place a Roque several times and was unsuccessful. Bladder scan showed about [address] Bello was contacted and he is going to take the patient to OR for a cystoscopy and placement of Roque. Dr. Pena was also consulted for his drop in hemoglobin and possible GI bleed. Dr. Ojeda is going to schedule him for EGD and colonoscopy on 12/14/2020. Acute on chronic urinary retention During last cystoscopy. Patient only had a moderate sized prostate enlargement and moderate bladder outlet obstruction Patient may have a neurogenic bladder leading to recurrent acute retentions He likely has a chronic retention also as he is not much symptomatic even with the thousand mL of urine in the bladder Urology consulted Plan for cystoscopy today Will keep nothing by mouth GI bleed Hemoglobin 7.2, down from previous level in October Will transfuse 2 units Will give a PPI twice a day. Will get CT abdomen and pelvis Planned for EGD and colonoscopy on 12/14/2020 History of cervical spinal compression, status post cervical fusion, history of lumbar spinal stenosis status post lumbar laminectomy and decompression This extends up spinal disease could cause a neurogenic bladder Continue with gabapentin Seizure disorder. Lamotrigine and levetiracetam Hypertension Hold olmesartan and continue beta fransico Depression. Continue paroxetine Peripheral neuropathy/ cervical spinal disease and lumbar spinal disease Continue gabapentin Hyperlipidemia Continue statin Gait instability Due to cervical spinal disease, lumbar spinal disease and a peripheral neuropathy Walks with a cane Plan / VTE VTE Prophylaxis Ordered?: Yes VICENTA POLK MD Dec 12, 2020 16:50
--- NOTE | 2020-12-12 17:04 | REP ---
INDICATION: acute urinary retion, gib. COMPARISON: 08/03/2018 the latest prior also without contrast TECHNIQUE: Noncontrast enhanced stone protocol. FINDINGS: There is no significant change in the lung bases Limited evaluation of the solid intra-organs and gallbladder show no gross abnormalities. Limited evaluation of the pancreas and adrenal glands show no gross abnormalities. There is no nephroureterolithiasis, hydronephrosis, or hydroureter. 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 There are no urinary bladder calcifications. There is mild to moderate urinary bladder distention. There is no free fluid or free air in the abdomen or pelvis. Limited evaluation of the bowel loops the mesenteries show no gross abnormalities. Limited evaluation of the abdominal aorta and para-aortic regions show no gross abnormalities. Chronic degenerative changes are seen involving the hips and spine. IMPRESSION: 1. There is no evidence of acute intraabdominal or intrapelvic disease. Findings as described above. 2. Mild to moderate urinary bladder distention. <Electronically signed by Armando Go > 12/12/20 [id number]
[2020-12-12] MEDS ORDERED: MIDAZOLAM INJ 2MG/2ML VIAL (J2250 PER 1MG) As Ordered ONE (20:07)
[2020-12-12] MEDS ORDERED: fentaNYL 100 MCG/2 ML INJECTION (J3010) As Ordered ONE (20:07)
[2020-12-12] MEDS ORDERED: LIDOCAINE 2% 100MG/5ML SDV (FOR ANES.) As Ordered ONE (20:08)
[2020-12-12] MEDS ORDERED: propofoL 200 MG/20 ML VIAL As Ordered ONE (20:08)
[2020-12-12] MEDS ORDERED: LIDOCAINE 2% 5ML JELLY UROJET As Ordered ONE (20:21)
[2020-12-12] MEDS ORDERED: ceFAZolin 2 GM/D5W 50 ML IV BAG (J0690 PER 500MG) As Ordered ONE (20:48)
[2020-12-12] MEDS: CARVedilol 6.25 MG TAB PO SCH (22:16)
[2020-12-12] MEDS: PARoxetine 20MG TABLET PO SCH (22:17)
[2020-12-12] MEDS: lamoTRIgine 100MG TAB PO SCH (22:17)
[2020-12-12] MEDS: GABAPENTIN 400MG CAP PO SCH (22:17)
[2020-12-12] MEDS: SIMVASTATIN 40 MG TAB PO SCH (22:17)
[2020-12-12] MEDS: SENOKOT S TAB PO SCH (22:17)
[2020-12-12] MEDS: PANTOPRAZOLE 40MG VIAL (C9113 PER 1) IV SCH (22:18)
--- NOTE | 2020-12-12 22:45 | RO ---
OPERATIVE NOTE DATE OF OPERATION: 12/12/2020 PREOPERATIVE DIAGNOSIS: Urinary retention. POSTOPERATIVE DIAGNOSIS: Urinary retention. PROCEDURE: Cystoscopy, complex catheter placement over a wire. SURGEON: Joel Bello MD GEOGRAPHY TEACHER: None. ANESTHESIA: General. OPERATIVE INDICATIONS: This is a 65-year-old male who presented to the hospital in urinary retention for almost 24 hours. Several attempts were made to place a catheter in the Emergency Room and were unsuccessful. Of note; this patient has a prior history of urinary retention and difficult catheter placement. He was brought to the Operating Room today for the above listed procedure. DESCRIPTION OF PROCEDURE: The patient was brought to the Operating Room and general anesthesia was induced. Prophylactic antibiotics were infused. He was placed in the dorsal lithotomy position and prepped and draped in usual sterile fashion. A cystoscope was inserted into the urethral meatus and advanced towards the bladder. Of note; the patient had bilobar benign prostatic hyperplasia with significant outlet obstruction as well as a very high riding bladder neck. No other abnormalities were seen inside the urethra. The patient's bladder was very distended. Once the scope was inside the bladder, a guidewire was advanced inside the bladder. The cystoscope was then removed and the guidewire was utilized to advance an 18-[place]-tip catheter into the bladder. The balloon was filled with 10 mL of sterile water and then the wire was removed. The catheter was connected to gravity drainage and clear urine drained. This marked the conclusion of the procedure. The patient was taken out of the dorsal lithotomy position, awakened from anesthesia and transported to the Recovery Room in stable condition. ESTIMATED BLOOD LOSS: 0 mL. COMPLICATIONS: None. SPECIMENS: None. PLAN: The patient will keep his catheter in. I think he would benefit from a TURP in the near future.
[2020-12-13] VITALS (12 sets, daily range): BP systolic 102–141; BP diastolic 62–84
[2020-12-13 06:24] LABS: BASO % 0.7 % (0.0-1.0); EOS # 0.2 10^3/uL (0.0-0.5); EOS % 3.5 % (0.0-3.0); HEMATOCRIT 29.7 % (42.0-52.0); HEMOGLOBIN 8.9 g/dl (13.5-17.5); LYMPH % 23.9 % (24.0-44.0); MEAN CORPUSCULAR HEMOGLOBIN 24.5 pg (27.0-33.0); MEAN CORPUSCULAR VOLUME 81.6 fl (80.0-96.0); MONO # 0.4 10^3/uL (0.0-0.8); NEUTROPHILS # 2.7 10^3/uL (1.5-8.5); NEUTROPHILS % 61.7 % (36.0-66.0); PLATELET COUNT, AUTOMATED 168 10^3/uL (150-450); RED BLOOD COUNT 3.64 10^6/uL (4.30-6.10); WHITE BLOOD COUNT 4.3 10^3/uL (4.0-10.0)
[2020-12-13] MEDS ORDERED: MOM 30ML SUSPENSION UDC PO ONE (08:00)
[2020-12-13 08:05] LABS: BLOOD UREA NITROGEN 12 MG/DL (7-18); CALCIUM LEVEL 8.6 MG/DL (8.8-10.2); CARBON DIOXIDE LEVEL 28 MEQ/L (21-32); CHLORIDE LEVEL 108 MEQ/L (98-107); CREATININE FOR GFR 1.01 MG/DL (0.70-1.30); GLOMERULAR FILTRATION RATE > 60.0 (>49); GLUCOSE, FASTING 80 MG/DL (70-100); POTASSIUM SERUM 4.3 MEQ/L (3.5-5.1); SODIUM LEVEL 141 MEQ/L (136-145)
[2020-12-13] MEDS: SENOKOT S TAB PO SCH ×2 (09:11→20:26)
[2020-12-13] MEDS: GABAPENTIN 400MG CAP PO SCH ×3 (09:11→20:25)
[2020-12-13] MEDS: lamoTRIgine 100MG TAB PO SCH ×2 (09:12→20:26)
[2020-12-13] MEDS: CARVedilol 6.25 MG TAB PO SCH ×2 (09:12→20:25)
[2020-12-13] MEDS: PANTOPRAZOLE 40MG VIAL (C9113 PER 1) IV SCH ×2 (09:13→20:26)
--- NOTE | 2020-12-13 10:29 | IPNPDOC ---
Subjective Date Seen The patient was seen on 12/13/20. Subjective Chief Complaint/HPI No complaints this morning, except that he is hungry and wanted solid food. Unfortunately, he will have to be on clear liquids today as he is going to be prepped for colonoscopy tomorrow. We will give him another unit of blood transfusion. Peters in place draining clear yellow urine. No abdominal pain. No bladder spasms Objective Physical Examination General Exam: Positive: Alert, Cooperative, No Acute Distress Eye Exam: Positive: PERRLA, Conjunctiva & lids normal, EOMI; Negative: Sclera icteric ENT Exam: Positive: Atraumatic, Mucous membr. moist/pink, Pharynx Normal Neck Exam: Positive: Supple; Negative: JVD, thyromegaly Chest Exam: Positive: Clear to auscultation, Normal air movement Heart Exam: Positive: Rate Normal, Regular Rhythm, Normal S1, Normal S2; Negative: Murmurs, Rubs Abdomen Exam: Positive: Normal bowel sounds, Soft; Negative: Tenderness, Hepatospenomegaly Extremity Exam: Negative: Clubbing, Cyanosis, Edema Neuro Exam: Positive: Other (right lower ex DTR !+ and on the left lower extremity 2+. Power right 4/5 and left 5/5 both in upper and lower extremities. ) Psych Exam: Positive: Oriented x 3 Assessment /Plan Assessment 65-year-old male with a past medical history of gait instability. Cervical spinal disease status post cervical fusion, peripheral neuropathy, seizures, hypertension, BPH, bladder neck obstruction, history of recurrent urinary retentions recent GI bleed in October 2020, found to have a nonbleeding gastric an tral ulcers and duodenal ulcers presented to the ED with a chief complaints of inability to void for 2 days. . He reported that he is having lower abdominal heaviness and pain about 3/10 in intensity, dull, aching and hasn't been able to pass significant amounts of urine for the past 2 days. He feels urinary urge However, reports that nothing is coming out. Lab work in the ED also noted that his hemoglobin was 7.2. On further questioning, he also complained of generalized weakness and fatigue. However, he denied any diarrhea or soft stools. He reported that his stools are mostly hard, dark in color. ED staff try to place a Peters several times and was unsuccessful. Bladder scan showed about [address] Bello was contacted and he is going to take the patient to OR for a cystoscopy and placement of Peters. Dr. Pena was also consulted for his drop in hemoglobin and possible GI bleed. Dr. Ojeda is going to schedule him for EGD and colonoscopy on 12/14/2020. Acute on chronic urinary retention S/p cysto and peters placement in OR on 12/12/20. There is enlargement of both lobes of prostate causing bladder neck obstruction Will need TURP in near future. Patient may have a neurogenic bladder also along witht he obstructive uropathy leading to recurrent acute on chronic retention. GI bleed with Blood loss anemia Hemoglobin 7.2, down from previous level in October Likely chronic ongoing GIB Transfused 3 units Will give a PPI twice a day. CT abdomen and pelvis negative for any acute process. Planned for EGD and colonoscopy on 12/14/2020 History of cervical spinal compression, status post cervical fusion, history of lumbar spinal stenosis status post lumbar laminectomy and decompression Has residual right upper and lower extremity weakness. His extensive spinal disease could cause a neurogenic bladder also Continue with gabapentin Seizure disorder. Lamotrigine and levetiracetam Hypertension Hold olmesartan and continue beta fransico Depression. Continue paroxetine Peripheral neuropathy/ cervical spinal disease and lumbar spinal disease Continue gabapentin Hyperlipidemia Continue statin Gait instability with right side weaker than the left. Due to cervical spinal disease, lumbar spinal disease and a peripheral neuropathy Walks with a cane Mild cognitive impairment poor short term memory. Plan/VTE VTE Prophylaxis Ordered?: Yes VS, I&O, 24H, Fishbone Vital Signs/I&O Vital Signs Date Time Temp Pulse Resp B/P (MAP) Pulse Ox O2 Delivery O2 Flow Rate FiO2 12/13/20 09:12 62 131/76 12/13/20 06:00 97.9 16 96 Room Air I&O- Last 24 Hours up to 6 AM 12/13/20 05:59 Intake Total 2018 ml Output Total 250 ml Balance 1768 ml Laboratory Data 24H LABS Laboratory Tests 2 12/12/20 12:24: Immature Granulocyte % (Auto) 0.2, Neutrophils (%) (Auto) 51.2, Lymphocytes (%) (Auto) 35.8, Monocytes (%) (Auto) 8.1H, Eosinophils (%) (Auto) 3.7H, Basophils (%) (Auto) 1.0, Neutrophils # (Auto) 2.5, Lymphocytes # (Auto) 1.7, Monocytes # (Auto) 0.4, Eosinophils # (Auto) 0.2, Basophils # (Auto) 0.1, Nucleated Red Blood Cells % (auto) 0.0, Total Bilirubin 0.2, Direct Bilirubin < 0.1, Aspartate Amino Transf (AST/SGOT) 30, Alanine Aminotransferase (ALT/SGPT) 22, Alkaline Phosphatase 99, Total Creatine Kinase 224, Creatine Kinase MB 5.0H, Creatine Kinase MB Relative Index 2.23, Troponin I < 0.02, Total Protein 6.4, Albumin 3.3, Albumin/Globulin Ratio 1.1, Thyroid Stimulating Hormone (TSH) 0.913 12/12/20 12:31: POC Glucose (Misc Panel) 86, POC Sodium (Misc Panel) 138, POC Potassium (Misc Panel) 4.5, POC Chloride (Misc Panel) 103, POC Total CO2 (Misc Panel) 28.0H, POC Blood Urea Nitrogen (Misc Panel 13, POC Ionized Calcium (Misc Panel) 4.8, POC Creatinine (Misc Panel) 1.4H, POC Hematocrit (Misc Panel) 22.0L 12/12/20 14:56: Coronavirus (COVID-19)(PCR) NEGATIVE 12/13/20 06:08: Immature Granulocyte % (Auto) 0.2, Neutrophils (%) (Auto) 61.7, Lymphocytes (%) (Auto) 23.9L, Monocytes (%) (Auto) 10.0H, Eosinophils (%) (Auto) 3.5H, Basophils (%) (Auto) 0.7, Neutrophils # (Auto) 2.7, Lymphocytes # (Auto) 1.0L, Monocytes # (Auto) 0.4, Eosinophils # (Auto) 0.2, Basophils # (Auto) 0.0, Nucleated Red Blood Cells % (auto) 0.0, Anion Gap 5L, Glomerular Filtration Rate > 60.0, Calcium Level 8.6L CBC/BMP Laboratory Tests 12/12/20 12:24 12/13/20 06:08 VICENTA POLK MD Dec 13, 2020 10:29
--- NOTE | 2020-12-13 11:28 | IPNPDOC ---
Subjective Review oF Systems Chief Complaint The patient is a 65-year-old male admitted with a reason for visit of Acute Urinary Retention/Gastrointestinal Bleeding. Events since Last Encounter No acute events o/n. Patient notes his abd pain is gone now. Objective Physical Examination General Exam: Alert, Cooperative, No Acute Distress ABDOMEN EXAM: Soft; No: Tenderness Skin Exam: Nl turgor and temperature Neuro Exam: Normal Speech Psych Exam: Mental status NL, Mood NL Other physical findings catheter in place draining clear yellow urine Vital Signs/I&O Vital Signs Date Time Temp Pulse Resp B/P (MAP) Pulse Ox O2 Delivery O2 Flow Rate FiO2 12/13/20 09:12 62 131/76 12/13/20 06:00 97.9 16 96 Room Air I&O- Last 24 Hours up to 6 AM 12/13/20 06:00 Intake Total 2193 ml Output Total 525 ml Balance 1668 ml Laboratory Data Labs 24H Laboratory Tests 2 12/12/20 12:24: Immature Granulocyte % (Auto) 0.2, Neutrophils (%) (Auto) 51.2, Lymphocytes (%) (Auto) 35.8, Monocytes (%) (Auto) 8.1H, Eosinophils (%) (Auto) 3.7H, Basophils (%) (Auto) 1.0, Neutrophils # (Auto) 2.5, Lymphocytes # (Auto) 1.7, Monocytes # (Auto) 0.4, Eosinophils # (Auto) 0.2, Basophils # (Auto) 0.1, Nucleated Red Blood Cells % (auto) 0.0, Total Bilirubin 0.2, Direct Bilirubin < 0.1, Aspartate Amino Transf (AST/SGOT) 30, Alanine Aminotransferase (ALT/SGPT) 22, Alkaline Phosphatase 99, Total Creatine Kinase 224, Creatine Kinase MB 5.0H, Creatine Kinase MB Relative Index 2.23, Troponin I < 0.02, Total Protein 6.4, Albumin 3.3, Albumin/Globulin Ratio 1.1, Thyroid Stimulating Hormone (TSH) 0.913 12/12/20 12:31: POC Glucose (Misc Panel) 86, POC Sodium (Misc Panel) 138, POC Potassium (Misc Panel) 4.5, POC Chloride (Misc Panel) 103, POC Total CO2 (Misc Panel) 28.0H, POC Blood Urea Nitrogen (Misc Panel 13, POC Ionized Calcium (Misc Panel) 4.8, POC Creatinine (Misc Panel) 1.4H, POC Hematocrit (Misc Panel) 22.0L 12/12/20 14:56: Coronavirus (COVID-19)(PCR) NEGATIVE 12/13/20 06:08: Immature Granulocyte % (Auto) 0.2, Neutrophils (%) (Auto) 61.7, Lymphocytes (%) (Auto) 23.9L, Monocytes (%) (Auto) 10.0H, Eosinophils (%) (Auto) 3.5H, Basophils (%) (Auto) 0.7, Neutrophils # (Auto) 2.7, Lymphocytes # (Auto) 1.0L, Monocytes # (Auto) 0.4, Eosinophils # (Auto) 0.2, Basophils # (Auto) 0.0, Nucleated Red Blood Cells % (auto) 0.0, Anion Gap 5L, Glomerular Filtration Rate > 60.0, Calcium Level 8.6L CBC/BMP Laboratory Tests 12/12/20 12:24 12/13/20 06:08 Assessment/Plan Date Seen The patient was seen on 12/13/20. Patient Summary This is a 65 y/o M admitted for a GI bleed and CARLOS 2/2 urinary retention, POD1 s/p cystoscopy and catheter placement over a wire. Cystoscopy was notable for BPH w/ outflow obstruction. I explained to the patient that he would benefit from a button TURP as he has gone into retention previously. He was in agreement. Plan/VTE VTE Prophylaxis Ordered?: Yes Plan - keep catheter to gravity drainage - no further urologic intervention required on this hospitalization - I will arrange f/u in our office to get him set up for a button TURP w/i the next few wks ADELAIDE THOMAS MD Dec 13, 2020 11:28
[2020-12-13] MEDS ORDERED: POLYETHYLENE GLYCOL (MIRALAX) 238GM BOTTLE PO ONE (16:00)
[2020-12-13] MEDS: SIMVASTATIN 40 MG TAB PO SCH (20:25)
[2020-12-13] MEDS: PARoxetine 20MG TABLET PO SCH (20:26)
--- NOTE | 2020-12-13 20:35 | ECGEPIP ---
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
[2020-12-14] MEDS ORDERED: POLYETHYLENE GLYCOL (MIRALAX) 238GM BOTTLE PO ONE (05:00)
[2020-12-14 06:00] VITALS: BP 132/81
[2020-12-14 06:35] LABS: BASO # 0.1 10^3/uL (0.0-0.2); BASO % 1.1 % (0.0-1.0); EOS # 0.2 10^3/uL (0.0-0.5); EOS % 4.9 % (0.0-3.0); HEMATOCRIT 34.9 % (42.0-52.0); HEMOGLOBIN 10.6 g/dl (13.5-17.5); LYMPH # 1.4 10^3/uL (1.5-5.0); LYMPH % 29.5 % (24.0-44.0); MEAN CORPUSCULAR HEMOGLOBIN 24.9 pg (27.0-33.0); MEAN CORPUSCULAR HGB CONC 30.4 g/dl (32.0-36.5); MEAN CORPUSCULAR VOLUME 81.9 fl (80.0-96.0); MONO # 0.6 10^3/uL (0.0-0.8); MONO % 11.7 % (2.0-8.0); NEUTROPHILS # 2.5 10^3/uL (1.5-8.5); NEUTROPHILS % 52.6 % (36.0-66.0); PLATELET COUNT, AUTOMATED 182 10^3/uL (150-450); RED BLOOD COUNT 4.26 10^6/uL (4.30-6.10); WHITE BLOOD COUNT 4.7 10^3/uL (4.0-10.0)
[2020-12-14 07:09] LABS: BLOOD UREA NITROGEN 9 MG/DL (7-18); CALCIUM LEVEL 8.7 MG/DL (8.8-10.2); CARBON DIOXIDE LEVEL 30 MEQ/L (21-32); CHLORIDE LEVEL 105 MEQ/L (98-107); CREATININE FOR GFR 1.12 MG/DL (0.70-1.30); GLOMERULAR FILTRATION RATE > 60.0 (>49); GLUCOSE, FASTING 86 MG/DL (70-100); POTASSIUM SERUM 4.3 MEQ/L (3.5-5.1); SODIUM LEVEL 141 MEQ/L (136-145)
[2020-12-14] MEDS: lamoTRIgine 100MG TAB PO SCH ×2 (08:56→20:52)
[2020-12-14] MEDS: GABAPENTIN 400MG CAP PO SCH ×3 (08:56→20:52)
[2020-12-14] MEDS: SENOKOT S TAB PO SCH ×2 (08:56→20:52)
[2020-12-14] MEDS: PANTOPRAZOLE 40MG VIAL (C9113 PER 1) IV SCH ×2 (08:56→20:52)
[2020-12-14] MEDS: CARVedilol 6.25 MG TAB PO SCH ×2 (08:57→20:53)
--- NOTE | 2020-12-14 12:16 | IPNPDOC ---
Subjective Date Seen The patient was seen on 12/14/20. Subjective Chief Complaint/HPI No complaints this morning. DId drink his prep. Going for EGD and colonoscopy today. Catheter working well no issues. Objective Physical Examination General Exam: Positive: Alert, Cooperative, No Acute Distress Eye Exam: Positive: PERRLA, Conjunctiva & lids normal, EOMI; Negative: Sclera icteric ENT Exam: Positive: Atraumatic, Mucous membr. moist/pink, Pharynx Normal Neck Exam: Positive: Supple; Negative: JVD, thyromegaly Chest Exam: Positive: Clear to auscultation, Normal air movement Abdomen Exam: Positive: Normal bowel sounds, Soft; Negative: Tenderness, Hepatospenomegaly Extremity Exam: Negative: Clubbing, Cyanosis, Edema Neuro Exam: Positive: Other (right lower ex DTR !+ and on the left lower extremity 2+. Power right 4/5 and left 5/5 both in upper and lower extremities. ) Psych Exam: Positive: Oriented x 3 Assessment /Plan Assessment 65-year-old male with a past medical history of gait instability. Cervical spinal disease status post cervical fusion, peripheral neuropathy, seizures, hypertension, BPH, bladder neck obstruction, history of recurrent urinary rete ntions recent GI bleed in October 2020, found to have a nonbleeding gastric antral ulcers and duodenal ulcers presented to the ED with a chief complaints of inability to void for 2 days. . He reported that he is having lower abdominal heaviness and pain about 3/10 in intensity, dull, aching and hasn't been able to pass significant amounts of urine for the past 2 days. He feels urinary urge However, reports that nothing is coming out. Lab work in the ED also noted that his hemoglobin was 7.2. On further questioning, he also complained of generalized weakness and fatigue. However, he denied any diarrhea or soft stools. He reported that his stools are mostly hard, dark in color. ED staff try to place a Peters several times and was unsuccessful. Bladder scan showed about [address] Bello was contacted and he is going to take the patient to OR for a cystoscopy and placement of Peters. Dr. Pena was also consulted for his drop in hemoglobin and possible GI bleed. Dr. Ojeda is going to schedule him for EGD and colonoscopy on 12/14/2020. Acute on chronic urinary retention S/p cysto and peters placement in OR on 12/12/20. There is enlargement of both lobes of prostate causing bladder neck obstruction Will need TURP in near future. Patient may have a neurogenic bladder also along witht he obstructive uropathy leading to recurrent acute on chronic retention. GI bleed with Blood loss anemia Hemoglobin 7.2, down from previous level in October Likely chronic ongoing GIB Transfused 3 units Will give a PPI twice a day. CT abdomen and pelvis negative for any acute process. Planned for EGD and colonoscopy on 12/14/2020 History of cervical spinal compression, status post cervical fusion, history of lumbar spinal stenosis status post lumbar laminectomy and decompression Has residual right upper and lower extremity weakness. His extensive spinal disease could cause a neurogenic bladder also Continue with gabapentin Seizure disorder. Lamotrigine and levetiracetam Hypertension Hold olmesartan and continue beta fransico Depression. Continue paroxetine Peripheral neuropathy/ cervical spinal disease and lumbar spinal disease Continue gabapentin Hyperlipidemia Continue statin Gait instability with right side weaker than the left. Due to cervical spinal disease, lumbar spinal disease and a peripheral neuropathy Walks with a cane Mild cognitive impairment poor short term memory. Plan/VTE VTE Prophylaxis Ordered?: Yes VS, I&O, 24H, Fishbone Vital Signs/I&O Vital Signs Date Time Temp Pulse Resp B/P (MAP) Pulse Ox O2 Delivery O2 Flow Rate FiO2 12/14/20 08:57 66 123/75 12/14/20 06:00 98.4 18 92 Room Air I&O- Last 24 Hours up to 6 AM 12/14/20 06:00 Intake Total 1980 ml Output Total 800 ml Balance 1180 ml Laboratory Data 24H LABS Laboratory Tests 2 12/14/20 06:03: Immature Granulocyte % (Auto) 0.2, Neutrophils (%) (Auto) 52.6, Lymphocytes (%) (Auto) 29.5, Monocytes (%) (Auto) 11.7H, Eosinophils (%) (Auto) 4.9H, Basophils (%) (Auto) 1.1H, Neutrophils # (Auto) 2.5, Lymphocytes # (Auto) 1.4L, Monocytes # (Auto) 0.6, Eosinophils # (Auto) 0.2, Basophils # (Auto) 0.1, Nucleated Red Blood Cells % (auto) 0.0, Anion Gap 6L, Glomerular Filtration Rate > 60.0, Calc ium Level 8.7L CBC/BMP Laboratory Tests 12/14/20 06:03 VICENTA POLK MD Dec 14, 2020 12:16
[2020-12-14] MEDS ORDERED: propofoL 200 MG/20 ML VIAL As Ordered ONE ×2 (13:25→13:26)
[2020-12-14] MEDS ORDERED: LIDOCAINE 2% 100MG/5ML SDV (FOR ANES.) As Ordered ONE (13:26)
--- NOTE | 2020-12-14 15:30 | ROOR ---
Patient Name: Stanton Hernandez Procedure Date: 12/14/2020 2:07 PM Date of : 1955 Age: 65 Room: [facility] Gender: Male Note Status: Finalized Procedure: Upper GI endoscopy Indications: Acute post hemorrhagic anemia, Iron deficiency anemia Providers: Mauricio Pena MD Referring MD: 2. Inpatient 2. Inpatient Requesting Provider: Medicines: Monitored Anesthesia Care Complications: No immediate complications. Procedure: Pre-Anesthesia Assessment: - The heart rate, respiratory rate, oxygen saturations, blood pressure, adequacy of pulmonary ventilation, and response to care were monitored throughout the procedure. The Endoscope was introduced through the mouth, and advanced to the second part of duodenum. The upper GI endoscopy was accomplished without difficulty. The patient tolerated the procedure well. Findings: The examined esophagus was normal. Scattered moderate inflammation characterized by erythema and shallow ulcerations was found in the gastric antrum. Biopsies were taken with a cold forceps for histology. One partially obstructing (about 20% obstructed) non-bleeding cratered duodenal ulcer with no stigmata of bleeding was found in the second portion of the duodenum. The lesion was 10 mm in largest dimension. Biopsies were taken with a cold forceps for histology. Impression: - Normal esophagus. - Gastritis. Biopsied. - A deep 1 cm edematous non-bleeding duodenal ulcer with no stigmata of bleeding. Biopsied. Recommendation: - No ibuprofen, naproxen, or other non-steroidal anti-inflammatory drugs. - Use Prilosec (omeprazole) 40 mg PO daily indefinitely. (Use indefinitely, as he has Hx of gastric/duodenal ulcers in past) - Return to referring physician as previously scheduled. - Follow up with me PRN only/No routine follow up needed. Procedure Code(s): --- Professional --- 97268, Esophagogastroduodenoscopy, flexible, transoral; with biopsy, single or multiple Diagnosis Code(s): --- Professional --- K44.9, Diaphragmatic hernia without obstruction or gangrene K29.70, Gastritis, unspecified, without bleeding K26.9, Duodenal ulcer, unspecified as acute or chronic, without hemorrhage or perforation D62, Acute posthemorrhagic anemia D50.9, Iron deficiency anemia, unspecified CPT copyright 2019 [employer]. All rights reserved. The codes documented in this report are preliminary and upon medical records coder review may be revised to meet current compliance requirements. Mauricio Pena MD Mauricio Pena MD 12/14/2020 3:29:48 PM Electronically signed by Mauricio Pena MD Number of Addenda: 0 Note Initiated On: 12/14/2020 2:07 PM Estimated Blood Loss: Estimated blood loss: none.
--- NOTE | 2020-12-14 15:33 | ROOR ---
Patient Name: Stanton Hernandez Procedure Date: 12/14/2020 3:00 PM Date of : 1955 Age: 65 Room: [facility] OR Gender: Male Note Status: Finalized Procedure: Colonoscopy Indications: Acute post hemorrhagic anemia, Iron deficiency anemia Providers: Mauricio Pena MD Referring MD: 2. Inpatient 2. Inpatient Requesting Provider: Medicines: Monitored Anesthesia Care Complications: No immediate complications. Procedure: Pre-Anesthesia Assessment: - The heart rate, respiratory rate, oxygen saturations, blood pressure, adequacy of pulmonary ventilation, and response to care were monitored throughout the procedure. The Colonoscope was introduced through the anus and advanced to 10 cm into the ileum. The colonoscopy was performed without difficulty. The patient tolerated the procedure well. The quality of the bowel preparation was good. Findings: The perianal and digital rectal examinations were normal. Mild sigmoid diverticulosis and moderate internal hemorrhoids. The entire examined colon appeared normal on direct and retroflexion views. The terminal ileum appeared normal. Impression: - Mild sigmoid diverticulosis and moderate internal hemorrhoids. - The colon is otherwise normal on direct and retroflexion views. - The examined portion of the ileum was normal. - No specimens collected. Recommendation: - Return to referring physician as previously scheduled. Procedure Code(s): --- Professional --- 32998, Colonoscopy, flexible; diagnostic, including collection of specimen(s) by brushing or washing, when performed (separate procedure) Diagnosis Code(s): --- Professional --- D50.9, Iron deficiency anemia, unspecified D62, Acute posthemorrhagic anemia CPT copyright 2019 [employer]. All rights reserved. The codes documented in this report are preliminary and upon chemistry technical officer review may be revised to meet current compliance requirements. Mauricio Pena MD Mauricio Pena MD 12/14/2020 3:32:52 PM Electronically signed by Mauricio Pena MD Number of Addenda: 0 Note Initiated On: 12/14/2020 3:00 PM Estimated Blood Loss: Estimated blood loss: none.
[2020-12-14] MEDS ORDERED: ONDANSETRON 4MG/2ML VIAL IV PRN (15:35)
[2020-12-14 15:59] VITALS: BP 154/86
[2020-12-14 16:21] VITALS: BP 159/85
[2020-12-14 18:35] VITALS: BP 130/63
[2020-12-14] MEDS: SIMVASTATIN 40 MG TAB PO SCH (20:52)
[2020-12-14] MEDS: PARoxetine 20MG TABLET PO SCH (20:53)
[2020-12-14 22:00] VITALS: BP 126/66
[2020-12-15 02:00] VITALS: BP 126/72
[2020-12-15 06:00] VITALS: BP 133/76
[2020-12-15 06:40] LABS: BASO % 0.8 % (0.0-1.0); EOS # 0.2 10^3/uL (0.0-0.5); EOS % 3.8 % (0.0-3.0); HEMATOCRIT 36.8 % (42.0-52.0); HEMOGLOBIN 11.3 g/dl (13.5-17.5); LYMPH # 1.5 10^3/uL (1.5-5.0); LYMPH % 27.6 % (24.0-44.0); MEAN CORPUSCULAR HEMOGLOBIN 25.2 pg (27.0-33.0); MEAN CORPUSCULAR HGB CONC 30.7 g/dl (32.0-36.5); MONO # 0.5 10^3/uL (0.0-0.8); MONO % 9.5 % (2.0-8.0); NEUTROPHILS % 57.9 % (36.0-66.0); PLATELET COUNT, AUTOMATED 224 10^3/uL (150-450); RED BLOOD COUNT 4.49 10^6/uL (4.30-6.10); WHITE BLOOD COUNT 5.3 10^3/uL (4.0-10.0)
[2020-12-15 07:01] LABS: BLOOD UREA NITROGEN 6 MG/DL (7-18); CALCIUM LEVEL 8.7 MG/DL (8.8-10.2); CARBON DIOXIDE LEVEL 28 MEQ/L (21-32); CHLORIDE LEVEL 107 MEQ/L (98-107); GLOMERULAR FILTRATION RATE > 60.0 (>49); GLUCOSE, FASTING 88 MG/DL (70-100); POTASSIUM SERUM 4.3 MEQ/L (3.5-5.1); SODIUM LEVEL 142 MEQ/L (136-145)
[2020-12-15] MEDS: SENOKOT S TAB PO SCH (09:00)
[2020-12-15] MEDS: GABAPENTIN 400MG CAP PO SCH (09:31)
[2020-12-15] MEDS: PANTOPRAZOLE 40MG VIAL (C9113 PER 1) IV SCH (09:31)
[2020-12-15] MEDS: lamoTRIgine 100MG TAB PO SCH (09:31)
[2020-12-15 09:32] VITALS: BP 151/89
[2020-12-15] MEDS: CARVedilol 6.25 MG TAB PO SCH (09:32)
[2020-12-15] MEDS ORDERED: OMEP-221 PO (11:36)
[2020-12-15] MEDS ORDERED: levETIRAcetam 250MG TABLET (KEPPRA) PO SCH (11:45)
--- NOTE | 2020-12-15 12:55 | DS.PDOC ---
Discharge Summary General Date of Admission Dec 12, 2020 at 15:18 Date of Discharge 12/15/20 Discharge Summary PROCEDURES PERFORMED DURING STAY: 12/12/20: Cystoscopy, complex catheter placement over a wire. 12/14/20 EGD: Findings: The examined esophagus was normal. Scattered moderate inflammation characterized by erythema and shallow ulcerations was found in the gastric antrum. Biopsies were taken with a cold forceps for histology. One partially obstructing (about 20% obstructed) non-bleeding cratered duodenal ulcer with no stigmata of bleeding was found in the second portion of the duodenum. The lesion was 10 mm in largest dimension. Biopsies were taken with a cold forceps for histology. Impression: - Normal esophagus. - Gastritis. Biopsied. - A deep 1 cm edematous non-bleeding duodenal ulcer with no stigmata of bleeding. Biopsied. Recommendation: - No ibuprofen, naproxen, or other non-steroidal anti-inflammatory drugs. - Use Prilosec (omeprazole) 40 mg PO daily indefinitely. (Use indefinitely, as he has Hx of gastric/duodenal ulcers in past) 12/14/20: Colonoscopy Findings: The perianal and digital rectal examinations were normal. Mild sigmoid diverticulosis and moderate internal hemorrhoids. The entire examined colon appeared normal on direct and retroflexion views. The terminal ileum appeared normal. Impression: - Mild sigmoid diverticulosis and moderate internal hemorrhoids. - The colon is otherwise normal on direct and retroflexion views. - The examined portion of the ileum was normal. - No specimens collected. DISCHARGE DIAGNOSES: Acute on chronic urinary retention due to enlarged prostate with difficult peters placement done in the Operating room. Chronic Gastrointestinal bleeding with acute on chronic blood loss anemia like from Gastritis and Duodenal ulcer due to peptic ulcer disease. Diverticulosis Internal hemorrhoids. SECONDARY DIAGNOSIS: H/O GIB in october 2020 : gastric ulcer and duodenal ulcer Recurrent Acute urinary retention in 2018, 2019, 2019 with urethral trauma and creation of false passage in 2018 BPH Moderate Bladder outlet obstruction. Severe cervical stenosis and mild-moderate cervical spinal cord compression s/p cervical fusion 2018 Residual right upper and lower extremity weakness. History of lumbar spinal stenosis status post lumbosacral laminectomy and decompression in 2013 Gait instability Seizure disorder chronic migraine Hyperlipidemia Vit B12 deficiency Remote History of alcohol use disorder quit 30 years ago. Hypertension with hypertensive heart disease H/O syncopal episodes with negative work up in the past. Benign pulmonary nodules. Suprapubic cath placement and removal 2019 Urethral dilatation in 2018 Bilateral cataract repair. History of bilateral knee replacement. COMPLICATIONS/CHIEF COMPLAINT: Acute Urinary Retention/Gastrointestinal Bleeding. HOSPITAL COURSE: 65-year-old male with a past medical history of gait instability. Cervical spinal disease status post cervical fusion, peripheral neuropathy, seizures, hypertension, BPH, bladder neck obstruction, history of recurrent urinary retentions recent GI bleed in October 2020, found to have a nonbleeding gastric antral ulcers and duodenal ulcers presented to the ED with a chief complaints of inability to void for 2 days. . He reported that he is having lower abdominal heaviness and pain about 3/10 in intensity, dull, aching and hasn't been able to pass significant amounts of urine for the past 2 days. He feels urinary urge However, reports that nothing is coming out. Lab work in the ED also noted that his hemoglobin was 7.2. On further questioning, he also complained of generalized weakness and fatigue. However, he denied any diarrhea or soft stools. He reported that his stools are mostly hard, dark in color. ED staff try to place a Peters several times and was unsuccessful. Bladder scan showed about [address] Bello was contacted and he is going to take the patient to OR for a cystoscopy and placement of Peters. Dr. Pena was also consulted for his drop in hemoglobin and possible GI bleed. He had EGD and colonoscopy on 12/14/2020. Acute on chronic urinary retention S/p cysto and peters placement in OR on 12/12/20. There is enlargement of both lobes of prostate causing bladder neck obstruction Will need TURP in near future. Patient may have a neurogenic bladder also along witht he obstructive uropathy leading to recurrent acute on chronic retention. GI bleed with Blood loss anemia Hemoglobin 7.2, down from previous level in October Likely chronic ongoing GIB Transfused 3 units Will give a PPI twice a day. CT abdomen and pelvis negative for any acute process. Had EGD and colonoscopy on 12/14/2020, : Gastritis and Duodenal ulcer, diverticulosis and moderate internal hemorrhoids. History of cervical spinal compression, status post cervical fusion, history of lumbar spinal stenosis status post lumbar laminectomy and decompression Has residual right upper and lower extremity weakness. His extensive spinal disease could cause a neurogenic bladder also Continue with gabapentin Seizure disorder. Lamotrigine and levetiracetam Hypertension Hold olmesartan and continue beta fransico Depression. Continue paroxetine Peripheral neuropathy/ cervical spinal disease and lumbar spinal disease Continue gabapentin Hyperlipidemia Continue statin Gait instability with right side weaker than the left. Due to cervical spinal disease, lumbar spinal disease and a peripheral neuropathy Walks with a cane Mild cognitive impairment poor short term memory. DISCHARGE MEDICATIONS: Please see below. ALLERGIES: Please see below. PHYSICAL EXAMINATION ON DISCHARGE: VITAL SIGNS: Please see below. General Exam: Positive: Alert, Cooperative, No Acute Distress Eye Exam: Positive: PERRLA, Conjunctiva & lids normal, EOMI; Negative: Sclera icteric ENT Exam: Positive: Atraumatic, Mucous membr. moist/pink, Pharynx Normal Neck Exam: Positive: Supple; Negative: JVD, thyromegaly Chest Exam: Positive: Clear to auscultation, Normal air movement Abdomen Exam: Positive: Normal bowel sounds, Soft; Negative: Tenderness, Hepatosplenomegaly Extremity Exam: Negative: Clubbing, Cyanosis, Edema Neuro Exam: Positive: Other (right lower ex DTR !+ and on the left lower extremity 2+. Power right 4/5 and left 5/5 both in upper and lower extremities. ) Psych Exam: Positive: Oriented x 3 LABORATORY DATA: Please see below. ACTIVITY: [As tolerated]. DIET: As tolerated DISPOSITION: Home DISCHARGE INSTRUCTIONS: Dr Bello in 2 weeks, PMD in 1 week. DISCHARGE CONDITION: [Stable]. TIME SPENT ON DISCHARGE: 35 minutes. Vital Signs/I&Os Vital Signs Date Time Temp Pulse Resp B/P (MAP) Pulse Ox O2 Delivery O2 Flow Rate FiO2 12/15/20 09:32 66 151/89 12/15/20 06:00 99.0 17 93 Room Air 12/14/20 15:25 10.0 I&O- Last 24 Hours up to 6 AM 12/15/20 06:00 Intake Total 1315 ml Output Total 1450 ml Balance -135 ml Laboratory Data Labs 24H Laboratory Tests 2 12/15/20 06:24: Immature Granulocyte % (Auto) 0.4, Neutrophils (%) (Auto) 57.9, Lymphocytes (%) (Auto) 27.6, Monocytes (%) (Auto) 9.5H, Eosinophils (%) (Auto) 3.8H, Basophils (%) (Auto) 0.8, Neutrophils # (Auto) 3.0, Lymphocytes # (Auto) 1.5, Monocytes # (Auto) 0.5, Eosinophils # (Auto) 0.2, Basophils # (Auto) 0.0, Nucleated Red Blood Cells % (auto) 0.0, Anion Gap 7L, Glomerular Filtration Rate > 60.0, Calcium Level 8.7L CBC/BMP Laboratory Tests 12/15/20 06:24 Discharge Medications Scheduled Carvedilol (Carvedilol) 6.25 Mg Tab, 6.25 MG PO BID, (Reported) Erenumab-Aooe (Aimovig Autoinjector) 140 Mg/1 Ml Auto.injct, 140 MG SQ QMONTH, (Reported) Folic Acid (Folic Acid) 1 Mg Tablet, 1 MG PO DAILY, (Reported) Fosinopril Sodium (Fosinopril Sodium) 10 Mg Tablet, 10 MG PO DAILY, (Reported) Gabapentin (Gabapentin) 400 Mg Cap, 400 MG PO TID, (Reported) Lamotrigine (Lamotrigine) 200 Mg Tab, 200 MG PO BID, (Reported) Omeprazole (Omeprazole) 40 Mg Capsule.dr, 40 MG PO BID Paroxetine HCl (Paroxetine HCl) 40 Mg Tab, 40 MG PO QHS, (Reported) Simvastatin (Simvastatin) 40 Mg Tab, 40 MG PO QHS, (Reported) Thiamine HCl (Thiamine HCl) 100 Mg Tablet, 100 MG PO DAILY, (Reported) levETIRAcetam (levETIRAcetam) 1,000 Mg Tablet, 1,000 MG PO BID, (Reported) Scheduled PRN Ketoconazole (Ketoconazole) 15 Gm Cream..g., 1 DOSE TOP BID PRN for RASH, (Reported) Allergies Coded Allergies: No Known Allergies (Verified , 07/02/04) VICENTA POLK MD Dec 15, 2020 12:55
[2020-12-16] MEDS ORDERED: OMEP-221 PO (18:37)
== END 2020-12-15 15:32 | disposition home or self-care (01) | DRG 811 ==
LOC: M ED 11:35 → M ED INP 15:18 → ENRESERV 16:15 → M MSPAV 16:58
PROVIDERS: ADMIT Internal Medicine Nephrology; ATTEND Internal Medicine Nephrology
PROC: 0T9B8ZZ Drainage of Bladder, Via Natural or Artificial Opening Endoscopic (ICD-10-PCS; principal; 2020-12-12 17:30)
PROC: 30233N1 Transfusion of Nonautologous Red Blood Cells into Peripheral Vein, Percutaneous Approach (ICD-10-PCS; 2020-12-14)
PROC: 0DB98ZX Excision of Duodenum, Via Natural or Artificial Opening Endoscopic, Diagnostic (ICD-10-PCS; 2020-12-14)
PROC: 0DB68ZX Excision of Stomach, Via Natural or Artificial Opening Endoscopic, Diagnostic (ICD-10-PCS; 2020-12-14)
PROC: 0DJD8ZZ Inspection of Lower Intestinal Tract, Via Natural or Artificial Opening Endoscopic (ICD-10-PCS; 2020-12-14)
DX: D62 Acute posthemorrhagic anemia (principal); K26.4 Chronic or unspecified duodenal ulcer with hemorrhage; K29.71 Gastritis, unspecified, with bleeding; N17.9 Acute kidney failure, unspecified; Z66 Do not resuscitate; R26.81 Unsteadiness on feet; Z98.1 Arthrodesis status; G62.9 Polyneuropathy, unspecified; G40.909 Epilepsy, unspecified, not intractable, without status epilepticus; I11.9 Hypertensive heart disease without heart failure; R97.20 Elevated prostate specific antigen [PSA]; N40.1 Benign prostatic hyperplasia with lower urinary tract symptoms; R33.9 Retention of urine, unspecified; K25.9 Gastric ulcer, unspecified as acute or chronic, without hemorrhage or perforation; Z79.899 Other long term (current) drug therapy; M48.02 Spinal stenosis, cervical region; M48.07 Spinal stenosis, lumbosacral region; G43.909 Migraine, unspecified, not intractable, without status migrainosus; E78.5 Hyperlipidemia, unspecified; E53.8 Deficiency of other specified B group vitamins; Z98.41 Cataract extraction status, right eye; Z98.42 Cataract extraction status, left eye; Z96.653 Presence of artificial knee joint, bilateral; Z20.822 Contact with and (suspected) exposure to COVID-19; D32.9 Benign neoplasm of meninges, unspecified; G31.84 Mild cognitive impairment of uncertain or unknown etiology

== ENCOUNTER → 2020-12-16 | Day surgery (SDC) | payer MEDICARE, MEDICAID ==
[~2020-12-16] VITALS: Ht 177.8 cm; Wt 90.9 kg
[~2020-12-16] MED LIST changes: +LIDOCAINE 2% 100MG/5ML SDV (FOR ANES.) As Ordered ONE; +LR 1,000 ML IV SCH; +MIDAZOLAM INJ 2MG/2ML VIAL (J2250 PER 1MG) As Ordered ONE; +NAPR-885 PO; +OMEP-221 PO; +ONDANSETRON 4MG/2ML VIAL IV PRN; +PERCOCET 5MG/325MG TAB PO PRN; +ceFAZolin 2 GM/D5W 50 ML IV BAG (J0690 PER 500MG) As Ordered ONE; +fentaNYL 100 MCG/2 ML INJECTION (J3010) As Ordered ONE; +fentaNYL 100 MCG/2 ML INJECTION (J3010) IV PRN; +propofoL 200 MG/20 ML VIAL As Ordered ONE
[2020-12-16 16:46] LABS: BASO # 0.1 10^3/uL (0.0-0.2); BASO % 0.7 % (0.0-1.0); EOS # 0.2 10^3/uL (0.0-0.5); EOS % 3.1 % (0.0-3.0); HEMATOCRIT 37.2 % (42.0-52.0); HEMOGLOBIN 11.4 g/dl (13.5-17.5); LYMPH # 1.2 10^3/uL (1.5-5.0); LYMPH % 17.9 % (24.0-44.0); MEAN CORPUSCULAR HEMOGLOBIN 24.9 pg (27.0-33.0); MEAN CORPUSCULAR HGB CONC 30.6 g/dl (32.0-36.5); MEAN CORPUSCULAR VOLUME 81.2 fl (80.0-96.0); MONO # 0.6 10^3/uL (0.0-0.8); MONO % 8.1 % (2.0-8.0); NEUTROPHILS # 4.8 10^3/uL (1.5-8.5); NEUTROPHILS % 69.8 % (36.0-66.0); PLATELET COUNT, AUTOMATED 247 10^3/uL (150-450); RED BLOOD COUNT 4.58 10^6/uL (4.30-6.10); WHITE BLOOD COUNT 6.9 10^3/uL (4.0-10.0)
[2020-12-16 17:06] LABS: BLOOD UREA NITROGEN 9 MG/DL (7-18); CALCIUM LEVEL 8.6 MG/DL (8.8-10.2); CARBON DIOXIDE LEVEL 29 MEQ/L (21-32); CHLORIDE LEVEL 107 MEQ/L (98-107); GLOMERULAR FILTRATION RATE > 60.0 (>49); GLUCOSE, FASTING 106 MG/DL (70-100); SODIUM LEVEL 142 MEQ/L (136-145)
[2020-12-16 18:50] LABS: RSV AMPLIFICATION NEGATIVE (NEGATIVE)
[2020-12-16 20:40] VITALS: BP 118/62
--- NOTE | 2020-12-17 22:21 | ROOPDOC ---
[facility] Report Of Operation Report of Operation DATE OF OPERATION: 12/16/2020 PREOPERATIVE DIAGNOSIS: Urinary retention. POSTOPERATIVE DIAGNOSIS: Urinary retention. PROCEDURE: Cystoscopy, complex catheter placement over a wire. SURGEON: Kavin Morales MD VASCULAR SONOGRAPHER: None. ANESTHESIA: MAC. Dr. Mclaughlin OPERATIVE INDICATIONS: This is a 65-year-old male who presented to the hospital in urinary retention despite having an 18 Fr Roque catheter that was inserted on 12/12/[address] Bello. Several attempts to reposition and irrigate were unsuccessful, so it was removed and an attempt to place a new catheter in the Emergency Room and were unsuccessful. Of note; this patient has a prior history of urinary retention and difficult catheter placement. He was brought to the Operating Room today for the above listed procedure. DESCRIPTION OF PROCEDURE: The patient was brought to the Operating Room and MAC anesthesia was induced. Prophylactic antibiotics Kefzol 2 gm IV were infused. He was placed in the dorsal lithotomy position and prepped and draped in usual sterile fashion. A cystoscope was inserted into the urethral meatus and advanced towards the bladder. Of note; the patient had bilobar benign prostatic hyperplasia with significant outlet obstruction as well as a very high riding bladder neck. No other abnormalities were seen inside the urethra. The patient's bladder was very distended was not distended and had patchy erythema consistent with catheter cystitis. Once the scope was inside the bladder, a 0.38 guidewire was advanced inside the bladder. The cystoscope was then removed and the guidewire was utilized to advance an 22-[place]-tip catheter into the bladder. The balloon was filled with 15 mL of sterile water and then the wire was removed. The catheter was connected to gravity drainage and clear urine drained. This marked the conclusion of the procedure. The patient was taken out of the dorsal lithotomy position, awakened from anesthesia and transported to the Recovery Room in stable condition. ESTIMATED BLOOD LOSS: 1 mL. COMPLICATIONS: None. SPECIMENS: Urine Culture PLAN: The patient will keep his catheter in. Hell be scheduled for a TURP with Dr. Joel Bello in the near future. KAVIN MORALES M.D. Dec 17, 2020 22:21
== END | disposition home or self-care (01) ==
LOC: M ED 15:36 → M SDC 15:37
PROVIDERS: ATTEND Urology
DX: R33.9 Retention of urine, unspecified (principal); N40.1 Benign prostatic hyperplasia with lower urinary tract symptoms; I10 Essential (primary) hypertension; E78.5 Hyperlipidemia, unspecified; J45.909 Unspecified asthma, uncomplicated; M54.9 Dorsalgia, unspecified; R51.9 Headache, unspecified; K27.9 Peptic ulcer, site unspecified, unspecified as acute or chronic, without hemorrhage or perforation; G40.909 Epilepsy, unspecified, not intractable, without status epilepticus; F03.90 Unspecified dementia, unspecified severity, without behavioral disturbance, psychotic disturbance, mood disturbance, and anxiety; R25.1 Tremor, unspecified; Z87.891 Personal history of nicotine dependence; Z79.899 Other long term (current) drug therapy
CPT/HCPCS: 52000; 80048; 85025; 86850; 86900; 86901; 87086; 87631; 99284; C1769; J0690; J2250; J3010

== ENCOUNTER → 2021-01-22 | Outpatient (REF) | payer MEDICARE, MEDICAID ==
[~2021-01-22] MED LIST changes: -LIDOCAINE 2% 100MG/5ML SDV (FOR ANES.) As Ordered ONE; -LR 1,000 ML IV SCH; -MIDAZOLAM INJ 2MG/2ML VIAL (J2250 PER 1MG) As Ordered ONE; +OMEP40CA4 PO; -OMEP40CA97 PO; -ONDANSETRON 4MG/2ML VIAL IV PRN; -PERCOCET 5MG/325MG TAB PO PRN; -ceFAZolin 2 GM/D5W 50 ML IV BAG (J0690 PER 500MG) As Ordered ONE; -fentaNYL 100 MCG/2 ML INJECTION (J3010) As Ordered ONE; -fentaNYL 100 MCG/2 ML INJECTION (J3010) IV PRN; -propofoL 200 MG/20 ML VIAL As Ordered ONE
[2021-01-22 17:10] LABS: APPEARANCE, URINE HAZY (CLEAR); BACTERIA, URINE AUTO 2+ (NEGATIVE); BILIRUBIN, URINE AUTO NEGATIVE (NEGATIVE); BLOOD, URINE BLOOD 1+ (NEGATIVE); COLOR, URINE YELLOW (YELLOW); GLUCOSE, URINE (UA) AUTO NEGATIVE (NEGATIVE); KETONE, URINE AUTO NEGATIVE (NEGATIVE); LEUKOCYTE ESTERASE, URINE AUTO 3+ (NEGATIVE); NITRITE, URINE AUTO POSITIVE (NEGATIVE); PROTEIN, URINE AUTO 1+ mg/dL (NEGATIVE); RBC, URINE AUTO 2 /HPF (0-3); SPECIFIC GRAVITY URINE AUTO 1.006 (1.002-1.035); SQUAMOUS EPITHELIAL CELL UR AU 0 /HPF (0-6); UROBILINOGEN, URINE AUTO 0.2 mg/dL (0.0-2.0); WBC, URINE AUTO 18 /HPF (0-3)
== END ==
LOC: M LAB REF 16:26
PROVIDERS: ATTEND Internal Medicine
DX: Z01.818 Encounter for other preprocedural examination (principal); Z79.899 Other long term (current) drug therapy

== ENCOUNTER → 2021-01-22 | Outpatient (REF) | payer MEDICARE, MEDICAID ==
[2021-01-25 19:08] LABS: LAMOTRIGINE (LAMICTAL) 13.7 ug/mL (2.0-20.0); LEVETIRACETAM (KEPPRA) 47.4 ug/mL (10.0-40.0)
== END ==
LOC: M LAB REF 16:21
PROVIDERS: ATTEND Internal Medicine
DX: Z01.810 Encounter for preprocedural cardiovascular examination (principal); Z79.899 Other long term (current) drug therapy

== ENCOUNTER → 2021-01-23 | Outpatient (REF) | payer MEDICARE, MEDICAID ==
[2021-01-23 18:51] LABS: APPEARANCE, URINE CLOUDY (CLEAR); BACTERIA, URINE AUTO 1+ (NEGATIVE); BILIRUBIN, URINE AUTO NEGATIVE (NEGATIVE); BLOOD, URINE BLOOD 1+ (NEGATIVE); COLOR, URINE AMBER (YELLOW); GLUCOSE, URINE (UA) AUTO NEGATIVE (NEGATIVE); KETONE, URINE AUTO NEGATIVE (NEGATIVE); LEUKOCYTE ESTERASE, URINE AUTO 3+ (NEGATIVE); MUCUS, URINE SMALL (NEGATIVE); NITRITE, URINE AUTO POSITIVE (NEGATIVE); PROTEIN, URINE AUTO 2+ mg/dL (NEGATIVE); RBC, URINE AUTO 14 /HPF (0-3); SPECIFIC GRAVITY URINE AUTO 1.016 (1.002-1.035); SQUAMOUS EPITHELIAL CELL UR AU 0 /HPF (0-6); UROBILINOGEN, URINE AUTO 0.2 mg/dL (0.0-2.0); WBC, URINE AUTO 78 /HPF (0-3)
== END ==
LOC: M SMT 17:20
PROVIDERS: ATTEND Nurse Practitioner Women's Health
DX: Z01.818 Encounter for other preprocedural examination (principal); R33.9 Retention of urine, unspecified

== ENCOUNTER → 2021-01-26 | Outpatient (CLI) | payer MEDICARE, MEDICAID | LOC: M LABSMTC 11:30 | PROVIDERS: ATTEND Anesthesiology | DX: Z01.812 Encounter for preprocedural laboratory examination (principal); Z20.822 Contact with and (suspected) exposure to COVID-19 ==

== ENCOUNTER 2021-01-31 10:44 | Day surgery (SDC) | payer MEDICARE, MEDICAID ==
[~2021-01-31] VITALS: Ht 177.8 cm; Wt 85.3 kg
[~2021-01-31 10:44] MED LIST changes: +ACETAMINOPHEN 1000MG 100ML IV BTL (OFIRMEV) (J0131 PER 10MG) As Ordered ONE; +LIDOCAINE 1% MDV 20ML VIAL SQ PRN; +LIDOCAINE 2% 100MG/5ML SDV (FOR ANES.) As Ordered ONE; +LR 1,000 ML IV ONE; +MIDAZOLAM INJ 2MG/2ML VIAL (J2250 PER 1MG) As Ordered ONE; +ONDANSETRON 4MG/2ML VIAL As Ordered ONE; +PHENYLephrine 500MCG 5ML (100MCG/ML) SYRINGE As Ordered ONE; +ROCURONIUM BROMIDE 50 MG/5 ML VIAL As Ordered ONE; +SUGAMMADEX SODIUM 500 MG/5 ML VIAL (BRIDION) As Ordered ONE; +ceFAZolin SOD 2 GM in IV 1 EA IV ONE; +dexameTHASONE 4 MG/ML 1ML VIAL (J1100 PER 1MG) As Ordered ONE; +ePHEDrine SULFATE 25 MG/5 ML(5MG/ML) SYRINGE As Ordered ONE; +fentaNYL 250 MCG/5 ML INJECTION (J3010) As Ordered ONE; +propofoL 200 MG/20 ML VIAL As Ordered ONE
[2021-01-31] MEDS ORDERED: PHENYLephrine 500MCG 5ML (100MCG/ML) SYRINGE As Ordered ONE (11:22)
[2021-01-31] MEDS ORDERED: TETR1CAP PO (11:22)
[2021-01-31] MEDS ORDERED: VASOPRESSIN INJ 20 UNITS/ML VIAL As Ordered ONE (12:51)
[2021-01-31] MEDS ORDERED: ROCURONIUM BROMIDE 50 MG/5 ML VIAL As Ordered ONE ×2 (12:53→13:11)
[2021-01-31] MEDS ORDERED: SUGAMMADEX SODIUM 500 MG/5 ML VIAL (BRIDION) As Ordered ONE (13:05)
[2021-01-31] MEDS ORDERED: FUROSEMIDE 100MG/10ML VIAL (J1940) As Ordered ONE (13:19)
--- NOTE | 2021-01-31 13:48 | RO ---
OPERATIVE NOTE DATE OF OPERATION: 01/31/2021 PREOPERATIVE DIAGNOSIS: Benign prostatic hyperplasia with urinary retention. POSTOPERATIVE DIAGNOSIS: Benign prostatic hyperplasia with urinary retention. PROCEDURE: Cystoscopy, button transurethral electrovaporization of the prostate. SURGEON: Dr. Joel Bello MANAGER OF HEALTH: None. ANESTHESIA: General. OPERATIVE INDICATIONS: This is a 65-year-old male with benign prostatic hyperplasia and urinary retention who was brought to the operating room today for treatment. DESCRIPTION OF PROCEDURE: The patient was brought to the operating room and general anesthesia was induced. Prophylactic antibiotics were infused. He was placed in the dorsal lithotomy position and prepped and draped in the usual sterile fashion. A resectoscope was inserted in the urethral meatus and advanced to the bladder using the visual obturator. Once inside the bladder, I made note to the location of both ureteral orifices. The patient had bilobar benign prostatic hyperplasia with a very high-riding bladder neck. At this point, I began vaporizing the hyperplastic tissue circumferentially at the bladder neck and then on both lobes of disease. I kept doing this until there was a clear channel established. Throughout the procedure I made sure not to vaporize close to the ureteral orifices or distal to the verumontanum. Once satisfied there was a clear channel established, hemostasis was obtained using a coagulation current. Once satisfied with hemostasis, the resectoscope was removed, and an 18-[place] Roque catheter was inserted into the bladder. The balloon was filled with 15 mL of sterile water, and this ended the procedure. The catheter was then connected to gravity drainage. The patient was then taken out of the dorsal lithotomy position, awakened from anesthesia, and transported to the recovery room in stable condition. ESTIMATED BLOOD LOSS: 10 mL. COMPLICATIONS: None. SPECIMENS: None. PLAN: The patient will followup in urology clinic in approximately 1 week for catheter removal and for a voiding trial. CARMITA
[2021-01-31] MEDS ORDERED: METOCLOPRAMIDE INJ 10MG/2ML VIAL (J2765 PER 1) IV PRN (13:55)
[2021-01-31] MEDS ORDERED: ACETAMINOPHEN TAB 650MG DOSE (2X325MG) PO PRN (13:55)
[2021-01-31] MEDS ORDERED: LR 1,000 ML IV SCH (13:55)
[2021-01-31] MEDS ORDERED: fentaNYL 100 MCG/2 ML INJECTION (J3010) IV PRN (13:55)
[2021-01-31] MEDS ORDERED: oxyCODONE 5MG TAB PO PRN (13:55)
[2021-01-31] MEDS ORDERED: ONDANSETRON 4MG/2ML VIAL IV PRN (13:55)
[2021-01-31 14:30] VITALS: BP 99/64
== END 2021-01-31 15:00 | disposition home or self-care (01) ==
LOC: M SDC 10:44
PROVIDERS: ATTEND Urology
DX: N40.1 Benign prostatic hyperplasia with lower urinary tract symptoms (principal); I10 Essential (primary) hypertension; E78.5 Hyperlipidemia, unspecified; D51.9 Vitamin B12 deficiency anemia, unspecified; F03.90 Unspecified dementia, unspecified severity, without behavioral disturbance, psychotic disturbance, mood disturbance, and anxiety; F41.9 Anxiety disorder, unspecified; F32.9 Major depressive disorder, single episode, unspecified; G40.89 Other seizures; J45.909 Unspecified asthma, uncomplicated; F17.218 Nicotine dependence, cigarettes, with other nicotine-induced disorders; Z79.899 Other long term (current) drug therapy
CPT/HCPCS: 52601; J0131; J0690; J1100; J1940; J2250; J2370; J2405; J3010

== ENCOUNTER → 2021-03-26 | Outpatient (REF) | payer MEDICARE, MEDICAID ==
[~2021-03-26] MED LIST changes: -ACETAMINOPHEN 1000MG 100ML IV BTL (OFIRMEV) (J0131 PER 10MG) As Ordered ONE; -LIDOCAINE 1% MDV 20ML VIAL SQ PRN; -LIDOCAINE 2% 100MG/5ML SDV (FOR ANES.) As Ordered ONE; -LR 1,000 ML IV ONE; -MIDAZOLAM INJ 2MG/2ML VIAL (J2250 PER 1MG) As Ordered ONE; -ONDANSETRON 4MG/2ML VIAL As Ordered ONE; -PHENYLephrine 500MCG 5ML (100MCG/ML) SYRINGE As Ordered ONE; -ROCURONIUM BROMIDE 50 MG/5 ML VIAL As Ordered ONE; -SUGAMMADEX SODIUM 500 MG/5 ML VIAL (BRIDION) As Ordered ONE; +TETR1CAP PO; -ceFAZolin SOD 2 GM in IV 1 EA IV ONE; -dexameTHASONE 4 MG/ML 1ML VIAL (J1100 PER 1MG) As Ordered ONE; -ePHEDrine SULFATE 25 MG/5 ML(5MG/ML) SYRINGE As Ordered ONE; -fentaNYL 250 MCG/5 ML INJECTION (J3010) As Ordered ONE; -propofoL 200 MG/20 ML VIAL As Ordered ONE
== END ==
LOC: M LAB REF 18:01
PROVIDERS: ATTEND Internal Medicine
DX: Z01.810 Encounter for preprocedural cardiovascular examination (principal)

== ENCOUNTER → 2021-04-11 | Outpatient (CLI) | payer MEDICARE, MEDICAID ==
--- NOTE | 2021-04-11 09:21 | REP ---
INDICATION: AAA. Screening. COMPARISON: Comparison is made with CT abdomen pelvis study December 12, 2020. TECHNIQUE: Retroperitoneal, abdominal aortic sonography. FINDINGS: Scanning through the retroperitoneum demonstrates that the abdominal aorta is normal in caliber at the level of the diaphragmatic hiatus measuring 2.4 x 2.8 cm in AP by transverse dimension respectively. The measurements of the aorta at the level of the renal artery origins is 1.9 x 2.6 cm, AP by transverse dimension respectively. The distal aorta tapers to 1.7 by 1.6 cm AP by transverse dimension. The right and left common iliac arteries are normal measuring 0.9 and 0.9 cm in AP dimension respectively. No aneurysm is seen. No periaortic disease is observed. IMPRESSION: Negative abdominal aortic sonography. <Electronically signed by Kristopher Mcintosh > 04/11/21 [id number]
== END ==
LOC: M RAD 08:52
PROVIDERS: ATTEND Internal Medicine
DX: I71.4 Abdominal aortic aneurysm, without rupture (principal)

== ENCOUNTER 2021-07-04 10:13 | Emergency (ER) | payer MEDICARE, MEDICAID ==
[~2021-07-04] VITALS: Ht 177.8 cm; Wt 86.0 kg
--- NOTE | 2021-07-04 11:03 | REP ---
INDICATION: CHEST PAIN COMPARISON: 10/12/2020 TECHNIQUE: Portable AP view of the chest FINDINGS: The mediastinum and cardiac silhouette are stable and within normal limits for portable technique. The lung cornejo are clear without acute consolidation, effusion, or pneumothorax. Skeletal structures again demonstrate old healed right rib fractures. IMPRESSION: No acute cardiopulmonary process appreciated. <Electronically signed by Aime Pompa > 07/04/21 [id number]
[2021-07-04 11:08] LABS: BASO # 0.1 10^3/uL (0.0-0.2); EOS # 0.2 10^3/uL (0.0-0.5); EOS % 4.4 % (0.0-3.0); HEMATOCRIT 39.8 % (42.0-52.0); HEMOGLOBIN 12.1 g/dl (13.5-17.5); LYMPH # 1.4 10^3/uL (1.5-5.0); LYMPH % 29.2 % (24.0-44.0); MEAN CORPUSCULAR HEMOGLOBIN 24.8 pg (27.0-33.0); MEAN CORPUSCULAR HGB CONC 30.4 g/dl (32.0-36.5); MEAN CORPUSCULAR VOLUME 81.7 fl (80.0-96.0); MONO # 0.4 10^3/uL (0.0-0.8); MONO % 7.5 % (2.0-8.0); NEUTROPHILS # 2.8 10^3/uL (1.5-8.5); NEUTROPHILS % 57.7 % (36.0-66.0); PLATELET COUNT, AUTOMATED 194 10^3/uL (150-450); RED BLOOD COUNT 4.87 10^6/uL (4.30-6.10); WHITE BLOOD COUNT 4.8 10^3/uL (4.0-10.0)
[2021-07-04 11:38] LABS: ALBUMIN 3.7 GM/DL (3.2-5.2); ALT/SGPT 24 U/L (12-78); BILIRUBIN,DIRECT < 0.1 MG/DL (0.0-0.2); BILIRUBIN,TOTAL 0.3 MG/DL (0.2-1.0); BLOOD UREA NITROGEN 13 MG/DL (7-18); CARBON DIOXIDE LEVEL 29 MEQ/L (21-32); CHLORIDE LEVEL 107 MEQ/L (98-107); CK-MB VALUE MASS 3.9 NG/ML (<3.6); CREATININE FOR GFR 0.93 MG/DL (0.70-1.30); GLOMERULAR FILTRATION RATE > 60.0 (>49); GLUCOSE, FASTING 95 MG/DL (70-100); LIPASE 171 U/L (73-393); MB/CK RELATIVE INDEX 2.29 (< OR =4); POTASSIUM SERUM 4.3 MEQ/L (3.5-5.1); SODIUM LEVEL 141 MEQ/L (136-145)
[2021-07-04] MEDS ORDERED: ISOVUE-370 76% 100ML VIAL As Ordered ONE (12:17)
--- NOTE | 2021-07-04 12:41 | REP ---
INDICATION: left chest pain COMPARISON: 05/14/2012 the only prior TECHNIQUE: CT angiography of the chest after the intravenous administration of 75 cc Isovue 370 FINDINGS: There is excellent visualization of the pulmonary arterial vasculature. There are no focal filling defects present that would be considered consistent with acute pulmonary emboli. There are no pleural or pericardial effusions. There is no mediastinal or hilar adenopathy. The imaged osseous structures show multiple healed rib fractures. Evaluation of the lung cornejo shows a new pleural based density in the superior segment of the left lower lobe which measures 1.3 x 1.2 cm. There is a calcified granuloma in the lingula and there is a calcified granuloma left lower lobe. IMPRESSION: 1. There is no evidence of an acute pulmonary embolism. 2. Left lung nodule as described above. According to the revised Fleischner society criteria PET-CT is warranted at this time. 3. Other findings as described above. <Electronically signed by Armando Go > 07/04/21 [id number]
[2021-07-04 15:08] VITALS: BP 120/67
--- NOTE | 2021-07-04 16:15 | ECGEPIP ---
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
--- NOTE | 2021-07-06 09:22 | ED PDOC ---
Post-Departure Follow-Up radiology report faxed to Adri Edouard MD Jul 06, 2021 09:22
== END 2021-07-04 15:20 | disposition home or self-care (01) ==
LOC: M ED 10:13
DX: R07.89 Other chest pain (principal); R91.1 Solitary pulmonary nodule; I10 Essential (primary) hypertension; E78.5 Hyperlipidemia, unspecified; G62.9 Polyneuropathy, unspecified; R56.9 Unspecified convulsions; M48.00 Spinal stenosis, site unspecified; G43.909 Migraine, unspecified, not intractable, without status migrainosus; Z87.19 Personal history of other diseases of the digestive system; Z79.899 Other long term (current) drug therapy
CPT/HCPCS: 36415; 71045; 71275; 80048; 80076; 82550; 82553; 83690; 84484; 85025; 93005; 93041; 94760; 99285; Q9967

== ENCOUNTER → 2021-08-27 | Outpatient (CLI) | payer MEDICARE, MEDICAID ==
[~2021-08-27] MED LIST changes: -FOSI10TA4 PO; +FOSI10TA44 PO; -OMEP-221 PO; +OMEP40CA5 PO
== END ==
LOC: M PLARAD 08:02
PROVIDERS: ATTEND Internal Medicine
DX: D38.1 Neoplasm of uncertain behavior of trachea, bronchus and lung (principal); R91.1 Solitary pulmonary nodule
CPT/HCPCS: 78815; A9552

== ENCOUNTER → 2021-10-29 | Outpatient (REF) | payer MEDICARE, MEDICAID ==
[~2021-10-29] MED LIST changes: +CARV3.12 PO; +CIPR-249 PO; +EXCETAB32 PO; -EXCETAB33 PO
[2021-11-05 11:07] LABS: LAMOTRIGINE (LAMICTAL) 13.2 ug/mL (2.0-20.0); LEVETIRACETAM (KEPPRA) 37.3 ug/mL (10.0-40.0)
== END ==
LOC: M LAB REF 17:23
PROVIDERS: ATTEND Internal Medicine
DX: G40.301 Generalized idiopathic epilepsy and epileptic syndromes, not intractable, with status epilepticus (principal); R26.89 Other abnormalities of gait and mobility

== ENCOUNTER → 2021-10-29 | Outpatient (REF) | payer MEDICARE, MEDICAID ==
[2021-10-29 17:56] LABS: APPEARANCE, URINE HAZY (CLEAR); BACTERIA, URINE AUTO NEGATIVE (NEGATIVE); BILIRUBIN, URINE AUTO NEGATIVE (NEGATIVE); BLOOD, URINE BLOOD 1+ (NEGATIVE); COLOR, URINE YELLOW (YELLOW); GLUCOSE, URINE (UA) AUTO NEGATIVE (NEGATIVE); KETONE, URINE AUTO NEGATIVE (NEGATIVE); LEUKOCYTE ESTERASE, URINE AUTO TRACE (NEGATIVE); MUCUS, URINE SMALL (NEGATIVE); NITRITE, URINE AUTO NEGATIVE (NEGATIVE); PROTEIN, URINE AUTO 2+ mg/dL (NEGATIVE); RBC, URINE AUTO 13 /HPF (0-3); SPECIFIC GRAVITY URINE AUTO 1.023 (1.002-1.035); SQUAMOUS EPITHELIAL CELL UR AU 0 /HPF (0-6); UROBILINOGEN, URINE AUTO 0.2 mg/dL (0.0-2.0); WBC, URINE AUTO 7 /HPF (0-3)
== END ==
LOC: M LAB REF 16:53
PROVIDERS: ATTEND Internal Medicine
DX: Z01.818 Encounter for other preprocedural examination (principal); Z79.899 Other long term (current) drug therapy

== ENCOUNTER → 2021-10-29 | Outpatient (REF) | payer MEDICARE, MEDICAID | LOC: M SMT 13:20 | PROVIDERS: ATTEND Urology | DX: Z01.818 Encounter for other preprocedural examination (principal); N32.0 Bladder-neck obstruction; N39.0 Urinary tract infection, site not specified; G40.301 Generalized idiopathic epilepsy and epileptic syndromes, not intractable, with status epilepticus; R26.89 Other abnormalities of gait and mobility; Z79.899 Other long term (current) drug therapy ==

== ENCOUNTER → 2021-10-31 | Outpatient (CLI) | payer MEDICARE, MEDICAID ==
[~2021-10-31] MED LIST changes: -EXCETAB32 PO; +EXCETAB33 PO
== END ==
LOC: M LABSMTC 10:16
PROVIDERS: ATTEND Anesthesiology
DX: Z01.818 Encounter for other preprocedural examination (principal); Z11.52 Encounter for screening for COVID-19

== ENCOUNTER 2021-11-05 08:40 | Day surgery (SDC) | payer MEDICARE, MEDICAID ==
[~2021-11-05] VITALS: Ht 177.8 cm; Wt 82.6 kg
[~2021-11-05 08:40] MED LIST changes: -CIPR-249 PO; +LR 1,000 ML IV ONE; +ceFAZolin SOD 2 GM in IV 1 EA IV ONE
[2021-11-05] MEDS ORDERED: dexameTHASONE 4 MG/ML 1ML VIAL (J1100 PER 1MG) As Ordered ONE (10:33)
[2021-11-05] MEDS ORDERED: LIDOCAINE 2% 100MG/5ML SDV (FOR ANES.) As Ordered ONE (10:33)
[2021-11-05] MEDS ORDERED: ONDANSETRON 4MG/2ML VIAL As Ordered ONE (10:33)
[2021-11-05] MEDS ORDERED: propofoL 200 MG/20 ML VIAL As Ordered ONE (10:33)
[2021-11-05] MEDS ORDERED: fentaNYL 100 MCG/2 ML INJECTION As Ordered ONE (10:33)
[2021-11-05] MEDS ORDERED: MIDAZOLAM INJ 2MG/2ML VIAL (J2250 PER 1MG) As Ordered ONE (10:34)
[2021-11-05] MEDS ORDERED: LIDOCAINE 5% OINT 30GM TUBE As Ordered ONE (10:40)
[2021-11-05] MEDS ORDERED: ePHEDrine SULFATE 25 MG/5 ML(5MG/ML) SYRINGE As Ordered ONE (11:10)
[2021-11-05] MEDS ORDERED: ACETAMINOPHEN 1000MG 100ML IV BTL (OFIRMEV) (J0131 PER 10MG) As Ordered ONE (11:19)
[2021-11-05] MEDS ORDERED: CIPR-249 PO (11:49)
[2021-11-05] MEDS ORDERED: ISOVUE-300 61% 50ML VIAL As Ordered ONE (11:50)
[2021-11-05] MEDS ORDERED: fentaNYL 100 MCG/2 ML INJECTION IV PRN (12:00)
[2021-11-05] MEDS ORDERED: LR 1,000 ML IV SCH (12:00)
[2021-11-05] MEDS ORDERED: LevoFLOXacin IV 500 MG in IV 1 EA IV ONE (12:00)
[2021-11-05] MEDS ORDERED: ONDANSETRON 4MG/2ML VIAL IV PRN (12:00)
[2021-11-05] MEDS ORDERED: oxyCODONE 5MG TAB PO PRN (12:00)
[2021-11-05] MEDS ORDERED: ACETAMINOPHEN TAB 650MG DOSE (2X325MG) PO PRN (12:00)
[2021-11-05] MEDS ORDERED: LevoFLOXacin 500MG/100ML IV BAG (J1956 PER 250MG) As Ordered ONE (12:05)
[2021-11-05 13:40] VITALS: BP 132/88
== END 2021-11-05 13:40 | disposition home or self-care (01) ==
LOC: M SDC 08:40
PROVIDERS: ATTEND Urology
DX: N32.0 Bladder-neck obstruction (principal); R33.8 Other retention of urine; N40.1 Benign prostatic hyperplasia with lower urinary tract symptoms; G40.301 Generalized idiopathic epilepsy and epileptic syndromes, not intractable, with status epilepticus; I11.9 Hypertensive heart disease without heart failure; E78.5 Hyperlipidemia, unspecified; R51.9 Headache, unspecified; M79.2 Neuralgia and neuritis, unspecified; Z87.891 Personal history of nicotine dependence; M19.90 Unspecified osteoarthritis, unspecified site; Z79.899 Other long term (current) drug therapy
CPT/HCPCS: 52500; J0131; J0690; J1100; J1956; J2250; J2405; J3010